=== PATIENT | male | born 1930 | race Caucasian/White ===

== ENCOUNTER 2016-08-28 14:48 | Inpatient (IN) | payer OTHER ==
[~2016-08-28] VITALS: Ht 180.3 cm; Wt 125.4 kg
[2016-08-28 16:30] VITALS: BP 147/68
[2016-08-28] MEDS ORDERED: 0.9 % SODIUM CHLORIDE 10 ML DISP.SYRIN. IV PRN (17:30)
[2016-08-28] MEDS ORDERED: INSULIN ASPART 300 UNITS/3 ML INSULN.PEN SQ ONE ×2 (17:45→18:45)
[2016-08-28] MEDS ORDERED: DOCU100C5 PO (17:50)
[2016-08-28] MEDS ORDERED: WARF1TAB7 PO ×2 (17:50)
[2016-08-28] MEDS ORDERED: INSU100V8 SQ (17:50)
[2016-08-28] MEDS ORDERED: ACET500T68 PO (17:50)
[2016-08-28] MEDS ORDERED: IPRA3AMP NEB (17:50)
[2016-08-28] MEDS ORDERED: BACI3.5O4 OP (17:50)
[2016-08-28] MEDS ORDERED: BUDE10.2 IH (17:50)
[2016-08-28] MEDS ORDERED: FINA5TAB4 PO (17:50)
[2016-08-28] MEDS ORDERED: ISOS20TA2 PO (17:50)
[2016-08-28] MEDS ORDERED: FURO40TA4 PO (17:50)
[2016-08-28] MEDS ORDERED: AMMO225L5 TP (17:50)
[2016-08-28] MEDS ORDERED: LOSA50TA6 PO (17:50)
[2016-08-28] MEDS ORDERED: DORZ10DR3 EACHEYE (17:50)
[2016-08-28] MEDS ORDERED: METO50TA2 PO (17:50)
[2016-08-28] MEDS ORDERED: CARB15DR3 EACHEYE (17:50)
[2016-08-28] MEDS ORDERED: ATOR20TA58 PO (17:50)
[2016-08-28] MEDS ORDERED: INSU100I17 SQ ×2 (17:50)
[2016-08-28] MEDS ORDERED: TAMS0.4C2 PO (17:50)
[2016-08-28] MEDS ORDERED: [UNRECOGNIZED DRUG - CODE] TP (17:50)
[2016-08-28] MEDS ORDERED: CHOL20004 PO (17:50)
[2016-08-28] MEDS ORDERED: IMIQ1CRE TP (17:50)
[2016-08-28] MEDS ORDERED: TRAV5DRO EACHEYE (17:50)
[2016-08-28] MEDS ORDERED: IODOQUINOL TP PRN (18:30)
[2016-08-28] MEDS ORDERED: BACITRACIN/POLYMYXIN B OPHTH OINTMENT 3.5GM TUBE. OD PRN (18:30)
[2016-08-28] MEDS ORDERED: HYDROCORTISONE TP PRN (18:30)
[2016-08-28] MEDS ORDERED: ACETAMINOPHEN 500 MG TABLET PO PRN (18:30)
[2016-08-28] MEDS ORDERED: AMMONIUM LACTATE 12% TP PRN (18:30)
[2016-08-28] MEDS ORDERED: INSULIN ASPART 300 UNITS/3 ML INSULN.PEN SQ SCH ×2 (18:45→21:00)
[2016-08-28] MEDS: INSULIN ASPART 300 UNITS/3 ML INSULN.PEN SQ SCH (18:45)
[2016-08-28] MEDS ORDERED: DEXTROSE 50% 25 GM / 50ML DISP.SYRIN. IV PRN (18:45)
--- NOTE | 2016-08-28 18:52 | PDOC1 ---
History and Physical Date of Admission Date of Admission DATE: 08/28/16 TIME: 18:42 Identification/Chief Complaint Chief Complaint toe ulcer Source Source: Chart review, Patient History of Present Illness History of Present Illness pt transferred from [facility] today, sent by podiatry for eval, prior known toe ulcers that have been seen by wound care, and have worsened, with poor potential to heal toe with poor cap refill and more blue in hue, cool to touch. Toe ulcer on left great toe that would appear to extend to osteo by photos. KATY has worsened on left to 0.5 ulcer on base of right toe appears to be healing no worsening LE edema, and he feels he has been getting around well Past Medical History Cardiovascular: AFIB, CAD, CHF, HTN Pulmonary: COPD Hepatobiliary: No pertinent hx Musculoskeletal: low back pain Rheumatologic: No pertinent hx ENT: No pertinent hx Renal/: Benign prostatic enlarg. Endocrine: Diabetes Family History Family History lives with his ex- currently Social History Smoke: No ALCOHOL: none Drugs: None Current Medications Current Medications Current Medications Sodium Chloride (Normal Saline Flush) 3 ml PRN DAILY PRN IV AFTER MEDS AND BLOOD DRAWS; Start 08/28/16 at 17:30 Insulin Aspart (Novolog) 15 units 1X ONCE SQ Last administered on 08/28/16t 18: 12; Start 08/28/16 at 17:45; Stop 08/28/16 at 17:46; Status DC Active Scripts Active Reported Docusate Sodium 100 Mg Capsule 1 Cap PO BID Acetaminophen 500 Mg Tablet 1 Tab PO PRN DAILY PRN Novolog Flexpen (Insulin Aspart) 100 Unit/1 Ml Insuln.pen 28 Unit SQ DAILYWSUP Novolog Flexpen (Insulin Aspart) 100 Unit/1 Ml Insuln.pen 10 Unit SQ Warfarin Sodium 1 Mg Tablet 1 Mg PO WEEKLY Warfarin Sodium 1 Mg Tablet 1 Mg PO DAILY Travatan Z (Travoprost) 5 Ml Drops 1 Drop EACHEYE QHS Tamsulosin Hcl 0.4 Mg Cap.er.24h 2 Cap PO DAILY Metoprolol Tartrate 50 Mg Tablet 1 Tab PO BID Losartan Potassium 50 Mg Tablet 50 Mg PO DAILY Isosorbide Mononitrate 20 Mg Tablet 30 Mg PO DAILY Lantus (Insulin Glargine,Hum.rec.anlog) 100 Unit/1 Ml Vial 72 Unit SQ HS Imiquimod 1 Each Cream.pack 1 Each TP 3X/WEEK Hydrocortisone-Iodoquinol Crm (Hydrocortisone/Iodoquinol) 28.4 Gm Cream..g. 28.4 Gm TP PRN BID PRN Furosemide 40 Mg Tablet 1 Tab PO DAILY Finasteride 5 Mg Tablet 1 Tab PO DAILY Dorzolamide Hcl 10 Ml Drops 1 Drop EACHEYE TID Vitamin D-3 (Cholecalciferol (Vitamin D3)) 2,000 Unit Capsule 1,000 Unit PO DAILY Refresh Optive Eye Drops (Carboxymethylcellulos/Glycerin) 15 Ml Drops 1 Drop EACHEYE QID Symbicort 160-4.5 Mcg Inhaler (Budesonide/Formoterol Fumarate) 10.2 Gm Hfa.aer.ad 2 Puff IH BID Bacitracin-Polymyxin Eye Oint (Bacitracin/Polymyxin B Sulfate) 3.5 Gm Oint...g. 3.5 Gm OP PRN DAILY PRN Atorvastatin Calcium 20 Mg Tablet 20 Mg PO HS Ammonium Lactate 225 Gm Lotion 225 Gm TP HS PRN Duoneb 0.5-3(2.5) Mg/3 Ml (Albuterol/Ipratropium) 3 Ml Ampul.neb 3 Ml NEB QID Allergies Allergies: Coded Allergies: beclomethasone (Verified Allergy, Unknown, 08/28/16) latanoprost (Verified Allergy, Unknown, 08/28/16) lisinopril (Verified Allergy, Unknown, 08/28/16) lovastatin (Verified Allergy, Unknown, 08/28/16) niacin (Verified Allergy, Unknown, 08/28/16) oxaprozin (Verified Allergy, Unknown, 08/28/16) sertraline (Verified Allergy, Unknown, 08/28/16) simvastatin (Verified Allergy, Unknown, 08/28/16) ROS General: YES: Fatigue, No: Appetite, Chills, Malaise, Night Sweats, Other PSYCHOLOGICAL ROS: No: Anxiety, Behavioral Disorder, Concentration difficultie , Decreased libido, Depression, Disorientation, Hallucinations, Hostility, Irritablity, Memory difficulties, Mood Swings, Obsessive thoughts, Other, Physical abuse, Sexual abuse, Sleep disturbances, Suicidal ideation Eyes: No Blurry vision, No Decreased vision, No Double vision, No Dry eyes, No Excessive tearing, No Eye Pain, No Itchy Eyes, No Loss of vision, No Other, No Photophobia, No Scotomata, No Uses contacts, No Uses glasses HEENT: YES: Heacaches, No: Epistaxis, Hearing change, Nasal congestion, Nasal discharge, Oral lesions, Other, Sinus pain, Sneezing, Snoring, Sore Throat, Tinnitus, Vertigo, Visual Changes, Vocal changes Respiratory: No: Cough, Hemoptysis, Orthopnea, Other, Pleuritic Pain, SOB with excertion, Shortness of breath, Sputum Changes, Stridor, Tachypnea, Wheezing Cardiovascular: No Chest Pain, No Edema, No Lt Headedness, No Orthopnea, No Other, No Palpitations, No Paroxysmal Noc. Dyspnea Gastrointestinal: Yes Nausea, No Abdominal Pain, No Constipation, No Diarrhea, No Hematochezia, No Melena, No Other, No Vomiting Genitourinary: No , No , No , No , No , No , No , No Discharge, No Dysuria, No Flank Pain, No Frequency, No Hematuria, No Incontinence, No Other, No Pain, No Retention, No Urgency Musculoskeletal: Yes Joint Pain, Yes Joint Stiffness, Yes Other (walks with cane, "OK"), No Gait Disturbance, No Joint Swelling, No Muscle Pain, No Muscular Weakness , No Pain In:, No Swelling In: Neurological: No Behavorial Changes, No Bowel/Bladder ControlChng, No Confusion , No Dizziness, No Gait Disturbance, No Headaches, No Impaired Coord/balance, No Memory Loss, No Numbness/Tingling, No Other, No Seizures, No Speech Problems , No Tremors, No Visual Changes, No Weakness Skin: No Acne, No Dry Skin, No Eczema, No Hair Changes, No Lumps, No Mole Changes, No Mottling, No Nail Changes, No Other, No Pruritus, No Rash, No Skin Lesion Changes Physical Exam General: Alert, Cooperative, No acute distress HEENT: Atraumatic, PERRLA, EOMI Lungs: Clear to auscultation, Other (limited vol) Abdomen: Normal bowel sounds, Soft (obese) Rectal Exam: not examined Extremities: Normal pulses, Other (chronic sclerosis of skin pretibial, 1+ edema, ) Neuro: Normal speech, Normal tone, Other (diminished sensation to toes, ) Psych/Mental Status: Mental status NL, Mood NL Vitals Vitals Vital Signs Date Time Temp Pulse Resp B/P Pulse Ox O2 Delivery O2 Flow Rate FiO2 08/28/16 16:30 99.5 77 16 147/68 95 Room Air 99.5 Labs Labs Laboratory Tests Test 08/28/16 16:46 08/28/16 18:34 Glucose (Fingerstick) 449mg/dL (70-99) 455mg/dL (70-99) Laboratory Tests Test 08/28/16 16:46 08/28/16 18:34 Glucose (Fingerstick) 449mg/dL (70-99) 455mg/dL (70-99) VTE Prophylaxis Ordered VTE Prophylaxis Devices: No VTE Pharmacological Prophylaxi: Yes (on coumadin on admit, will hold) Assessment/Plan Assessment/Plan DM2 ulcer left great toe, osteomyelitis sent to ER at [facility] by Podiatry, vascular compromise precludes toe amputation, ability to heal KATY done there was 0.5 both sides per verbal report CHF, chronic stable diastolic, cont b-júnior and ARB afib, Dm2, very poor control FSBS 400 range, increase insulin, additional dose, add SSI, will follow obesity, BMI 37 COPD, stable, nebs BPH, finasteride, flomax CKD 3-4, 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 labs pending CHRISTAL CHOI MD Aug 28, 2016 18:52
[2016-08-28 19:00] VITALS: BP 131/50
--- NOTE | 2016-08-28 19:04 | PDOC2 ---
CONSULT Date of Consult Date of Consult DATE: 08/28/16 TIME: 18:57 Past Medical History Cardiovascular: AFIB, CAD, CHF, HTN Pulmonary: COPD Hepatobiliary: No pertinent hx Musculoskeletal: low back pain Rheumatologic: No pertinent hx ENT: No pertinent hx Renal/: Benign prostatic enlarg. Endocrine: Diabetes Social History No ALCOHOL: none Drugs: None Current Medications Current Medications Current Medications Sodium Chloride (Normal Saline Flush) 3 ml PRN DAILY PRN IV AFTER MEDS AND BLOOD DRAWS; Start 08/28/16 at 17:30 Insulin Aspart (Novolog) 15 units 1X ONCE SQ Last administered on 08/28/16t 18: 12; Start 08/28/16 at 17:45; Stop 08/28/16 at 17:46; Status DC Acetaminophen (Tylenol) 500 mg PRN DAILY PRN PO PAIN; Start 08/28/16 at 18:30 Lactic Acid (Lac-Hydrin) 1 monica PRN QHS PRN TP DRY SKIN; Start 08/28/16 at 18:30 Atorvastatin Calcium (Lipitor) 20 mg HS PO ; Start 08/28/16 at 21:00 Bacitracin/ Polymyxin B Sulfate (Polysporin Ophth) 1 inch PRN DAILY PRN OD BLEPHARITIS; Start 08/28/16 at 18:30 Docusate Sodium (Colace) 100 mg BID PO ; Start 08/28/16 at 21:00 Dorzolamide HCl (Trusopt) 1 drop TID OU ; Start 08/28/16 at 21:00 Finasteride (Proscar) 5 mg DAILY PO ; Start 08/29/16 at 09:00 Furosemide (Lasix) 40 mg DAILY PO ; Start 08/29/16 at 09:00 Insulin Aspart (Novolog) 10 units TID SQ ; Start 08/28/16 at 21:00; Stop 08/28/16 at 21:00; Status DC Insulin Aspart (Novolog) 28 units DAILYWSUP SQ ; Start 08/28/16 at 18:45; Stop at 18:45; Status DC Albuterol/ Ipratropium (Duoneb) 3 ml RTQID NEB ; Start 08/28/16 at 20:00 Isosorbide Mononitrate (Imdur) 30 mg DAILY PO ; Start 08/29/16 at 09:00 Losartan Potassium (Cozaar) 50 mg DAILY PO ; Start 08/29/16 at 09:00 Metoprolol Tartrate (Lopressor) 50 mg BID PO ; Start 08/28/16 at 21:00 Tamsulosin HCl (Flomax) 0.4 mg DAILY PO ; Start 08/29/16 at 09:00 Budesonide (Pulmicort) 0.5 mg RTBID NEB ; Start 08/28/16 at 20:00 Artificial Tears (Artificial Tears) 1 drop QID OU ; Start 08/28/16 at 21:00 Vitamin D (Vitamin D3) 1,000 unit DAILY PO ; Start 08/29/16 at 09:00 Non-Formulary Medication 28.4 gm PRN BID PRN TP INTERTRIGO; Start 08/28/16 at 18 :30; Status UNV Non-Formulary Medication 72 unit HS SQ ; Start 08/28/16 at 21:00; Stop 08/28/16 at 21:00; Status DC Non-Formulary Medication 1 drop QHS EACHEYE ; Start 08/28/16 at 21:00; Status UNV Insulin Aspart (Novolog) 16 units TIDWMEALS SQ ; Start 08/29/16 at 08:00; Stop at 08:00; Status DC Insulin Aspart (Novolog) 0-9 UNITS TIDWMEALS SQ ; Start 08/28/16 at 18:45 Dextrose 12.5 gm PRN Q15MIN PRN IV SEE COMMENTS; Start 08/28/16 at 18:45 Insulin Aspart (Novolog) 26 units 1X ONCE SQ Last administered on 08/28/16t 18: 47; Start 08/28/16 at 18:45; Stop 08/28/16 at 18:46; Status DC Insulin Detemir (Levemir) 72 units QHS SQ ; Start 08/28/16 at 21:00 Insulin Aspart (Novolog) 20 units TIDWMEALS SQ ; Start 08/29/16 at 08:00 Albuterol/ Ipratropium (Duoneb) 3 ml RTQID NEB ; Start 08/28/16 at 20:00; Stop at 20:00; Status DC Budesonide (Pulmicort) 0.5 mg RTBID NEB ; Start 08/28/16 at 20:00; Stop 08/28/16 at 20:00; Status DC Active Scripts Active Reported Docusate Sodium 100 Mg Capsule 1 Cap PO BID Acetaminophen 500 Mg Tablet 1 Tab PO PRN DAILY PRN Novolog Flexpen (Insulin Aspart) 100 Unit/1 Ml Insuln.pen 28 Unit SQ DAILYWSUP Novolog Flexpen (Insulin Aspart) 100 Unit/1 Ml Insuln.pen 10 Unit SQ Warfarin Sodium 1 Mg Tablet 1 Mg PO WEEKLY Warfarin Sodium 1 Mg Tablet 1 Mg PO DAILY Travatan Z (Travoprost) 5 Ml Drops 1 Drop EACHEYE QHS Tamsulosin Hcl 0.4 Mg Cap.er.24h 2 Cap PO DAILY Metoprolol Tartrate 50 Mg Tablet 1 Tab PO BID Losartan Potassium 50 Mg Tablet 50 Mg PO DAILY Isosorbide Mononitrate 20 Mg Tablet 30 Mg PO DAILY Lantus (Insulin Glargine,Hum.rec.anlog) 100 Unit/1 Ml Vial 72 Unit SQ HS Imiquimod 1 Each Cream.pack 1 Each TP 3X/WEEK Hydrocortisone-Iodoquinol Crm (Hydrocortisone/Iodoquinol) 28.4 Gm Cream..g. 28.4 Gm TP PRN BID PRN Furosemide 40 Mg Tablet 1 Tab PO DAILY Finasteride 5 Mg Tablet 1 Tab PO DAILY Dorzolamide Hcl 10 Ml Drops 1 Drop EACHEYE TID Vitamin D-3 (Cholecalciferol (Vitamin D3)) 2,000 Unit Capsule 1,000 Unit PO DAILY Refresh Optive Eye Drops (Carboxymethylcellulos/Glycerin) 15 Ml Drops 1 Drop EACHEYE QID Symbicort 160-4.5 Mcg Inhaler (Budesonide/Formoterol Fumarate) 10.2 Gm Hfa.aer.ad 2 Puff IH BID Bacitracin-Polymyxin Eye Oint (Bacitracin/Polymyxin B Sulfate) 3.5 Gm Oint...g. 3.5 Gm OP PRN DAILY PRN Atorvastatin Calcium 20 Mg Tablet 20 Mg PO HS Ammonium Lactate 225 Gm Lotion 225 Gm TP HS PRN Duoneb 0.5-3(2.5) Mg/3 Ml (Albuterol/Ipratropium) 3 Ml Ampul.neb 3 Ml NEB QID Allergies Allergies: Coded Allergies: beclomethasone (Verified Allergy, Unknown, 08/28/16) latanoprost (Verified Allergy, Unknown, 08/28/16) lisinopril (Verified Allergy, Unknown, 08/28/16) lovastatin (Verified Allergy, Unknown, 08/28/16) niacin (Verified Allergy, Unknown, 08/28/16) oxaprozin (Verified Allergy, Unknown, 08/28/16) sertraline (Verified Allergy, Unknown, 08/28/16) simvastatin (Verified Allergy, Unknown, 08/28/16) Vitals VITALS Vital Signs Date Time Temp Pulse Resp B/P Pulse Ox O2 Delivery O2 Flow Rate FiO2 08/28/16 16:30 99.5 77 16 147/68 95 Room Air 99.5 Labs Labs Laboratory Tests Test 08/28/16 16:46 08/28/16 18:34 Glucose (Fingerstick) 449mg/dL (70-99) 455mg/dL (70-99) Laboratory Tests Test 08/28/16 16:46 08/28/16 18:34 Glucose (Fingerstick) 449mg/dL (70-99) 455mg/dL (70-99) Assessment/Plan Assessment/Plan Vascular consult to be dictated Imp: 1. osteomyelitis left great toe, 2 week hx of nonhealing ulceration now with worsening erythema 2. DM 3. chronic renal insufficiency, Cr 2.1 4. arterial insufficiency both lower extremities Rec: 1. IV antibx per infectious disease 2. nephrology consult 3. aortogram with runoff, CO2, bilateral when able, possible percutaneous intervention 4. will need ray amp right great toe following revascularization. Discussed plan with pt and family. KSENIA VARGAS II, MD Aug 28, 2016 19:03
[2016-08-28 19:30] LABS: BASO # 0.1 x10^3/uL (0.0-0.2); BASO % 1 % (0-3); EOS % 0 % (0-3); HEMATOCRIT 42.2 % (39.0-53.0); HEMOGLOBIN 13.6 g/dL (13.0-17.5); LYMPH # 0.7 x10^3/uL (1.0-4.8); LYMPH % 8 % (24-48); MEAN CORPUSCULAR HEMOGLOBIN 29 pg (25-35); MEAN CORPUSCULAR HGB CONC 32 g/dL (31-37); MEAN CORPUSCULAR VOLUME 89 fL (79-100); MONO % 14 % (0-9); NEUT % 78 % (31-73); PLATELET COUNT 191 x10^3/uL (140-400); RED BLOOD COUNT 4.73 x10^6/uL (4.30-5.70); RED CELL DISTRIBUTION WIDTH 15.5 % (11.5-14.5); WHITE BLOOD COUNT 8.9 x10^3/uL (4.0-11.0)
[2016-08-28 19:39] LABS: INR 2.3 (0.8-1.1); PROTHROMBIN TIME PATIENT 24.1 SEC (11.7-14.0)
[2016-08-28 19:47] LABS: ALBUMIN 2.5 g/dL (3.4-5.0); ALBUMIN/GLOBULIN RATIO 0.5 (1.0-1.7); CREATININE 2.1 mg/dL (0.7-1.3); GFR 30.1; POTASSIUM 4.4 mmol/L (3.5-5.1); TOTAL BILIRUBIN 0.7 mg/dL (0.2-1.0); TOTAL PROTEIN 7.1 g/dL (6.4-8.2)
[2016-08-28] MEDS ORDERED: BUDESONIDE 0.5 MG/2 ML NEBU NEB SCH (20:00)
[2016-08-28] MEDS ORDERED: IPRATRPIUM/ALBUTEROL 0.5/2.5MG 3 ML NEBU. NEB SCH (20:00)
[2016-08-28] MEDS: BUDESONIDE 0.5 MG/2 ML NEBU NEB SCH (20:18)
[2016-08-28] MEDS: IPRATRPIUM/ALBUTEROL 0.5/2.5MG 3 ML NEBU. NEB SCH (20:18)
--- NOTE | 2016-08-28 20:23 | PDOC2 ---
CONSULT Date of Consult Date of Consult DATE: 08/28/16 TIME: 20:13 Reason for Consult Reason for Consult: Atrial fibrillation Referring Physician Referring Physician: Dr. Reeves Identification/Chief Complaint Chief Complaint Infected toe History of Present Illness Reason for Visit: This patient is an 86-year-old gentleman that has a known history of paroxysmal atrial fibrillation, coronary artery disease, bradycardia, status post pacemaker , CHF, COPD. He has been having chronic leg edema for over 3 years this has been getting worse. The patient was seen at the [facility] due to an acute infection of a toe. When he was evaluated there he was then transferred here for further care. Here he is being evaluated by infectious disease, nephrology, vascular surgery. The patient is in atrial fibrillation and denies having any significant cardiac complaints at this time. He was found to have an ischemic infected toe and is being evaluated for possible amputation but due to the poor circulation to the affected he needs further vascular evaluation to decide as to where the amputation is going to take place with regards to an area that would be able to heal. The patient denies having any chest pains, denies having any palpitations, denies having any syncope. He is very weak and requires a cane to walk. The patient states that he has a [employer] pacemaker. Past Medical History Cardiovascular: AFIB, CAD, CHF, HTN Pulmonary: COPD Hepatobiliary: No pertinent hx Musculoskeletal: low back pain Rheumatologic: No pertinent hx ENT: No pertinent hx Renal/: Benign prostatic enlarg. Endocrine: Diabetes Social History No ALCOHOL: none Drugs: None Current Medications Current Medications Current Medications Sodium Chloride (Normal Saline Flush) 3 ml PRN DAILY PRN IV AFTER MEDS AND BLOOD DRAWS; Start 08/28/16 at 17:30 Insulin Aspart (Novolog) 15 units 1X ONCE SQ Last administered on 08/28/16t 18: 12; Start 08/28/16 at 17:45; Stop 08/28/16 at 17:46; Status DC Acetaminophen (Tylenol) 500 mg PRN DAILY PRN PO PAIN; Start 08/28/16 at 18:30 Lactic Acid (Lac-Hydrin) 1 monica PRN QHS PRN TP DRY SKIN; Start 08/28/16 at 18:30 Atorvastatin Calcium (Lipitor) 20 mg HS PO ; Start 08/28/16 at 21:00 Bacitracin/ Polymyxin B Sulfate (Polysporin Ophth) 1 inch PRN DAILY PRN OD BLEPHARITIS; Start 08/28/16 at 18:30 Docusate Sodium (Colace) 100 mg BID PO ; Start 08/28/16 at 21:00 Dorzolamide HCl (Trusopt) 1 drop TID OU ; Start 08/28/16 at 21:00 Finasteride (Proscar) 5 mg DAILY PO ; Start 08/29/16 at 09:00 Furosemide (Lasix) 40 mg DAILY PO ; Start 08/29/16 at 09:00 Insulin Aspart (Novolog) 10 units TID SQ ; Start 08/28/16 at 21:00; Stop 08/28/16 at 21:00; Status DC Insulin Aspart (Novolog) 28 units DAILYWSUP SQ ; Start 08/28/16 at 18:45; Stop at 18:45; Status DC Albuterol/ Ipratropium (Duoneb) 3 ml RTQID NEB ; Start 08/28/16 at 20:00 Isosorbide Mononitrate (Imdur) 30 mg DAILY PO ; Start 08/29/16 at 09:00 Losartan Potassium (Cozaar) 50 mg DAILY PO ; Start 08/29/16 at 09:00 Metoprolol Tartrate (Lopressor) 50 mg BID PO ; Start 08/28/16 at 21:00 Tamsulosin HCl (Flomax) 0.4 mg DAILY PO ; Start 08/29/16 at 09:00 Budesonide (Pulmicort) 0.5 mg RTBID NEB ; Start 08/28/16 at 20:00 Artificial Tears (Artificial Tears) 1 drop QID OU ; Start 08/28/16 at 21:00 Vitamin D (Vitamin D3) 1,000 unit DAILY PO ; Start 08/29/16 at 09:00 Non-Formulary Medication 28.4 gm PRN BID PRN TP INTERTRIGO; Start 08/28/16 at 18 :30; Status UNV Non-Formulary Medication 72 unit HS SQ ; Start 08/28/16 at 21:00; Stop 08/28/16 at 21:00; Status DC Non-Formulary Medication 1 drop QHS EACHEYE ; Start 08/28/16 at 21:00; Status UNV Insulin Aspart (Novolog) 16 units TIDWMEALS SQ ; Start 08/29/16 at 08:00; Stop at 08:00; Status DC Insulin Aspart (Novolog) 0-9 UNITS TIDWMEALS SQ ; Start 08/28/16 at 18:45 Dextrose 12.5 gm PRN Q15MIN PRN IV SEE COMMENTS; Start 08/28/16 at 18:45 Insulin Aspart (Novolog) 26 units 1X ONCE SQ Last administered on 08/28/16t 18: 47; Start 08/28/16 at 18:45; Stop 08/28/16 at 18:46; Status DC Insulin Detemir (Levemir) 72 units QHS SQ ; Start 08/28/16 at 21:00 Insulin Aspart (Novolog) 20 units TIDWMEALS SQ ; Start 08/29/16 at 08:00 Albuterol/ Ipratropium (Duoneb) 3 ml RTQID NEB ; Start 08/28/16 at 20:00; Stop at 20:00; Status DC Budesonide 0.5 mg 0.5 mg RTBID NEB ; Start 08/28/16 at 20:00; Stop 08/28/16 at 20: 00; Status DC Linezolid 300 ml @ 300 mls/hr Q12HR IV ; Start 08/28/16 at 21:00 Piperacillin Sod/ Tazobactam Sod 2.25 gm/Sodium Chloride 50 ml @ 100 mls/hr Q6HRS IV ; Start 08/29/16 at 20:00; Stop 08/29/16 at 20:00; Status DC Micafungin Sodium 100 mg/Dextrose 100 ml @ 100 mls/hr Q24H IV ; Start 08/28/16 at 22:00 Piperacillin Sod/ Tazobactam Sod/ Sodium Chloride (Zosyn/Iv Sodium Chloride 0.9 % 50ml) 50 ml @ 100 mls/hr Q6HRS IV ; Start 08/28/16 at 20:00 Active Scripts Active Reported Docusate Sodium 100 Mg Capsule 1 Cap PO BID Acetaminophen 500 Mg Tablet 1 Tab PO PRN DAILY PRN Novolog Flexpen (Insulin Aspart) 100 Unit/1 Ml Insuln.pen 28 Unit SQ DAILYWSUP Novolog Flexpen (Insulin Aspart) 100 Unit/1 Ml Insuln.pen 10 Unit SQ Warfarin Sodium 1 Mg Tablet 1 Mg PO WEEKLY Warfarin Sodium 1 Mg Tablet 1 Mg PO DAILY Travatan Z (Travoprost) 5 Ml Drops 1 Drop EACHEYE QHS Tamsulosin Hcl 0.4 Mg Cap.er.24h 2 Cap PO DAILY Metoprolol Tartrate 50 Mg Tablet 1 Tab PO BID Losartan Potassium 50 Mg Tablet 50 Mg PO DAILY Isosorbide Mononitrate 20 Mg Tablet 30 Mg PO DAILY Lantus (Insulin Glargine,Hum.rec.anlog) 100 Unit/1 Ml Vial 72 Unit SQ HS Imiquimod 1 Each Cream.pack 1 Each TP 3X/WEEK Hydrocortisone-Iodoquinol Crm (Hydrocortisone/Iodoquinol) 28.4 Gm Cream..g. 28.4 Gm TP PRN BID PRN Furosemide 40 Mg Tablet 1 Tab PO DAILY Finasteride 5 Mg Tablet 1 Tab PO DAILY Dorzolamide Hcl 10 Ml Drops 1 Drop EACHEYE TID Vitamin D-3 (Cholecalciferol (Vitamin D3)) 2,000 Unit Capsule 1,000 Unit PO DAILY Refresh Optive Eye Drops (Carboxymethylcellulos/Glycerin) 15 Ml Drops 1 Drop EACHEYE QID Symbicort 160-4.5 Mcg Inhaler (Budesonide/Formoterol Fumarate) 10.2 Gm Hfa.aer.ad 2 Puff IH BID Bacitracin-Polymyxin Eye Oint (Bacitracin/Polymyxin B Sulfate) 3.5 Gm Oint...g. 3.5 Gm OP PRN DAILY PRN Atorvastatin Calcium 20 Mg Tablet 20 Mg PO HS Ammonium Lactate 225 Gm Lotion 225 Gm TP HS PRN Duoneb 0.5-3(2.5) Mg/3 Ml (Albuterol/Ipratropium) 3 Ml Ampul.neb 3 Ml NEB QID Allergies Allergies: Coded Allergies: beclomethasone (Verified Allergy, Unknown, 08/28/16) latanoprost (Verified Allergy, Unknown, 08/28/16) lisinopril (Verified Allergy, Unknown, 08/28/16) lovastatin (Verified Allergy, Unknown, 08/28/16) niacin (Verified Allergy, Unknown, 08/28/16) oxaprozin (Verified Allergy, Unknown, 08/28/16) sertraline (Verified Allergy, Unknown, 08/28/16) simvastatin (Verified Allergy, Unknown, 08/28/16) Physical Exam Physical Exam This is an elderly gentleman that is not in acute distress at the time that I examined him. H EENT pupils are reactive, poor dentition. Neck is supple no JVD. Lungs are clear but breath sounds are decreased. Heart irregularly irregular S1-S2. Abdomen is protuberant but soft bowel sounds are present. Extremities there is advanced chronic stasis changes of both legs the right leg worse than the left leg and his get a dressing over the toe area. Vitals VITALS Vital Signs Date Time Temp Pulse Resp B/P Pulse Ox O2 Delivery O2 Flow Rate FiO2 08/28/16 16:30 99.5 77 16 147/68 95 Room Air 99.5 Labs Labs Laboratory Tests Test 08/28/16 16:46 08/28/16 18:34 08/28/16 18:55 Glucose (Fingerstick) 449mg/dL (70-99) 455mg/dL (70-99) White Blood Count 8.9x10^3/uL (4.0-11.0) Red Blood Count 4.73x10^6/uL (4.30-5.70) Hemoglobin 13.6g/dL (13.0-17.5) Hematocrit 42.2% (39.0-53.0) Mean Corpuscular Volume 89fL (79-100) Mean Corpuscular Hemoglobin 29pg (25-35) Mean Corpuscular Hemoglobin Concent 32g/dL (31-37) Red Cell Distribution Width 15.5% (11.5-14.5) Platelet Count 191x10^3/uL (140-400) Neutrophils (%) (Auto) 78% (31-73) Lymphocytes (%) (Auto) 8% (24-48) Monocytes (%) (Auto) 14% (0-9) Eosinophils (%) (Auto) 0% (0-3) Basophils (%) (Auto) 1% (0-3) Neutrophils # (Auto) 7.0x10^3uL (1.8-7.7) Lymphocytes # (Auto) 0.7x10^3/uL (1.0-4.8) Monocytes # (Auto) 1.2x10^3/uL (0.0-1.1) Eosinophils # (Auto) 0.0x10^3/uL (0.0-0.7) Basophils # (Auto) 0.1x10^3/uL (0.0-0.2) Prothrombin Time 24.1SEC (11.7-14.0) Prothromb Time International Ratio 2.3 (0.8-1.1) Sodium Level 135mmol/L (136-145) Potassium Level 4.4mmol/L (3.5-5.1) Chloride Level 97mmol/L (98-107) Carbon Dioxide Level 31mmol/L (21-32) Anion Gap 7 (6-14) Blood Urea Nitrogen 47mg/dL (8-26) Creatinine 2.1mg/dL (0.7-1.3) Estimated GFR (Cockcroft-Gault) 30.1 BUN/Creatinine Ratio 22 (6-20) Glucose Level 476mg/dL (70-99) Calcium Level 9.0mg/dL (8.5-10.1) Total Bilirubin 0.7mg/dL (0.2-1.0) Aspartate Amino Transf (AST/SGOT) 24U/L (15-37) Alanine Aminotransferase (ALT/SGPT) 22U/L (16-63) Alkaline Phosphatase 90U/L (46-116) Total Protein 7.1g/dL (6.4-8.2) Albumin 2.5g/dL (3.4-5.0) Albumin/Globulin Ratio 0.5 (1.0-1.7) Laboratory Tests Test 08/28/16 16:46 08/28/16 18:34 08/28/16 18:55 Glucose (Fingerstick) 449mg/dL (70-99) 455mg/dL (70-99) White Blood Count 8.9x10^3/uL (4.0-11.0) Red Blood Count 4.73x10^6/uL (4.30-5.70) Hemoglobin 13.6g/dL (13.0-17.5) Hematocrit 42.2% (39.0-53.0) Mean Corpuscular Volume 89fL (79-100) Mean Corpuscular Hemoglobin 29pg (25-35) Mean Corpuscular Hemoglobin Concent 32g/dL (31-37) Red Cell Distribution Width 15.5% (11.5-14.5) Platelet Count 191x10^3/uL (140-400) Neutrophils (%) (Auto) 78% (31-73) Lymphocytes (%) (Auto) 8% (24-48) Monocytes (%) (Auto) 14% (0-9) Eosinophils (%) (Auto) 0% (0-3) Basophils (%) (Auto) 1% (0-3) Neutrophils # (Auto) 7.0x10^3uL (1.8-7.7) Lymphocytes # (Auto) 0.7x10^3/uL (1.0-4.8) Monocytes # (Auto) 1.2x10^3/uL (0.0-1.1) Eosinophils # (Auto) 0.0x10^3/uL (0.0-0.7) Basophils # (Auto) 0.1x10^3/uL (0.0-0.2) Prothrombin Time 24.1SEC (11.7-14.0) Prothromb Time International Ratio 2.3 (0.8-1.1) Sodium Level 135mmol/L (136-145) Potassium Level 4.4mmol/L (3.5-5.1) Chloride Level 97mmol/L (98-107) Carbon Dioxide Level 31mmol/L (21-32) Anion Gap 7 (6-14) Blood Urea Nitrogen 47mg/dL (8-26) Creatinine 2.1mg/dL (0.7-1.3) Estimated GFR (Cockcroft-Gault) 30.1 BUN/Creatinine Ratio 22 (6-20) Glucose Level 476mg/dL (70-99) Calcium Level 9.0mg/dL (8.5-10.1) Total Bilirubin 0.7mg/dL (0.2-1.0) Aspartate Amino Transf (AST/SGOT) 24U/L (15-37) Alanine Aminotransferase (ALT/SGPT) 22U/L (16-63) Alkaline Phosphatase 90U/L (46-116) Total Protein 7.1g/dL (6.4-8.2) Albumin 2.5g/dL (3.4-5.0) Albumin/Globulin Ratio 0.5 (1.0-1.7) Assessment/Plan Assessment/Plan This patient with a known history of paroxysmal atrial fibrillation that has chronic CHF comes in with an ischemic infected toe that we will need amputation. I agree with a vascular evaluation to determine the point of amputation at a site where that foot would heal. From a cardiac standpoint I would like to get an echocardiogram to evaluate the patient's left ventricular function and also I would like to evaluate the pacemaker both the function as well as the histogram to see what his rhythm has been doing. I have discussed this with the patient and the family that was present. Thank you very much for asking me to participate in the care of this patient JOCELINE JAIME MD Aug 28, 2016 20:23
[2016-08-28] MEDS: TRAVATAN Z EYE EACHEYE SCH (21:00)
[2016-08-28] MEDS ORDERED: INSULIN GLARGINE HUM REC ANLOG 72 UNIT SQ SCH (21:00)
[2016-08-28] MEDS: PIPERACILLIN/TAZOBACTAM 2.25 GM in IV NORMAL SALINE 50ML 50 ML IV SCH (21:01)
[2016-08-28] MEDS: DORZOLAMIDE 2% OPHTH SOLUTION 10ML BOTTLE. OU SCH (21:02)
[2016-08-28] MEDS: POLYVINYL ALCOHOL 1.4% OPHTH SOLUTION 15ML BOTTLE. OU SCH (21:02)
[2016-08-28] MEDS: ATORVASTATIN CALCIUM 20 MG TABLET PO SCH (21:04)
[2016-08-28] MEDS: METOPROLOL TART IMMED RELEASE 50 MG TABLET PO SCH (21:04)
[2016-08-28] MEDS: DOCUSATE SODIUM 100 MG CAPSULE PO SCH (21:05)
[2016-08-28] MEDS: INSULIN DETEMIR 300 UNITS/3 ML INSULN.PEN. SQ SCH (21:13)
[2016-08-28] MEDS: MICAFUNGIN 100 MG in IV DEXTROSE 5% 100 ML IV SCH (22:07)
[2016-08-28 23:00] VITALS: BP 109/43
[2016-08-29 03:00] VITALS: BP 109/40
[2016-08-29] MEDS: PIPERACILLIN/TAZOBACTAM 2.25 GM in IV NORMAL SALINE 50ML 50 ML IV SCH ×3 (05:49→17:42)
[2016-08-29 07:00] VITALS: BP 134/53
[2016-08-29] MEDS: IPRATRPIUM/ALBUTEROL 0.5/2.5MG 3 ML NEBU. NEB SCH ×4 (07:17→19:42)
[2016-08-29] MEDS: BUDESONIDE 0.5 MG/2 ML NEBU NEB SCH ×2 (07:17→19:42)
--- NOTE | 2016-08-29 07:40 | PDOC ---
SURGICAL PROGRESS NOTE Vital Signs Vital Signs Date Time Temp Pulse Resp B/P Pulse Ox O2 Delivery O2 Flow Rate FiO2 08/29/16 07:15 99 Room Air 08/29/16 03:00 98.0 60 20 109/40 98.0 I&O Intake and Output 08/29/16 07:00 Intake Total 700 ml Output Total 600 ml Balance 100 ml Intake Oral 700 ml Output Urine Total 600 ml Labs Laboratory Tests Test 08/28/16 16:46 08/28/16 18:34 08/28/16 18:55 08/28/16 20:57 Glucose (Fingerstick) 449mg/dL (70-99) 455mg/dL (70-99) 288mg/dL (70-99) White Blood Count 8.9x10^3/uL (4.0-11.0) Red Blood Count 4.73x10^6/uL (4.30-5.70) Hemoglobin 13.6g/dL (13.0-17.5) Hematocrit 42.2% (39.0-53.0) Mean Corpuscular Volume 89fL (79-100) Mean Corpuscular Hemoglobin 29pg (25-35) Mean Corpuscular Hemoglobin Concent 32g/dL (31-37) Red Cell Distribution Width 15.5% (11.5-14.5) Platelet Count 191x10^3/uL (140-400) Neutrophils (%) (Auto) 78% (31-73) Lymphocytes (%) (Auto) 8% (24-48) Monocytes (%) (Auto) 14% (0-9) Eosinophils (%) (Auto) 0% (0-3) Basophils (%) (Auto) 1% (0-3) Neutrophils # (Auto) 7.0x10^3uL (1.8-7.7) Lymphocytes # (Auto) 0.7x10^3/uL (1.0-4.8) Monocytes # (Auto) 1.2x10^3/uL (0.0-1.1) Eosinophils # (Auto) 0.0x10^3/uL (0.0-0.7) Basophils # (Auto) 0.1x10^3/uL (0.0-0.2) Erythrocyte Sedimentation Rate 34 (0-15) Prothrombin Time 24.1SEC (11.7-14.0) Prothromb Time International Ratio 2.3 (0.8-1.1) Sodium Level 135mmol/L (136-145) Potassium Level 4.4mmol/L (3.5-5.1) Chloride Level 97mmol/L (98-107) Carbon Dioxide Level 31mmol/L (21-32) Anion Gap 7 (6-14) Blood Urea Nitrogen 47mg/dL (8-26) Creatinine 2.1mg/dL (0.7-1.3) Estimated GFR (Cockcroft-Gault) 30.1 BUN/Creatinine Ratio 22 (6-20) Glucose Level 476mg/dL (70-99) Calcium Level 9.0mg/dL (8.5-10.1) Total Bilirubin 0.7mg/dL (0.2-1.0) Aspartate Amino Transf (AST/SGOT) 24U/L (15-37) Alanine Aminotransferase (ALT/SGPT) 22U/L (16-63) Alkaline Phosphatase 90U/L (46-116) Total Protein 7.1g/dL (6.4-8.2) Albumin 2.5g/dL (3.4-5.0) Albumin/Globulin Ratio 0.5 (1.0-1.7) Laboratory Tests Test 08/28/16 16:46 08/28/16 18:34 08/28/16 18:55 08/28/16 20:57 Glucose (Fingerstick) 449mg/dL (70-99) 455mg/dL (70-99) 288mg/dL (70-99) White Blood Count 8.9x10^3/uL (4.0-11.0) Red Blood Count 4.73x10^6/uL (4.30-5.70) Hemoglobin 13.6g/dL (13.0-17.5) Hematocrit 42.2% (39.0-53.0) Mean Corpuscular Volume 89fL (79-100) Mean Corpuscular Hemoglobin 29pg (25-35) Mean Corpuscular Hemoglobin Concent 32g/dL (31-37) Red Cell Distribution Width 15.5% (11.5-14.5) Platelet Count 191x10^3/uL (140-400) Neutrophils (%) (Auto) 78% (31-73) Lymphocytes (%) (Auto) 8% (24-48) Monocytes (%) (Auto) 14% (0-9) Eosinophils (%) (Auto) 0% (0-3) Basophils (%) (Auto) 1% (0-3) Neutrophils # (Auto) 7.0x10^3uL (1.8-7.7) Lymphocytes # (Auto) 0.7x10^3/uL (1.0-4.8) Monocytes # (Auto) 1.2x10^3/uL (0.0-1.1) Eosinophils # (Auto) 0.0x10^3/uL (0.0-0.7) Basophils # (Auto) 0.1x10^3/uL (0.0-0.2) Erythrocyte Sedimentation Rate 34 (0-15) Prothrombin Time 24.1SEC (11.7-14.0) Prothromb Time International Ratio 2.3 (0.8-1.1) Sodium Level 135mmol/L (136-145) Potassium Level 4.4mmol/L (3.5-5.1) Chloride Level 97mmol/L (98-107) Carbon Dioxide Level 31mmol/L (21-32) Anion Gap 7 (6-14) Blood Urea Nitrogen 47mg/dL (8-26) Creatinine 2.1mg/dL (0.7-1.3) Estimated GFR (Cockcroft-Gault) 30.1 BUN/Creatinine Ratio 22 (6-20) Glucose Level 476mg/dL (70-99) Calcium Level 9.0mg/dL (8.5-10.1) Total Bilirubin 0.7mg/dL (0.2-1.0) Aspartate Amino Transf (AST/SGOT) 24U/L (15-37) Alanine Aminotransferase (ALT/SGPT) 22U/L (16-63) Alkaline Phosphatase 90U/L (46-116) Total Protein 7.1g/dL (6.4-8.2) Albumin 2.5g/dL (3.4-5.0) Albumin/Globulin Ratio 0.5 (1.0-1.7) Assessment/Plan Imp: no change from last night Plan: obtain arterial duplex exam of the left leg; if satisfactory, then proceed with open ray amputation of the left great toe with wound vac placement tomorrow. Discussed with patient. Problems: KSENIA VARGAS II, MD Aug 29, 2016 07:40
[2016-08-29] MEDS ORDERED: INSULIN ASPART 300 UNITS/3 ML INSULN.PEN SQ SCH (08:00)
[2016-08-29] MEDS: INSULIN ASPART 300 UNITS/3 ML INSULN.PEN SQ SCH ×6 (08:00→17:50)
[2016-08-29] MEDS ORDERED: FUROSEMIDE 40 MG TABLET PO SCH (09:00)
[2016-08-29] MEDS ORDERED: SULFUR HEXAFLUORIDE MICROSPHR 25 MG VIAL. IVP ONE ×2 (09:49→10:15)
--- NOTE | 2016-08-29 10:25 | PDOC ---
Infectious Disease Note ROS ROS GEN: Denies fevers, chills, sweats HEENT: Denies blurred vision, sore throat CV: Denies chest pain RESP: Denies shortness of air, cough GI: Denies n/v/d NEURO: Denies confusion, dizziness MSK: Denies weakness, joint pain/swelling Vital Sign Vital Signs Vital Signs Date Time Temp Pulse Resp B/P Pulse Ox O2 Delivery O2 Flow Rate FiO2 08/29/16 07:45 Room Air 08/29/16 07:15 99 08/29/16 07:00 97.6 57 16 134/53 97.6 Physical Exam PHYSICAL EXAM GENERAL: NAD, Alert HEENT: PERRL, OC/OP NECK: Supple, no JVD, no LN LUNGS: Clear HEART: S1S2, no gallop, no murmur ABD: Soft, NT, no organomegaly, no rebound EXT: No edema, no cyanosis TESTING ANALYST: Alert, oriented x 3, no focal neurologic deficit SKIN: No rash IV: ok Labs Lab Laboratory Tests Test 08/28/16 16:46 08/28/16 18:34 08/28/16 18:55 08/28/16 20:57 Glucose (Fingerstick) 449mg/dL (70-99) 455mg/dL (70-99) 288mg/dL (70-99) White Blood Count 8.9x10^3/uL (4.0-11.0) Red Blood Count 4.73x10^6/uL (4.30-5.70) Hemoglobin 13.6g/dL (13.0-17.5) Hematocrit 42.2% (39.0-53.0) Mean Corpuscular Volume 89fL (79-100) Mean Corpuscular Hemoglobin 29pg (25-35) Mean Corpuscular Hemoglobin Concent 32g/dL (31-37) Red Cell Distribution Width 15.5% (11.5-14.5) Platelet Count 191x10^3/uL (140-400) Neutrophils (%) (Auto) 78% (31-73) Lymphocytes (%) (Auto) 8% (24-48) Monocytes (%) (Auto) 14% (0-9) Eosinophils (%) (Auto) 0% (0-3) Basophils (%) (Auto) 1% (0-3) Neutrophils # (Auto) 7.0x10^3uL (1.8-7.7) Lymphocytes # (Auto) 0.7x10^3/uL (1.0-4.8) Monocytes # (Auto) 1.2x10^3/uL (0.0-1.1) Eosinophils # (Auto) 0.0x10^3/uL (0.0-0.7) Basophils # (Auto) 0.1x10^3/uL (0.0-0.2) Erythrocyte Sedimentation Rate 34 (0-15) Prothrombin Time 24.1SEC (11.7-14.0) Prothromb Time International Ratio 2.3 (0.8-1.1) Sodium Level 135mmol/L (136-145) Potassium Level 4.4mmol/L (3.5-5.1) Chloride Level 97mmol/L (98-107) Carbon Dioxide Level 31mmol/L (21-32) Anion Gap 7 (6-14) Blood Urea Nitrogen 47mg/dL (8-26) Creatinine 2.1mg/dL (0.7-1.3) Estimated GFR (Cockcroft-Gault) 30.1 BUN/Creatinine Ratio 22 (6-20) Glucose Level 476mg/dL (70-99) Calcium Level 9.0mg/dL (8.5-10.1) Total Bilirubin 0.7mg/dL (0.2-1.0) Aspartate Amino Transf (AST/SGOT) 24U/L (15-37) Alanine Aminotransferase (ALT/SGPT) 22U/L (16-63) Alkaline Phosphatase 90U/L (46-116) Total Protein 7.1g/dL (6.4-8.2) Albumin 2.5g/dL (3.4-5.0) Albumin/Globulin Ratio 0.5 (1.0-1.7) Objective Assessment Left great toe osteomyelitis PAD DM DAREK Afib Plan Plan of Care Started Zyvox/Zosyn/Micafungin 2/8 F/u labs and cults Await Further Vascular f/u Thank you # [id number] GIOVANA LOPEZ MD Aug 29, 2016 10:25
--- NOTE | 2016-08-29 11:32 | RAD ---
Clinical indications: Poor circulation. Decreased left pedal pulses. Findings: Duplex sonography of the peripheral arterial system of the left lower extremity including simon scale and color flow and spectral waveform analysis was performed. Biphasic waveforms are seen. There is an increase in end diastolic flow starting within the proximal left SFA. There is soft plaque formation present here which is nearing 50% visually on the grayscale images. More focally prominent elevation of peak systolic flow velocity measurement is seen measuring up to 192 cm/s. Therefore, this is consistent with a 40-50% stenosis. Peak systolic flow velocities are as follows: Left leg: common femoral artery- 162 cm/sec, profunda femoral artery -127 cm/sec, proximal superficial femoral artery- 192cm/sec, mid superficial femoral artery- 127 cm/sec, distal superficial femoral artery- 158 cm/sec, popliteal artery -105 cm/sec, distal posterior tibial artery -82 cm/sec, peroneal artery -86 cm/sec, anterior tibial artery -90 cm/sec, dorsalis pedis artery- 78 cm/sec. 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
[2016-08-29] MEDS: CHOLECALCIFEROL (VITAMIN D3) 1,000 UNIT TABLET PO SCH (11:57)
[2016-08-29] MEDS: ISOSORBIDE MONONITRATE ER 30 MG TAB.ER.24H PO SCH (11:57)
[2016-08-29] MEDS: TAMSULOSIN 0.4 MG CAP.ER.24H. PO SCH (11:57)
[2016-08-29] MEDS: POLYVINYL ALCOHOL 1.4% OPHTH SOLUTION 15ML BOTTLE. OU SCH ×4 (11:57→21:00)
[2016-08-29] MEDS: FINASTERIDE 5 MG TABLET PO SCH (11:57)
[2016-08-29] MEDS: METOPROLOL TART IMMED RELEASE 50 MG TABLET PO SCH ×2 (11:58→21:11)
[2016-08-29] MEDS: DORZOLAMIDE 2% OPHTH SOLUTION 10ML BOTTLE. OU SCH ×3 (11:58→21:00)
[2016-08-29] MEDS: DOCUSATE SODIUM 100 MG CAPSULE PO SCH ×2 (11:58→21:11)
[2016-08-29] MEDS: LOSARTAN POTASSIUM 50 MG TABLET. PO SCH (11:59)
--- NOTE | 2016-08-29 12:08 | PDOC ---
PROGRESS NOTES Chief Complaint Chief Complaint a/p Left great toe osteomyelitis PAD DM DAREK Paroxysmal Afib Plan IV ABX, ZOSYN AND ZYVOX, ID AND VASCULAR FOLLOWING SSI ECHO PENDING RENAL CONSULT LABS REVIEWED, SUPPORTIVE CARE History of Present Illness History of Present Illness NO FEVER NO CHILLS DOING BETTER. Vitals Vitals Vital Signs Date Time Temp Pulse Resp B/P Pulse Ox O2 Delivery O2 Flow Rate FiO2 08/29/16 11:36 99 Room Air 08/29/16 07:00 97.6 57 16 134/53 97.6 Physical Exam General: Alert, Cooperative, No acute distress Lungs: Clear Abdomen: Normal bowel sounds, Soft (obese) Extremities: Normal pulses, Other (chronic sclerosis of skin pretibial, 1+ edema, ) Labs LABS Laboratory Tests Test 08/28/16 16:46 08/28/16 18:34 08/28/16 18:55 08/28/16 20:57 Glucose (Fingerstick) 449mg/dL (70-99) 455mg/dL (70-99) 288mg/dL (70-99) White Blood Count 8.9x10^3/uL (4.0-11.0) Red Blood Count 4.73x10^6/uL (4.30-5.70) Hemoglobin 13.6g/dL (13.0-17.5) Hematocrit 42.2% (39.0-53.0) Mean Corpuscular Volume 89fL (79-100) Mean Corpuscular Hemoglobin 29pg (25-35) Mean Corpuscular Hemoglobin Concent 32g/dL (31-37) Red Cell Distribution Width 15.5% (11.5-14.5) Platelet Count 191x10^3/uL (140-400) Neutrophils (%) (Auto) 78% (31-73) Lymphocytes (%) (Auto) 8% (24-48) Monocytes (%) (Auto) 14% (0-9) Eosinophils (%) (Auto) 0% (0-3) Basophils (%) (Auto) 1% (0-3) Neutrophils # (Auto) 7.0x10^3uL (1.8-7.7) Lymphocytes # (Auto) 0.7x10^3/uL (1.0-4.8) Monocytes # (Auto) 1.2x10^3/uL (0.0-1.1) Eosinophils # (Auto) 0.0x10^3/uL (0.0-0.7) Basophils # (Auto) 0.1x10^3/uL (0.0-0.2) Erythrocyte Sedimentation Rate 34 (0-15) Prothrombin Time 24.1SEC (11.7-14.0) Prothromb Time International Ratio 2.3 (0.8-1.1) Sodium Level 135mmol/L (136-145) Potassium Level 4.4mmol/L (3.5-5.1) Chloride Level 97mmol/L (98-107) Carbon Dioxide Level 31mmol/L (21-32) Anion Gap 7 (6-14) Blood Urea Nitrogen 47mg/dL (8-26) Creatinine 2.1mg/dL (0.7-1.3) Estimated GFR (Cockcroft-Gault) 30.1 BUN/Creatinine Ratio 22 (6-20) Glucose Level 476mg/dL (70-99) Calcium Level 9.0mg/dL (8.5-10.1) Total Bilirubin 0.7mg/dL (0.2-1.0) Aspartate Amino Transf (AST/SGOT) 24U/L (15-37) Alanine Aminotransferase (ALT/SGPT) 22U/L (16-63) Alkaline Phosphatase 90U/L (46-116) C-Reactive Protein High Sensitivity 157.06mg/L (0.00-3.00) Total Protein 7.1g/dL (6.4-8.2) Albumin 2.5g/dL (3.4-5.0) Albumin/Globulin Ratio 0.5 (1.0-1.7) Test 08/29/16 11:42 Glucose (Fingerstick) 235mg/dL (70-99) Comment Review of Relevant I have reviewed the following items vinay (where applicable) has been applied. Labs Laboratory Tests Test 08/28/16 16:46 08/28/16 18:34 08/28/16 18:55 08/28/16 20:57 Glucose (Fingerstick) 449mg/dL (70-99) 455mg/dL (70-99) 288mg/dL (70-99) White Blood Count 8.9x10^3/uL (4.0-11.0) Red Blood Count 4.73x10^6/uL (4.30-5.70) Hemoglobin 13.6g/dL (13.0-17.5) Hematocrit 42.2% (39.0-53.0) Mean Corpuscular Volume 89fL (79-100) Mean Corpuscular Hemoglobin 29pg (25-35) Mean Corpuscular Hemoglobin Concent 32g/dL (31-37) Red Cell Distribution Width 15.5% (11.5-14.5) Platelet Count 191x10^3/uL (140-400) Neutrophils (%) (Auto) 78% (31-73) Lymphocytes (%) (Auto) 8% (24-48) Monocytes (%) (Auto) 14% (0-9) Eosinophils (%) (Auto) 0% (0-3) Basophils (%) (Auto) 1% (0-3) Neutrophils # (Auto) 7.0x10^3uL (1.8-7.7) Lymphocytes # (Auto) 0.7x10^3/uL (1.0-4.8) Monocytes # (Auto) 1.2x10^3/uL (0.0-1.1) Eosinophils # (Auto) 0.0x10^3/uL (0.0-0.7) Basophils # (Auto) 0.1x10^3/uL (0.0-0.2) Erythrocyte Sedimentation Rate 34 (0-15) Prothrombin Time 24.1SEC (11.7-14.0) Prothromb Time International Ratio 2.3 (0.8-1.1) Sodium Level 135mmol/L (136-145) Potassium Level 4.4mmol/L (3.5-5.1) Chloride Level 97mmol/L (98-107) Carbon Dioxide Level 31mmol/L (21-32) Anion Gap 7 (6-14) Blood Urea Nitrogen 47mg/dL (8-26) Creatinine 2.1mg/dL (0.7-1.3) Estimated GFR (Cockcroft-Gault) 30.1 BUN/Creatinine Ratio 22 (6-20) Glucose Level 476mg/dL (70-99) Calcium Level 9.0mg/dL (8.5-10.1) Total Bilirubin 0.7mg/dL (0.2-1.0) Aspartate Amino Transf (AST/SGOT) 24U/L (15-37) Alanine Aminotransferase (ALT/SGPT) 22U/L (16-63) Alkaline Phosphatase 90U/L (46-116) C-Reactive Protein High Sensitivity 157.06mg/L (0.00-3.00) Total Protein 7.1g/dL (6.4-8.2) Albumin 2.5g/dL (3.4-5.0) Albumin/Globulin Ratio 0.5 (1.0-1.7) Test 08/29/16 11:42 Glucose (Fingerstick) 235mg/dL (70-99) Laboratory Tests Test 08/28/16 16:46 08/28/16 18:34 08/28/16 18:55 08/28/16 20:57 Glucose (Fingerstick) 449mg/dL (70-99) 455mg/dL (70-99) 288mg/dL (70-99) White Blood Count 8.9x10^3/uL (4.0-11.0) Red Blood Count 4.73x10^6/uL (4.30-5.70) Hemoglobin 13.6g/dL (13.0-17.5) Hematocrit 42.2% (39.0-53.0) Mean Corpuscular Volume 89fL (79-100) Mean Corpuscular Hemoglobin 29pg (25-35) Mean Corpuscular Hemoglobin Concent 32g/dL (31-37) Red Cell Distribution Width 15.5% (11.5-14.5) Platelet Count 191x10^3/uL (140-400) Neutrophils (%) (Auto) 78% (31-73) Lymphocytes (%) (Auto) 8% (24-48) Monocytes (%) (Auto) 14% (0-9) Eosinophils (%) (Auto) 0% (0-3) Basophils (%) (Auto) 1% (0-3) Neutrophils # (Auto) 7.0x10^3uL (1.8-7.7) Lymphocytes # (Auto) 0.7x10^3/uL (1.0-4.8) Monocytes # (Auto) 1.2x10^3/uL (0.0-1.1) Eosinophils # (Auto) 0.0x10^3/uL (0.0-0.7) Basophils # (Auto) 0.1x10^3/uL (0.0-0.2) Erythrocyte Sedimentation Rate 34 (0-15) Prothrombin Time 24.1SEC (11.7-14.0) Prothromb Time International Ratio 2.3 (0.8-1.1) Sodium Level 135mmol/L (136-145) Potassium Level 4.4mmol/L (3.5-5.1) Chloride Level 97mmol/L (98-107) Carbon Dioxide Level 31mmol/L (21-32) Anion Gap 7 (6-14) Blood Urea Nitrogen 47mg/dL (8-26) Creatinine 2.1mg/dL (0.7-1.3) Estimated GFR (Cockcroft-Gault) 30.1 BUN/Creatinine Ratio 22 (6-20) Glucose Level 476mg/dL (70-99) Calcium Level 9.0mg/dL (8.5-10.1) Total Bilirubin 0.7mg/dL (0.2-1.0) Aspartate Amino Transf (AST/SGOT) 24U/L (15-37) Alanine Aminotransferase (ALT/SGPT) 22U/L (16-63) Alkaline Phosphatase 90U/L (46-116) C-Reactive Protein High Sensitivity 157.06mg/L (0.00-3.00) Total Protein 7.1g/dL (6.4-8.2) Albumin 2.5g/dL (3.4-5.0) Albumin/Globulin Ratio 0.5 (1.0-1.7) Test 08/29/16 11:42 Glucose (Fingerstick) 235mg/dL (70-99) Medications Current Medications Sodium Chloride (Normal Saline Flush) 3 ml PRN DAILY PRN IV AFTER MEDS AND BLOOD DRAWS; Start 08/28/16 at 17:30 Insulin Aspart (Novolog) 15 units 1X ONCE SQ Last administered on 08/28/16 18: 12; Start 08/28/16 at 17:45; Stop 08/28/16 at 17:46; Status DC Acetaminophen (Tylenol) 500 mg PRN DAILY PRN PO PAIN Last administered on 22:09; Start 08/28/16 at 18:30 Lactic Acid (Lac-Hydrin) 1 monica PRN QHS PRN TP DRY SKIN; Start 08/28/16 at 18:30 Atorvastatin Calcium (Lipitor) 20 mg HS PO Last administered on 08/28/16 21:04 ; Start 08/28/16 at 21:00 Bacitracin/ Polymyxin B Sulfate (Polysporin Ophth) 1 inch PRN DAILY PRN OD BLEPHARITIS; Start 08/28/16 at 18:30 Docusate Sodium (Colace) 100 mg BID PO Last administered on 08/28/16 21:05; Start 08/28/16 at 21:00 Dorzolamide HCl (Trusopt) 1 drop TID OU Last administered on 08/28/16 21:02; Start 08/28/16 at 21:00 Finasteride (Proscar) 5 mg DAILY PO ; Start 08/29/16 at 09:00 Furosemide (Lasix) 40 mg DAILY PO ; Start 08/29/16 at 09:00 Insulin Aspart (Novolog) 10 units TID SQ ; Start 08/28/16 at 21:00; Stop 08/28/16 at 21:00; Status DC Insulin Aspart (Novolog) 28 units DAILYWSUP SQ ; Start 08/28/16 at 18:45; Stop at 18:45; Status DC Albuterol/ Ipratropium (Duoneb) 3 ml RTQID NEB Last administered on 08/29/16 11 :35; Start 08/28/16 at 20:00 Isosorbide Mononitrate (Imdur) 30 mg DAILY PO ; Start 08/29/16 at 09:00 Losartan Potassium (Cozaar) 50 mg DAILY PO ; Start 08/29/16 at 09:00 Metoprolol Tartrate (Lopressor) 50 mg BID PO Last administered on 08/28/16 21: 04; Start 08/28/16 at 21:00 Tamsulosin HCl (Flomax) 0.4 mg DAILY PO ; Start 08/29/16 at 09:00 Budesonide (Pulmicort) 0.5 mg RTBID NEB Last administered on 08/29/16 07:17; Start 08/28/16 at 20:00 Artificial Tears (Artificial Tears) 1 drop QID OU Last administered on 21:02; Start 08/28/16 at 21:00 Vitamin D (Vitamin D3) 1,000 unit DAILY PO ; Start 08/29/16 at 09:00 Non-Formulary Medication 28.4 gm PRN BID PRN TP INTERTRIGO; Start 08/28/16 at 18 :30; Status UNV Non-Formulary Medication 72 unit HS SQ ; Start 08/28/16 at 21:00; Stop 08/28/16 at 21:00; Status DC Non-Formulary Medication 1 drop QHS EACHEYE ; Start 08/28/16 at 21:00; Status UNV Insulin Aspart (Novolog) 16 units TIDWMEALS SQ ; Start 08/29/16 at 08:00; Stop at 08:00; Status DC Insulin Aspart (Novolog) 0-9 UNITS TIDWMEALS SQ ; Start 08/28/16 at 18:45 Dextrose 12.5 gm PRN Q15MIN PRN IV SEE COMMENTS; Start 08/28/16 at 18:45 Insulin Aspart (Novolog) 26 units 1X ONCE SQ Last administered on 08/28/16 18: 47; Start 08/28/16 at 18:45; Stop 08/28/16 at 18:46; Status DC Insulin Detemir (Levemir) 72 units QHS SQ Last administered on 08/28/16 21:13; Start 08/28/16 at 21:00 Insulin Aspart (Novolog) 20 units TIDWMEALS SQ ; Start 08/29/16 at 08:00 Albuterol/ Ipratropium (Duoneb) 3 ml RTQID NEB ; Start 08/28/16 at 20:00; Stop at 20:00; Status DC Budesonide 0.5 mg 0.5 mg RTBID NEB ; Start 08/28/16 at 20:00; Stop 08/28/16 at 20: 00; Status DC Linezolid 300 ml @ 300 mls/hr Q12HR IV Last administered on 08/28/16 21:02; Start 08/28/16 at 21:00 Piperacillin Sod/ Tazobactam Sod 2.25 gm/Sodium Chloride 50 ml @ 100 mls/hr Q6HRS IV ; Start 08/29/16 at 20:00; Stop 08/29/16 at 20:00; Status DC Micafungin Sodium 100 mg/Dextrose 100 ml @ 100 mls/hr Q24H IV Last administered on 08/28/16 22:07; Start 08/28/16 at 22:00 Piperacillin Sod/ Tazobactam Sod/ Sodium Chloride (Zosyn/Iv Sodium Chloride 0.9 % 50ml) 50 ml @ 100 mls/hr Q6HRS IV Last administered on 08/29/16 05:49; Start 08/28/16 at 20:00 Sulfur Hexafluoride Microspheres (Lumason) 25 mg STK-MED ONCE IVP ; Start at 09:49; Stop 08/29/16 at 09:50; Status DC Sulfur Hexafluoride Microspheres (Lumason) 25 mg 1X ONCE IVP Last administered on 08/29/16 10:13; Start 08/29/16 at 10:15; Stop 08/29/16 at 10:16; Status DC Active Scripts Active Reported Docusate Sodium 100 Mg Capsule 1 Cap PO BID Acetaminophen 500 Mg Tablet 1 Tab PO PRN DAILY PRN Novolog Flexpen (Insulin Aspart) 100 Unit/1 Ml Insuln.pen 28 Unit SQ DAILYWSUP Novolog Flexpen (Insulin Aspart) 100 Unit/1 Ml Insuln.pen 10 Unit SQ Warfarin Sodium 1 Mg Tablet 1 Mg PO WEEKLY Warfarin Sodium 1 Mg Tablet 1 Mg PO DAILY Travatan Z (Travoprost) 5 Ml Drops 1 Drop EACHEYE QHS Tamsulosin Hcl 0.4 Mg Cap.er.24h 2 Cap PO DAILY Metoprolol Tartrate 50 Mg Tablet 1 Tab PO BID Losartan Potassium 50 Mg Tablet 50 Mg PO DAILY Isosorbide Mononitrate 20 Mg Tablet 30 Mg PO DAILY Lantus (Insulin Glargine,Hum.rec.anlog) 100 Unit/1 Ml Vial 72 Unit SQ HS Imiquimod 1 Each Cream.pack 1 Each TP 3X/WEEK Hydrocortisone-Iodoquinol Crm (Hydrocortisone/Iodoquinol) 28.4 Gm Cream..g. 28.4 Gm TP PRN BID PRN Furosemide 40 Mg Tablet 1 Tab PO DAILY Finasteride 5 Mg Tablet 1 Tab PO DAILY Dorzolamide Hcl 10 Ml Drops 1 Drop EACHEYE TID Vitamin D-3 (Cholecalciferol (Vitamin D3)) 2,000 Unit Capsule 1,000 Unit PO DAILY Refresh Optive Eye Drops (Carboxymethylcellulos/Glycerin) 15 Ml Drops 1 Drop EACHEYE QID Symbicort 160-4.5 Mcg Inhaler (Budesonide/Formoterol Fumarate) 10.2 Gm Hfa.aer.ad 2 Puff IH BID Bacitracin-Polymyxin Eye Oint (Bacitracin/Polymyxin B Sulfate) 3.5 Gm Oint...g. 3.5 Gm OP PRN DAILY PRN Atorvastatin Calcium 20 Mg Tablet 20 Mg PO HS Ammonium Lactate 225 Gm Lotion 225 Gm TP HS PRN Duoneb 0.5-3(2.5) Mg/3 Ml (Albuterol/Ipratropium) 3 Ml Ampul.neb 3 Ml NEB QID Vitals/I & O Vital Sign - Last 24 Hours 08/28/16 08/28/16 08/28/16 08/28/16 16:30 19:00 19:47 20:00 Temp 99.5 98.0 99.5 98.0 Pulse 77 72 Resp 16 18 B/P 147/68 131/50 Pulse Ox 95 93 O2 Delivery Room Air Room Air Room Air Room Air 08/28/16 08/28/16 08/28/16 08/29/16 20:19 21:04 23:00 03:00 Temp 98.3 98.0 98.3 98.0 Pulse 72 61 60 Resp 18 20 B/P 131/50 109/43 109/40 Pulse Ox 96 92 95 O2 Delivery Room Air Room Air Room Air 08/29/16 08/29/16 08/29/16 08/29/16 07:00 07:15 07:45 11:36 Temp 97.6 97.6 Pulse 57 Resp 16 B/P 134/53 Pulse Ox 93 99 99 O2 Delivery Room Air Room Air Room Air Room Air Intake and Output 08/28/16 08/28/16 08/29/16 15:00 23:00 07:00 Intake Total 500 ml 200 ml Output Total 600 ml Balance 500 ml -400 ml INES ARCHER MD Aug 29, 2016 12:08
[2016-08-29] MEDS ORDERED: MAGNESIUM SULFATE 2GM 50 ML IV PRN (12:15)
--- NOTE | 2016-08-29 13:30 | PDOC ---
PROGRESS NOTES Subjective Subjective Patient continues to deny chest pain and shortness of breath. He had a normal ejection fraction on echocardiogram. Objective Objective Vital Signs Date Time Temp Pulse Resp B/P Pulse Ox O2 Delivery O2 Flow Rate FiO2 08/29/16 11:59 57 134/53 08/29/16 11:36 99 Room Air 08/29/16 07:00 97.6 16 97.6 Intake and Output 08/29/16 07:00 Intake Total 700 ml Output Total 600 ml Balance 100 ml Intake Oral 700 ml Output Urine Total 600 ml Physical Exam Physical Exam No changes from previous cardiac exam. Lungs still clear but continue to be muffled b/l. Assessment Assessment 1. Paroxysmal A-Fib 2. CAD 3. CHF 4. S/P pacemaker 5. Leg edema Plan Plan of Care Continue home diuretics. 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 Will check the pacemaker function in am but patient is cleared for surgery. Comment Review of Relevant I have reviewed the following items vinay (where applicable) has been applied. Labs Laboratory Tests Test 08/28/16 16:46 08/28/16 18:34 08/28/16 18:55 08/28/16 20:57 Glucose (Fingerstick) 449mg/dL (70-99) 455mg/dL (70-99) 288mg/dL (70-99) White Blood Count 8.9x10^3/uL (4.0-11.0) Red Blood Count 4.73x10^6/uL (4.30-5.70) Hemoglobin 13.6g/dL (13.0-17.5) Hematocrit 42.2% (39.0-53.0) Mean Corpuscular Volume 89fL (79-100) Mean Corpuscular Hemoglobin 29pg (25-35) Mean Corpuscular Hemoglobin Concent 32g/dL (31-37) Red Cell Distribution Width 15.5% (11.5-14.5) Platelet Count 191x10^3/uL (140-400) Neutrophils (%) (Auto) 78% (31-73) Lymphocytes (%) (Auto) 8% (24-48) Monocytes (%) (Auto) 14% (0-9) Eosinophils (%) (Auto) 0% (0-3) Basophils (%) (Auto) 1% (0-3) Neutrophils # (Auto) 7.0x10^3uL (1.8-7.7) Lymphocytes # (Auto) 0.7x10^3/uL (1.0-4.8) Monocytes # (Auto) 1.2x10^3/uL (0.0-1.1) Eosinophils # (Auto) 0.0x10^3/uL (0.0-0.7) Basophils # (Auto) 0.1x10^3/uL (0.0-0.2) Erythrocyte Sedimentation Rate 34 (0-15) Prothrombin Time 24.1SEC (11.7-14.0) Prothromb Time International Ratio 2.3 (0.8-1.1) Sodium Level 135mmol/L (136-145) Potassium Level 4.4mmol/L (3.5-5.1) Chloride Level 97mmol/L (98-107) Carbon Dioxide Level 31mmol/L (21-32) Anion Gap 7 (6-14) Blood Urea Nitrogen 47mg/dL (8-26) Creatinine 2.1mg/dL (0.7-1.3) Estimated GFR (Cockcroft-Gault) 30.1 BUN/Creatinine Ratio 22 (6-20) Glucose Level 476mg/dL (70-99) Calcium Level 9.0mg/dL (8.5-10.1) Total Bilirubin 0.7mg/dL (0.2-1.0) Aspartate Amino Transf (AST/SGOT) 24U/L (15-37) Alanine Aminotransferase (ALT/SGPT) 22U/L (16-63) Alkaline Phosphatase 90U/L (46-116) C-Reactive Protein High Sensitivity 157.06mg/L (0.00-3.00) Total Protein 7.1g/dL (6.4-8.2) Albumin 2.5g/dL (3.4-5.0) Albumin/Globulin Ratio 0.5 (1.0-1.7) Test 08/29/16 11:42 Glucose (Fingerstick) 235mg/dL (70-99) Laboratory Tests Test 08/28/16 16:46 08/28/16 18:34 08/28/16 18:55 08/28/16 20:57 Glucose (Fingerstick) 449mg/dL (70-99) 455mg/dL (70-99) 288mg/dL (70-99) White Blood Count 8.9x10^3/uL (4.0-11.0) Red Blood Count 4.73x10^6/uL (4.30-5.70) Hemoglobin 13.6g/dL (13.0-17.5) Hematocrit 42.2% (39.0-53.0) Mean Corpuscular Volume 89fL (79-100) Mean Corpuscular Hemoglobin 29pg (25-35) Mean Corpuscular Hemoglobin Concent 32g/dL (31-37) Red Cell Distribution Width 15.5% (11.5-14.5) Platelet Count 191x10^3/uL (140-400) Neutrophils (%) (Auto) 78% (31-73) Lymphocytes (%) (Auto) 8% (24-48) Monocytes (%) (Auto) 14% (0-9) Eosinophils (%) (Auto) 0% (0-3) Basophils (%) (Auto) 1% (0-3) Neutrophils # (Auto) 7.0x10^3uL (1.8-7.7) Lymphocytes # (Auto) 0.7x10^3/uL (1.0-4.8) Monocytes # (Auto) 1.2x10^3/uL (0.0-1.1) Eosinophils # (Auto) 0.0x10^3/uL (0.0-0.7) Basophils # (Auto) 0.1x10^3/uL (0.0-0.2) Erythrocyte Sedimentation Rate 34 (0-15) Prothrombin Time 24.1SEC (11.7-14.0) Prothromb Time International Ratio 2.3 (0.8-1.1) Sodium Level 135mmol/L (136-145) Potassium Level 4.4mmol/L (3.5-5.1) Chloride Level 97mmol/L (98-107) Carbon Dioxide Level 31mmol/L (21-32) Anion Gap 7 (6-14) Blood Urea Nitrogen 47mg/dL (8-26) Creatinine 2.1mg/dL (0.7-1.3) Estimated GFR (Cockcroft-Gault) 30.1 BUN/Creatinine Ratio 22 (6-20) Glucose Level 476mg/dL (70-99) Calcium Level 9.0mg/dL (8.5-10.1) Total Bilirubin 0.7mg/dL (0.2-1.0) Aspartate Amino Transf (AST/SGOT) 24U/L (15-37) Alanine Aminotransferase (ALT/SGPT) 22U/L (16-63) Alkaline Phosphatase 90U/L (46-116) C-Reactive Protein High Sensitivity 157.06mg/L (0.00-3.00) Total Protein 7.1g/dL (6.4-8.2) Albumin 2.5g/dL (3.4-5.0) Albumin/Globulin Ratio 0.5 (1.0-1.7) Test 08/29/16 11:42 Glucose (Fingerstick) 235mg/dL (70-99) Medications Current Medications Sodium Chloride (Normal Saline Flush) 3 ml PRN DAILY PRN IV AFTER MEDS AND BLOOD DRAWS; Start 08/28/16 at 17:30 Insulin Aspart (Novolog) 15 units 1X ONCE SQ Last administered on 08/28/16 18: 12; Start 08/28/16 at 17:45; Stop 08/28/16 at 17:46; Status DC Acetaminophen (Tylenol) 500 mg PRN DAILY PRN PO PAIN Last administered on 22:09; Start 08/28/16 at 18:30 Lactic Acid (Lac-Hydrin) 1 monica PRN QHS PRN TP DRY SKIN; Start 08/28/16 at 18:30 Atorvastatin Calcium (Lipitor) 20 mg HS PO Last administered on 08/28/16 21:04 ; Start 08/28/16 at 21:00 Bacitracin/ Polymyxin B Sulfate (Polysporin Ophth) 1 inch PRN DAILY PRN OD BLEPHARITIS; Start 08/28/16 at 18:30 Docusate Sodium (Colace) 100 mg BID PO Last administered on 08/29/16 11:58; Start 08/28/16 at 21:00 Dorzolamide HCl (Trusopt) 1 drop TID OU Last administered on 08/29/16 11:58; Start 08/28/16 at 21:00 Finasteride (Proscar) 5 mg DAILY PO Last administered on 08/29/16 11:57; Start 08/29/16 at 09:00 Furosemide (Lasix) 40 mg DAILY PO Last administered on 08/29/16 11:59; Start at 09:00; Stop 08/29/16 at 12:18; Status DC Insulin Aspart (Novolog) 10 units TID SQ ; Start 08/28/16 at 21:00; Stop 08/28/16 at 21:00; Status DC Insulin Aspart (Novolog) 28 units DAILYWSUP SQ ; Start 08/28/16 at 18:45; Stop at 18:45; Status DC Albuterol/ Ipratropium (Duoneb) 3 ml RTQID NEB Last administered on 08/29/16 11 :35; Start 08/28/16 at 20:00 Isosorbide Mononitrate (Imdur) 30 mg DAILY PO Last administered on 08/29/16 11: 57; Start 08/29/16 at 09:00 Losartan Potassium (Cozaar) 50 mg DAILY PO Last administered on 08/29/16 11:59 ; Start 08/29/16 at 09:00 Metoprolol Tartrate (Lopressor) 50 mg BID PO Last administered on 08/29/16 11: 58; Start 08/28/16 at 21:00 Tamsulosin HCl (Flomax) 0.4 mg DAILY PO Last administered on 08/29/16 11:57; Start 08/29/16 at 09:00 Budesonide (Pulmicort) 0.5 mg RTBID NEB Last administered on 08/29/16 07:17; Start 08/28/16 at 20:00 Artificial Tears (Artificial Tears) 1 drop QID OU Last administered on 11:57; Start 08/28/16 at 21:00 Vitamin D (Vitamin D3) 1,000 unit DAILY PO Last administered on 08/29/16 11:57 ; Start 08/29/16 at 09:00 Non-Formulary Medication 28.4 gm PRN BID PRN TP INTERTRIGO; Start 08/28/16 at 18 :30; Status UNV Non-Formulary Medication 72 unit HS SQ ; Start 08/28/16 at 21:00; Stop 08/28/16 at 21:00; Status DC Non-Formulary Medication 1 drop QHS EACHEYE ; Start 08/28/16 at 21:00; Status UNV Insulin Aspart (Novolog) 16 units TIDWMEALS SQ ; Start 08/29/16 at 08:00; Stop at 08:00; Status DC Insulin Aspart (Novolog) 0-9 UNITS TIDWMEALS SQ Last administered on 08/29/16 12:09; Start 08/28/16 at 18:45 Dextrose 12.5 gm PRN Q15MIN PRN IV SEE COMMENTS; Start 08/28/16 at 18:45 Insulin Aspart (Novolog) 26 units 1X ONCE SQ Last administered on 08/28/16 18: 47; Start 08/28/16 at 18:45; Stop 08/28/16 at 18:46; Status DC Insulin Detemir (Levemir) 72 units QHS SQ Last administered on 08/28/16 21:13; Start 08/28/16 at 21:00 Insulin Aspart (Novolog) 20 units TIDWMEALS SQ Last administered on 08/29/16 12 :08; Start 08/29/16 at 08:00 Albuterol/ Ipratropium (Duoneb) 3 ml RTQID NEB ; Start 08/28/16 at 20:00; Stop at 20:00; Status DC Budesonide 0.5 mg 0.5 mg RTBID NEB ; Start 08/28/16 at 20:00; Stop 08/28/16 at 20: 00; Status DC Linezolid 300 ml @ 300 mls/hr Q12HR IV Last administered on 08/29/16 11:56; Start 08/28/16 at 21:00 Piperacillin Sod/ Tazobactam Sod 2.25 gm/Sodium Chloride 50 ml @ 100 mls/hr Q6HRS IV ; Start 08/29/16 at 20:00; Stop 08/29/16 at 20:00; Status DC Micafungin Sodium 100 mg/Dextrose 100 ml @ 100 mls/hr Q24H IV Last administered on 08/28/16 22:07; Start 08/28/16 at 22:00 Piperacillin Sod/ Tazobactam Sod/ Sodium Chloride (Zosyn/Iv Sodium Chloride 0.9 % 50ml) 50 ml @ 100 mls/hr Q6HRS IV Last administered on 08/29/16t 11:56; Start 08/28/16 at 20:00 Sulfur Hexafluoride Microspheres (Lumason) 25 mg STK-MED ONCE IVP ; Start at 09:49; Stop 08/29/16 at 09:50; Status DC Sulfur Hexafluoride Microspheres 25 mg 25 mg 1X ONCE IVP Last administered on 08/29/16t 10:13; Start 08/29/16 at 10:15; Stop 08/29/16 at 10:16; Status DC Magnesium Sulfate/ Dextrose (Magnesium Sulfate PREMIX 2GM) 50 ml @ 25 mls/hr PRN DAILY PRN IV for Mag < 1.7 on am labs; Start 08/29/16 at 12:15 Acetylcysteine 1200 mg 1,200 mg BID PO ; Start 08/29/16 at 21:00; Stop 08/31/16 at 20:59 Cefazolin Sodium/ Sodium Chloride (Ancef/Iv Sodium Chloride 0.9% 500ml Bag) 500 ml @ 500 mls/hr 1X PERIOP ONCE IRR ; Start 08/30/16 at 06:00; Stop 08/30/16 at 06:59 Active Scripts Active Reported Docusate Sodium 100 Mg Capsule 1 Cap PO BID Acetaminophen 500 Mg Tablet 1 Tab PO PRN DAILY PRN Novolog Flexpen (Insulin Aspart) 100 Unit/1 Ml Insuln.pen 28 Unit SQ DAILYWSUP Novolog Flexpen (Insulin Aspart) 100 Unit/1 Ml Insuln.pen 10 Unit SQ Warfarin Sodium 1 Mg Tablet 1 Mg PO WEEKLY Warfarin Sodium 1 Mg Tablet 1 Mg PO DAILY Travatan Z (Travoprost) 5 Ml Drops 1 Drop EACHEYE QHS Tamsulosin Hcl 0.4 Mg Cap.er.24h 2 Cap PO DAILY Metoprolol Tartrate 50 Mg Tablet 1 Tab PO BID Losartan Potassium 50 Mg Tablet 50 Mg PO DAILY Isosorbide Mononitrate 20 Mg Tablet 30 Mg PO DAILY Lantus (Insulin Glargine,Hum.rec.anlog) 100 Unit/1 Ml Vial 72 Unit SQ HS Imiquimod 1 Each Cream.pack 1 Each TP 3X/WEEK Hydrocortisone-Iodoquinol Crm (Hydrocortisone/Iodoquinol) 28.4 Gm Cream..g. 28.4 Gm TP PRN BID PRN Furosemide 40 Mg Tablet 1 Tab PO DAILY Finasteride 5 Mg Tablet 1 Tab PO DAILY Dorzolamide Hcl 10 Ml Drops 1 Drop EACHEYE TID Vitamin D-3 (Cholecalciferol (Vitamin D3)) 2,000 Unit Capsule 1,000 Unit PO DAILY Refresh Optive Eye Drops (Carboxymethylcellulos/Glycerin) 15 Ml Drops 1 Drop EACHEYE QID Symbicort 160-4.5 Mcg Inhaler (Budesonide/Formoterol Fumarate) 10.2 Gm Hfa.aer.ad 2 Puff IH BID Bacitracin-Polymyxin Eye Oint (Bacitracin/Polymyxin B Sulfate) 3.5 Gm Oint...g. 3.5 Gm OP PRN DAILY PRN Atorvastatin Calcium 20 Mg Tablet 20 Mg PO HS Ammonium Lactate 225 Gm Lotion 225 Gm TP HS PRN Duoneb 0.5-3(2.5) Mg/3 Ml (Albuterol/Ipratropium) 3 Ml Ampul.neb 3 Ml NEB QID Vitals/I & O Vital Sign - Last 24 Hours 08/28/16 08/28/16 08/28/16 08/28/16 16:30 19:00 19:47 20:00 Temp 99.5 98.0 99.5 98.0 Pulse 77 72 Resp 16 18 B/P 147/68 131/50 Pulse Ox 95 93 O2 Delivery Room Air Room Air Room Air Room Air 08/28/16 08/28/16 08/28/16 08/29/16 20:19 21:04 23:00 03:00 Temp 98.3 98.0 98.3 98.0 Pulse 72 61 60 Resp 18 20 B/P 131/50 109/43 109/40 Pulse Ox 96 92 95 O2 Delivery Room Air Room Air Room Air 08/29/16 08/29/16 08/29/16 08/29/16 07:00 07:15 07:45 11:36 Temp 97.6 97.6 Pulse 57 Resp 16 B/P 134/53 Pulse Ox 93 99 99 O2 Delivery Room Air Room Air Room Air Room Air 08/29/16 08/29/16 08/29/16 11:57 11:58 11:59 Pulse 57 57 57 B/P 134/53 134/53 134/53 Intake and Output 208/28/16 08/29/16 15:00 23:00 07:00 Intake Total 500 ml 200 ml Output Total 600 ml Balance 500 ml -400 ml JOCELINE JAIME MD Aug 29, 2016 13:30
[2016-08-29 15:00] VITALS: BP 121/49
--- NOTE | 2016-08-29 16:02 | CARD ---
APPROVED REPORT EXAM: Two-dimensional and M-mode echocardiogram with Doppler, color Doppler with contrast. Other Information Quality : Technically Limited Rhythm : PacemakerTechnically limited study due to body habitus. INDICATION Congestive Heart Failure Echo Enhancing Agent Indication: Endocardial border delineation Agent/Amount Used: Lumason 3mL 2D DIMENSIONS RVDd3.1 (2.9-3.5cm)Left Atrium(2D)3.8 (1.6-4.0cm) IVSd1.3 (0.7-1.1cm)Aortic Root(2D)2.3 (2.0-3.7cm) LVDd5.2 (3.9-5.9cm)LVOT Diameter2.1 (1.8-2.4cm) PWd1.3 (0.7-1.1cm)LVDs3.8 (2.5-4.0cm) FS (%) 27.0 %SV66.8 ml LVEF(%)50.0 (>50%) Aortic Valve AoV Peak Michael.209.6cm/sAoV VTI43.7cm AO Peak GR.17.6mmHgLVOT Peak Michael.82.6cm/s AO Mean GR.11mmHgAVA (VMAX)1.38cm2 JUSTINE (VTI)1.40cm2 Mitral Valve MV E Amkbhefx911.8cm/sMV E Peak Gr.6mmHg MV DECEL [id number] A Wkntpyyj54.5cm/s MV E Mean Gr.3mmHgMV [id number] E/A Ratio1.3MV A [id number] MVA (PHT)6.15cm2 Tricuspid Valve TR P. Ogpabbpb264ou/sRAP LZPAIJKE3xlYb TR Peak Gr.67bzOlQQRF44iwRm LEFT VENTRICLE The left ventricle is normal size. There is borderline to mild concentric left ventricular hypertroph y. Left ventricle systolic function is normal. The Ejection Fraction is 50%. There is normal LV segme ntal wall motion. The left ventricular diastolic function and filling is normal for age. RIGHT VENTRICLE The right ventricle is normal size. The right ventricular systolic function is normal. ATRIA The left atrium size is normal. The right atrium size is normal. The interatrial septum is intact wit h no evidence for an atrial septal defect or patent foramen ovale as noted on 2-D or Doppler imaging. AORTIC VALVE The aortic valve is calcified and displays decreased opening. 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 Doppler and Color Flow revealed no significant aortic regurgitation. Calculated aortic valve area i s 1.4 cm2 with maximum pressure gradient of 18 mmHg and mean pressure gradient of 11 mmHg. Doppler an d color-flow analysis revealed mild aortic stenosis. MITRAL VALVE Mitral annular calcification is mild. There is no mitral valve stenosis. Doppler and Color Flow revea led trace to mild mitral regurgitation. TRICUSPID VALVE The tricuspid valve is not well visualized. Doppler and Color Flow revealed trace to mild tricuspid r egurgitation. The PA pressure was estimated at 25 mmHg. There is no tricuspid valve stenosis. PULMONIC VALVE The pulmonic valve is not well visualized. Doppler and Color Flow revealed no pulmonic valvular regur gitation. There is no pulmonic valvular stenosis. GREAT VESSELS The aortic root is normal in size. The IVC is normal in size and collapses >50% with inspiration. PERICARDIAL EFFUSION There is no evidence of significant pericardial effusion. Critical Notification Critical Value: No <Conclusion> There is borderline to mild concentric left ventricular hypertrophy. Left ventricle systolic function is normal. The Ejection Fraction is 50%. The left atrium size is normal. The right atrium size is normal. The aortic valve is calcified and displays decreased opening. 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 Calculated aortic valve area is 1.4 cm2 with maximum pressure gradient of 18 mmHg and mean pressure g radient of 11 mmHg. Doppler and color-flow analysis revealed mild aortic stenosis. Doppler and Color Flow revealed no significant aortic regurgitation. Doppler and Color Flow revealed trace to mild mitral regurgitation. Doppler and Color Flow revealed trace to mild tricuspid regurgitation. The PA pressure was estimated at 25 mmHg. The pulmonic valve is not well visualized. There is no evidence of significant pericardial effusion.
[2016-08-29 17:05] LABS: BILIRUBIN,URINE NEGATIVE (NEG); GLUCOSE,URINE 500 mg/dL (NEG); NITRITE,URINE NEGATIVE (NEG); PH,URINE 5.5; PROTEIN,URINE 30 mg/dL (NEG-TRACE); UROBILINOGEN,URINE 0.2 mg/dL (0.2 mg/dL)
--- NOTE | 2016-08-29 17:27 | PDOC2 ---
CONSULT Date of Consult Date of Consult DATE: 08/29/16 TIME: 17:20 Reason for Consult Reason for Consult: ^ creat and PVD Referring Physician Referring Physician: Dr dukes Identification/Chief Complaint Chief Complaint Toe turned drak Problems: Source Source: Chart review, Patient History of Present Illness Reason for Visit: as dictated Past Medical History Cardiovascular: AFIB, CAD, CHF, HTN, Aortic stenosis Pulmonary: COPD Hepatobiliary: No pertinent hx Musculoskeletal: low back pain Rheumatologic: No pertinent hx ENT: No pertinent hx Renal/: Chronic renal insuff, Benign prostatic enlarg. Endocrine: Diabetes Social History No ALCOHOL: none Drugs: None Current Medications Current Medications Current Medications Sodium Chloride (Normal Saline Flush) 3 ml PRN DAILY PRN IV AFTER MEDS AND BLOOD DRAWS; Start 08/28/16 at 17:30 Insulin Aspart (Novolog) 15 units 1X ONCE SQ Last administered on 08/28/16 18: 12; Start 08/28/16 at 17:45; Stop 08/28/16 at 17:46; Status DC Acetaminophen (Tylenol) 500 mg PRN DAILY PRN PO PAIN Last administered on 22:09; Start 08/28/16 at 18:30 Lactic Acid (Lac-Hydrin) 1 monica PRN QHS PRN TP DRY SKIN; Start 08/28/16 at 18:30 Atorvastatin Calcium (Lipitor) 20 mg HS PO Last administered on 08/28/16 21:04 ; Start 08/28/16 at 21:00 Bacitracin/ Polymyxin B Sulfate (Polysporin Ophth) 1 inch PRN DAILY PRN OD BLEPHARITIS; Start 08/28/16 at 18:30 Docusate Sodium (Colace) 100 mg BID PO Last administered on 08/29/16 11:58; Start 08/28/16 at 21:00 Dorzolamide HCl (Trusopt) 1 drop TID OU Last administered on 08/29/16 11:58; Start 08/28/16 at 21:00 Finasteride (Proscar) 5 mg DAILY PO Last administered on 08/29/16 11:57; Start 08/29/16 at 09:00 Furosemide (Lasix) 40 mg DAILY PO Last administered on 08/29/16 11:59; Start at 09:00; Stop 08/29/16 at 12:18; Status DC Insulin Aspart (Novolog) 10 units TID SQ ; Start 08/28/16 at 21:00; Stop 08/28/16 at 21:00; Status DC Insulin Aspart (Novolog) 28 units DAILYWSUP SQ ; Start 08/28/16 at 18:45; Stop at 18:45; Status DC Albuterol/ Ipratropium (Duoneb) 3 ml RTQID NEB Last administered on 08/29/16 15 :57; Start 08/28/16 at 20:00 Isosorbide Mononitrate (Imdur) 30 mg DAILY PO Last administered on 08/29/16 11: 57; Start 08/29/16 at 09:00 Losartan Potassium (Cozaar) 50 mg DAILY PO Last administered on 08/29/16 11:59 ; Start 08/29/16 at 09:00 Metoprolol Tartrate (Lopressor) 50 mg BID PO Last administered on 08/29/16 11: 58; Start 08/28/16 at 21:00 Tamsulosin HCl (Flomax) 0.4 mg DAILY PO Last administered on 08/29/16 11:57; Start 08/29/16 at 09:00 Budesonide (Pulmicort) 0.5 mg RTBID NEB Last administered on 08/29/16 07:17; Start 08/28/16 at 20:00 Artificial Tears (Artificial Tears) 1 drop QID OU Last administered on 11:57; Start 08/28/16 at 21:00 Vitamin D (Vitamin D3) 1,000 unit DAILY PO Last administered on 08/29/16 11:57 ; Start 08/29/16 at 09:00 Non-Formulary Medication 28.4 gm PRN BID PRN TP INTERTRIGO; Start 08/28/16 at 18 :30; Status UNV Non-Formulary Medication 72 unit HS SQ ; Start 08/28/16 at 21:00; Stop 08/28/16 at 21:00; Status DC Non-Formulary Medication 1 drop QHS EACHEYE ; Start 08/28/16 at 21:00; Status UNV Insulin Aspart (Novolog) 16 units TIDWMEALS SQ ; Start 08/29/16 at 08:00; Stop at 08:00; Status DC Insulin Aspart (Novolog) 0-9 UNITS TIDWMEALS SQ Last administered on 08/29/16 12:09; Start 08/28/16 at 18:45 Dextrose 12.5 gm PRN Q15MIN PRN IV SEE COMMENTS; Start 08/28/16 at 18:45 Insulin Aspart (Novolog) 26 units 1X ONCE SQ Last administered on 08/28/16 18: 47; Start 08/28/16 at 18:45; Stop 08/28/16 at 18:46; Status DC Insulin Detemir (Levemir) 72 units QHS SQ Last administered on 08/28/16 21:13; Start 08/28/16 at 21:00 Insulin Aspart (Novolog) 20 units TIDWMEALS SQ Last administered on 08/29/16 12 :08; Start 08/29/16 at 08:00 Albuterol/ Ipratropium (Duoneb) 3 ml RTQID NEB ; Start 08/28/16 at 20:00; Stop at 20:00; Status DC Budesonide 0.5 mg 0.5 mg RTBID NEB ; Start 08/28/16 at 20:00; Stop 08/28/16 at 20: 00; Status DC Linezolid 300 ml @ 300 mls/hr Q12HR IV Last administered on 08/29/16 11:56; Start 08/28/16 at 21:00 Piperacillin Sod/ Tazobactam Sod 2.25 gm/Sodium Chloride 50 ml @ 100 mls/hr Q6HRS IV ; Start 08/29/16 at 20:00; Stop 08/29/16 at 20:00; Status DC Micafungin Sodium 100 mg/Dextrose 100 ml @ 100 mls/hr Q24H IV Last administered on 08/28/16 22:07; Start 08/28/16 at 22:00 Piperacillin Sod/ Tazobactam Sod/ Sodium Chloride (Zosyn/Iv Sodium Chloride 0.9 % 50ml) 50 ml @ 100 mls/hr Q6HRS IV Last administered on 08/29/16 11:56; Start 08/28/16 at 20:00 Sulfur Hexafluoride Microspheres (Lumason) 25 mg STK-MED ONCE IVP ; Start at 09:49; Stop 08/29/16 at 09:50; Status DC Sulfur Hexafluoride Microspheres 25 mg 25 mg 1X ONCE IVP Last administered on 08/29/16t 10:13; Start 08/29/16 at 10:15; Stop 08/29/16 at 10:16; Status DC Magnesium Sulfate/ Dextrose (Magnesium Sulfate PREMIX 2GM) 50 ml @ 25 mls/hr PRN DAILY PRN IV for Mag < 1.7 on am labs; Start 08/29/16 at 12:15 Acetylcysteine 1200 mg 1,200 mg BID PO ; Start 08/29/16 at 21:00; Stop 08/31/16 at 20:59 Cefazolin Sodium/ Sodium Chloride (Ancef/Iv Sodium Chloride 0.9% 500ml Bag) 500 ml @ 500 mls/hr 1X PERIOP ONCE IRR ; Start 08/30/16 at 06:00; Stop 08/30/16 at 06:59 Ondansetron HCl (Zofran) 4 mg PRN Q6HRS PRN IV Nausea; Start 08/30/16 at 07:00 ; Stop 08/31/16 at 06:59 Fentanyl Citrate (Fentanyl 2ml Vial) 25 mcg PRN Q5MIN PRN IV MILD PAIN; Start 08/30/16 at 07:00; Stop 08/31/16 at 06:59 Fentanyl Citrate (Fentanyl 2ml Vial) 50 mcg PRN Q5MIN PRN IV MODERATE PAIN; Start 08/30/16 at 07:00; Stop 08/31/16 at 06:59 Morphine Sulfate 1 mg 1 mg PRN Q10MIN PRN IV SEVERE PAIN; Start 08/30/16 at 07: 00; Stop 08/31/16 at 06:59 Lactated Ringer's (Iv Lactated Ringers) 1,000 ml @ 30 mls/hr Q24H IV ; Start at 07:00; Stop 08/30/16 at 18:59 Lidocaine HCl 2 ml 1X PRN PRN ID IV START; Start 08/30/16 at 07:00; Stop at 06:59 Hydromorphone HCl (Dilaudid) 0.5 mg PRN Q10MIN PRN IV SEVERE PAIN, Second choice; Start 08/30/16 at 07:00; Stop 08/31/16 at 06:59 Prochlorperazine Edisylate (Compazine) 5 mg PACU PRN PRN IV NAUSEA; Start 08/30 at 07:00; Stop 08/31/16 at 06:59 Active Scripts Active Reported Docusate Sodium 100 Mg Capsule 1 Cap PO BID Acetaminophen 500 Mg Tablet 1 Tab PO PRN DAILY PRN Novolog Flexpen (Insulin Aspart) 100 Unit/1 Ml Insuln.pen 28 Unit SQ DAILYWSUP Novolog Flexpen (Insulin Aspart) 100 Unit/1 Ml Insuln.pen 10 Unit SQ Warfarin Sodium 1 Mg Tablet 1 Mg PO WEEKLY Warfarin Sodium 1 Mg Tablet 1 Mg PO DAILY Travatan Z (Travoprost) 5 Ml Drops 1 Drop EACHEYE QHS Tamsulosin Hcl 0.4 Mg Cap.er.24h 2 Cap PO DAILY Metoprolol Tartrate 50 Mg Tablet 1 Tab PO BID Losartan Potassium 50 Mg Tablet 50 Mg PO DAILY Isosorbide Mononitrate 20 Mg Tablet 30 Mg PO DAILY Lantus (Insulin Glargine,Hum.rec.anlog) 100 Unit/1 Ml Vial 72 Unit SQ HS Imiquimod 1 Each Cream.pack 1 Each TP 3X/WEEK Hydrocortisone-Iodoquinol Crm (Hydrocortisone/Iodoquinol) 28.4 Gm Cream..g. 28.4 Gm TP PRN BID PRN Furosemide 40 Mg Tablet 1 Tab PO DAILY Finasteride 5 Mg Tablet 1 Tab PO DAILY Dorzolamide Hcl 10 Ml Drops 1 Drop EACHEYE TID Vitamin D-3 (Cholecalciferol (Vitamin D3)) 2,000 Unit Capsule 1,000 Unit PO DAILY Refresh Optive Eye Drops (Carboxymethylcellulos/Glycerin) 15 Ml Drops 1 Drop EACHEYE QID Symbicort 160-4.5 Mcg Inhaler (Budesonide/Formoterol Fumarate) 10.2 Gm Hfa.aer.ad 2 Puff IH BID Bacitracin-Polymyxin Eye Oint (Bacitracin/Polymyxin B Sulfate) 3.5 Gm Oint...g. 3.5 Gm OP PRN DAILY PRN Atorvastatin Calcium 20 Mg Tablet 20 Mg PO HS Ammonium Lactate 225 Gm Lotion 225 Gm TP HS PRN Duoneb 0.5-3(2.5) Mg/3 Ml (Albuterol/Ipratropium) 3 Ml Ampul.neb 3 Ml NEB QID Allergies Allergies: Coded Allergies: beclomethasone (Verified Allergy, Unknown, 08/28/16) latanoprost (Verified Allergy, Unknown, 08/28/16) lisinopril (Verified Allergy, Unknown, 08/28/16) lovastatin (Verified Allergy, Unknown, 08/28/16) niacin (Verified Allergy, Unknown, 08/28/16) oxaprozin (Verified Allergy, Unknown, 08/28/16) sertraline (Verified Allergy, Unknown, 08/28/16) simvastatin (Verified Allergy, Unknown, 08/28/16) ROS Review of System GEN: no Fevers no Chills EYES: no Visual Complaints ENT: no EN Drainage no Hearing deficiets CVS: no Orthopnea no CP RESP: no SOB no JIMÉNEZ GI: no Nausea no Vomiting : no Dysuria no Urgency HEME: no easy bruising no Palp Ly Nodes NEURO no Focal Weakness no Sz PSYCH: no Suicidal Ideation no Depression SKIN: no Rashes x toe color change ENDO: no Polyuria or Polydipsia no Hot/Cold Intolerance MU SK: no Arthraigia no Myalgia Physical Exam Physical Exam General Appearance: Awake Alert Oriented x 3 In no Distress; obese WM Eyes: VIsion Unchanged Conjunctiva Normal EN: No EN Drainage Mucous Memb. moist Neck: no JVD no JVP Supple no Thyromegaly - thick neck CVS: S1 S2 no Murmur No Gallop No Rub no Edema Resp: no Rales no Rhonchi no Acc. Muscle use GI: BAS +ve NO Bruit Non Tender Non Distended; Morbidly obese : no CVA tenderness; no Suprapubic Tenderness SKIN: no Rashes per se. Toe discoloration Breast Exam deferred Mu.Sk: Adequate ROM no Muscle Atrophy Heme: Unable to palpate Obvious LAD no palp Splenomegaly (obese) NEURO: Good Strength and Tone Cranial Nerves II - XII grossly intact Psych: not Depressed no Active hallucination Vital Signs Vital Signs Date Time Temp Pulse Resp B/P Pulse Ox O2 Delivery O2 Flow Rate FiO2 08/29/16 16:00 98 Room Air 08/29/16 15:00 97.3 62 16 121/49 97.3 Assessment & Plan CKD III - DM/ HTNsive As/ NS Current FLuid and E-lyte status does not necessitate emergent need for Dialysis. Will re-evaluate in am insulin using DM Long standoing with DM Nephropahty PVD with gangrene - WHile AFR has been discussed; CO2 angio is planned, if IVC is needed - he is a mild to mod risk for CAN and this was discussed with pt and aris at length. 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 See orders for changes. Discussed Plan of Care and prognosis etc. at length with family (aris). Labs Labs Laboratory Tests Test 08/28/16 16:46 08/28/16 18:34 08/28/16 18:55 08/28/16 20:57 Glucose (Fingerstick) 449mg/dL (70-99) 455mg/dL (70-99) 288mg/dL (70-99) White Blood Count 8.9x10^3/uL (4.0-11.0) Red Blood Count 4.73x10^6/uL (4.30-5.70) Hemoglobin 13.6g/dL (13.0-17.5) Hematocrit 42.2% (39.0-53.0) Mean Corpuscular Volume 89fL (79-100) Mean Corpuscular Hemoglobin 29pg (25-35) Mean Corpuscular Hemoglobin Concent 32g/dL (31-37) Red Cell Distribution Width 15.5% (11.5-14.5) Platelet Count 191x10^3/uL (140-400) Neutrophils (%) (Auto) 78% (31-73) Lymphocytes (%) (Auto) 8% (24-48) Monocytes (%) (Auto) 14% (0-9) Eosinophils (%) (Auto) 0% (0-3) Basophils (%) (Auto) 1% (0-3) Neutrophils # (Auto) 7.0x10^3uL (1.8-7.7) Lymphocytes # (Auto) 0.7x10^3/uL (1.0-4.8) Monocytes # (Auto) 1.2x10^3/uL (0.0-1.1) Eosinophils # (Auto) 0.0x10^3/uL (0.0-0.7) Basophils # (Auto) 0.1x10^3/uL (0.0-0.2) Erythrocyte Sedimentation Rate 34 (0-15) Prothrombin Time 24.1SEC (11.7-14.0) Prothromb Time International Ratio 2.3 (0.8-1.1) Sodium Level 135mmol/L (136-145) Potassium Level 4.4mmol/L (3.5-5.1) Chloride Level 97mmol/L (98-107) Carbon Dioxide Level 31mmol/L (21-32) Anion Gap 7 (6-14) Blood Urea Nitrogen 47mg/dL (8-26) Creatinine 2.1mg/dL (0.7-1.3) Estimated GFR (Cockcroft-Gault) 30.1 BUN/Creatinine Ratio 22 (6-20) Glucose Level 476mg/dL (70-99) Calcium Level 9.0mg/dL (8.5-10.1) Total Bilirubin 0.7mg/dL (0.2-1.0) Aspartate Amino Transf (AST/SGOT) 24U/L (15-37) Alanine Aminotransferase (ALT/SGPT) 22U/L (16-63) Alkaline Phosphatase 90U/L (46-116) C-Reactive Protein High Sensitivity 157.06mg/L (0.00-3.00) Total Protein 7.1g/dL (6.4-8.2) Albumin 2.5g/dL (3.4-5.0) Albumin/Globulin Ratio 0.5 (1.0-1.7) Test 08/29/16 11:42 08/29/16 13:55 08/29/16 16:05 Glucose (Fingerstick) 235mg/dL (70-99) 200mg/dL (70-99) Lactic Acid Level 2.4mmol/L (0.4-2.0) Creatine Kinase 97U/L (39-308) Laboratory Tests Test 08/28/16 18:34 08/28/16 18:55 08/28/16 20:57 08/29/16 11:42 Glucose (Fingerstick) 455mg/dL (70-99) 288mg/dL (70-99) 235mg/dL (70-99) White Blood Count 8.9x10^3/uL (4.0-11.0) Red Blood Count 4.73x10^6/uL (4.30-5.70) Hemoglobin 13.6g/dL (13.0-17.5) Hematocrit 42.2% (39.0-53.0) Mean Corpuscular Volume 89fL (79-100) Mean Corpuscular Hemoglobin 29pg (25-35) Mean Corpuscular Hemoglobin Concent 32g/dL (31-37) Red Cell Distribution Width 15.5% (11.5-14.5) Platelet Count 191x10^3/uL (140-400) Neutrophils (%) (Auto) 78% (31-73) Lymphocytes (%) (Auto) 8% (24-48) Monocytes (%) (Auto) 14% (0-9) Eosinophils (%) (Auto) 0% (0-3) Basophils (%) (Auto) 1% (0-3) Neutrophils # (Auto) 7.0x10^3uL (1.8-7.7) Lymphocytes # (Auto) 0.7x10^3/uL (1.0-4.8) Monocytes # (Auto) 1.2x10^3/uL (0.0-1.1) Eosinophils # (Auto) 0.0x10^3/uL (0.0-0.7) Basophils # (Auto) 0.1x10^3/uL (0.0-0.2) Erythrocyte Sedimentation Rate 34 (0-15) Prothrombin Time 24.1SEC (11.7-14.0) Prothromb Time International Ratio 2.3 (0.8-1.1) Sodium Level 135mmol/L (136-145) Potassium Level 4.4mmol/L (3.5-5.1) Chloride Level 97mmol/L (98-107) Carbon Dioxide Level 31mmol/L (21-32) Anion Gap 7 (6-14) Blood Urea Nitrogen 47mg/dL (8-26) Creatinine 2.1mg/dL (0.7-1.3) Estimated GFR (Cockcroft-Gault) 30.1 BUN/Creatinine Ratio 22 (6-20) Glucose Level 476mg/dL (70-99) Calcium Level 9.0mg/dL (8.5-10.1) Total Bilirubin 0.7mg/dL (0.2-1.0) Aspartate Amino Transf (AST/SGOT) 24U/L (15-37) Alanine Aminotransferase (ALT/SGPT) 22U/L (16-63) Alkaline Phosphatase 90U/L (46-116) C-Reactive Protein High Sensitivity 157.06mg/L (0.00-3.00) Total Protein 7.1g/dL (6.4-8.2) Albumin 2.5g/dL (3.4-5.0) Albumin/Globulin Ratio 0.5 (1.0-1.7) Test 08/29/16 13:55 08/29/16 16:05 Lactic Acid Level 2.4mmol/L (0.4-2.0) Creatine Kinase 97U/L (39-308) Glucose (Fingerstick) 200mg/dL (70-99) Images Images There is borderline to mild concentric left ventricular hypertrophy. Left ventricle systolic function is normal. The Ejection Fraction is 50%. The left atrium size is normal. The right atrium size is normal. The aortic valve is calcified and displays decreased opening. 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 Calculated aortic valve area is 1.4 cm2 with maximum pressure gradient of 18 mmHg and mean pressure gradient of 11 mmHg. Doppler and color-flow analysis revealed mild aortic stenosis. Doppler and Color Flow revealed no significant aortic regurgitation. Doppler and Color Flow revealed trace to mild mitral regurgitation. Doppler and Color Flow revealed trace to mild tricuspid regurgitation. The PA pressure was estimated at 25 mmHg. The pulmonic valve is not well visualized. There is no evidence of significant pericardial effusion. MEÑO BARBOSA MD Aug 29, 2016 17:27
[2016-08-29] MEDS: IV NORMAL SALINE 1000ML BAG 1,000 ML IV SCH (17:30)
[2016-08-29 17:34] LABS: BACTERIA,URINE 0 /HPF (0-FEW); RBC,URINE RARE /HPF (0-2); SQUAMOUS EPITHELIAL CELL,UR OCC /LPF; WBC,URINE RARE /HPF (0-4)
[2016-08-29 19:00] VITALS: BP 134/50
[2016-08-29] MEDS ORDERED: PIPERACILLIN/TAZOBACTAM 2.25 GM in IV NORMAL SALINE 50ML 50 ML IV SCH (20:00)
--- NOTE | 2016-08-29 20:17 | CONS ---
DATE OF CONSULTATION: 08/28/2016 HISTORY OF PRESENT ILLNESS: This is an 86-year-old gentleman who was admitted from the [facility] today for podiatry evaluation. He has had chronic toe ulcers involving both great toes, he states for the past 2 weeks. His wounds have worsened and he has been admitted for further evaluation and treatment. He has had ankle brachial indices at the [place] with 0.5 recording on the left. PAST MEDICAL HISTORY: Significant for atrial fibrillation, coronary artery disease, congestive heart failure and hypertension. Pulmonary history is consistent with COPD. He is a longstanding diabetic and has a history of renal insufficiency as well. FAMILY HISTORY: He lives with his ex-. SOCIAL HISTORY: He is a nonsmoker. MEDICATIONS: Reviewed. They include warfarin. He takes atorvastatin as well and numerous other medications which have been reviewed. ALLERGIES: Reviewed. REVIEW OF SYSTEMS: A 14-point review of systems is obtained. Significant findings include a discomfort while walking, otherwise negative. PHYSICAL EXAMINATION: GENERAL: The patient is alert and awake. HEENT: Atraumatic. CHEST: Clear. ABDOMEN: Soft. EXTREMITIES: Absent popliteal and pedal pulses. He has an ulcer over the plantar and medial aspect of the right great toe with surrounding erythema. He has venous stasis changes with the lower extremities and edema of the left lower extremity compared to the right. He has a plantar ulcer of the right great toe as well. LABORATORY DATA: Creatinine is 2.1. IMPRESSION: 1. Stable congestive heart failure. 2. Osteomyelitis, left great toe, subacute or chronic. 3. Longstanding diabetes. 4. Chronic renal insufficiency. 5. Arterial insufficiency of both lower extremities. RECOMMENDATION: 1. IV antibiotics per infectious disease. 2. Nephrology consult for renal optimization. 3. Aortogram with runoff using CO2 bilateral with possible percutaneous intervention if possible. 4. He will need ray amputation of the left great toe following revascularization. Discussed plan with the patient and family. They understand and wished to proceed. KSENIA VARGAS MD DR: MONISHA/dain JOB#: [id number] / [id number]
[2016-08-29] MEDS: TRAVATAN Z EYE EACHEYE SCH (21:00)
[2016-08-29] MEDS: ATORVASTATIN CALCIUM 20 MG TABLET PO SCH (21:00)
[2016-08-29] MEDS ORDERED: ACETYLCYSTEINE 20% ORAL SOLN 600 MG/3 ML SYRINGE. PO SCH (21:00)
[2016-08-29] MEDS: ACETYLCYSTEINE 20% ORAL SOLN 600 MG/3 ML SYRINGE. PO SCH (21:11)
[2016-08-29] MEDS: INSULIN DETEMIR 300 UNITS/3 ML INSULN.PEN. SQ SCH (21:25)
[2016-08-29 23:00] VITALS: BP 137/52
[2016-08-29] MEDS: MICAFUNGIN 100 MG in IV DEXTROSE 5% 100 ML IV SCH (23:11)
[2016-08-30] VITALS (11 sets, daily range): BP systolic 115–140; BP diastolic 38–59
[2016-08-30] MEDS: PIPERACILLIN/TAZOBACTAM 2.25 GM in IV NORMAL SALINE 50ML 50 ML IV SCH ×4 (00:22→17:30)
[2016-08-30] MEDS: IV NORMAL SALINE 1000ML BAG 1,000 ML IV SCH ×2 (00:23→15:00)
[2016-08-30] MEDS ORDERED: CEFAZOLIN SODIUM 1 GM in IV NORMAL SALINE 500ML BAG 500 ML IRR ONE (06:00)
[2016-08-30] MEDS ORDERED: HYDROMORPHONE 2 MG/ML VIAL. IV PRN (07:00)
[2016-08-30] MEDS ORDERED: LIDOCAINE 1% 1 ML SYRINGE. ID PRN (07:00)
[2016-08-30] MEDS ORDERED: FENTANYL PF 100 MCG/2 ML VIAL. IV PRN ×2 (07:00)
[2016-08-30] MEDS ORDERED: MORPHINE SULFATE 2 MG/ML DISP.SYRIN. IV PRN (07:00)
[2016-08-30] MEDS ORDERED: ONDANSETRON PF 4 MG/2 ML VIAL. IV PRN (07:00)
[2016-08-30] MEDS ORDERED: PROCHLORPERAZINE 10 MG/2 ML VIAL. IV PRN (07:00)
[2016-08-30] MEDS ORDERED: IV RINGERS,LACTATED 1000ML 1,000 ML IV SCH (07:00)
[2016-08-30 07:34] LABS: ALBUMIN 2.3 g/dL (3.4-5.0); CALCIUM 9.1 mg/dL (8.5-10.1); GFR 31.8; PHOSPHORUS 3.6 mg/dL (2.6-4.7); POTASSIUM 3.7 mmol/L (3.5-5.1)
[2016-08-30] MEDS: BUDESONIDE 0.5 MG/2 ML NEBU NEB SCH ×2 (07:48→19:28)
[2016-08-30] MEDS: IPRATRPIUM/ALBUTEROL 0.5/2.5MG 3 ML NEBU. NEB SCH ×4 (07:48→19:28)
[2016-08-30] MEDS: LOSARTAN POTASSIUM 50 MG TABLET. PO SCH (07:56)
[2016-08-30] MEDS: METOPROLOL TART IMMED RELEASE 50 MG TABLET PO SCH ×2 (07:56→21:20)
[2016-08-30] MEDS: DORZOLAMIDE 2% OPHTH SOLUTION 10ML BOTTLE. OU SCH ×3 (07:57→21:00)
[2016-08-30] MEDS: POLYVINYL ALCOHOL 1.4% OPHTH SOLUTION 15ML BOTTLE. OU SCH ×4 (07:57→21:00)
[2016-08-30] MEDS: INSULIN ASPART 300 UNITS/3 ML INSULN.PEN SQ SCH ×6 (08:00→17:32)
[2016-08-30] MEDS ORDERED: PROPOFOL 20 ML IV ONE (08:16)
[2016-08-30] MEDS ORDERED: ONDANSETRON PF 4 MG/2 ML VIAL. ONE (08:16)
[2016-08-30] MEDS ORDERED: LIDOCAINE 2% 100 MG/5 ML DISP.SYRIN. ONE (08:16)
[2016-08-30] MEDS ORDERED: FENTANYL PF 100 MCG/2 ML VIAL. ONE (08:16)
[2016-08-30] MEDS: CHOLECALCIFEROL (VITAMIN D3) 1,000 UNIT TABLET PO SCH (09:00)
[2016-08-30] MEDS: ACETYLCYSTEINE 20% ORAL SOLN 600 MG/3 ML SYRINGE. PO SCH ×2 (09:00→21:20)
[2016-08-30] MEDS: ISOSORBIDE MONONITRATE ER 30 MG TAB.ER.24H PO SCH (09:00)
[2016-08-30] MEDS: DOCUSATE SODIUM 100 MG CAPSULE PO SCH ×2 (09:00→21:00)
[2016-08-30] MEDS: TAMSULOSIN 0.4 MG CAP.ER.24H. PO SCH (09:00)
[2016-08-30] MEDS: FINASTERIDE 5 MG TABLET PO SCH (09:00)
--- NOTE | 2016-08-30 09:45 | RAD ---
Renal sonography Indications: Chronic kidney disease, stage III. Acute renal failure. Diabetes. Findings: The longitudinal and AP and transverse dimensions of the right kidney are 11.0 cm and 4.9 cm and 5.7 cm respectively. There is an upper pole cyst measuring 2.2 cm. The longitudinal and AP and transverse dimensions of the left kidney are 12.5 cm and 4.9 cm and 6.3 cm respectively. No renal mass or hydronephrosis or perinephric fluid collection is seen on either side. There is mild cortical thinning bilaterally. Prior to voiding, the urinary bladder volume is 341 cc. After voiding, the urinary bladder volume is 121 cc. No intraluminal echodensities or masses are seen. IMPRESSION: No hydronephrosis. Moderate post void urinary bladder residual volume.
--- NOTE | 2016-08-30 09:55 | PDOC ---
PROGRESS NOTES Subjective Subjective Patient had his toe surgery this morning. Seen this afternoon. Objective Objective Vital Signs Date Time Temp Pulse Resp B/P Pulse Ox O2 Delivery O2 Flow Rate FiO2 08/30/16 09:24 98.8 61 15 145/65 95 Room Air 98.8 Intake and Output 08/30/16 07:00 Intake Total 1890 ml Output Total 1100 ml Balance 790 ml Intake Oral 490 ml IV Total 500 ml Other 900 ml Output Urine Total 1100 ml Plan Plan of Care The patient tolerated this surgery very well. Continue home medications. Will follow with you Comment Review of Relevant I have reviewed the following items vinay (where applicable) has been applied. Labs Laboratory Tests Test 08/28/16 16:46 08/28/16 18:34 08/28/16 18:55 08/28/16 20:57 Glucose (Fingerstick) 449mg/dL (70-99) 455mg/dL (70-99) 288mg/dL (70-99) White Blood Count 8.9x10^3/uL (4.0-11.0) Red Blood Count 4.73x10^6/uL (4.30-5.70) Hemoglobin 13.6g/dL (13.0-17.5) Hematocrit 42.2% (39.0-53.0) Mean Corpuscular Volume 89fL (79-100) Mean Corpuscular Hemoglobin 29pg (25-35) Mean Corpuscular Hemoglobin Concent 32g/dL (31-37) Red Cell Distribution Width 15.5% (11.5-14.5) Platelet Count 191x10^3/uL (140-400) Neutrophils (%) (Auto) 78% (31-73) Lymphocytes (%) (Auto) 8% (24-48) Monocytes (%) (Auto) 14% (0-9) Eosinophils (%) (Auto) 0% (0-3) Basophils (%) (Auto) 1% (0-3) Neutrophils # (Auto) 7.0x10^3uL (1.8-7.7) Lymphocytes # (Auto) 0.7x10^3/uL (1.0-4.8) Monocytes # (Auto) 1.2x10^3/uL (0.0-1.1) Eosinophils # (Auto) 0.0x10^3/uL (0.0-0.7) Basophils # (Auto) 0.1x10^3/uL (0.0-0.2) Erythrocyte Sedimentation Rate 34 (0-15) Prothrombin Time 24.1SEC (11.7-14.0) Prothromb Time International Ratio 2.3 (0.8-1.1) Sodium Level 135mmol/L (136-145) Potassium Level 4.4mmol/L (3.5-5.1) Chloride Level 97mmol/L (98-107) Carbon Dioxide Level 31mmol/L (21-32) Anion Gap 7 (6-14) Blood Urea Nitrogen 47mg/dL (8-26) Creatinine 2.1mg/dL (0.7-1.3) Estimated GFR (Cockcroft-Gault) 30.1 BUN/Creatinine Ratio 22 (6-20) Glucose Level 476mg/dL (70-99) Hemoglobin A1c 9.2% (4.8-5.6) Calcium Level 9.0mg/dL (8.5-10.1) Total Bilirubin 0.7mg/dL (0.2-1.0) Aspartate Amino Transf (AST/SGOT) 24U/L (15-37) Alanine Aminotransferase (ALT/SGPT) 22U/L (16-63) Alkaline Phosphatase 90U/L (46-116) C-Reactive Protein High Sensitivity 157.06mg/L (0.00-3.00) Total Protein 7.1g/dL (6.4-8.2) Albumin 2.5g/dL (3.4-5.0) Albumin/Globulin Ratio 0.5 (1.0-1.7) Test 08/29/16 11:42 08/29/16 13:55 08/29/16 15:35 08/29/16 16:05 Glucose (Fingerstick) 235mg/dL (70-99) 200mg/dL (70-99) Lactic Acid Level 2.4mmol/L (0.4-2.0) Creatine Kinase 97U/L (39-308) Urine Collection Type Unknown Urine Color Yellow Urine Clarity Clear Urine pH 5.5 Urine Specific Cutler 1.020 Urine Protein 30mg/dL (NEG-TRACE) Urine Glucose (UA) 500mg/dL (NEG) Urine Ketones (Stick) Negativemg/dL (NEG) Urine Blood Small (NEG) Urine Nitrite Negative (NEG) Urine Bilirubin Negative (NEG) Urine Urobilinogen Dipstick 0.2mg/dL (0.2 mg/dL) Urine Leukocyte Esterase Negative (NEG) Urine RBC Rare/HPF (0-2) Urine WBC Rare/HPF (0-4) Urine Squamous Epithelial Cells Occ/LPF Urine Bacteria 0/HPF (0-FEW) Test 08/29/16 20:34 08/30/16 05:30 08/30/16 07:28 Glucose (Fingerstick) 170mg/dL (70-99) 184mg/dL (70-99) Hemoglobin 13.2g/dL (13.0-17.5) Sodium Level 138mmol/L (136-145) Potassium Level 3.7mmol/L (3.5-5.1) Chloride Level 100mmol/L (98-107) Carbon Dioxide Level 29mmol/L (21-32) Anion Gap 9 (6-14) Blood Urea Nitrogen 39mg/dL (8-26) Creatinine 2.0mg/dL (0.7-1.3) Estimated GFR (Cockcroft-Gault) 31.8 Glucose Level 186mg/dL (70-99) Lactic Acid Level 2.7mmol/L (0.4-2.0) Calcium Level 9.1mg/dL (8.5-10.1) Phosphorus Level 3.6mg/dL (2.6-4.7) Magnesium Level 2.0mg/dL (1.8-2.4) Albumin 2.3g/dL (3.4-5.0) Laboratory Tests Test 08/29/16 11:42 08/29/16 13:55 08/29/16 15:35 08/29/16 16:05 Glucose (Fingerstick) 235mg/dL (70-99) 200mg/dL (70-99) Lactic Acid Level 2.4mmol/L (0.4-2.0) Creatine Kinase 97U/L (39-308) Urine Collection Type Unknown Urine Color Yellow Urine Clarity Clear Urine pH 5.5 Urine Specific Cutler 1.020 Urine Protein 30mg/dL (NEG-TRACE) Urine Glucose (UA) 500mg/dL (NEG) Urine Ketones (Stick) Negativemg/dL (NEG) Urine Blood Small (NEG) Urine Nitrite Negative (NEG) Urine Bilirubin Negative (NEG) Urine Urobilinogen Dipstick 0.2mg/dL (0.2 mg/dL) Urine Leukocyte Esterase Negative (NEG) Urine RBC Rare/HPF (0-2) Urine WBC Rare/HPF (0-4) Urine Squamous Epithelial Cells Occ/LPF Urine Bacteria 0/HPF (0-FEW) Test 08/29/16 20:34 08/30/16 05:30 08/30/16 07:28 Glucose (Fingerstick) 170mg/dL (70-99) 184mg/dL (70-99) Hemoglobin 13.2g/dL (13.0-17.5) Sodium Level 138mmol/L (136-145) Potassium Level 3.7mmol/L (3.5-5.1) Chloride Level 100mmol/L (98-107) Carbon Dioxide Level 29mmol/L (21-32) Anion Gap 9 (6-14) Blood Urea Nitrogen 39mg/dL (8-26) Creatinine 2.0mg/dL (0.7-1.3) Estimated GFR (Cockcroft-Gault) 31.8 Glucose Level 186mg/dL (70-99) Lactic Acid Level 2.7mmol/L (0.4-2.0) Calcium Level 9.1mg/dL (8.5-10.1) Phosphorus Level 3.6mg/dL (2.6-4.7) Magnesium Level 2.0mg/dL (1.8-2.4) Albumin 2.3g/dL (3.4-5.0) Medications Current Medications Sodium Chloride (Normal Saline Flush) 3 ml PRN DAILY PRN IV AFTER MEDS AND BLOOD DRAWS; Start 08/28/16 at 17:30 Insulin Aspart (Novolog) 15 units 1X ONCE SQ Last administered on 08/28/16 18: 12; Start 08/28/16 at 17:45; Stop 08/28/16 at 17:46; Status DC Acetaminophen (Tylenol) 500 mg PRN DAILY PRN PO PAIN Last administered on 22:09; Start 08/28/16 at 18:30 Lactic Acid (Lac-Hydrin) 1 monica PRN QHS PRN TP DRY SKIN; Start 08/28/16 at 18:30 Atorvastatin Calcium (Lipitor) 20 mg HS PO Last administered on 08/29/16 21:00 ; Start 08/28/16 at 21:00 Bacitracin/ Polymyxin B Sulfate (Polysporin Ophth) 1 inch PRN DAILY PRN OD BLEPHARITIS; Start 08/28/16 at 18:30 Docusate Sodium (Colace) 100 mg BID PO Last administered on 08/29/16 21:11; Start 08/28/16 at 21:00 Dorzolamide HCl (Trusopt) 1 drop TID OU Last administered on 08/30/16 07:57; Start 08/28/16 at 21:00 Finasteride (Proscar) 5 mg DAILY PO Last administered on 08/29/16 11:57; Start 08/29/16 at 09:00 Furosemide (Lasix) 40 mg DAILY PO Last administered on 08/29/16 11:59; Start at 09:00; Stop 08/29/16 at 12:18; Status DC Insulin Aspart (Novolog) 10 units TID SQ ; Start 08/28/16 at 21:00; Stop 08/28/16 at 21:00; Status DC Insulin Aspart (Novolog) 28 units DAILYWSUP SQ ; Start 08/28/16 at 18:45; Stop at 18:45; Status DC Albuterol/ Ipratropium (Duoneb) 3 ml RTQID NEB Last administered on 08/30/16 07:48; Start 08/28/16 at 20:00 Isosorbide Mononitrate (Imdur) 30 mg DAILY PO Last administered on 08/29/16 11: 57; Start 08/29/16 at 09:00 Losartan Potassium (Cozaar) 50 mg DAILY PO Last administered on 08/30/16 07:56 ; Start 08/29/16 at 09:00 Metoprolol Tartrate (Lopressor) 50 mg BID PO Last administered on 08/30/16 07: 56; Start 08/28/16 at 21:00 Tamsulosin HCl (Flomax) 0.4 mg DAILY PO Last administered on 08/29/16 11:57; Start 08/29/16 at 09:00 Budesonide (Pulmicort) 0.5 mg RTBID NEB Last administered on 08/30/16 07:48; Start 08/28/16 at 20:00 Artificial Tears (Artificial Tears) 1 drop QID OU Last administered on 07:57; Start 08/28/16 at 21:00 Vitamin D (Vitamin D3) 1,000 unit DAILY PO Last administered on 08/29/16 11:57 ; Start 08/29/16 at 09:00 Non-Formulary Medication 28.4 gm PRN BID PRN TP INTERTRIGO; Start 08/28/16 at 18 :30; Stop 08/29/16 at 21:34; Status DC Non-Formulary Medication 72 unit HS SQ ; Start 08/28/16 at 21:00; Stop 08/28/16 at 21:00; Status DC Non-Formulary Medication 1 drop QHS EACHEYE Last administered on 08/29/16 21:00 ; Start 08/28/16 at 21:00 Insulin Aspart (Novolog) 16 units TIDWMEALS SQ ; Start 08/29/16 at 08:00; Stop at 08:00; Status DC Insulin Aspart (Novolog) 0-9 UNITS TIDWMEALS SQ Last administered on 08/29/16 17:50; Start 08/28/16 at 18:45 Dextrose 12.5 gm PRN Q15MIN PRN IV SEE COMMENTS; Start 08/28/16 at 18:45 Insulin Aspart (Novolog) 26 units 1X ONCE SQ Last administered on 08/28/16 18: 47; Start 08/28/16 at 18:45; Stop 08/28/16 at 18:46; Status DC Insulin Detemir (Levemir) 72 units QHS SQ Last administered on 08/29/16 21:25; Start 08/28/16 at 21:00 Insulin Aspart (Novolog) 20 units TIDWMEALS SQ Last administered on 08/29/16 17 :48; Start 08/29/16 at 08:00 Albuterol/ Ipratropium (Duoneb) 3 ml RTQID NEB ; Start 08/28/16 at 20:00; Stop at 20:00; Status DC Budesonide 0.5 mg 0.5 mg RTBID NEB ; Start 08/28/16 at 20:00; Stop 08/28/16 at 20: 00; Status DC Linezolid 300 ml @ 300 mls/hr Q12HR IV Last administered on 08/30/16 07:56; Start 08/28/16 at 21:00 Piperacillin Sod/ Tazobactam Sod 2.25 gm/Sodium Chloride 50 ml @ 100 mls/hr Q6HRS IV ; Start 08/29/16 at 20:00; Stop 08/29/16 at 20:00; Status DC Micafungin Sodium 100 mg/Dextrose 100 ml @ 100 mls/hr Q24H IV Last administered on 08/29/16 23:11; Start 08/28/16 at 22:00 Piperacillin Sod/ Tazobactam Sod/ Sodium Chloride (Zosyn/Iv Sodium Chloride 0.9 % 50ml) 50 ml @ 100 mls/hr Q6HRS IV Last administered on 08/30/16 05:56; Start 08/28/16 at 20:00 Sulfur Hexafluoride Microspheres (Lumason) 25 mg STK-MED ONCE IVP ; Start at 09:49; Stop 08/29/16 at 09:50; Status DC Sulfur Hexafluoride Microspheres 25 mg 25 mg 1X ONCE IVP Last administered on 08/29/16 10:13; Start 08/29/16 at 10:15; Stop 08/29/16 at 10:16; Status DC Magnesium Sulfate/ Dextrose (Magnesium Sulfate PREMIX 2GM) 50 ml @ 25 mls/hr PRN DAILY PRN IV for Mag < 1.7 on am labs; Start 08/29/16 at 12:15 Acetylcysteine 1200 mg 1,200 mg BID PO Last administered on 08/29/16 21:11; Start 08/29/16 at 21:00; Stop 08/31/16 at 20:59 Cefazolin Sodium/ Sodium Chloride (Ancef/Iv Sodium Chloride 0.9% 500ml Bag) 500 ml @ 500 mls/hr 1X PERIOP ONCE IRR ; Start 08/30/16 at 06:00; Stop 08/30/16 at 06:59; Status DC Ondansetron HCl (Zofran) 4 mg PRN Q6HRS PRN IV Nausea; Start 08/30/16 at 07:00 ; Stop 08/31/16 at 06:59 Fentanyl Citrate (Fentanyl 2ml Vial) 25 mcg PRN Q5MIN PRN IV MILD PAIN; Start 08/30/16 at 07:00; Stop 08/31/16 at 06:59 Fentanyl Citrate (Fentanyl 2ml Vial) 50 mcg PRN Q5MIN PRN IV MODERATE PAIN; Start 08/30/16 at 07:00; Stop 08/31/16 at 06:59 Morphine Sulfate 1 mg 1 mg PRN Q10MIN PRN IV SEVERE PAIN; Start 08/30/16 at 07: 00; Stop 08/31/16 at 06:59 Lactated Ringer's (Iv Lactated Ringers) 1,000 ml @ 30 mls/hr Q24H IV Last administered on 08/30/16 09:29; Start 08/30/16 at 07:00; Stop 08/30/16 at 18:59 Lidocaine HCl 2 ml 1X PRN PRN ID IV START; Start 08/30/16 at 07:00; Stop at 06:59 Hydromorphone HCl (Dilaudid) 0.5 mg PRN Q10MIN PRN IV SEVERE PAIN, Second choice; Start 08/30/16 at 07:00; Stop 08/31/16 at 06:59 Prochlorperazine Edisylate (Compazine) 5 mg PACU PRN PRN IV NAUSEA; Start 08/30 at 07:00; Stop 08/31/16 at 06:59 Acetylcysteine 1200 mg 1,200 mg BID PO ; Start 08/29/16 at 21:00; Stop 08/31/16 at 20:59; Status UNV Sodium Chloride 1,000 ml @ 100 mls/hr Q10H IV Last administered on 08/30/16 00:23; Start 08/29/16 at 17:30 Propofol (Diprivan) 20 ml @ As Directed STK-MED ONCE IV ; Start 08/30/16 at 08: 16; Stop 08/30/16 at 08:17; Status DC Lidocaine HCl 100 mg STK-MED ONCE .ROUTE ; Start 08/30/16 at 08:16; Stop at 08:17; Status DC Ondansetron HCl (Zofran) 4 mg STK-MED ONCE .ROUTE ; Start 08/30/16 at 08:16; Stop 08/30/16 at 08:17; Status DC Fentanyl Citrate (Fentanyl 2ml Vial) 100 mcg STK-MED ONCE .ROUTE ; Start at 08:16; Stop 08/30/16 at 08:17; Status DC Active Scripts Active Reported Docusate Sodium 100 Mg Capsule 1 Cap PO BID Acetaminophen 500 Mg Tablet 1 Tab PO PRN DAILY PRN Novolog Flexpen (Insulin Aspart) 100 Unit/1 Ml Insuln.pen 28 Unit SQ DAILYWSUP Novolog Flexpen (Insulin Aspart) 100 Unit/1 Ml Insuln.pen 10 Unit SQ Warfarin Sodium 1 Mg Tablet 1 Mg PO WEEKLY Warfarin Sodium 1 Mg Tablet 1 Mg PO DAILY Travatan Z (Travoprost) 5 Ml Drops 1 Drop EACHEYE QHS Tamsulosin Hcl 0.4 Mg Cap.er.24h 2 Cap PO DAILY Metoprolol Tartrate 50 Mg Tablet 1 Tab PO BID Losartan Potassium 50 Mg Tablet 50 Mg PO DAILY Isosorbide Mononitrate 20 Mg Tablet 30 Mg PO DAILY Lantus (Insulin Glargine,Hum.rec.anlog) 100 Unit/1 Ml Vial 72 Unit SQ HS Imiquimod 1 Each Cream.pack 1 Each TP 3X/WEEK Hydrocortisone-Iodoquinol Crm (Hydrocortisone/Iodoquinol) 28.4 Gm Cream..g. 28.4 Gm TP PRN BID PRN Furosemide 40 Mg Tablet 1 Tab PO DAILY Finasteride 5 Mg Tablet 1 Tab PO DAILY Dorzolamide Hcl 10 Ml Drops 1 Drop EACHEYE TID Vitamin D-3 (Cholecalciferol (Vitamin D3)) 2,000 Unit Capsule 1,000 Unit PO DAILY Refresh Optive Eye Drops (Carboxymethylcellulos/Glycerin) 15 Ml Drops 1 Drop EACHEYE QID Symbicort 160-4.5 Mcg Inhaler (Budesonide/Formoterol Fumarate) 10.2 Gm Hfa.aer.ad 2 Puff IH BID Bacitracin-Polymyxin Eye Oint (Bacitracin/Polymyxin B Sulfate) 3.5 Gm Oint...g. 3.5 Gm OP PRN DAILY PRN Atorvastatin Calcium 20 Mg Tablet 20 Mg PO HS Ammonium Lactate 225 Gm Lotion 225 Gm TP HS PRN Duoneb 0.5-3(2.5) Mg/3 Ml (Albuterol/Ipratropium) 3 Ml Ampul.neb 3 Ml NEB QID Vitals/I & O Vital Sign - Last 24 Hours 08/29/16 08/29/16 08/29/16 08/29/16 11:36 11:57 11:58 11:59 Pulse 57 57 57 B/P 134/53 134/53 134/53 Pulse Ox 99 O2 Delivery Room Air 08/29/16 08/29/16 08/29/16 08/29/16 15:00 16:00 19:00 19:43 Temp 97.3 98.6 97.3 98.6 Pulse 62 62 Resp 16 18 B/P 121/49 134/50 Pulse Ox 98 98 93 99 O2 Delivery Room Air Room Air Room Air Room Air 08/29/16 08/29/16 08/29/16 08/30/16 19:50 21:11 23:00 03:00 Temp 98.7 98.3 98.7 98.3 Pulse 62 59 96 Resp 18 20 B/P 134/50 137/52 132/49 Pulse Ox 96 96 O2 Delivery Room Air Room Air Room Air 08/30/16 08/30/16 08/30/16 08/30/16 07:00 07:45 07:48 07:56 Temp 97.7 97.7 Pulse 65 65 Resp 18 B/P 135/54 135/54 Pulse Ox 95 98 O2 Delivery Room Air Room Air Room Air 08/30/16 08/30/16 07:56 09:24 Temp 98.8 98.8 Pulse 65 61 Resp 15 B/P 135/54 145/65 Pulse Ox 95 O2 Delivery Room Air Intake and Output 08/29/16 08/29/16 08/30/16 15:00 23:00 07:00 Intake Total 1890 ml Output Total 500 ml 600 ml Balance -500 ml 1290 ml JOCELINE JAIME MD Aug 30, 2016 09:55
[2016-08-30] MEDS ORDERED: LIDOCAINE 1% PF 30 ML VIAL. ONE (10:49)
--- NOTE | 2016-08-30 12:25 | PDOC4 ---
Operative Note Operative Note Op note dictated Dx: 1. 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 mild peripheral arterial disease - 50% left sup. femoral artery stenosis 3. renal insufficiency Op: 1. 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 local with mac to rr in sat. cond. KSENIA VARGAS II, MD Aug 30, 2016 12:25
--- NOTE | 2016-08-30 13:38 | PDOC ---
PROGRESS NOTES Chief Complaint Chief Complaint a/p Left great toe osteomyelitis PAD DM DAREK Paroxysmal Afib Plan IV ABX, ZOSYN AND ZYVOX, ID AND VASCULAR FOLLOWING SSI ECHO normal EF. RENAL CONSULT LABS REVIEWED, SUPPORTIVE CARE History of Present Illness History of Present Illness NO FEVER NO CHILLS DOING BETTER. Vitals Vitals Vital Signs Date Time Temp Pulse Resp B/P Pulse Ox O2 Delivery O2 Flow Rate FiO2 08/30/16 12:41 97.2 60 18 119/50 95 Room Air 97.2 Physical Exam General: Alert, Oriented X3, Cooperative, No acute distress Heart: Normal S1 Lungs: Clear Abdomen: Normal bowel sounds, Soft (obese) Extremities: Normal pulses, Other (chronic sclerosis of skin pretibial, 1+ edema, ) Labs LABS Laboratory Tests Test 08/29/16 13:55 08/29/16 15:35 08/29/16 16:05 08/29/16 20:34 Lactic Acid Level 2.4mmol/L (0.4-2.0) Creatine Kinase 97U/L (39-308) Urine Collection Type Unknown Urine Color Yellow Urine Clarity Clear Urine pH 5.5 Urine Specific [place] 1.020 Urine Protein 30mg/dL (NEG-TRACE) Urine Glucose (UA) 500mg/dL (NEG) Urine Ketones (Stick) Negativemg/dL (NEG) Urine Blood Small (NEG) Urine Nitrite Negative (NEG) Urine Bilirubin Negative (NEG) Urine Urobilinogen Dipstick 0.2mg/dL (0.2 mg/dL) Urine Leukocyte Esterase Negative (NEG) Urine RBC Rare/HPF (0-2) Urine WBC Rare/HPF (0-4) Urine Squamous Epithelial Cells Occ/LPF Urine Bacteria 0/HPF (0-FEW) Glucose (Fingerstick) 200mg/dL (70-99) 170mg/dL (70-99) Test 08/30/16 05:30 08/30/16 07:28 08/30/16 12:08 Hemoglobin 13.2g/dL (13.0-17.5) Sodium Level 138mmol/L (136-145) Potassium Level 3.7mmol/L (3.5-5.1) Chloride Level 100mmol/L (98-107) Carbon Dioxide Level 29mmol/L (21-32) Anion Gap 9 (6-14) Blood Urea Nitrogen 39mg/dL (8-26) Creatinine 2.0mg/dL (0.7-1.3) Estimated GFR (Cockcroft-Gault) 31.8 Glucose Level 186mg/dL (70-99) Lactic Acid Level 2.7mmol/L (0.4-2.0) Calcium Level 9.1mg/dL (8.5-10.1) Phosphorus Level 3.6mg/dL (2.6-4.7) Magnesium Level 2.0mg/dL (1.8-2.4) Albumin 2.3g/dL (3.4-5.0) Glucose (Fingerstick) 184mg/dL (70-99) 250mg/dL (70-99) Comment Review of Relevant I have reviewed the following items vinay (where applicable) has been applied. Labs Laboratory Tests Test 08/28/16 16:46 08/28/16 18:34 08/28/16 18:55 08/28/16 20:57 Glucose (Fingerstick) 449mg/dL (70-99) 455mg/dL (70-99) 288mg/dL (70-99) White Blood Count 8.9x10^3/uL (4.0-11.0) Red Blood Count 4.73x10^6/uL (4.30-5.70) Hemoglobin 13.6g/dL (13.0-17.5) Hematocrit 42.2% (39.0-53.0) Mean Corpuscular Volume 89fL (79-100) Mean Corpuscular Hemoglobin 29pg (25-35) Mean Corpuscular Hemoglobin Concent 32g/dL (31-37) Red Cell Distribution Width 15.5% (11.5-14.5) Platelet Count 191x10^3/uL (140-400) Neutrophils (%) (Auto) 78% (31-73) Lymphocytes (%) (Auto) 8% (24-48) Monocytes (%) (Auto) 14% (0-9) Eosinophils (%) (Auto) 0% (0-3) Basophils (%) (Auto) 1% (0-3) Neutrophils # (Auto) 7.0x10^3uL (1.8-7.7) Lymphocytes # (Auto) 0.7x10^3/uL (1.0-4.8) Monocytes # (Auto) 1.2x10^3/uL (0.0-1.1) Eosinophils # (Auto) 0.0x10^3/uL (0.0-0.7) Basophils # (Auto) 0.1x10^3/uL (0.0-0.2) Erythrocyte Sedimentation Rate 34 (0-15) Prothrombin Time 24.1SEC (11.7-14.0) Prothromb Time International Ratio 2.3 (0.8-1.1) Sodium Level 135mmol/L (136-145) Potassium Level 4.4mmol/L (3.5-5.1) Chloride Level 97mmol/L (98-107) Carbon Dioxide Level 31mmol/L (21-32) Anion Gap 7 (6-14) Blood Urea Nitrogen 47mg/dL (8-26) Creatinine 2.1mg/dL (0.7-1.3) Estimated GFR (Cockcroft-Gault) 30.1 BUN/Creatinine Ratio 22 (6-20) Glucose Level 476mg/dL (70-99) Hemoglobin A1c 9.2% (4.8-5.6) Calcium Level 9.0mg/dL (8.5-10.1) Total Bilirubin 0.7mg/dL (0.2-1.0) Aspartate Amino Transf (AST/SGOT) 24U/L (15-37) Alanine Aminotransferase (ALT/SGPT) 22U/L (16-63) Alkaline Phosphatase 90U/L (46-116) C-Reactive Protein High Sensitivity 157.06mg/L (0.00-3.00) Total Protein 7.1g/dL (6.4-8.2) Albumin 2.5g/dL (3.4-5.0) Albumin/Globulin Ratio 0.5 (1.0-1.7) Test 08/29/16 11:42 08/29/16 13:55 08/29/16 15:35 08/29/16 16:05 Glucose (Fingerstick) 235mg/dL (70-99) 200mg/dL (70-99) Lactic Acid Level 2.4mmol/L (0.4-2.0) Creatine Kinase 97U/L (39-308) Urine Collection Type Unknown Urine Color Yellow Urine Clarity Clear Urine pH 5.5 Urine Specific [place] 1.020 Urine Protein 30mg/dL (NEG-TRACE) Urine Glucose (UA) 500mg/dL (NEG) Urine Ketones (Stick) Negativemg/dL (NEG) Urine Blood Small (NEG) Urine Nitrite Negative (NEG) Urine Bilirubin Negative (NEG) Urine Urobilinogen Dipstick 0.2mg/dL (0.2 mg/dL) Urine Leukocyte Esterase Negative (NEG) Urine RBC Rare/HPF (0-2) Urine WBC Rare/HPF (0-4) Urine Squamous Epithelial Cells Occ/LPF Urine Bacteria 0/HPF (0-FEW) Test 08/29/16 20:34 08/30/16 05:30 08/30/16 07:28 08/30/16 12:08 Glucose (Fingerstick) 170mg/dL (70-99) 184mg/dL (70-99) 250mg/dL (70-99) Hemoglobin 13.2g/dL (13.0-17.5) Sodium Level 138mmol/L (136-145) Potassium Level 3.7mmol/L (3.5-5.1) Chloride Level 100mmol/L (98-107) Carbon Dioxide Level 29mmol/L (21-32) Anion Gap 9 (6-14) Blood Urea Nitrogen 39mg/dL (8-26) Creatinine 2.0mg/dL (0.7-1.3) Estimated GFR (Cockcroft-Gault) 31.8 Glucose Level 186mg/dL (70-99) Lactic Acid Level 2.7mmol/L (0.4-2.0) Calcium Level 9.1mg/dL (8.5-10.1) Phosphorus Level 3.6mg/dL (2.6-4.7) Magnesium Level 2.0mg/dL (1.8-2.4) Albumin 2.3g/dL (3.4-5.0) Laboratory Tests Test 08/29/16 13:55 08/29/16 15:35 08/29/16 16:05 08/29/16 20:34 Lactic Acid Level 2.4mmol/L (0.4-2.0) Creatine Kinase 97U/L (39-308) Urine Collection Type Unknown Urine Color Yellow Urine Clarity Clear Urine pH 5.5 Urine Specific [place] 1.020 Urine Protein 30mg/dL (NEG-TRACE) Urine Glucose (UA) 500mg/dL (NEG) Urine Ketones (Stick) Negativemg/dL (NEG) Urine Blood Small (NEG) Urine Nitrite Negative (NEG) Urine Bilirubin Negative (NEG) Urine Urobilinogen Dipstick 0.2mg/dL (0.2 mg/dL) Urine Leukocyte Esterase Negative (NEG) Urine RBC Rare/HPF (0-2) Urine WBC Rare/HPF (0-4) Urine Squamous Epithelial Cells Occ/LPF Urine Bacteria 0/HPF (0-FEW) Glucose (Fingerstick) 200mg/dL (70-99) 170mg/dL (70-99) Test 08/30/16 05:30 08/30/16 07:28 08/30/16 12:08 Hemoglobin 13.2g/dL (13.0-17.5) Sodium Level 138mmol/L (136-145) Potassium Level 3.7mmol/L (3.5-5.1) Chloride Level 100mmol/L (98-107) Carbon Dioxide Level 29mmol/L (21-32) Anion Gap 9 (6-14) Blood Urea Nitrogen 39mg/dL (8-26) Creatinine 2.0mg/dL (0.7-1.3) Estimated GFR (Cockcroft-Gault) 31.8 Glucose Level 186mg/dL (70-99) Lactic Acid Level 2.7mmol/L (0.4-2.0) Calcium Level 9.1mg/dL (8.5-10.1) Phosphorus Level 3.6mg/dL (2.6-4.7) Magnesium Level 2.0mg/dL (1.8-2.4) Albumin 2.3g/dL (3.4-5.0) Glucose (Fingerstick) 184mg/dL (70-99) 250mg/dL (70-99) Medications Current Medications Sodium Chloride (Normal Saline Flush) 3 ml PRN DAILY PRN IV AFTER MEDS AND BLOOD DRAWS; Start 08/28/16 at 17:30 Insulin Aspart (Novolog) 15 units 1X ONCE SQ Last administered on 08/28/16t 18: 12; Start 08/28/16 at 17:45; Stop 08/28/16 at 17:46; Status DC Acetaminophen (Tylenol) 500 mg PRN DAILY PRN PO PAIN Last administered on 22:09; Start 08/28/16 at 18:30 Lactic Acid (Lac-Hydrin) 1 monica PRN QHS PRN TP DRY SKIN; Start 08/28/16 at 18:30 Atorvastatin Calcium (Lipitor) 20 mg HS PO Last administered on 08/29/16 21:00 ; Start 08/28/16 at 21:00 Bacitracin/ Polymyxin B Sulfate (Polysporin Ophth) 1 inch PRN DAILY PRN OD BLEPHARITIS; Start 08/28/16 at 18:30 Docusate Sodium (Colace) 100 mg BID PO Last administered on 08/29/16 21:11; Start 08/28/16 at 21:00 Dorzolamide HCl (Trusopt) 1 drop TID OU Last administered on 08/30/16 07:57; Start 08/28/16 at 21:00 Finasteride (Proscar) 5 mg DAILY PO Last administered on 08/29/16 11:57; Start 08/29/16 at 09:00 Furosemide (Lasix) 40 mg DAILY PO Last administered on 08/29/16 11:59; Start at 09:00; Stop 08/29/16 at 12:18; Status DC Insulin Aspart (Novolog) 10 units TID SQ ; Start 08/28/16 at 21:00; Stop 08/28/16 at 21:00; Status DC Insulin Aspart (Novolog) 28 units DAILYWSUP SQ ; Start 08/28/16 at 18:45; Stop at 18:45; Status DC Albuterol/ Ipratropium (Duoneb) 3 ml RTQID NEB Last administered on 08/30/16 07:48; Start 08/28/16 at 20:00 Isosorbide Mononitrate (Imdur) 30 mg DAILY PO Last administered on 08/29/16 11: 57; Start 08/29/16 at 09:00 Losartan Potassium (Cozaar) 50 mg DAILY PO Last administered on 08/30/16 07:56 ; Start 08/29/16 at 09:00 Metoprolol Tartrate (Lopressor) 50 mg BID PO Last administered on 08/30/16 07: 56; Start 08/28/16 at 21:00 Tamsulosin HCl (Flomax) 0.4 mg DAILY PO Last administered on 08/29/16 11:57; Start 08/29/16 at 09:00 Budesonide (Pulmicort) 0.5 mg RTBID NEB Last administered on 08/30/16 07:48; Start 08/28/16 at 20:00 Artificial Tears (Artificial Tears) 1 drop QID OU Last administered on 07:57; Start 08/28/16 at 21:00 Vitamin D (Vitamin D3) 1,000 unit DAILY PO Last administered on 08/29/16 11:57 ; Start 08/29/16 at 09:00 Non-Formulary Medication 28.4 gm PRN BID PRN TP INTERTRIGO; Start 08/28/16 at 18 :30; Stop 08/29/16 at 21:34; Status DC Non-Formulary Medication 72 unit HS SQ ; Start 08/28/16 at 21:00; Stop 08/28/16 at 21:00; Status DC Non-Formulary Medication 1 drop QHS EACHEYE Last administered on 08/29/16 21:00 ; Start 08/28/16 at 21:00 Insulin Aspart (Novolog) 16 units TIDWMEALS SQ ; Start 08/29/16 at 08:00; Stop at 08:00; Status DC Insulin Aspart (Novolog) 0-9 UNITS TIDWMEALS SQ Last administered on 08/29/16 17:50; Start 08/28/16 at 18:45 Dextrose 12.5 gm PRN Q15MIN PRN IV SEE COMMENTS; Start 08/28/16 at 18:45 Insulin Aspart (Novolog) 26 units 1X ONCE SQ Last administered on 08/28/16 18: 47; Start 08/28/16 at 18:45; Stop 08/28/16 at 18:46; Status DC Insulin Detemir (Levemir) 72 units QHS SQ Last administered on 08/29/16 21:25; Start 08/28/16 at 21:00 Insulin Aspart (Novolog) 20 units TIDWMEALS SQ Last administered on 08/29/16 17 :48; Start 08/29/16 at 08:00 Albuterol/ Ipratropium (Duoneb) 3 ml RTQID NEB ; Start 08/28/16 at 20:00; Stop at 20:00; Status DC Budesonide 0.5 mg 0.5 mg RTBID NEB ; Start 08/28/16 at 20:00; Stop 08/28/16 at 20: 00; Status DC Linezolid 300 ml @ 300 mls/hr Q12HR IV Last administered on 08/30/16 07:56; Start 08/28/16 at 21:00 Piperacillin Sod/ Tazobactam Sod 2.25 gm/Sodium Chloride 50 ml @ 100 mls/hr Q6HRS IV ; Start 08/29/16 at 20:00; Stop 08/29/16 at 20:00; Status DC Micafungin Sodium 100 mg/Dextrose 100 ml @ 100 mls/hr Q24H IV Last administered on 08/29/16 23:11; Start 08/28/16 at 22:00 Piperacillin Sod/ Tazobactam Sod/ Sodium Chloride (Zosyn/Iv Sodium Chloride 0.9 % 50ml) 50 ml @ 100 mls/hr Q6HRS IV Last administered on 08/30/16 05:56; Start 08/28/16 at 20:00 Sulfur Hexafluoride Microspheres (Lumason) 25 mg STK-MED ONCE IVP ; Start at 09:49; Stop 08/29/16 at 09:50; Status DC Sulfur Hexafluoride Microspheres 25 mg 25 mg 1X ONCE IVP Last administered on 08/29/16 10:13; Start 08/29/16 at 10:15; Stop 08/29/16 at 10:16; Status DC Magnesium Sulfate/ Dextrose (Magnesium Sulfate PREMIX 2GM) 50 ml @ 25 mls/hr PRN DAILY PRN IV for Mag < 1.7 on am labs; Start 08/29/16 at 12:15 Acetylcysteine 1200 mg 1,200 mg BID PO Last administered on 08/29/16 21:11; Start 08/29/16 at 21:00; Stop 08/31/16 at 20:59 Cefazolin Sodium/ Sodium Chloride (Ancef/Iv Sodium Chloride 0.9% 500ml Bag) 500 ml @ 500 mls/hr 1X PERIOP ONCE IRR Last administered on 08/30/16 10:54; Start 08/30/16 at 06:00; Stop 08/30/16 at 06:59; Status DC Ondansetron HCl (Zofran) 4 mg PRN Q6HRS PRN IV Nausea; Start 08/30/16 at 07:00 ; Stop 08/31/16 at 06:59 Fentanyl Citrate (Fentanyl 2ml Vial) 25 mcg PRN Q5MIN PRN IV MILD PAIN Last administered on 08/30/16 12:37; Start 08/30/16 at 07:00; Stop 08/31/16 at 06:59 Fentanyl Citrate (Fentanyl 2ml Vial) 50 mcg PRN Q5MIN PRN IV MODERATE PAIN; Start 08/30/16 at 07:00; Stop 08/31/16 at 06:59 Morphine Sulfate 1 mg 1 mg PRN Q10MIN PRN IV SEVERE PAIN; Start 08/30/16 at 07: 00; Stop 08/31/16 at 06:59 Lactated Ringer's (Iv Lactated Ringers) 1,000 ml @ 30 mls/hr Q24H IV Last administered on 08/30/16 09:29; Start 08/30/16 at 07:00; Stop 08/30/16 at 18:59 Lidocaine HCl 2 ml 1X PRN PRN ID IV START; Start 08/30/16 at 07:00; Stop at 06:59 Hydromorphone HCl (Dilaudid) 0.5 mg PRN Q10MIN PRN IV SEVERE PAIN, Second choice; Start 08/30/16 at 07:00; Stop 08/31/16 at 06:59 Prochlorperazine Edisylate (Compazine) 5 mg PACU PRN PRN IV NAUSEA; Start 08/30 at 07:00; Stop 08/31/16 at 06:59 Acetylcysteine 1200 mg 1,200 mg BID PO ; Start 08/29/16 at 21:00; Stop 08/31/16 at 20:59; Status UNV Sodium Chloride 1,000 ml @ 100 mls/hr Q10H IV Last administered on 08/30/16 00:23; Start 08/29/16 at 17:30 Propofol (Diprivan) 20 ml @ As Directed STK-MED ONCE IV ; Start 08/30/16 at 08: 16; Stop 08/30/16 at 08:17; Status DC Lidocaine HCl 100 mg STK-MED ONCE .ROUTE ; Start 08/30/16 at 08:16; Stop at 08:17; Status DC Ondansetron HCl (Zofran) 4 mg STK-MED ONCE .ROUTE ; Start 08/30/16 at 08:16; Stop 08/30/16 at 08:17; Status DC Fentanyl Citrate (Fentanyl 2ml Vial) 100 mcg STK-MED ONCE .ROUTE ; Start at 08:16; Stop 08/30/16 at 08:17; Status DC Lidocaine HCl 30 ml STK-MED ONCE .ROUTE Last administered on 08/30/16t 10:54; Start 08/30/16 at 10:49; Stop 08/30/16 at 10:50; Status DC Active Scripts Active Reported Docusate Sodium 100 Mg Capsule 1 Cap PO BID Acetaminophen 500 Mg Tablet 1 Tab PO PRN DAILY PRN Novolog Flexpen (Insulin Aspart) 100 Unit/1 Ml Insuln.pen 28 Unit SQ DAILYWSUP Novolog Flexpen (Insulin Aspart) 100 Unit/1 Ml Insuln.pen 10 Unit SQ Warfarin Sodium 1 Mg Tablet 1 Mg PO WEEKLY Warfarin Sodium 1 Mg Tablet 1 Mg PO DAILY Travatan Z (Travoprost) 5 Ml Drops 1 Drop EACHEYE QHS Tamsulosin Hcl 0.4 Mg Cap.er.24h 2 Cap PO DAILY Metoprolol Tartrate 50 Mg Tablet 1 Tab PO BID Losartan Potassium 50 Mg Tablet 50 Mg PO DAILY Isosorbide Mononitrate 20 Mg Tablet 30 Mg PO DAILY Lantus (Insulin Glargine,Hum.rec.anlog) 100 Unit/1 Ml Vial 72 Unit SQ HS Imiquimod 1 Each Cream.pack 1 Each TP 3X/WEEK Hydrocortisone-Iodoquinol Crm (Hydrocortisone/Iodoquinol) 28.4 Gm Cream..g. 28.4 Gm TP PRN BID PRN Furosemide 40 Mg Tablet 1 Tab PO DAILY Finasteride 5 Mg Tablet 1 Tab PO DAILY Dorzolamide Hcl 10 Ml Drops 1 Drop EACHEYE TID Vitamin D-3 (Cholecalciferol (Vitamin D3)) 2,000 Unit Capsule 1,000 Unit PO DAILY Refresh Optive Eye Drops (Carboxymethylcellulos/Glycerin) 15 Ml Drops 1 Drop EACHEYE QID Symbicort 160-4.5 Mcg Inhaler (Budesonide/Formoterol Fumarate) 10.2 Gm Hfa.aer.ad 2 Puff IH BID Bacitracin-Polymyxin Eye Oint (Bacitracin/Polymyxin B Sulfate) 3.5 Gm Oint...g. 3.5 Gm OP PRN DAILY PRN Atorvastatin Calcium 20 Mg Tablet 20 Mg PO HS Ammonium Lactate 225 Gm Lotion 225 Gm TP HS PRN Duoneb 0.5-3(2.5) Mg/3 Ml (Albuterol/Ipratropium) 3 Ml Ampul.neb 3 Ml NEB QID Vitals/I & O Vital Sign - Last 24 Hours 08/29/16 08/29/16 08/29/16 08/29/16 15:00 16:00 19:00 19:43 Temp 97.3 98.6 97.3 98.6 Pulse 62 62 Resp 16 18 B/P 121/49 134/50 Pulse Ox 98 98 93 99 O2 Delivery Room Air Room Air Room Air Room Air 08/29/16 08/29/16 08/29/16 08/30/16 19:50 21:11 23:00 03:00 Temp 98.7 98.3 98.7 98.3 Pulse 62 59 96 Resp 18 20 B/P 134/50 137/52 132/49 Pulse Ox 96 96 O2 Delivery Room Air Room Air Room Air 08/30/16 08/30/16 08/30/16 08/30/16 07:00 07:45 07:48 07:56 Temp 97.7 97.7 Pulse 65 65 Resp 18 B/P 135/54 135/54 Pulse Ox 95 98 O2 Delivery Room Air Room Air Room Air 08/30/16 08/30/16 08/30/16 08/30/16 07:56 09:24 11:55 11:56 Temp 98.8 97.2 98.8 97.2 Pulse 65 61 61 Resp 17 B/P 135/54 145/65 126/54 Pulse Ox 95 96 O2 Delivery Room Air Room Air Room Air 08/30/16 08/30/16 08/30/16 08/30/16 12:11 12:26 12:37 12:41 Temp 97.2 97.2 97.2 97.2 97.2 97.2 Pulse 60 60 60 Resp 18 20 18 18 B/P 131/52 135/60 119/50 Pulse Ox 94 94 94 95 O2 Delivery Room Air Room Air Room Air Room Air Intake and Output 08/29/16 08/29/16 08/30/16 15:00 23:00 07:00 Intake Total 1890 ml Output Total 500 ml 600 ml Balance -500 ml 1290 ml INES ARCHER MD Aug 30, 2016 13:38
--- NOTE | 2016-08-30 15:10 | PDOC ---
SUBJECTIVE ROS CKD III Doing well, now s/p Left great toe amputation CVS: no Orthopnea, no CP RESP: no SOB, no JIMÉNEZ GI: no Nausea, no Vomiting : no Dysuria, no Urgency - OBJECTIVE Vital Signs Vital Signs Date Time Temp Pulse Resp B/P Pulse Ox O2 Delivery O2 Flow Rate FiO2 08/30/16 12:41 97.2 60 18 119/50 95 Room Air 97.2 I & 0 Intake and Output 08/30/16 07:00 Intake Total 1890 ml Output Total 1100 ml Balance 790 ml Intake Oral 490 ml IV Total 500 ml Other 900 ml Output Urine Total 1100 ml PHYSICAL EXAM Physical Exam General Appearance: Awake Alert Oriented x 3 In no Distress; obese WM Eyes: VIsion Unchanged Conjunctiva Normal EN: No EN Drainage Mucous Memb. moist Neck: no JVD no JVP Supple no Thyromegaly - thick neck CVS: S1 S2 no Murmur No Gallop No Rub no Edema Resp: no Rales no Rhonchi no Acc. Muscle use GI: BAS +ve NO Bruit Non Tender Non Distended; Morbidly obese : no CVA tenderness; no Suprapubic Tenderness Assessment & Plan CKD III - DM/ HTNsive As/ NS Current FLuid and E-lyte status does not necessitate emergent need for Dialysis. Will re-evaluate in am, Creat stable insulin using DM Long standing with DM Nephropathy PVD with gangrene - WHile AFR has been discussed; CO2 angio is planned, if IVC is needed - he is a mild to mod risk for CAN and this was discussed with pt. IVF and NAC will be ordered Lactic Acidemia - ? due to PVD - ct IVF - Lactate remains ^ed H/o CHF : , ECHO noted WNL EF HTN: Current BP meds reviewed. See orders for changes. Discussed Plan of Care and prognosis etc. at length with family (aris). COMMENT/RELEVANT DATA Meds Current Medications Medications (Trade) Dose Ordered Sig/Malcolm Start Time Stop Time Status Last Admin Dose Admin Acetaminophen (Tylenol) 500 mg PRN DAILY PRN 08/28/16 18:30 08/28/16 22:09 500 MG Acetylcysteine 1200 mg 1,200 mg BID 08/29/16 21:00 08/31/16 20:59 UNV Albuterol/ Ipratropium (Duoneb) 3 ml RTQID 08/28/16 20:00 08/28/16 20:00 DC Artificial Tears (Artificial Tears) 1 drop QID 08/28/16 21:00 08/30/16 14:52 1 DROP Atorvastatin Calcium (Lipitor) 20 mg HS 08/28/16 21:00 08/29/16 21:00 20 MG Bacitracin/ Polymyxin B Sulfate (Polysporin Ophth) 1 inch PRN DAILY PRN 08/28/16 18:30 Budesonide (Pulmicort) 0.5 mg RTBID 08/28/16 20:00 08/30/16 07:48 0.5 MG Budesonide 0.5 mg 0.5 mg RTBID 08/28/16 20:00 08/28/16 20:00 DC Cefazolin Sodium/ Sodium Chloride (Ancef/Iv Sodium Chloride 0.9% 500ml Bag) 500 ml @ 500 mls/hr 1X PERIOP ONCE 08/30/16 06:00 08/30/16 06:59 DC 08/30/16 10:54 Dextrose 12.5 gm PRN Q15MIN PRN 08/28/16 18:45 Docusate Sodium (Colace) 100 mg BID 08/28/16 21:00 08/29/16 21:11 100 MG Dorzolamide HCl (Trusopt) 1 drop TID 08/28/16 21:00 08/30/16 14:52 1 DROP Fentanyl Citrate (Fentanyl 2ml Vial) 100 mcg STK-MED ONCE 08/30/16 08:16 08/30/16 08:17 DC Finasteride (Proscar) 5 mg DAILY 08/29/16 09:00 08/29/16 11:57 5 MG Furosemide (Lasix) 40 mg DAILY 08/29/16 09:00 08/29/16 12:18 DC 08/29/16 11:59 40 MG Hydromorphone HCl (Dilaudid) 0.5 mg PRN Q10MIN PRN 08/30/16 07:00 08/31/16 06:59 Insulin Aspart (Novolog) 20 units TIDWMEALS 08/29/16 08:00 08/30/16 14:55 20 UNITS Insulin Detemir (Levemir) 72 units QHS 08/28/16 21:00 08/29/16 21:25 20 UNITS Isosorbide Mononitrate (Imdur) 30 mg DAILY 08/29/16 09:00 08/29/16 11:57 30 MG Lactated Ringer's (Iv Lactated Ringers) 1,000 ml @ 30 mls/hr Q24H 08/30/16 07:00 08/30/16 18:59 08/30/16 09:29 30 MLS/HR Lactic Acid (Lac-Hydrin) 1 mnoica PRN QHS PRN 08/28/16 18:30 Lidocaine HCl 30 ml STK-MED ONCE 08/30/16 10:49 08/30/16 10:50 DC 08/30/16 10:54 22 ML Linezolid 300 ml @ 300 mls/hr Q12HR 08/28/16 21:00 08/30/16 07:56 300 MLS/HR Losartan Potassium (Cozaar) 50 mg DAILY 08/29/16 09:00 08/30/16 07:56 50 MG Magnesium Sulfate/ Dextrose 50 ml @ 25 mls/hr PRN DAILY PRN 08/29/16 12:15 Metoprolol Tartrate (Lopressor) 50 mg BID 08/28/16 21:00 08/30/16 07:56 50 MG Micafungin Sodium 100 mg/Dextrose 100 ml @ 100 mls/hr Q24H 08/28/16 22:00 08/29/16 23:11 100 MLS/HR Morphine Sulfate 1 mg 1 mg PRN Q10MIN PRN 08/30/16 07:00 08/31/16 06:59 Non-Formulary Medication 1 drop QHS 08/28/16 21:00 08/29/16 21:00 1 DROP Ondansetron HCl (Zofran) 4 mg STK-MED ONCE 08/30/16 08:16 08/30/16 08:17 DC Oxycodone/ Acetaminophen (Percocet 5/325) 2 tab PRN Q4HRS PRN 08/30/16 15:00 Piperacillin Sod/ Tazobactam Sod 2.25 gm/Sodium Chloride 50 ml @ 100 mls/hr Q6HRS 08/29/16 20:00 08/29/16 20:00 DC Piperacillin Sod/ Tazobactam Sod/ Sodium Chloride (Zosyn/Iv Sodium Chloride 0.9% 50ml) 50 ml @ 100 mls/hr Q6HRS 08/28/16 20:00 08/30/16 14:59 100 MLS/HR Prochlorperazine Edisylate (Compazine) 5 mg PACU PRN PRN 08/30/16 07:00 08/31/16 06:59 Propofol (Diprivan) 20 ml @ As Directed STK-MED ONCE 08/30/16 08:16 08/30/16 08:17 DC Sodium Chloride 1,000 ml @ 100 mls/hr Q10H 08/29/16 17:30 08/30/16 15:00 100 MLS/HR Sodium Chloride (Normal Saline Flush) 3 ml PRN DAILY PRN 08/28/16 17:30 Sulfur Hexafluoride Microspheres (Lumason) 25 mg STK-MED ONCE 08/29/16 09:49 08/29/16 09:50 DC Sulfur Hexafluoride Microspheres 25 mg 25 mg 1X ONCE 08/29/16 10:15 08/29/16 10:16 DC 08/29/16 10:13 25 MG Tamsulosin HCl (Flomax) 0.4 mg DAILY 08/29/16 09:00 08/29/16 11:57 0.4 MG Vitamin D (Vitamin D3) 1,000 unit DAILY 08/29/16 09:00 08/29/16 11:57 1,000 UNIT Lab Laboratory Tests Test 08/29/16 15:35 08/29/16 16:05 08/29/16 20:34 08/30/16 05:30 Urine Collection Type Unknown Urine Color Yellow Urine Clarity Clear Urine pH 5.5 Urine Specific Browns 1.020 Urine Protein 30mg/dL (NEG-TRACE) Urine Glucose (UA) 500mg/dL (NEG) Urine Ketones (Stick) Negativemg/dL (NEG) Urine Blood Small (NEG) Urine Nitrite Negative (NEG) Urine Bilirubin Negative (NEG) Urine Urobilinogen Dipstick 0.2mg/dL (0.2 mg/dL) Urine Leukocyte Esterase Negative (NEG) Urine RBC Rare/HPF (0-2) Urine WBC Rare/HPF (0-4) Urine Squamous Epithelial Cells Occ/LPF Urine Bacteria 0/HPF (0-FEW) Glucose (Fingerstick) 200mg/dL (70-99) 170mg/dL (70-99) Hemoglobin 13.2g/dL (13.0-17.5) Sodium Level 138mmol/L (136-145) Potassium Level 3.7mmol/L (3.5-5.1) Chloride Level 100mmol/L (98-107) Carbon Dioxide Level 29mmol/L (21-32) Anion Gap 9 (6-14) Blood Urea Nitrogen 39mg/dL (8-26) Creatinine 2.0mg/dL (0.7-1.3) Estimated GFR (Cockcroft-Gault) 31.8 Glucose Level 186mg/dL (70-99) Lactic Acid Level 2.7mmol/L (0.4-2.0) Calcium Level 9.1mg/dL (8.5-10.1) Phosphorus Level 3.6mg/dL (2.6-4.7) Magnesium Level 2.0mg/dL (1.8-2.4) Albumin 2.3g/dL (3.4-5.0) Test 08/30/16 07:28 08/30/16 12:08 08/30/16 14:44 Glucose (Fingerstick) 184mg/dL (70-99) 250mg/dL (70-99) 273mg/dL (70-99) Other There is borderline to mild concentric left ventricular hypertrophy. Left ventricle systolic function is normal. The Ejection Fraction is 50%. The left atrium size is normal. The right atrium size is normal. The aortic valve is calcified and displays decreased opening. 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 Calculated aortic valve area is 1.4 cm2 with maximum pressure gradient of 18 mmHg and mean pressure gradient of 11 mmHg. Doppler and color-flow analysis revealed mild aortic stenosis. Doppler and Color Flow revealed no significant aortic regurgitation. Doppler and Color Flow revealed trace to mild mitral regurgitation. Doppler and Color Flow revealed trace to mild tricuspid regurgitation. The PA pressure was estimated at 25 mmHg. The pulmonic valve is not well visualized. There is no evidence of significant pericardial effusion. MEÑO BARBOSA MD Aug 30, 2016 15:10
[2016-08-30 16:18] LABS: UR PROTEIN RD 46.8 mg/dL (Not Estab.)
[2016-08-30] MEDS: OXYCODONE/APAP 5/325 TABLET. PO PRN ×3 (16:36→22:31)
--- NOTE | 2016-08-30 19:16 | OP ---
DATE OF SURGERY: 08/30/2016 PREOPERATIVE DIAGNOSES: 1. 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 2. Mild peripheral arterial disease with 50% stenosis of the left superficial femoral artery. 3. Longstanding diabetes type 2. 4. Chronic renal insufficiency. POSTOPERATIVE DIAGNOSES: 1. 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 2. Mild peripheral arterial disease with 50% stenosis of the left superficial femoral artery. 3. Longstanding diabetes type 2. 4. Chronic renal insufficiency. PROCEDURE: 1. Left great toe and ray amputation. 2. Right great toe, full thickness, excisional debridement. SURGEON: Uday Hanson MD RN CARE MANAGER: None. ANESTHESIA: Local with monitored anesthesia care. OPERATIVE FINDINGS: The patient had a gangrenous toe, which was amputated. There was excellent bleeding from the wound edges. The first metatarsal head was resected to allow for a possible tension free primary closure, this was done. Again, bleeding was excellent. The wound was copiously irrigated. There was no residual necrotic tissue or purulence. A primary closure was obtained. DESCRIPTION OF PROCEDURE: After monitored anesthesia care, both forefeet were prepped and draped in the usual manner with Betadine. A circumferential infiltration of 1% plain lidocaine was then done around the base of the great toe. A circumferential incision was made around the base of the toe, which was then extended down to the metatarsal head and proximal phalanx joint. The great toe was removed. There was a little bit of purulence noted medially. Skin edges bled very well. A tennis racquet type incision was made on the medial aspect of the left forefoot and the distal metatarsal and metatarsal head were dissected. A [place] was used to dissect along the distal metatarsal head, which was then transected with a large bone cutter. The sesamoid and posterior tendons and all debris were all surgically excised. The wound bled extremely well. The skin incisions were then tapered for primary closure. The wound was then copiously irrigated with antibiotic containing solution. The wound was then closed with interrupted 4-0 nylon sutures, vertical mattress technique. Sterile dressing was applied. Next, attention was turned to the right great toe. The patient had a plantar ulcer which was debrided with a curette, full thickness, excisional debridement. This is quite superficial. The wound was then dressed with Xeroform gauze, dressing. The patient tolerated both procedures well and was taken to the recovery room in satisfactory condition. UDAY HANSON MD DR: MONISHA/dain JOB#: [id number] / [id number]
--- NOTE | 2016-08-30 20:10 | CONS ---
DATE OF CONSULTATION: REASON FOR CONSULTATION: Elevated creatinine. HISTORY OF PRESENT ILLNESS: The patient is an 86-year-old gentleman whom we were asked to see after it was felt that he needs aortogram with runoff. Plans were to do it with CO2 angiography as best tolerated. He is noted to have a 2-week history of nonhealing ulceration in his lower extremities with worsening erythema, osteomyelitis of his left great toe in the setting of diabetes with chronic renal insufficiency as well as known peripheral vascular disease. We were asked to see him for his renal insufficiency. He claims that he has had CKD stage 3 for numerous years as described to him by his primary care physician at the [facility]. He does not see a car rental service attendant or a bench mover that he is aware of. He claims last time he saw a car rental service attendant was 2-3 years ago. No recent echocardiograms available. PAST SURGICAL HISTORY: Negative based on the patient reports. SOCIAL HISTORY: Lives with his ex-. No alcohol, tobacco use currently. For rest of details, see electronic records. MEÑO BARBOSA MD DR: JANE/dain JOB#: [id number] / [id number]
[2016-08-30] MEDS: TRAVATAN Z EYE EACHEYE SCH (21:00)
[2016-08-30] MEDS: INSULIN DETEMIR 300 UNITS/3 ML INSULN.PEN. SQ SCH (21:00)
[2016-08-30] MEDS: ATORVASTATIN CALCIUM 20 MG TABLET PO SCH (21:19)
[2016-08-30] MEDS: MICAFUNGIN 100 MG in IV DEXTROSE 5% 100 ML IV SCH (22:31)
[2016-08-31] MEDS: PIPERACILLIN/TAZOBACTAM 2.25 GM in IV NORMAL SALINE 50ML 50 ML IV SCH ×3 (00:03→12:17)
[2016-08-31 03:15] VITALS: BP 163/61
[2016-08-31] MEDS: IV NORMAL SALINE 1000ML BAG 1,000 ML IV SCH ×3 (05:57→19:30)
[2016-08-31] MEDS: BUDESONIDE 0.5 MG/2 ML NEBU NEB SCH ×2 (06:14→19:54)
[2016-08-31] MEDS: IPRATRPIUM/ALBUTEROL 0.5/2.5MG 3 ML NEBU. NEB SCH ×4 (06:14→19:54)
[2016-08-31 07:00] VITALS: BP 129/55
--- NOTE | 2016-08-31 07:58 | PDOC ---
Provider Note Provider Note Vascular Surgery Patient complains of pain to the left toe only when touched VSS Gen - alert, oriented x 3 L toe - incision clean and intact, no drainage R 1st toe - debridement site clean and intact with healthy tissue Plan: POD#1 s/p L 1st toe amputation (ray) with debridement of the R 1st toe - Continue antibiotics per primary, Micafungin / zosyn / zyvox - Keep gauze / kerlex around the left toe incision - heel weight bearing on the left only - Continue current medical therapy per primary - he will f/u with Dr. Hanson when discharged KOSTAS PAL MD Aug 31, 2016 07:58
[2016-08-31] MEDS: ACETYLCYSTEINE 20% ORAL SOLN 600 MG/3 ML SYRINGE. PO SCH (08:09)
[2016-08-31] MEDS: ISOSORBIDE MONONITRATE ER 30 MG TAB.ER.24H PO SCH (08:09)
[2016-08-31] MEDS: CHOLECALCIFEROL (VITAMIN D3) 1,000 UNIT TABLET PO SCH (08:12)
[2016-08-31] MEDS: DOCUSATE SODIUM 100 MG CAPSULE PO SCH ×2 (08:12→19:27)
[2016-08-31] MEDS: DORZOLAMIDE 2% OPHTH SOLUTION 10ML BOTTLE. OU SCH ×3 (08:13→19:28)
[2016-08-31] MEDS: LOSARTAN POTASSIUM 50 MG TABLET. PO SCH (08:13)
[2016-08-31] MEDS: POLYVINYL ALCOHOL 1.4% OPHTH SOLUTION 15ML BOTTLE. OU SCH ×4 (08:13→19:28)
[2016-08-31] MEDS: METOPROLOL TART IMMED RELEASE 50 MG TABLET PO SCH ×2 (08:13→19:27)
[2016-08-31] MEDS: FINASTERIDE 5 MG TABLET PO SCH (08:14)
[2016-08-31] MEDS: INSULIN ASPART 300 UNITS/3 ML INSULN.PEN SQ SCH ×6 (08:22→18:05)
[2016-08-31 08:53] LABS: ALBUMIN 2.3 g/dL (3.4-5.0); CALCIUM 8.9 mg/dL (8.5-10.1); CREATININE 1.8 mg/dL (0.7-1.3); PHOSPHORUS 3.1 mg/dL (2.6-4.7); POTASSIUM 4.3 mmol/L (3.5-5.1)
[2016-08-31 11:00] VITALS: BP 136/44
--- NOTE | 2016-08-31 11:57 | PDOC ---
Infectious Disease Note Subjective Subjective Comfortable, pain controlled at the moment ROS ROS GEN: Denies fevers, chills, sweats CV: Denies chest pain RESP: Denies shortness of air, cough GI: Denies n/v/d Vital Sign Vital Signs Vital Signs Date Time Temp Pulse Resp B/P Pulse Ox O2 Delivery O2 Flow Rate FiO2 08/31/16 11:19 97 Room Air 08/31/16 11:00 97.5 62 18 136/44 97.5 Physical Exam PHYSICAL EXAM GENERAL: Up in the chair, smiling HEENT: OC/OP pink, missing teeth NECK: Supple, no JVD, no LN LUNGS: Clear HEART: S1S2, no gallop, no murmur ABD: Obese, soft, NT EXT: BLE edema. No cyanosis. Dressings dry SAP BI ARCHITECT: Alert, oriented x 3, no focal neurologic deficit SKIN: No rash IV: ok Labs Lab Laboratory Tests Test 08/30/16 12:08 08/30/16 14:44 08/30/16 16:10 08/30/16 20:57 Glucose (Fingerstick) 250mg/dL (70-99) 273mg/dL (70-99) 282mg/dL (70-99) 115mg/dL (70-99) Test 08/31/16 07:26 08/31/16 08:22 08/31/16 11:42 Glucose (Fingerstick) 176mg/dL (70-99) 255mg/dL (70-99) Sodium Level 141mmol/L (136-145) Potassium Level 4.3mmol/L (3.5-5.1) Chloride Level 102mmol/L (98-107) Carbon Dioxide Level 31mmol/L (21-32) Anion Gap 8 (6-14) Blood Urea Nitrogen 30mg/dL (8-26) Creatinine 1.8mg/dL (0.7-1.3) Estimated GFR (Cockcroft-Gault) 36.0 Glucose Level 233mg/dL (70-99) Lactic Acid Level 1.7mmol/L (0.4-2.0) Calcium Level 8.9mg/dL (8.5-10.1) Phosphorus Level 3.1mg/dL (2.6-4.7) Magnesium Level 2.0mg/dL (1.8-2.4) Albumin 2.3g/dL (3.4-5.0) Objective Assessment Left great toe osteomyelitis. s/p left great toe and ray amputation. 08/30 Right toe plantar ulcer. s/p full thickness, excisional debridement. 08/30 PAD DM DAREK Afib Plan Plan of Care Zyvox, Zosyn and Micafungin 08/28 F/u labs and cults Attending Co-Sign The patient was seen and interviewed as well as examined at the bedside. The chart was reviewed. The case was discussed. Agree with the plan of care. d/w dr Alvarez d/c ok on po antibiotics incision looks good JA CAPELLAN APRN Aug 31, 2016 11:57 IVAN BARBOSA MD Aug 31, 2016 14:11
--- NOTE | 2016-08-31 13:47 | PDOC ---
PROGRESS NOTES Chief Complaint Chief Complaint a/p Left great toe osteomyelitis PAD DM DAREK Paroxysmal Afib Plan PO ACUMENTIN ID AND VASCULAR FOLLOWING [facility] ECHO MONITOR RENAL FUNCTION OUT PT FOLLOW UP WITH VASCULAR SURGERY [place]SFER TO [place] IN AM History of Present Illness History of Present Illness NO FEVER NO CHILLS DOING BETTER. Vitals Vitals Vital Signs Date Time Temp Pulse Resp B/P Pulse Ox O2 Delivery O2 Flow Rate FiO2 08/31/16 11:19 97 Room Air 08/31/16 11:00 97.5 62 18 136/44 97.5 Physical Exam General: Alert, Cooperative, No acute distress Heart: Normal S1, Normal S2 Lungs: Clear Abdomen: Normal bowel sounds, Soft (obese) Extremities: Normal pulses, Other (chronic sclerosis of skin pretibial, 1+ edema, ) Labs LABS Laboratory Tests Test 08/30/16 14:44 08/30/16 16:10 08/30/16 20:57 08/31/16 07:26 Glucose (Fingerstick) 273mg/dL (70-99) 282mg/dL (70-99) 115mg/dL (70-99) 176mg/dL (70-99) Test 08/31/16 08:22 08/31/16 11:42 Sodium Level 141mmol/L (136-145) Potassium Level 4.3mmol/L (3.5-5.1) Chloride Level 102mmol/L (98-107) Carbon Dioxide Level 31mmol/L (21-32) Anion Gap 8 (6-14) Blood Urea Nitrogen 30mg/dL (8-26) Creatinine 1.8mg/dL (0.7-1.3) Estimated GFR (Cockcroft-Gault) 36.0 Glucose Level 233mg/dL (70-99) Lactic Acid Level 1.7mmol/L (0.4-2.0) Calcium Level 8.9mg/dL (8.5-10.1) Phosphorus Level 3.1mg/dL (2.6-4.7) Magnesium Level 2.0mg/dL (1.8-2.4) Albumin 2.3g/dL (3.4-5.0) Glucose (Fingerstick) 255mg/dL (70-99) Comment Review of Relevant I have reviewed the following items vinay (where applicable) has been applied. Labs Laboratory Tests Test 08/29/16 13:55 2/9/17 15:35 08/29/16 16:05 08/29/16 20:34 Lactic Acid Level 2.4mmol/L (0.4-2.0) Creatine Kinase 97U/L (39-308) Urine Collection Type Unknown Urine Color Yellow Urine Clarity Clear Urine pH 5.5 Urine Specific [place] 1.020 Urine Protein 46.8mg/dL (Not Estab.) Urine Glucose (UA) 500mg/dL (NEG) Urine Ketones (Stick) Negativemg/dL (NEG) Urine Blood Small (NEG) Urine Nitrite Negative (NEG) Urine Bilirubin Negative (NEG) Urine Urobilinogen Dipstick 0.2mg/dL (0.2 mg/dL) Urine Leukocyte Esterase Negative (NEG) Urine RBC Rare/HPF (0-2) Urine WBC Rare/HPF (0-4) Urine Squamous Epithelial Cells Occ/LPF Urine Bacteria 0/HPF (0-FEW) Urine Random Sodium 27mmol/L (Not Estab.) Urine Creatinine 97.6mg/dL (Not Estab.) Urine Protein/Creatinine Ratio 480mg/g creat (0-200) Glucose (Fingerstick) 200mg/dL (70-99) 170mg/dL (70-99) Test 08/30/16 05:30 08/30/16 07:28 08/30/16 12:08 08/30/16 14:44 Hemoglobin 13.2g/dL (13.0-17.5) Sodium Level 138mmol/L (136-145) Potassium Level 3.7mmol/L (3.5-5.1) Chloride Level 100mmol/L (98-107) Carbon Dioxide Level 29mmol/L (21-32) Anion Gap 9 (6-14) Blood Urea Nitrogen 39mg/dL (8-26) Creatinine 2.0mg/dL (0.7-1.3) Estimated GFR (Cockcroft-Gault) 31.8 Glucose Level 186mg/dL (70-99) Lactic Acid Level 2.7mmol/L (0.4-2.0) Calcium Level 9.1mg/dL (8.5-10.1) Phosphorus Level 3.6mg/dL (2.6-4.7) Magnesium Level 2.0mg/dL (1.8-2.4) Albumin 2.3g/dL (3.4-5.0) Glucose (Fingerstick) 184mg/dL (70-99) 250mg/dL (70-99) 273mg/dL (70-99) Test 08/30/16 16:10 08/30/16 20:57 08/31/16 07:26 08/31/16 08:22 Glucose (Fingerstick) 282mg/dL (70-99) 115mg/dL (70-99) 176mg/dL (70-99) Sodium Level 141mmol/L (136-145) Potassium Level 4.3mmol/L (3.5-5.1) Chloride Level 102mmol/L (98-107) Carbon Dioxide Level 31mmol/L (21-32) Anion Gap 8 (6-14) Blood Urea Nitrogen 30mg/dL (8-26) Creatinine 1.8mg/dL (0.7-1.3) Estimated GFR (Cockcroft-Gault) 36.0 Glucose Level 233mg/dL (70-99) Lactic Acid Level 1.7mmol/L (0.4-2.0) Calcium Level 8.9mg/dL (8.5-10.1) Phosphorus Level 3.1mg/dL (2.6-4.7) Magnesium Level 2.0mg/dL (1.8-2.4) Albumin 2.3g/dL (3.4-5.0) Test 08/31/16 11:42 Glucose (Fingerstick) 255mg/dL (70-99) Laboratory Tests Test 08/30/16 14:44 08/30/16 16:10 08/30/16 20:57 08/31/16 07:26 Glucose (Fingerstick) 273mg/dL (70-99) 282mg/dL (70-99) 115mg/dL (70-99) 176mg/dL (70-99) Test 08/31/16 08:22 08/31/16 11:42 Sodium Level 141mmol/L (136-145) Potassium Level 4.3mmol/L (3.5-5.1) Chloride Level 102mmol/L (98-107) Carbon Dioxide Level 31mmol/L (21-32) Anion Gap 8 (6-14) Blood Urea Nitrogen 30mg/dL (8-26) Creatinine 1.8mg/dL (0.7-1.3) Estimated GFR (Cockcroft-Gault) 36.0 Glucose Level 233mg/dL (70-99) Lactic Acid Level 1.7mmol/L (0.4-2.0) Calcium Level 8.9mg/dL (8.5-10.1) Phosphorus Level 3.1mg/dL (2.6-4.7) Magnesium Level 2.0mg/dL (1.8-2.4) Albumin 2.3g/dL (3.4-5.0) Glucose (Fingerstick) 255mg/dL (70-99) Medications Current Medications Sodium Chloride (Normal Saline Flush) 3 ml PRN DAILY PRN IV AFTER MEDS AND BLOOD DRAWS; Start 08/28/16 at 17:30 Insulin Aspart (Novolog) 15 units 1X ONCE SQ Last administered on 08/28/16 18: 12; Start 08/28/16 at 17:45; Stop 08/28/16 at 17:46; Status DC Acetaminophen (Tylenol) 500 mg PRN DAILY PRN PO PAIN Last administered on 22:09; Start 08/28/16 at 18:30 Lactic Acid (Lac-Hydrin) 1 monica PRN QHS PRN TP DRY SKIN; Start 08/28/16 at 18:30 Atorvastatin Calcium (Lipitor) 20 mg HS PO Last administered on 08/30/16 21:19 ; Start 08/28/16 at 21:00 Bacitracin/ Polymyxin B Sulfate (Polysporin Ophth) 1 inch PRN DAILY PRN OD BLEPHARITIS; Start 08/28/16 at 18:30 Docusate Sodium (Colace) 100 mg BID PO Last administered on 08/31/16 08:12; Start 08/28/16 at 21:00 Dorzolamide HCl (Trusopt) 1 drop TID OU Last administered on 08/31/16 08:13; Start 08/28/16 at 21:00 Finasteride (Proscar) 5 mg DAILY PO Last administered on 08/31/16 08:14; Start 08/29/16 at 09:00 Furosemide (Lasix) 40 mg DAILY PO Last administered on 2/9/17at 11:59; Start at 09:00; Stop 08/29/16 at 12:18; Status DC Insulin Aspart (Novolog) 10 units TID SQ ; Start 08/28/16 at 21:00; Stop 08/28/16 at 21:00; Status DC Insulin Aspart (Novolog) 28 units DAILYWSUP SQ ; Start 08/28/16 at 18:45; Stop at 18:45; Status DC Albuterol/ Ipratropium (Duoneb) 3 ml RTQID NEB Last administered on 08/31/16 11:18; Start 08/28/16 at 20:00 Isosorbide Mononitrate (Imdur) 30 mg DAILY PO Last administered on 08/31/16 08 :09; Start 08/29/16 at 09:00 Losartan Potassium (Cozaar) 50 mg DAILY PO Last administered on 08/31/16 08:13 ; Start 08/29/16 at 09:00 Metoprolol Tartrate (Lopressor) 50 mg BID PO Last administered on 08/31/16 08: 13; Start 08/28/16 at 21:00 Tamsulosin HCl (Flomax) 0.4 mg DAILY PO Last administered on 08/29/16 11:57; Start 08/29/16 at 09:00; Stop 08/31/16 at 08:24; Status DC Budesonide (Pulmicort) 0.5 mg RTBID NEB Last administered on 08/31/16 06:14; Start 08/28/16 at 20:00 Artificial Tears (Artificial Tears) 1 drop QID OU Last administered on 12:18; Start 08/28/16 at 21:00 Vitamin D (Vitamin D3) 1,000 unit DAILY PO Last administered on 08/31/16 08:12 ; Start 08/29/16 at 09:00 Non-Formulary Medication 28.4 gm PRN BID PRN TP INTERTRIGO; Start 08/28/16 at 18 :30; Stop 08/29/16 at 21:34; Status DC Non-Formulary Medication 72 unit HS SQ ; Start 08/28/16 at 21:00; Stop 08/28/16 at 21:00; Status DC Non-Formulary Medication 1 drop QHS EACHEYE Last administered on 08/30/16 21: 00; Start 08/28/16 at 21:00 Insulin Aspart (Novolog) 16 units TIDWMEALS SQ ; Start 08/29/16 at 08:00; Stop at 08:00; Status DC Insulin Aspart (Novolog) 0-9 UNITS TIDWMEALS SQ Last administered on 08/31/16 12:23; Start 08/28/16 at 18:45 Dextrose 12.5 gm PRN Q15MIN PRN IV SEE COMMENTS; Start 08/28/16 at 18:45 Insulin Aspart (Novolog) 26 units 1X ONCE SQ Last administered on 08/28/16 18: 47; Start 08/28/16 at 18:45; Stop 08/28/16 at 18:46; Status DC Insulin Detemir (Levemir) 72 units QHS SQ Last administered on 08/29/16 21:25; Start 08/28/16 at 21:00 Insulin Aspart (Novolog) 20 units TIDWMEALS SQ Last administered on 08/31/16 12:24; Start 08/29/16 at 08:00 Albuterol/ Ipratropium (Duoneb) 3 ml RTQID NEB ; Start 08/28/16 at 20:00; Stop at 20:00; Status DC Budesonide 0.5 mg 0.5 mg RTBID NEB ; Start 08/28/16 at 20:00; Stop 08/28/16 at 20: 00; Status DC Linezolid 300 ml @ 300 mls/hr Q12HR IV Last administered on 08/31/16 08:13; Start 08/28/16 at 21:00 Piperacillin Sod/ Tazobactam Sod 2.25 gm/Sodium Chloride 50 ml @ 100 mls/hr Q6HRS IV ; Start 08/29/16 at 20:00; Stop 08/29/16 at 20:00; Status DC Micafungin Sodium 100 mg/Dextrose 100 ml @ 100 mls/hr Q24H IV Last administered on 08/30/16 22:31; Start 08/28/16 at 22:00 Piperacillin Sod/ Tazobactam Sod/ Sodium Chloride (Zosyn/Iv Sodium Chloride 0.9 % 50ml) 50 ml @ 100 mls/hr Q6HRS IV Last administered on 08/31/16 12:17; Start 08/28/16 at 20:00 Sulfur Hexafluoride Microspheres (Lumason) 25 mg STK-MED ONCE IVP ; Start at 09:49; Stop 08/29/16 at 09:50; Status DC Sulfur Hexafluoride Microspheres 25 mg 25 mg 1X ONCE IVP Last administered on 08/29/16 10:13; Start 08/29/16 at 10:15; Stop 08/29/16 at 10:16; Status DC Magnesium Sulfate/ Dextrose (Magnesium Sulfate PREMIX 2GM) 50 ml @ 25 mls/hr PRN DAILY PRN IV for Mag < 1.7 on am labs; Start 08/29/16 at 12:15 Acetylcysteine 1200 mg 1,200 mg BID PO Last administered on 08/31/16 08:09; Start 08/29/16 at 21:00; Stop 08/31/16 at 20:59 Cefazolin Sodium/ Sodium Chloride (Ancef/Iv Sodium Chloride 0.9% 500ml Bag) 500 ml @ 500 mls/hr 1X PERIOP ONCE IRR Last administered on 08/30/16 10:54; Start 08/30/16 at 06:00; Stop 08/30/16 at 06:59; Status DC Ondansetron HCl (Zofran) 4 mg PRN Q6HRS PRN IV Nausea; Start 08/30/16 at 07:00 ; Stop 08/31/16 at 06:59; Status DC Fentanyl Citrate (Fentanyl 2ml Vial) 25 mcg PRN Q5MIN PRN IV MILD PAIN Last administered on 08/30/16 12:37; Start 08/30/16 at 07:00; Stop 08/31/16 at 06:59 ; Status DC Fentanyl Citrate (Fentanyl 2ml Vial) 50 mcg PRN Q5MIN PRN IV MODERATE PAIN; Start 08/30/16 at 07:00; Stop 08/31/16 at 06:59; Status DC Morphine Sulfate 1 mg 1 mg PRN Q10MIN PRN IV SEVERE PAIN; Start 08/30/16 at 07: 00; Stop 08/31/16 at 06:59; Status DC Lactated Ringer's (Iv Lactated Ringers) 1,000 ml @ 30 mls/hr Q24H IV Last administered on 08/30/16 09:29; Start 08/30/16 at 07:00; Stop 08/30/16 at 18:59 ; Status DC Lidocaine HCl 2 ml 1X PRN PRN ID IV START; Start 08/30/16 at 07:00; Stop at 06:59; Status DC Hydromorphone HCl (Dilaudid) 0.5 mg PRN Q10MIN PRN IV SEVERE PAIN, Second choice; Start 08/30/16 at 07:00; Stop 08/31/16 at 06:59; Status DC Prochlorperazine Edisylate (Compazine) 5 mg PACU PRN PRN IV NAUSEA; Start 08/30 at 07:00; Stop 08/31/16 at 06:59; Status DC Acetylcysteine 1200 mg 1,200 mg BID PO ; Start 08/29/16 at 21:00; Stop 08/31/16 at 20:59; Status UNV Sodium Chloride 1,000 ml @ 100 mls/hr Q10H IV Last administered on 08/31/16 05:57; Start 08/29/16 at 17:30 Propofol (Diprivan) 20 ml @ As Directed STK-MED ONCE IV ; Start 08/30/16 at 08: 16; Stop 08/30/16 at 08:17; Status DC Lidocaine HCl 100 mg STK-MED ONCE .ROUTE ; Start 08/30/16 at 08:16; Stop at 08:17; Status DC Ondansetron HCl (Zofran) 4 mg STK-MED ONCE .ROUTE ; Start 08/30/16 at 08:16; Stop 08/30/16 at 08:17; Status DC Fentanyl Citrate (Fentanyl 2ml Vial) 100 mcg STK-MED ONCE .ROUTE ; Start at 08:16; Stop 08/30/16 at 08:17; Status DC Lidocaine HCl 30 ml STK-MED ONCE .ROUTE Last administered on 08/30/16 10:54; Start 08/30/16 at 10:49; Stop 08/30/16 at 10:50; Status DC Oxycodone/ Acetaminophen (Percocet 5/325) 1 tab PRN Q4HRS PRN PO PAIN Last administered on 08/30/16 17:30; Start 08/30/16 at 14:45 Oxycodone/ Acetaminophen (Percocet 5/325) 2 tab PRN Q4HRS PRN PO PAIN Last administered on 08/30/16 22:31; Start 08/30/16 at 15:00 Tamsulosin HCl (Flomax) 0.4 mg DAILY PO ; Start 08/31/16 at 17:00 Active Scripts Active Reported Docusate Sodium 100 Mg Capsule 1 Cap PO BID Acetaminophen 500 Mg Tablet 1 Tab PO PRN DAILY PRN Novolog Flexpen (Insulin Aspart) 100 Unit/1 Ml Insuln.pen 28 Unit SQ DAILYWSUP Novolog Flexpen (Insulin Aspart) 100 Unit/1 Ml Insuln.pen 10 Unit SQ Warfarin Sodium 1 Mg Tablet 1 Mg PO WEEKLY Warfarin Sodium 1 Mg Tablet 1 Mg PO DAILY Travatan Z (Travoprost) 5 Ml Drops 1 Drop EACHEYE QHS Tamsulosin Hcl 0.4 Mg Cap.er.24h 2 Cap PO DAILY Metoprolol Tartrate 50 Mg Tablet 1 Tab PO BID Losartan Potassium 50 Mg Tablet 50 Mg PO DAILY Isosorbide Mononitrate 20 Mg Tablet 30 Mg PO DAILY Lantus (Insulin Glargine,Hum.rec.anlog) 100 Unit/1 Ml Vial 72 Unit SQ HS Imiquimod 1 Each Cream.pack 1 Each TP 3X/WEEK Hydrocortisone-Iodoquinol Crm (Hydrocortisone/Iodoquinol) 28.4 Gm Cream..g. 28.4 Gm TP PRN BID PRN Furosemide 40 Mg Tablet 1 Tab PO DAILY Finasteride 5 Mg Tablet 1 Tab PO DAILY Dorzolamide Hcl 10 Ml Drops 1 Drop EACHEYE TID Vitamin D-3 (Cholecalciferol (Vitamin D3)) 2,000 Unit Capsule 1,000 Unit PO DAILY Refresh Optive Eye Drops (Carboxymethylcellulos/Glycerin) 15 Ml Drops 1 Drop EACHEYE QID Symbicort 160-4.5 Mcg Inhaler (Budesonide/Formoterol Fumarate) 10.2 Gm Hfa.aer.ad 2 Puff IH BID Bacitracin-Polymyxin Eye Oint (Bacitracin/Polymyxin B Sulfate) 3.5 Gm Oint...g. 3.5 Gm OP PRN DAILY PRN Atorvastatin Calcium 20 Mg Tablet 20 Mg PO HS Ammonium Lactate 225 Gm Lotion 225 Gm TP HS PRN Duoneb 0.5-3(2.5) Mg/3 Ml (Albuterol/Ipratropium) 3 Ml Ampul.neb 3 Ml NEB QID Vitals/I & O Vital Sign - Last 24 Hours 08/30/16 08/30/16 08/30/16 08/30/16 14:08 14:21 14:36 14:51 Temp 98.0 98.0 Pulse 65 63 63 61 Resp 18 B/P 140/59 120/55 120/46 115/45 Pulse Ox 94 91 90 92 O2 Delivery Room Air Room Air Room Air Room Air 08/30/16 08/30/16 08/30/16 08/30/16 15:21 15:49 15:51 16:36 Pulse 61 64 B/P 119/51 118/43 Pulse Ox 93 95 96 O2 Delivery Room Air Room Air Room Air Room Air 08/30/16 08/30/16 08/30/16 08/30/16 16:51 17:30 18:30 19:15 Temp 97.9 97.9 Pulse 61 74 Resp 18 B/P 119/38 116/43 Pulse Ox 92 93 O2 Delivery Room Air Room Air Room Air Room Air 08/30/16 08/30/16 08/30/16 08/30/16 19:29 19:30 19:31 21:20 Pulse 74 B/P 116/43 Pulse Ox 97 97 O2 Delivery Room Air Room Air Room Air 08/30/16 08/30/16 08/30/16 08/31/16 22:31 23:19 23:31 03:15 Temp 97.6 97.7 97.6 97.7 Pulse 61 65 Resp 20 18 18 18 B/P 132/56 163/61 Pulse Ox 95 96 O2 Delivery Room Air Room Air Room Air Room Air 08/31/16 08/31/16 08/31/16 08/31/16 06:13 07:00 07:30 08:09 Temp 97.9 97.9 Pulse 61 65 Resp 18 B/P 129/55 163/61 Pulse Ox 94 O2 Delivery Room Air Room Air Room Air 08/31/16 08/31/16 08/31/16 08/31/16 08:13 08:13 11:00 11:19 Temp 97.5 97.5 Pulse 61 65 62 Resp 18 B/P 129/55 163/61 136/44 Pulse Ox 92 97 O2 Delivery Room Air Room Air Intake and Output 08/30/16 08/30/16 08/31/16 15:00 23:00 07:00 Intake Total 870 ml 3000 ml Output Total 50 ml 300 ml 300 ml Balance 820 ml -300 ml 2700 ml MEYIREDINES VELASQUEZ MD Aug 31, 2016 13:47
[2016-08-31] MEDS: OXYCODONE/APAP 5/325 TABLET. PO PRN ×2 (13:57→21:53)
--- NOTE | 2016-08-31 14:05 | PDOC ---
PROGRESS NOTES Subjective Subjective Patient has no cardiac complaints. Was able to ambulate with assistance earlier. Objective Objective Vital Signs Date Time Temp Pulse Resp B/P Pulse Ox O2 Delivery O2 Flow Rate FiO2 08/31/16 13:57 20 Room Air 08/31/16 11:19 97 08/31/16 11:00 97.5 62 136/44 97.5 Intake and Output 08/31/16 07:00 Intake Total 3870 ml Output Total 650 ml Balance 3220 ml Intake Oral 720 ml IV Total 1950 ml Other 1200 ml Output Urine Total 600 ml Estimated Blood Loss 50 ml # Bowel Movements 1 Physical Exam Physical Exam No significant changes in cardiac exam Assessment Assessment Patient stable cardiac-jones. We will sign off unless further cardiac problems develop. Thank you very much for asking me to participate in the care of this patient. Comment Review of Relevant I have reviewed the following items vinay (where applicable) has been applied. Labs Laboratory Tests Test 08/29/16 15:35 08/29/16 16:05 08/29/16 20:34 08/30/16 05:30 Urine Collection Type Unknown Urine Color Yellow Urine Clarity Clear Urine pH 5.5 Urine Specific [place] 1.020 Urine Protein 46.8mg/dL (Not Estab.) Urine Glucose (UA) 500mg/dL (NEG) Urine Ketones (Stick) Negativemg/dL (NEG) Urine Blood Small (NEG) Urine Nitrite Negative (NEG) Urine Bilirubin Negative (NEG) Urine Urobilinogen Dipstick 0.2mg/dL (0.2 mg/dL) Urine Leukocyte Esterase Negative (NEG) Urine RBC Rare/HPF (0-2) Urine WBC Rare/HPF (0-4) Urine Squamous Epithelial Cells Occ/LPF Urine Bacteria 0/HPF (0-FEW) Urine Random Sodium 27mmol/L (Not Estab.) Urine Creatinine 97.6mg/dL (Not Estab.) Urine Protein/Creatinine Ratio 480mg/g creat (0-200) Glucose (Fingerstick) 200mg/dL (70-99) 170mg/dL (70-99) Hemoglobin 13.2g/dL (13.0-17.5) Sodium Level 138mmol/L (136-145) Potassium Level 3.7mmol/L (3.5-5.1) Chloride Level 100mmol/L (98-107) Carbon Dioxide Level 29mmol/L (21-32) Anion Gap 9 (6-14) Blood Urea Nitrogen 39mg/dL (8-26) Creatinine 2.0mg/dL (0.7-1.3) Estimated GFR (Cockcroft-Gault) 31.8 Glucose Level 186mg/dL (70-99) Lactic Acid Level 2.7mmol/L (0.4-2.0) Calcium Level 9.1mg/dL (8.5-10.1) Phosphorus Level 3.6mg/dL (2.6-4.7) Magnesium Level 2.0mg/dL (1.8-2.4) Albumin 2.3g/dL (3.4-5.0) Test 08/30/16 07:28 08/30/16 12:08 08/30/16 14:44 08/30/16 16:10 Glucose (Fingerstick) 184mg/dL (70-99) 250mg/dL (70-99) 273mg/dL (70-99) 282mg/dL (70-99) Test 08/30/16 20:57 08/31/16 07:26 08/31/16 08:22 08/31/16 11:42 Glucose (Fingerstick) 115mg/dL (70-99) 176mg/dL (70-99) 255mg/dL (70-99) Sodium Level 141mmol/L (136-145) Potassium Level 4.3mmol/L (3.5-5.1) Chloride Level 102mmol/L (98-107) Carbon Dioxide Level 31mmol/L (21-32) Anion Gap 8 (6-14) Blood Urea Nitrogen 30mg/dL (8-26) Creatinine 1.8mg/dL (0.7-1.3) Estimated GFR (Cockcroft-Gault) 36.0 Glucose Level 233mg/dL (70-99) Lactic Acid Level 1.7mmol/L (0.4-2.0) Calcium Level 8.9mg/dL (8.5-10.1) Phosphorus Level 3.1mg/dL (2.6-4.7) Magnesium Level 2.0mg/dL (1.8-2.4) Albumin 2.3g/dL (3.4-5.0) Laboratory Tests Test 08/30/16 14:44 08/30/16 16:10 08/30/16 20:57 08/31/16 07:26 Glucose (Fingerstick) 273mg/dL (70-99) 282mg/dL (70-99) 115mg/dL (70-99) 176mg/dL (70-99) Test 08/31/16 08:22 08/31/16 11:42 Sodium Level 141mmol/L (136-145) Potassium Level 4.3mmol/L (3.5-5.1) Chloride Level 102mmol/L (98-107) Carbon Dioxide Level 31mmol/L (21-32) Anion Gap 8 (6-14) Blood Urea Nitrogen 30mg/dL (8-26) Creatinine 1.8mg/dL (0.7-1.3) Estimated GFR (Cockcroft-Gault) 36.0 Glucose Level 233mg/dL (70-99) Lactic Acid Level 1.7mmol/L (0.4-2.0) Calcium Level 8.9mg/dL (8.5-10.1) Phosphorus Level 3.1mg/dL (2.6-4.7) Magnesium Level 2.0mg/dL (1.8-2.4) Albumin 2.3g/dL (3.4-5.0) Glucose (Fingerstick) 255mg/dL (70-99) Medications Current Medications Sodium Chloride (Normal Saline Flush) 3 ml PRN DAILY PRN IV AFTER MEDS AND BLOOD DRAWS; Start 08/28/16 at 17:30 Insulin Aspart (Novolog) 15 units 1X ONCE SQ Last administered on 08/28/16 18: 12; Start 08/28/16 at 17:45; Stop 08/28/16 at 17:46; Status DC Acetaminophen (Tylenol) 500 mg PRN DAILY PRN PO PAIN Last administered on 22:09; Start 08/28/16 at 18:30 Lactic Acid (Lac-Hydrin) 1 monica PRN QHS PRN TP DRY SKIN; Start 08/28/16 at 18:30 Atorvastatin Calcium (Lipitor) 20 mg HS PO Last administered on 08/30/16 21:19 ; Start 08/28/16 at 21:00 Bacitracin/ Polymyxin B Sulfate (Polysporin Ophth) 1 inch PRN DAILY PRN OD BLEPHARITIS; Start 08/28/16 at 18:30 Docusate Sodium (Colace) 100 mg BID PO Last administered on 08/31/16 08:12; Start 08/28/16 at 21:00 Dorzolamide HCl (Trusopt) 1 drop TID OU Last administered on 08/31/16 13:58; Start 08/28/16 at 21:00 Finasteride (Proscar) 5 mg DAILY PO Last administered on 08/31/16 08:14; Start 08/29/16 at 09:00 Furosemide (Lasix) 40 mg DAILY PO Last administered on 08/29/16 11:59; Start at 09:00; Stop 08/29/16 at 12:18; Status DC Insulin Aspart (Novolog) 10 units TID SQ ; Start 08/28/16 at 21:00; Stop 08/28/16 at 21:00; Status DC Insulin Aspart (Novolog) 28 units DAILYWSUP SQ ; Start 08/28/16 at 18:45; Stop at 18:45; Status DC Albuterol/ Ipratropium (Duoneb) 3 ml RTQID NEB Last administered on 08/31/16 11:18; Start 08/28/16 at 20:00 Isosorbide Mononitrate (Imdur) 30 mg DAILY PO Last administered on 08/31/16 08 :09; Start 08/29/16 at 09:00 Losartan Potassium (Cozaar) 50 mg DAILY PO Last administered on 08/31/16 08:13 ; Start 08/29/16 at 09:00 Metoprolol Tartrate (Lopressor) 50 mg BID PO Last administered on 08/31/16 08: 13; Start 08/28/16 at 21:00 Tamsulosin HCl (Flomax) 0.4 mg DAILY PO Last administered on 08/29/16 11:57; Start 08/29/16 at 09:00; Stop 08/31/16 at 08:24; Status DC Budesonide (Pulmicort) 0.5 mg RTBID NEB Last administered on 08/31/16 06:14; Start 08/28/16 at 20:00 Artificial Tears (Artificial Tears) 1 drop QID OU Last administered on 12:18; Start 08/28/16 at 21:00 Vitamin D (Vitamin D3) 1,000 unit DAILY PO Last administered on 08/31/16 08:12 ; Start 08/29/16 at 09:00 Non-Formulary Medication 28.4 gm PRN BID PRN TP INTERTRIGO; Start 08/28/16 at 18 :30; Stop 08/29/16 at 21:34; Status DC Non-Formulary Medication 72 unit HS SQ ; Start 08/28/16 at 21:00; Stop 08/28/16 at 21:00; Status DC Non-Formulary Medication 1 drop QHS EACHEYE Last administered on 08/30/16 21: 00; Start 08/28/16 at 21:00 Insulin Aspart (Novolog) 16 units TIDWMEALS SQ ; Start 08/29/16 at 08:00; Stop at 08:00; Status DC Insulin Aspart (Novolog) 0-9 UNITS TIDWMEALS SQ Last administered on 08/31/16 12:23; Start 08/28/16 at 18:45 Dextrose 12.5 gm PRN Q15MIN PRN IV SEE COMMENTS; Start 08/28/16 at 18:45 Insulin Aspart (Novolog) 26 units 1X ONCE SQ Last administered on 08/28/16 18: 47; Start 08/28/16 at 18:45; Stop 08/28/16 at 18:46; Status DC Insulin Detemir (Levemir) 72 units QHS SQ Last administered on 08/29/16 21:25; Start 08/28/16 at 21:00 Insulin Aspart (Novolog) 20 units TIDWMEALS SQ Last administered on 08/31/16 12:24; Start 08/29/16 at 08:00 Albuterol/ Ipratropium (Duoneb) 3 ml RTQID NEB ; Start 08/28/16 at 20:00; Stop at 20:00; Status DC Budesonide 0.5 mg 0.5 mg RTBID NEB ; Start 08/28/16 at 20:00; Stop 08/28/16 at 20: 00; Status DC Linezolid 300 ml @ 300 mls/hr Q12HR IV Last administered on 08/31/16 08:13; Start 08/28/16 at 21:00 Piperacillin Sod/ Tazobactam Sod 2.25 gm/Sodium Chloride 50 ml @ 100 mls/hr Q6HRS IV ; Start 08/29/16 at 20:00; Stop 08/29/16 at 20:00; Status DC Micafungin Sodium 100 mg/Dextrose 100 ml @ 100 mls/hr Q24H IV Last administered on 08/30/16 22:31; Start 08/28/16 at 22:00 Piperacillin Sod/ Tazobactam Sod/ Sodium Chloride (Zosyn/Iv Sodium Chloride 0.9 % 50ml) 50 ml @ 100 mls/hr Q6HRS IV Last administered on 08/31/16 12:17; Start 08/28/16 at 20:00 Sulfur Hexafluoride Microspheres (Lumason) 25 mg STK-MED ONCE IVP ; Start at 09:49; Stop 08/29/16 at 09:50; Status DC Sulfur Hexafluoride Microspheres 25 mg 25 mg 1X ONCE IVP Last administered on 08/29/16 10:13; Start 08/29/16 at 10:15; Stop 08/29/16 at 10:16; Status DC Magnesium Sulfate/ Dextrose (Magnesium Sulfate PREMIX 2GM) 50 ml @ 25 mls/hr PRN DAILY PRN IV for Mag < 1.7 on am labs; Start 08/29/16 at 12:15 Acetylcysteine 1200 mg 1,200 mg BID PO Last administered on 08/31/16 08:09; Start 08/29/16 at 21:00; Stop 08/31/16 at 20:59 Cefazolin Sodium/ Sodium Chloride (Ancef/Iv Sodium Chloride 0.9% 500ml Bag) 500 ml @ 500 mls/hr 1X PERIOP ONCE IRR Last administered on 08/30/16 10:54; Start 08/30/16 at 06:00; Stop 08/30/16 at 06:59; Status DC Ondansetron HCl (Zofran) 4 mg PRN Q6HRS PRN IV Nausea; Start 08/30/16 at 07:00 ; Stop 08/31/16 at 06:59; Status DC Fentanyl Citrate (Fentanyl 2ml Vial) 25 mcg PRN Q5MIN PRN IV MILD PAIN Last administered on 08/30/16 12:37; Start 08/30/16 at 07:00; Stop 08/31/16 at 06:59 ; Status DC Fentanyl Citrate (Fentanyl 2ml Vial) 50 mcg PRN Q5MIN PRN IV MODERATE PAIN; Start 08/30/16 at 07:00; Stop 08/31/16 at 06:59; Status DC Morphine Sulfate 1 mg 1 mg PRN Q10MIN PRN IV SEVERE PAIN; Start 08/30/16 at 07: 00; Stop 08/31/16 at 06:59; Status DC Lactated Ringer's (Iv Lactated Ringers) 1,000 ml @ 30 mls/hr Q24H IV Last administered on 08/30/16 09:29; Start 08/30/16 at 07:00; Stop 08/30/16 at 18:59 ; Status DC Lidocaine HCl 2 ml 1X PRN PRN ID IV START; Start 08/30/16 at 07:00; Stop at 06:59; Status DC Hydromorphone HCl (Dilaudid) 0.5 mg PRN Q10MIN PRN IV SEVERE PAIN, Second choice; Start 08/30/16 at 07:00; Stop 08/31/16 at 06:59; Status DC Prochlorperazine Edisylate (Compazine) 5 mg PACU PRN PRN IV NAUSEA; Start 08/30 at 07:00; Stop 08/31/16 at 06:59; Status DC Acetylcysteine 1200 mg 1,200 mg BID PO ; Start 08/29/16 at 21:00; Stop 08/31/16 at 20:59; Status UNV Sodium Chloride 1,000 ml @ 100 mls/hr Q10H IV Last administered on 08/31/16 05:57; Start 08/29/16 at 17:30 Propofol (Diprivan) 20 ml @ As Directed STK-MED ONCE IV ; Start 08/30/16 at 08: 16; Stop 08/30/16 at 08:17; Status DC Lidocaine HCl 100 mg STK-MED ONCE .ROUTE ; Start 08/30/16 at 08:16; Stop at 08:17; Status DC Ondansetron HCl (Zofran) 4 mg STK-MED ONCE .ROUTE ; Start 08/30/16 at 08:16; Stop 08/30/16 at 08:17; Status DC Fentanyl Citrate (Fentanyl 2ml Vial) 100 mcg STK-MED ONCE .ROUTE ; Start at 08:16; Stop 08/30/16 at 08:17; Status DC Lidocaine HCl 30 ml STK-MED ONCE .ROUTE Last administered on 08/30/16 10:54; Start 08/30/16 at 10:49; Stop 08/30/16 at 10:50; Status DC Oxycodone/ Acetaminophen (Percocet 5/325) 1 tab PRN Q4HRS PRN PO PAIN Last administered on 08/30/16 17:30; Start 08/30/16 at 14:45 Oxycodone/ Acetaminophen (Percocet 5/325) 2 tab PRN Q4HRS PRN PO PAIN Last administered on 08/31/16 13:57; Start 08/30/16 at 15:00 Tamsulosin HCl (Flomax) 0.4 mg DAILY PO ; Start 08/31/16 at 17:00 Active Scripts Active Reported Docusate Sodium 100 Mg Capsule 1 Cap PO BID Acetaminophen 500 Mg Tablet 1 Tab PO PRN DAILY PRN Novolog Flexpen (Insulin Aspart) 100 Unit/1 Ml Insuln.pen 28 Unit SQ DAILYWSUP Novolog Flexpen (Insulin Aspart) 100 Unit/1 Ml Insuln.pen 10 Unit SQ Warfarin Sodium 1 Mg Tablet 1 Mg PO WEEKLY Warfarin Sodium 1 Mg Tablet 1 Mg PO DAILY Travatan Z (Travoprost) 5 Ml Drops 1 Drop EACHEYE QHS Tamsulosin Hcl 0.4 Mg Cap.er.24h 2 Cap PO DAILY Metoprolol Tartrate 50 Mg Tablet 1 Tab PO BID Losartan Potassium 50 Mg Tablet 50 Mg PO DAILY Isosorbide Mononitrate 20 Mg Tablet 30 Mg PO DAILY Lantus (Insulin Glargine,Hum.rec.anlog) 100 Unit/1 Ml Vial 72 Unit SQ HS Imiquimod 1 Each Cream.pack 1 Each TP 3X/WEEK Hydrocortisone-Iodoquinol Crm (Hydrocortisone/Iodoquinol) 28.4 Gm Cream..g. 28.4 Gm TP PRN BID PRN Furosemide 40 Mg Tablet 1 Tab PO DAILY Finasteride 5 Mg Tablet 1 Tab PO DAILY Dorzolamide Hcl 10 Ml Drops 1 Drop EACHEYE TID Vitamin D-3 (Cholecalciferol (Vitamin D3)) 2,000 Unit Capsule 1,000 Unit PO DAILY Refresh Optive Eye Drops (Carboxymethylcellulos/Glycerin) 15 Ml Drops 1 Drop EACHEYE QID Symbicort 160-4.5 Mcg Inhaler (Budesonide/Formoterol Fumarate) 10.2 Gm Hfa.aer.ad 2 Puff IH BID Bacitracin-Polymyxin Eye Oint (Bacitracin/Polymyxin B Sulfate) 3.5 Gm Oint...g. 3.5 Gm OP PRN DAILY PRN Atorvastatin Calcium 20 Mg Tablet 20 Mg PO HS Ammonium Lactate 225 Gm Lotion 225 Gm TP HS PRN Duoneb 0.5-3(2.5) Mg/3 Ml (Albuterol/Ipratropium) 3 Ml Ampul.neb 3 Ml NEB QID Vitals/I & O Vital Sign - Last 24 Hours 08/30/16 08/30/16 08/30/16 08/30/16 14:08 14:21 14:36 14:51 Temp 98.0 98.0 Pulse 65 63 63 61 Resp 18 B/P 140/59 120/55 120/46 115/45 Pulse Ox 94 91 90 92 O2 Delivery Room Air Room Air Room Air Room Air 08/30/16 08/30/16 08/30/16 08/30/16 15:21 15:49 15:51 16:36 Pulse 61 64 B/P 119/51 118/43 Pulse Ox 93 95 96 O2 Delivery Room Air Room Air Room Air Room Air 08/30/16 08/30/16 08/30/16 08/30/16 16:51 17:30 18:30 19:15 Temp 97.9 97.9 Pulse 61 74 Resp 18 B/P 119/38 116/43 Pulse Ox 92 93 O2 Delivery Room Air Room Air Room Air Room Air 08/30/16 08/30/16 08/30/16 08/30/16 19:29 19:30 19:31 21:20 Pulse 74 B/P 116/43 Pulse Ox 97 97 O2 Delivery Room Air Room Air Room Air 08/30/16 08/30/16 08/30/16 08/31/16 22:31 23:19 23:31 03:15 Temp 97.6 97.7 97.6 97.7 Pulse 61 65 Resp 20 18 18 18 B/P 132/56 163/61 Pulse Ox 95 96 O2 Delivery Room Air Room Air Room Air Room Air 08/31/16 08/31/16 08/31/16 08/31/16 06:13 07:00 07:30 08:09 Temp 97.9 97.9 Pulse 61 65 Resp 18 B/P 129/55 163/61 Pulse Ox 94 O2 Delivery Room Air Room Air Room Air 08/31/16 08/31/16 08/31/16 08/31/16 08:13 08:13 11:00 11:19 Temp 97.5 97.5 Pulse 61 65 62 Resp 18 B/P 129/55 163/61 136/44 Pulse Ox 92 97 O2 Delivery Room Air Room Air 08/31/16 13:57 Resp 20 O2 Delivery Room Air Intake and Output 08/30/16 08/30/16 08/31/16 15:00 23:00 07:00 Intake Total 870 ml 3000 ml Output Total 50 ml 300 ml 300 ml Balance 820 ml -300 ml 2700 ml JOCELINE JAIME MD Aug 31, 2016 14:05
[2016-08-31 15:00] VITALS: BP 122/51
[2016-08-31] MEDS ORDERED: AMOX1TAB11 PO (15:09)
[2016-08-31] MEDS ORDERED: TAMSULOSIN 0.4 MG CAP.ER.24H. PO SCH (17:00)
[2016-08-31 19:10] VITALS: BP 132/58
[2016-08-31] MEDS: ATORVASTATIN CALCIUM 20 MG TABLET PO SCH (19:27)
[2016-08-31] MEDS: TRAVATAN Z EYE EACHEYE SCH (19:28)
[2016-08-31] MEDS: INSULIN DETEMIR 300 UNITS/3 ML INSULN.PEN. SQ SCH (19:35)
[2016-08-31] MEDS: AMOXICILLIN/K CLAV 875/125MG TABLET. PO SCH (20:12)
[2016-08-31 23:10] VITALS: BP 108/38
[2016-09-01 03:10] VITALS: BP 116/48
[2016-09-01] MEDS: BUDESONIDE 0.5 MG/2 ML NEBU NEB SCH ×2 (06:03→19:42)
[2016-09-01] MEDS: IPRATRPIUM/ALBUTEROL 0.5/2.5MG 3 ML NEBU. NEB SCH ×4 (06:03→19:42)
[2016-09-01 07:00] VITALS: BP 136/53
--- NOTE | 2016-09-01 07:13 | PDOC ---
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 Hanson when discharged KOSTAS PAL MD Sep 01, 2016 07:13
[2016-09-01 07:19] LABS: ALBUMIN 2.2 g/dL (3.4-5.0); CALCIUM 9.1 mg/dL (8.5-10.1); GFR 31.8; PHOSPHORUS 3.5 mg/dL (2.6-4.7); POTASSIUM 4.1 mmol/L (3.5-5.1)
[2016-09-01] MEDS: INSULIN ASPART 300 UNITS/3 ML INSULN.PEN SQ SCH ×6 (07:46→17:00)
[2016-09-01] MEDS: CHOLECALCIFEROL (VITAMIN D3) 1,000 UNIT TABLET PO SCH (07:51)
[2016-09-01] MEDS: DOCUSATE SODIUM 100 MG CAPSULE PO SCH ×2 (07:52→20:59)
[2016-09-01] MEDS: AMOXICILLIN/K CLAV 875/125MG TABLET. PO SCH ×2 (07:52→20:58)
[2016-09-01] MEDS: POLYVINYL ALCOHOL 1.4% OPHTH SOLUTION 15ML BOTTLE. OU SCH ×4 (07:56→21:00)
[2016-09-01] MEDS: DORZOLAMIDE 2% OPHTH SOLUTION 10ML BOTTLE. OU SCH ×3 (07:56→21:00)
[2016-09-01] MEDS: ISOSORBIDE MONONITRATE ER 30 MG TAB.ER.24H PO SCH (08:03)
[2016-09-01] MEDS: METOPROLOL TART IMMED RELEASE 50 MG TABLET PO SCH ×2 (08:03→20:58)
[2016-09-01] MEDS: LOSARTAN POTASSIUM 50 MG TABLET. PO SCH (08:03)
[2016-09-01] MEDS: FINASTERIDE 5 MG TABLET PO SCH (08:06)
[2016-09-01 11:00] VITALS: BP 143/57
[2016-09-01] MEDS: OXYCODONE/APAP 5/325 TABLET. PO PRN ×2 (12:15→20:59)
--- NOTE | 2016-09-01 12:19 | PDOC ---
PROGRESS NOTES Chief Complaint Chief Complaint a/p Left great toe osteomyelitis PAD DM DAREK Paroxysmal Afib Plan PO ACUMENTIN ID AND VASCULAR FOLLOWING SSI ECHO EF >50% MONITOR RENAL FUNCTION TRANSFER TO DC IN AM, NOW IN DIVERSION PER STAFF. History of Present Illness History of Present Illness NO FEVER NO CHILLS DOING BETTER. Vitals Vitals Vital Signs Date Time Temp Pulse Resp B/P Pulse Ox O2 Delivery O2 Flow Rate FiO2 09/01/16 12:15 Room Air 09/01/16 08:03 66 136/53 09/01/16 07:00 97.9 18 97 97.9 Physical Exam General: Alert, Oriented X3, Cooperative, No acute distress Heart: Normal S1, Normal S2 Lungs: Clear Abdomen: Normal bowel sounds, Soft (obese) Extremities: Normal pulses, Other Labs LABS Laboratory Tests Test 08/31/16 16:29 08/31/16 19:26 09/01/16 06:30 09/01/16 07:06 Glucose (Fingerstick) 170mg/dL (70-99) 165mg/dL (70-99) 56mg/dL (70-99) Sodium Level 140mmol/L (136-145) Potassium Level 4.1mmol/L (3.5-5.1) Chloride Level 104mmol/L (98-107) Carbon Dioxide Level 32mmol/L (21-32) Anion Gap 4 (6-14) Blood Urea Nitrogen 29mg/dL (8-26) Creatinine 2.0mg/dL (0.7-1.3) Estimated GFR (Cockcroft-Gault) 31.8 Glucose Level 67mg/dL (70-99) Lactic Acid Level 1.6mmol/L (0.4-2.0) Calcium Level 9.1mg/dL (8.5-10.1) Phosphorus Level 3.5mg/dL (2.6-4.7) Magnesium Level 2.1mg/dL (1.8-2.4) Albumin 2.2g/dL (3.4-5.0) Test 09/01/16 11:29 Glucose (Fingerstick) 168mg/dL (70-99) Assessment and Plan Assessmemt and Plan Problems Medical Problems: (1) Osteomyelitis Status: Acute Problems: Comment Review of Relevant I have reviewed the following items vinay (where applicable) has been applied. Labs Laboratory Tests Test 08/30/16 14:44 08/30/16 16:10 08/30/16 20:57 08/31/16 07:26 Glucose (Fingerstick) 273mg/dL (70-99) 282mg/dL (70-99) 115mg/dL (70-99) 176mg/dL (70-99) Test 08/31/16 08:22 08/31/16 11:42 08/31/16 16:29 08/31/16 19:26 Sodium Level 141mmol/L (136-145) Potassium Level 4.3mmol/L (3.5-5.1) Chloride Level 102mmol/L (98-107) Carbon Dioxide Level 31mmol/L (21-32) Anion Gap 8 (6-14) Blood Urea Nitrogen 30mg/dL (8-26) Creatinine 1.8mg/dL (0.7-1.3) Estimated GFR (Cockcroft-Gault) 36.0 Glucose Level 233mg/dL (70-99) Lactic Acid Level 1.7mmol/L (0.4-2.0) Calcium Level 8.9mg/dL (8.5-10.1) Phosphorus Level 3.1mg/dL (2.6-4.7) Magnesium Level 2.0mg/dL (1.8-2.4) Albumin 2.3g/dL (3.4-5.0) Glucose (Fingerstick) 255mg/dL (70-99) 170mg/dL (70-99) 165mg/dL (70-99) Test 09/01/16 06:30 09/01/16 07:06 09/01/16 11:29 Sodium Level 140mmol/L (136-145) Potassium Level 4.1mmol/L (3.5-5.1) Chloride Level 104mmol/L (98-107) Carbon Dioxide Level 32mmol/L (21-32) Anion Gap 4 (6-14) Blood Urea Nitrogen 29mg/dL (8-26) Creatinine 2.0mg/dL (0.7-1.3) Estimated GFR (Cockcroft-Gault) 31.8 Glucose Level 67mg/dL (70-99) Lactic Acid Level 1.6mmol/L (0.4-2.0) Calcium Level 9.1mg/dL (8.5-10.1) Phosphorus Level 3.5mg/dL (2.6-4.7) Magnesium Level 2.1mg/dL (1.8-2.4) Albumin 2.2g/dL (3.4-5.0) Glucose (Fingerstick) 56mg/dL (70-99) 168mg/dL (70-99) Laboratory Tests Test 08/31/16 16:29 08/31/16 19:26 09/01/16 06:30 09/01/16 07:06 Glucose (Fingerstick) 170mg/dL (70-99) 165mg/dL (70-99) 56mg/dL (70-99) Sodium Level 140mmol/L (136-145) Potassium Level 4.1mmol/L (3.5-5.1) Chloride Level 104mmol/L (98-107) Carbon Dioxide Level 32mmol/L (21-32) Anion Gap 4 (6-14) Blood Urea Nitrogen 29mg/dL (8-26) Creatinine 2.0mg/dL (0.7-1.3) Estimated GFR (Cockcroft-Gault) 31.8 Glucose Level 67mg/dL (70-99) Lactic Acid Level 1.6mmol/L (0.4-2.0) Calcium Level 9.1mg/dL (8.5-10.1) Phosphorus Level 3.5mg/dL (2.6-4.7) Magnesium Level 2.1mg/dL (1.8-2.4) Albumin 2.2g/dL (3.4-5.0) Test 09/01/16 11:29 Glucose (Fingerstick) 168mg/dL (70-99) Medications Current Medications Sodium Chloride (Normal Saline Flush) 3 ml PRN DAILY PRN IV AFTER MEDS AND BLOOD DRAWS; Start 08/28/16 at 17:30 Insulin Aspart (Novolog) 15 units 1X ONCE SQ Last administered on 08/28/16 18: 12; Start 08/28/16 at 17:45; Stop 08/28/16 at 17:46; Status DC Acetaminophen (Tylenol) 500 mg PRN DAILY PRN PO PAIN Last administered on 22:09; Start 08/28/16 at 18:30 Lactic Acid (Lac-Hydrin) 1 monica PRN QHS PRN TP DRY SKIN; Start 08/28/16 at 18:30 Atorvastatin Calcium (Lipitor) 20 mg HS PO Last administered on 08/31/16 19:27 ; Start 08/28/16 at 21:00 Bacitracin/ Polymyxin B Sulfate (Polysporin Ophth) 1 inch PRN DAILY PRN OD BLEPHARITIS; Start 08/28/16 at 18:30 Docusate Sodium (Colace) 100 mg BID PO Last administered on 09/01/16 07:52; Start 08/28/16 at 21:00 Dorzolamide HCl (Trusopt) 1 drop TID OU Last administered on 09/01/16 11:44; Start 08/28/16 at 21:00 Finasteride (Proscar) 5 mg DAILY PO Last administered on 09/01/16 08:06; Start 08/29/16 at 09:00 Furosemide (Lasix) 40 mg DAILY PO Last administered on 08/29/16 11:59; Start at 09:00; Stop 08/29/16 at 12:18; Status DC Insulin Aspart (Novolog) 10 units TID SQ ; Start 08/28/16 at 21:00; Stop 08/28/16 at 21:00; Status DC Insulin Aspart (Novolog) 28 units DAILYWSUP SQ ; Start 08/28/16 at 18:45; Stop at 18:45; Status DC Albuterol/ Ipratropium (Duoneb) 3 ml RTQID NEB Last administered on 09/01/16 10:48; Start 08/28/16 at 20:00 Isosorbide Mononitrate (Imdur) 30 mg DAILY PO Last administered on 09/01/16 08 :03; Start 08/29/16 at 09:00 Losartan Potassium (Cozaar) 50 mg DAILY PO Last administered on 09/01/16 08:03 ; Start 08/29/16 at 09:00 Metoprolol Tartrate (Lopressor) 50 mg BID PO Last administered on 09/01/16 08: 03; Start 08/28/16 at 21:00 Tamsulosin HCl (Flomax) 0.4 mg DAILY PO Last administered on 08/29/16 11:57; Start 08/29/16 at 09:00; Stop 08/31/16 at 08:24; Status DC Budesonide (Pulmicort) 0.5 mg RTBID NEB Last administered on 09/01/16 06:03; Start 08/28/16 at 20:00 Artificial Tears (Artificial Tears) 1 drop QID OU Last administered on 17:58; Start 08/28/16 at 21:00 Vitamin D (Vitamin D3) 1,000 unit DAILY PO Last administered on 09/01/16 07:51 ; Start 08/29/16 at 09:00 Non-Formulary Medication 28.4 gm PRN BID PRN TP INTERTRIGO; Start 08/28/16 at 18 :30; Stop 08/29/16 at 21:34; Status DC Non-Formulary Medication 72 unit HS SQ ; Start 08/28/16 at 21:00; Stop 08/28/16 at 21:00; Status DC Non-Formulary Medication 1 drop QHS EACHEYE Last administered on 08/31/16 19: 28; Start 08/28/16 at 21:00 Insulin Aspart (Novolog) 16 units TIDWMEALS SQ ; Start 08/29/16 at 08:00; Stop at 08:00; Status DC Insulin Aspart (Novolog) 0-9 UNITS TIDWMEALS SQ Last administered on 09/01/16 11:46; Start 08/28/16 at 18:45 Dextrose 12.5 gm PRN Q15MIN PRN IV SEE COMMENTS Last administered on 09/01/16 07:51; Start 08/28/16 at 18:45 Insulin Aspart (Novolog) 26 units 1X ONCE SQ Last administered on 08/28/16 18: 47; Start 08/28/16 at 18:45; Stop 08/28/16 at 18:46; Status DC Insulin Detemir (Levemir) 72 units QHS SQ Last administered on 08/31/16 19:35 ; Start 08/28/16 at 21:00 Insulin Aspart (Novolog) 20 units TIDWMEALS SQ Last administered on 09/01/16 11:46; Start 08/29/16 at 08:00 Albuterol/ Ipratropium (Duoneb) 3 ml RTQID NEB ; Start 08/28/16 at 20:00; Stop at 20:00; Status DC Budesonide 0.5 mg 0.5 mg RTBID NEB ; Start 08/28/16 at 20:00; Stop 08/28/16 at 20: 00; Status DC Linezolid 300 ml @ 300 mls/hr Q12HR IV Last administered on 08/31/16 08:13; Start 08/28/16 at 21:00; Stop 08/31/16 at 14:12; Status DC Piperacillin Sod/ Tazobactam Sod 2.25 gm/Sodium Chloride 50 ml @ 100 mls/hr Q6HRS IV ; Start 08/29/16 at 20:00; Stop 08/29/16 at 20:00; Status DC Micafungin Sodium 100 mg/Dextrose 100 ml @ 100 mls/hr Q24H IV Last administered on 08/30/16 22:31; Start 08/28/16 at 22:00; Stop 08/31/16 at 14:12 ; Status DC Piperacillin Sod/ Tazobactam Sod/ Sodium Chloride (Zosyn/Iv Sodium Chloride 0.9 % 50ml) 50 ml @ 100 mls/hr Q6HRS IV Last administered on 08/31/16 12:17; Start 08/28/16 at 20:00; Stop 08/31/16 at 14:12; Status DC Sulfur Hexafluoride Microspheres (Lumason) 25 mg STK-MED ONCE IVP ; Start at 09:49; Stop 08/29/16 at 09:50; Status DC Sulfur Hexafluoride Microspheres 25 mg 25 mg 1X ONCE IVP Last administered on 08/29/16 10:13; Start 08/29/16 at 10:15; Stop 08/29/16 at 10:16; Status DC Magnesium Sulfate/ Dextrose (Magnesium Sulfate PREMIX 2GM) 50 ml @ 25 mls/hr PRN DAILY PRN IV for Mag < 1.7 on am labs; Start 08/29/16 at 12:15 Acetylcysteine 1200 mg 1,200 mg BID PO Last administered on 08/31/16 08:09; Start 08/29/16 at 21:00; Stop 08/31/16 at 20:59; Status DC Cefazolin Sodium/ Sodium Chloride (Ancef/Iv Sodium Chloride 0.9% 500ml Bag) 500 ml @ 500 mls/hr 1X PERIOP ONCE IRR Last administered on 08/30/16 10:54; Start 08/30/16 at 06:00; Stop 08/30/16 at 06:59; Status DC Ondansetron HCl (Zofran) 4 mg PRN Q6HRS PRN IV Nausea; Start 08/30/16 at 07:00 ; Stop 08/31/16 at 06:59; Status DC Fentanyl Citrate (Fentanyl 2ml Vial) 25 mcg PRN Q5MIN PRN IV MILD PAIN Last administered on 08/30/16 12:37; Start 08/30/16 at 07:00; Stop 08/31/16 at 06:59 ; Status DC Fentanyl Citrate (Fentanyl 2ml Vial) 50 mcg PRN Q5MIN PRN IV MODERATE PAIN; Start 08/30/16 at 07:00; Stop 08/31/16 at 06:59; Status DC Morphine Sulfate 1 mg 1 mg PRN Q10MIN PRN IV SEVERE PAIN; Start 08/30/16 at 07: 00; Stop 08/31/16 at 06:59; Status DC Lactated Ringer's (Iv Lactated Ringers) 1,000 ml @ 30 mls/hr Q24H IV Last administered on 08/30/16 09:29; Start 08/30/16 at 07:00; Stop 08/30/16 at 18:59 ; Status DC Lidocaine HCl 2 ml 1X PRN PRN ID IV START; Start 08/30/16 at 07:00; Stop at 06:59; Status DC Hydromorphone HCl (Dilaudid) 0.5 mg PRN Q10MIN PRN IV SEVERE PAIN, Second choice; Start 08/30/16 at 07:00; Stop 08/31/16 at 06:59; Status DC Prochlorperazine Edisylate (Compazine) 5 mg PACU PRN PRN IV NAUSEA; Start 08/30 at 07:00; Stop 08/31/16 at 06:59; Status DC Acetylcysteine 1200 mg 1,200 mg BID PO ; Start 08/29/16 at 21:00; Stop 08/31/16 at 20:59; Status UNV Sodium Chloride 1,000 ml @ 100 mls/hr Q10H IV Last administered on 08/31/16 05:57; Start 08/29/16 at 17:30; Stop 08/31/16 at 19:37; Status DC Propofol (Diprivan) 20 ml @ As Directed STK-MED ONCE IV ; Start 08/30/16 at 08: 16; Stop 08/30/16 at 08:17; Status DC Lidocaine HCl 100 mg STK-MED ONCE .ROUTE ; Start 08/30/16 at 08:16; Stop at 08:17; Status DC Ondansetron HCl (Zofran) 4 mg STK-MED ONCE .ROUTE ; Start 08/30/16 at 08:16; Stop 08/30/16 at 08:17; Status DC Fentanyl Citrate (Fentanyl 2ml Vial) 100 mcg STK-MED ONCE .ROUTE ; Start at 08:16; Stop 08/30/16 at 08:17; Status DC Lidocaine HCl 30 ml STK-MED ONCE .ROUTE Last administered on 08/30/16 10:54; Start 08/30/16 at 10:49; Stop 08/30/16 at 10:50; Status DC Oxycodone/ Acetaminophen (Percocet 5/325) 1 tab PRN Q4HRS PRN PO MODERATE PAIN Last administered on 09/01/16 12:15; Start 08/30/16 at 14:45 Oxycodone/ Acetaminophen (Percocet 5/325) 2 tab PRN Q4HRS PRN PO SEVERE PAIN Last administered on 08/31/16 21:53; Start 08/30/16 at 15:00 Tamsulosin HCl (Flomax) 0.4 mg DAILY PO Last administered on 08/31/16 17:58; Start 08/31/16 at 17:00; Stop 09/01/16 at 08:43; Status DC Amoxicillin/ Clavulanate Potassium (Augmentin 875/ 125mg) 1 tab BID PO Last administered on 09/01/16 07:52; Start 08/31/16 at 21:00 Tamsulosin HCl (Flomax) 0.4 mg DAILY@1830 PO ; Start 09/01/16 at 18:30 Active Scripts Active Amox Tr-K Clv 875-125 Mg Tab (Amoxicillin/Potassium Clav) 1 Each Tablet 1 Tab PO BID Reported Docusate Sodium 100 Mg Capsule 1 Cap PO BID Acetaminophen 500 Mg Tablet 1 Tab PO PRN DAILY PRN Novolog Flexpen (Insulin Aspart) 100 Unit/1 Ml Insuln.pen 28 Unit SQ DAILYWSUP Novolog Flexpen (Insulin Aspart) 100 Unit/1 Ml Insuln.pen 10 Unit SQ Warfarin Sodium 1 Mg Tablet 1 Mg PO WEEKLY Warfarin Sodium 1 Mg Tablet 1 Mg PO DAILY Travatan Z (Travoprost) 5 Ml Drops 1 Drop EACHEYE QHS Tamsulosin Hcl 0.4 Mg Cap.er.24h 2 Cap PO DAILY Metoprolol Tartrate 50 Mg Tablet 1 Tab PO BID Losartan Potassium 50 Mg Tablet 50 Mg PO DAILY Isosorbide Mononitrate 20 Mg Tablet 30 Mg PO DAILY Lantus (Insulin Glargine,Hum.rec.anlog) 100 Unit/1 Ml Vial 72 Unit SQ HS Imiquimod 1 Each Cream.pack 1 Each TP 3X/WEEK Hydrocortisone-Iodoquinol Crm (Hydrocortisone/Iodoquinol) 28.4 Gm Cream..g. 28.4 Gm TP PRN BID PRN Furosemide 40 Mg Tablet 1 Tab PO DAILY Finasteride 5 Mg Tablet 1 Tab PO DAILY Dorzolamide Hcl 10 Ml Drops 1 Drop EACHEYE TID Vitamin D-3 (Cholecalciferol (Vitamin D3)) 2,000 Unit Capsule 1,000 Unit PO DAILY Refresh Optive Eye Drops (Carboxymethylcellulos/Glycerin) 15 Ml Drops 1 Drop EACHEYE QID Symbicort 160-4.5 Mcg Inhaler (Budesonide/Formoterol Fumarate) 10.2 Gm Hfa.aer.ad 2 Puff IH BID Bacitracin-Polymyxin Eye Oint (Bacitracin/Polymyxin B Sulfate) 3.5 Gm Oint...g. 3.5 Gm OP PRN DAILY PRN Atorvastatin Calcium 20 Mg Tablet 20 Mg PO HS Ammonium Lactate 225 Gm Lotion 225 Gm TP HS PRN Duoneb 0.5-3(2.5) Mg/3 Ml (Albuterol/Ipratropium) 3 Ml Ampul.neb 3 Ml NEB QID Vitals/I & O Vital Sign - Last 24 Hours 2/11/17 2/11/17 2/11/17 2/11/17 13:57 15:00 15:52 19:10 Temp 97.7 98.0 97.7 98.0 Pulse 65 58 Resp 20 18 18 B/P 122/51 132/58 Pulse Ox 92 96 O2 Delivery Room Air Room Air Room Air Room Air 08/31/16 08/31/16 08/31/16 08/31/16 19:27 19:43 19:55 19:57 Pulse 65 B/P 122/51 Pulse Ox 98 98 O2 Delivery Room Air Room Air Room Air 08/31/16 08/31/16 08/31/16 09/01/16 21:53 22:53 23:10 03:10 Temp 97.6 97.7 97.6 97.7 Pulse 57 57 Resp 18 18 B/P 108/38 116/48 Pulse Ox 98 95 98 O2 Delivery Room Air Room Air Room Air Room Air 09/01/16 09/01/16 09/01/16 09/01/16 06:02 07:00 07:40 08:03 Temp 97.9 97.9 Pulse 101 66 Resp 18 B/P 136/53 136/53 Pulse Ox 98 97 O2 Delivery Room Air Room Air Room Air 09/01/16 09/01/16 09/01/16 09/01/16 08:03 08:03 10:49 12:15 Pulse 66 66 B/P 136/53 136/53 O2 Delivery Room Air Room Air Intake and Output 08/31/16 08/31/16 09/01/16 15:00 23:00 07:00 Intake Total 520 ml Output Total 300 ml Balance 220 ml INES ARCHER MD Sep 01, 2016 12:19
[2016-09-01 15:00] VITALS: BP 127/51
[2016-09-01] MEDS: TAMSULOSIN 0.4 MG CAP.ER.24H. PO SCH (18:34)
[2016-09-01 19:10] VITALS: BP 137/45
[2016-09-01] MEDS: ATORVASTATIN CALCIUM 20 MG TABLET PO SCH (20:58)
[2016-09-01] MEDS: TRAVATAN Z EYE EACHEYE SCH (21:00)
[2016-09-01] MEDS: INSULIN DETEMIR 300 UNITS/3 ML INSULN.PEN. SQ SCH (21:05)
[2016-09-01 23:15] VITALS: BP 134/45
[2016-09-02 03:17] VITALS: BP 125/59
[2016-09-02 05:56] LABS: CALCIUM 8.8 mg/dL (8.5-10.1); CREATININE 1.8 mg/dL (0.7-1.3); PHOSPHORUS 3.6 mg/dL (2.6-4.7); POTASSIUM 3.9 mmol/L (3.5-5.1)
[2016-09-02] MEDS: BUDESONIDE 0.5 MG/2 ML NEBU NEB SCH (06:05)
[2016-09-02] MEDS: IPRATRPIUM/ALBUTEROL 0.5/2.5MG 3 ML NEBU. NEB SCH ×3 (06:05→15:52)
[2016-09-02 07:00] VITALS: BP 139/52
[2016-09-02] MEDS: INSULIN ASPART 300 UNITS/3 ML INSULN.PEN SQ SCH ×6 (08:00→17:00)
[2016-09-02] MEDS: POLYVINYL ALCOHOL 1.4% OPHTH SOLUTION 15ML BOTTLE. OU SCH ×3 (08:09→17:00)
[2016-09-02] MEDS: CHOLECALCIFEROL (VITAMIN D3) 1,000 UNIT TABLET PO SCH (08:12)
[2016-09-02] MEDS: DOCUSATE SODIUM 100 MG CAPSULE PO SCH (08:12)
[2016-09-02] MEDS: AMOXICILLIN/K CLAV 875/125MG TABLET. PO SCH (08:12)
[2016-09-02] MEDS: METOPROLOL TART IMMED RELEASE 50 MG TABLET PO SCH (08:13)
[2016-09-02] MEDS: LOSARTAN POTASSIUM 50 MG TABLET. PO SCH (08:13)
[2016-09-02] MEDS: ISOSORBIDE MONONITRATE ER 30 MG TAB.ER.24H PO SCH (08:14)
[2016-09-02] MEDS: DORZOLAMIDE 2% OPHTH SOLUTION 10ML BOTTLE. OU SCH ×2 (08:15→12:52)
[2016-09-02] MEDS: FINASTERIDE 5 MG TABLET PO SCH (08:18)
--- NOTE | 2016-09-02 09:14 | PDOC ---
Infectious Disease Note Subjective Subjective Comfortable, pain controlled at the moment ROS ROS GEN: Denies fevers, chills, sweats HEENT: Denies blurred vision, sore throat CV: Denies chest pain RESP: Denies shortness of air, cough GI: Denies n/v/d NEURO: Denies confusion, dizziness MSK: Denies weakness, joint pain/swelling Vital Sign Vital Signs Vital Signs Date Time Temp Pulse Resp B/P Pulse Ox O2 Delivery O2 Flow Rate FiO2 09/02/16 08:14 62 139/52 09/02/16 07:15 Room Air 09/02/16 07:00 97.5 18 99 97.5 Physical Exam PHYSICAL EXAM GENERAL: NAD, Alert HEENT: PERRL, OC/OP NECK: Supple, no JVD, no LN LUNGS: Clear HEART: S1S2, no gallop, no murmur ABD: Soft, NT, no organomegaly, no rebound EXT: No edema, no cyanosis MDS COORDINATOR: Alert, oriented x 3, no focal neurologic deficit SKIN: No rash IV: ok Labs Lab Laboratory Tests Test 09/01/16 11:29 09/01/16 16:22 09/01/16 21:01 09/02/16 04:40 Glucose (Fingerstick) 168mg/dL (70-99) 107mg/dL (70-99) 206mg/dL (70-99) Sodium Level 139mmol/L (136-145) Potassium Level 3.9mmol/L (3.5-5.1) Chloride Level 102mmol/L (98-107) Carbon Dioxide Level 30mmol/L (21-32) Anion Gap 7 (6-14) Blood Urea Nitrogen 32mg/dL (8-26) Creatinine 1.8mg/dL (0.7-1.3) Estimated GFR (Cockcroft-Gault) 36.0 Glucose Level 196mg/dL (70-99) Lactic Acid Level 1.1mmol/L (0.4-2.0) Calcium Level 8.8mg/dL (8.5-10.1) Phosphorus Level 3.6mg/dL (2.6-4.7) Magnesium Level 2.2mg/dL (1.8-2.4) Albumin 2.0g/dL (3.4-5.0) Test 09/02/16 07:12 Glucose (Fingerstick) 141mg/dL (70-99) Objective Assessment Left great toe osteomyelitis. s/p left great toe and ray amputation. 08/30 Right toe plantar ulcer. s/p full thickness, excisional debridement. 08/30 PAD DM DAREK Afib Plan Plan of Care on po [facility] ok leg elevation IVAN BARBOSA MD Sep 02, 2016 09:14
--- NOTE | 2016-09-02 09:59 | CONS ---
DATE OF CONSULTATION: 08/29/2016 PATIENT'S ROOM: 406. REQUESTING PHYSICIAN: Dr. Reeves. REASON FOR CONSULTATION: Toe osteo. HISTORY OF PRESENT ILLNESS: The patient is a very pleasant 86-year-old gentleman with history of diabetes for over 30 years, normally followed at the [facility]. For the past week or so he has been having some chills and has been following up at the [facility] with some known toe ulcers, mainly on his right great and second toe and his left great toe. Apparently, he presented to the [facility] yesterday. It appeared that his left great toe had worsened. Also had a decreased KATY and was transferred to [facility] for further care and evaluation. I was contacted with regards to his consultation and instituted Zosyn. Given his history of chronic kidney disease added Zyvox and also micafungin. He has ____ been evaluated by Dr. Hanson ____ he has osteomyelitis of his left great toe and nonhealing ulcerations and has arterial insufficiency of both lower extremities. Currently, the patient states he is doing okay. He had a little bit of a chill last evening. He has no headaches. He has chronic sinus issues. Denies any gross shortness of air or cough. Denies having any nausea, vomiting, diarrhea or dysuria. He denies any recent falls. ____ without complications PAST MEDICAL HISTORY: Positive for atrial fibrillation, coronary artery disease, congestive heart failure, hypertension, COPD, BPH as well as diabetes. ALLERGIES: No antibiotic allergies. SOCIAL HISTORY: No recent tobacco or alcohol. FAMILY HISTORY: Positive for diabetes. CURRENT MEDICATIONS: include Zyvox, Zosyn, micafungin that I instituted yesterday. He is on Lipitor, Pulmicort, Colace, insulin, albuterol, Atrovent, Flomax. Other meds are available, have been reviewed in the chart. PHYSICAL EXAMINATION: VITAL SIGNS: T-max 99.5 on arrival, currently at 97.6, pulse 57, respirations 16, blood pressure 134/53, satting 99% on room air. CONSTITUTIONAL: He is a pleasant gentleman. He is cooperative, in no acute distress. He is obese. He is sitting on the side of the bed. He is wearing his glasses. HEENT: Pupils are equal and reactive. He had normal conjunctivae. Oral cavity, oropharynx was clear. NECK: Supple, no JVD. LUNGS: Clear to auscultation. HEART: S1, S2. ABDOMEN: Obese, soft, nontender, nondistended. EXTREMITIES: He has bilateral lower extremity chronic venous stasis changes. He has tinea onychomycosis. He has scabbed over wounds on his right dorsal second toe and the base of his right great toe on the plantar aspect, his left great toe has an odor associated with it. There is some sloughing of the skin, he is nontender. SKIN: Otherwise without signs of rash. NEUROLOGIC: He moves all extremities and answers questions appropriately. PSYCHIATRIC: Affect is pleasant. LABORATORY DATA: White count 8.9, hemoglobin 13.6, platelets 191, neutrophils 78. Sed rate 34, glucose was 476 on arrival. Creatinine was 2.1. IMPRESSION: 1. Left great toe osteomyelitis. 2. PAD. 3. Diabetes. 4. Acute kidney injury. 5. Atrial fibrillation. RECOMMENDATIONS: Started Zyvox, Zosyn, micafungin yesterday, adjusted for renal function. Follow up labs and cultures, await further vascular workup. Thank you for allowing us to participate in the patient's care. Should you have any questions, please do not hesitate to contact me. I will order labs for the morning. GIOVANA LOPEZ MD DR: KHURRAM/dain JOB#: [id number] / [id number]
[2016-09-02 11:00] VITALS: BP 134/56
--- NOTE | 2016-09-02 11:30 | PDOC ---
SUBJECTIVE ROS CKD III DOing OK overall CVS: no Orthopnea, no CP RESP: no SOB, no JIMÉNEZ GI: no Nausea, no Vomiting : no Dysuria, no Urgency OBJECTIVE Vital Signs Vital Signs Date Time Temp Pulse Resp B/P Pulse Ox O2 Delivery O2 Flow Rate FiO2 09/02/16 11:00 97.7 60 18 134/56 98 Room Air 97.7 I & 0 Intake and Output 09/02/16 07:00 Intake Total 180 ml Balance 180 ml Intake Oral 180 ml PHYSICAL EXAM Physical Exam General Appearance: Awake Alert Oriented x 3 In no Distress; obese WM Eyes: VIsion Unchanged Conjunctiva Normal EN: No EN Drainage Mucous Memb. moist Neck: no JVD no JVP Supple no Thyromegaly - thick neck CVS: S1 S2 no Murmur No Gallop No Rub no Edema Resp: no Rales no Rhonchi no Acc. Muscle use GI: BS +ve NO Bruit Non Tender Non Distended; Morbidly obese : no CVA tenderness; no Suprapubic Tenderness Assessment & Plan CKD III - DM/ HTNsive As/ NS Current FLuid and E-lyte status does not necessitate emergent need for Dialysis. Will re-evaluate in am, Creat stable - suspect this is new baseline unless NIETO was playing a bigger role insulin using DM Long standing with DM Nephropathy; suspect this is new baseline NIETO - agreew ith Flomax - Will need URO as OP at [facility] - Pt instructed and voiced understanding PVD with gangrene - WHile AFR has been discussed; CO2 angio is planned, if IVC is needed - he is a mild to mod risk for CAN and this was discussed with pt. IVF and NAC will be ordered prn Lactic Acidemia - resolved H/o CHF : for which hes on Lasix. ECHO noted WNL EF; clinically compensated currently. Discussed with Pt - he can take lasix prn for edema/ fluid retention HTN: Current BP meds reviewed. See orders for changes. Discussed Plan of Care and prognosis etc. at length with family (daughter). COMMENT/RELEVANT DATA Meds Current Medications Medications (Trade) Dose Ordered Sig/Malcolm Start Time Stop Time Status Last Admin Dose Admin Acetaminophen (Tylenol) 500 mg PRN DAILY PRN 08/28/16 18:30 08/28/16 22:09 500 MG Acetylcysteine 1200 mg 1,200 mg BID 08/29/16 21:00 08/31/16 20:59 UNV Albuterol/ Ipratropium (Duoneb) 3 ml RTQID 08/28/16 20:00 08/28/16 20:00 DC Amoxicillin/ Clavulanate Potassium (Augmentin 875/ 125mg) 1 tab BID 08/31/16 21:00 09/02/16 08:12 1 TAB Artificial Tears (Artificial Tears) 1 drop QID 08/28/16 21:00 08/31/16 17:58 1 DROP Atorvastatin Calcium (Lipitor) 20 mg HS 08/28/16 21:00 09/01/16 20:58 20 MG Bacitracin/ Polymyxin B Sulfate (Polysporin Ophth) 1 inch PRN DAILY PRN 08/28/16 18:30 Budesonide (Pulmicort) 0.5 mg RTBID 08/28/16 20:00 09/02/16 06:05 0.5 MG Budesonide 0.5 mg 0.5 mg RTBID 08/28/16 20:00 08/28/16 20:00 DC Cefazolin Sodium/ Sodium Chloride (Ancef/Iv Sodium Chloride 0.9% 500ml Bag) 500 ml @ 500 mls/hr 1X PERIOP ONCE 08/30/16 06:00 08/30/16 06:59 DC 08/30/16 10:54 Dextrose 12.5 gm PRN Q15MIN PRN 08/28/16 18:45 09/01/16 07:51 12.5 GM Docusate Sodium (Colace) 100 mg BID 08/28/16 21:00 09/02/16 08:12 100 MG Dorzolamide HCl (Trusopt) 1 drop TID 08/28/16 21:00 09/02/16 08:15 1 DROP Fentanyl Citrate (Fentanyl 2ml Vial) 100 mcg STK-MED ONCE 08/30/16 08:16 08/30/16 08:17 DC Finasteride (Proscar) 5 mg DAILY 08/29/16 09:00 09/02/16 08:18 5 MG Furosemide (Lasix) 40 mg DAILY 08/29/16 09:00 08/29/16 12:18 DC 08/29/16 11:59 40 MG Hydromorphone HCl (Dilaudid) 0.5 mg PRN Q10MIN PRN 08/30/16 07:00 08/31/16 06:59 DC Insulin Aspart (Novolog) 20 units TIDWMEALS 08/29/16 08:00 09/02/16 08:22 20 UNITS Insulin Detemir (Levemir) 72 units QHS 08/28/16 21:00 09/01/16 21:05 72 UNITS Isosorbide Mononitrate (Imdur) 30 mg DAILY 08/29/16 09:00 09/02/16 08:14 30 MG Lactated Ringer's (Iv Lactated Ringers) 1,000 ml @ 30 mls/hr Q24H 08/30/16 07:00 08/30/16 18:59 DC 08/30/16 09:29 30 MLS/HR Lactic Acid (Lac-Hydrin) 1 monica PRN QHS PRN 08/28/16 18:30 Lidocaine HCl 30 ml STK-MED ONCE 08/30/16 10:49 08/30/16 10:50 DC 08/30/16 10:54 22 ML Linezolid 300 ml @ 300 mls/hr Q12HR 08/28/16 21:00 08/31/16 14:12 DC 08/31/16 08:13 300 MLS/HR Losartan Potassium (Cozaar) 50 mg DAILY 08/29/16 09:00 09/02/16 08:13 50 MG Magnesium Sulfate/ Dextrose 50 ml @ 25 mls/hr PRN DAILY PRN 08/29/16 12:15 Metoprolol Tartrate (Lopressor) 50 mg BID 08/28/16 21:00 09/02/16 08:13 50 MG Micafungin Sodium 100 mg/Dextrose 100 ml @ 100 mls/hr Q24H 08/28/16 22:00 08/31/16 14:12 DC 08/30/16 22:31 100 MLS/HR Morphine Sulfate 1 mg 1 mg PRN Q10MIN PRN 08/30/16 07:00 08/31/16 06:59 DC Non-Formulary Medication 1 drop QHS 08/28/16 21:00 09/01/16 21:00 1 DROP Ondansetron HCl (Zofran) 4 mg STK-MED ONCE 08/30/16 08:16 08/30/16 08:17 DC Oxycodone/ Acetaminophen (Percocet 5/325) 2 tab PRN Q4HRS PRN 08/30/16 15:00 09/01/16 20:59 2 TAB Piperacillin Sod/ Tazobactam Sod 2.25 gm/Sodium Chloride 50 ml @ 100 mls/hr Q6HRS 08/29/16 20:00 08/29/16 20:00 DC Piperacillin Sod/ Tazobactam Sod/ Sodium Chloride (Zosyn/Iv Sodium Chloride 0.9% 50ml) 50 ml @ 100 mls/hr Q6HRS 08/28/16 20:00 08/31/16 14:12 DC 08/31/16 12:17 100 MLS/HR Prochlorperazine Edisylate (Compazine) 5 mg PACU PRN PRN 08/30/16 07:00 08/31/16 06:59 DC Propofol (Diprivan) 20 ml @ As Directed STK-MED ONCE 08/30/16 08:16 08/30/16 08:17 DC Sodium Chloride 1,000 ml @ 100 mls/hr Q10H 08/29/16 17:30 08/31/16 19:37 DC 08/31/16 05:57 100 MLS/HR Sodium Chloride (Normal Saline Flush) 3 ml PRN DAILY PRN 08/28/16 17:30 Sulfur Hexafluoride Microspheres (Lumason) 25 mg STK-MED ONCE 08/29/16 09:49 08/29/16 09:50 DC Sulfur Hexafluoride Microspheres 25 mg 25 mg 1X ONCE 08/29/16 10:15 08/29/16 10:16 DC 08/29/16 10:13 25 MG Tamsulosin HCl (Flomax) 0.4 mg DAILY@1830 09/01/16 18:30 09/01/16 18:34 0.4 MG Vitamin D (Vitamin D3) 1,000 unit DAILY 08/29/16 09:00 09/02/16 08:12 1,000 UNIT Lab Laboratory Tests Test 09/01/16 11:29 09/01/16 16:22 09/01/16 21:01 09/02/16 04:40 Glucose (Fingerstick) 168mg/dL (70-99) 107mg/dL (70-99) 206mg/dL (70-99) Sodium Level 139mmol/L (136-145) Potassium Level 3.9mmol/L (3.5-5.1) Chloride Level 102mmol/L (98-107) Carbon Dioxide Level 30mmol/L (21-32) Anion Gap 7 (6-14) Blood Urea Nitrogen 32mg/dL (8-26) Creatinine 1.8mg/dL (0.7-1.3) Estimated GFR (Cockcroft-Gault) 36.0 Glucose Level 196mg/dL (70-99) Lactic Acid Level 1.1mmol/L (0.4-2.0) Calcium Level 8.8mg/dL (8.5-10.1) Phosphorus Level 3.6mg/dL (2.6-4.7) Magnesium Level 2.2mg/dL (1.8-2.4) Albumin 2.0g/dL (3.4-5.0) Test 09/02/16 07:12 09/02/16 10:52 Glucose (Fingerstick) 141mg/dL (70-99) 173mg/dL (70-99) MEÑO BARBOSA MD Sep 02, 2016 11:30
[2016-09-02 15:00] VITALS: BP 136/49
--- NOTE | 2016-09-02 15:25 | PDOC3 ---
Discharge Summary 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 Wilkins is a 86 old M, from [place], for left great toe ostoe. Pt underwent left great toe amputation, right big toe debridement. dc home with augmentin, HH, pt need to go to [place] to fu. dc time 35min General: Alert, Oriented X3, Cooperative, No acute distress Heart: Normal S1, Normal S2 Lungs: Clear Abdomen: Normal bowel sounds, Soft (obese) Extremities: bl toes post sx with clean dressing on Patient History: Carcinomas 32 MOTHER FHx: Alzheimer's disease 33 FATHER FHx: Parkinson's disease 33 FATHER FHx: diabetes mellitus FHx: heart disease 33 FATHER FHx: hyperthyroidism Family history: Hypertension (situation) G8 DAUGHTER Problems: Disposition HH CONDITION AT DISCHARGE: Improved Diet regular Scheduled Amoxicillin/Potassium Clav (Amox Tr-K Clv 875-125 Mg Tab) 1 TAB PO BID Atorvastatin Calcium (Atorvastatin Calcium) 20 MG PO HS (Reported) Budesonide/Formoterol Fumarate (Symbicort 160-4.5 Mcg Inhaler) 2 PUFF IH BID ( Reported) Carboxymethylcellulos/Glycerin (Refresh Optive Eye Drops) 1 DROP EACHEYE QID ( Reported) Cholecalciferol (Vitamin D3) (Vitamin D-3) 1,000 UNIT PO DAILY (Reported) Docusate Sodium (Docusate Sodium) 1 CAP PO BID (Reported) Dorzolamide Hcl (Dorzolamide Hcl) 1 DROP EACHEYE TID (Reported) Finasteride (Finasteride) 1 TAB PO DAILY (Reported) Furosemide (Furosemide) 1 TAB PO DAILY (Reported) Imiquimod (Imiquimod) 1 EACH TP 3X/WEEK (Reported) Insulin Aspart (Novolog Flexpen) 28 UNIT SQ DAILYWSUP (Reported) Insulin Glargine,Hum.rec.anlog (Lantus) 72 UNIT SQ HS (Reported) Ipratropium/Albuterol Sulfate (Duoneb 0.5-3(2.5) Mg/3 Ml) 3 ML NEB QID (Reported ) Isosorbide Mononitrate (Isosorbide Mononitrate) 30 MG PO DAILY (Reported) Losartan Potassium (Losartan Potassium) 50 MG PO DAILY (Reported) Metoprolol Tartrate (Metoprolol Tartrate) 1 TAB PO BID (Reported) Tamsulosin Hcl (Tamsulosin Hcl) 2 CAP PO DAILY (Reported) Travoprost (Travatan Z) 1 DROP EACHEYE QHS (Reported) Warfarin Sodium (Warfarin Sodium) 1 MG PO DAILY (Reported) Warfarin Sodium (Warfarin Sodium) 1 MG PO WEEKLY (Reported) Scheduled PRN Acetaminophen (Acetaminophen) 1 TAB PO PRN DAILY PRN PRN PAIN (Reported) Ammonium Lactate (Ammonium Lactate) 225 GM TP HS PRN PRN DRY SKIN (Reported) Bacitracin/Polymyxin B Sulfate (Bacitracin-Polymyxin Eye Oint) 3.5 GM OP PRN DAILY PRN PRN BLEPHARITIS (Reported) Hydrocortisone/Iodoquinol (Hydrocortisone-Iodoquinol Crm) 28.4 GM TP PRN BID PRN PRN INTERTRIGO (Reported) Miscellaneous Medications Insulin Aspart (Novolog Flexpen) 10 UNIT SQ (Reported) Follow Up vascular sx in 2 weeks MARIANA RANDALL MD Sep 02, 2016 15:25
[2016-09-02] MEDS: TAMSULOSIN 0.4 MG CAP.ER.24H. PO SCH (17:16)
--- NOTE | 2016-09-03 17:16 | PATHOLOGY ---
PATHOLOGY REPORT * * * * * * * * FINAL DIAGNOSIS: Toe and separate segment of bone and fragments of bone, left great toe amputation: - Gangrenous necrosis and ulceration of plantar aspect of toe with acute cellulitis and acute osteomyelitis. - Separate segment and fragments of bone are negative for osteomyelitis and showl focal acute inflammation of attached soft tissue. (JPM:csd; d/t: 09/03/2016) REPORT ELECTRONICALLY SIGNED BY: Keya Barcenas M.D. DATE/TIME: 09/03/2016 17:16 * * * * * * * * GROSS PATHOLOGY: The specimen is received in formalin labeled "Keya Fagan, left great toe". Received is an amputated digit measuring 7.1 x 4.1 x 3.6 cm in greatest dimensions. The bone margin is smooth and concave in appearance, consistent with disarticulation. The bone and soft tissue margins are inked black. The nail is present displaying a pale woody and thickened appearance measuring 1.9 x 0.8 x 0.2 cm. On the plantar aspect of the specimen, there is a well-circumscribed, centrally ulcerated, necrotic-appearing simon-woody brown to light woody lesion measuring 3.0 x 2.7 cm, which is 0.3 cm from the closest skin margin. The remainder of the epidermal surface is pale woody and granular to sloughing in appearance. Also received within the specimen container is an additional segment of bone displaying one jagged margin and one smooth margin measuring 2.8 x 2.8 x 2.4 cm. The jagged margin is inked black. There are also multiple additional fragments of pale woody to light woody bone measuring 4.2 x 3.8 x 1.1 cm in aggregate dimensions. The specimen is submitted representatively as follows: A1-A3 full-thickness cross-section of intact digit, submitted from proximal to distal aspects, following decalcification A4 sales and service representative section of second segment of bone, following decalcification A5 sales and service representative sections of separately submitted fragments of bone, following decalcification. (CAA; 09/02/2016) INITIAL CPT CODE(S): A; 59774, 35161 Professional services performed by [facility] at [address] [address] Technical services performed by [facility] at [address] [place] [address], [address], [place] [address]. SPECIMEN(S) RECEIVED: A.Left great toe CLINICAL HISTORY: None provided PATIENT: KEYA FAGAN /AGE: 1207/02/1930 (Age: 86) PATIENT #: [id number] ALT CASE #: SPECIMEN COLLECTION DATE: 08/30/2016 SPECIMEN RECEIVED DATE: 08/30/2016 [facility] - [address] [place] [address] - PHONE: [phone] * * * END OF REPORT * * *
== END 2016-09-02 18:45 | disposition home health service (06) | DRG 617 ==
LOC: 4 NORTH 16:47
PROVIDERS: ADMIT Internal Medicine; ATTEND Internal Medicine
PROC: 0HBMXZZ Excision of Right Foot Skin, External Approach (ICD-10-PCS; 2016-08-30)
PROC: 0Y6Q0Z0 Detachment at Left 1st Toe, Complete, Open Approach (ICD-10-PCS; principal; 2016-08-30 10:00)
DX: E11.69 Type 2 diabetes mellitus with other specified complication (principal); E11.52 Type 2 diabetes mellitus with diabetic peripheral angiopathy with gangrene; M86.8X7 Other osteomyelitis, ankle and foot; I13.0 Hypertensive heart and chronic kidney disease with heart failure and stage 1 through stage 4 chronic kidney disease, or unspecified chronic kidney disease; I50.32 Chronic diastolic (congestive) heart failure; I96 Gangrene, not elsewhere classified; E44.1 Mild protein-calorie malnutrition; N18.4 Chronic kidney disease, stage 4 (severe); I70.202 Unspecified atherosclerosis of native arteries of extremities, left leg; E11.22 Type 2 diabetes mellitus with diabetic chronic kidney disease; E11.621 Type 2 diabetes mellitus with foot ulcer; E66.9 Obesity, unspecified; I25.10 Atherosclerotic heart disease of native coronary artery without angina pectoris; I35.0 Nonrheumatic aortic (valve) stenosis; I48.0 Paroxysmal atrial fibrillation; I77.1 Stricture of artery; J44.9 Chronic obstructive pulmonary disease, unspecified; L97.519 Non-pressure chronic ulcer of other part of right foot with unspecified severity; L97.529 Non-pressure chronic ulcer of other part of left foot with unspecified severity; N40.0 Benign prostatic hyperplasia without lower urinary tract symptoms; Z68.37 Body mass index [BMI] 37.0-37.9, adult; Z82.0 Family history of epilepsy and other diseases of the nervous system; Z88.8 Allergy status to other drugs, medicaments and biological substances; Z82.49 Family history of ischemic heart disease and other diseases of the circulatory system; Z83.3 Family history of diabetes mellitus; Z95.0 Presence of cardiac pacemaker; Z79.899 Other long term (current) drug therapy; N17.0 Acute kidney failure with tubular necrosis
CPT/HCPCS: 36415; 76770; 80053; 80069; 81001; 82550; 82570; 82947; 83036; 83605; 83735; 84156; 84300; 85018; 85027; 85610; 85651; 86141; 88305; 88311; 93926; 94250; 94640; 94760; C1769; C8929; J0690; J1815; J2020; J2248; J2405; J2543; J2704; J3010; J7030; J7040; J7042; J7120; J7620; 97116; 97530; Q9950

== ENCOUNTER 2016-09-27 13:58 | Inpatient (IN) | payer OTHER ==
[~2016-09-27] VITALS: Ht 180.3 cm; Wt 122.9 kg
[~2016-09-27 13:58] MED LIST: ACET500T68 PO; AMMO225L5 TP; AMOX1TAB11 PO; ATOR20TA58 PO; BACI3.5O4 OP; BUDE10.2 IH; CARB15DR3 EACHEYE; CHOL20004 PO; DOCU100C5 PO; DORZ10DR3 EACHEYE; FINA5TAB4 PO; FURO40TA4 PO; IMIQ1CRE TP; INSU100I17 SQ; INSU100V8 SQ; IPRA3AMP NEB; ISOS20TA2 PO; LOSA50TA6 PO; METO50TA2 PO; TAMS0.4C2 PO; TRAV5DRO EACHEYE; WARF1TAB7 PO; [UNRECOGNIZED DRUG - CODE] TP
[2016-09-27 17:20] VITALS: BP 124/43
[2016-09-27] MEDS ORDERED: ONDANSETRON PF 4 MG/2 ML VIAL. IV PRN (18:00)
[2016-09-27] MEDS ORDERED: FENTANYL PF 100 MCG/2 ML VIAL. IV PRN (18:00)
[2016-09-27] MEDS: IV NORMAL SALINE 1000ML BAG 1,000 ML IV SCH (18:34)
[2016-09-27 19:00] VITALS: BP 120/48
[2016-09-27] MEDS ORDERED: DEXTROSE 50% 25 GM / 50ML DISP.SYRIN. IV PRN (20:45)
--- NOTE | 2016-09-27 20:56 | PDOC ---
SURGICAL PROGRESS NOTE Subjective 86 yo M with fever, minimal abd pain abd soft, min TTP RLQ Ct-c/w tip appendicitis WBC 16, INR elevated I/R appendicitis correct coagulopathy IV abx Plan lap vs open appendectomy pending above Thanks for consult! [id number] Vital Signs Vital Signs Date Time Temp Pulse Resp B/P Pulse Ox O2 Delivery O2 Flow Rate FiO2 09/27/16 19:00 98.1 57 18 120/48 92 Room Air 98.1 Labs Laboratory Tests Test 09/27/16 20:28 Glucose (Fingerstick) 195mg/dL (70-99) Laboratory Tests Test 09/27/16 20:28 Glucose (Fingerstick) 195mg/dL (70-99) CACHORRO GOLDSTEIN MD Sep 27, 2016 20:56
[2016-09-27] MEDS ORDERED: ACETAMINOPHEN 500 MG TABLET PO PRN (21:00)
[2016-09-27] MEDS ORDERED: NON FORMULARY ITEM (Budesonide/Formoterol Fumarate (Symbicort 160-4.5 Mcg Inhaler) 2 PUFF) IH SCH (21:00)
[2016-09-27] MEDS ORDERED: AMMONIUM LACTATE 12% TP PRN (21:00)
[2016-09-27] MEDS ORDERED: IPRATRPIUM/ALBUTEROL 0.5/2.5MG 3 ML NEBU. NEB SCH (21:00)
--- NOTE | 2016-09-27 21:10 | PDOC1 ---
History and Physical Date of Admission Date of Admission DATE: 09/27/16 TIME: 21:09 Identification/Chief Complaint Chief Complaint abd pain Source Source: Chart review, Patient History of Present Illness History of Present Illness 86 yo M with fever, abd pain sent from [facility], I was told acute appy on CT scan, and surgeons there didn't want to operate. I wasn't informed of his INR > 2 last INR 2.1, recent surg from Vascular, [place], Let foot wound appears to be healing some abd pain, not worsening, no change in stool Pt seen by Surg consult tonight already Past Medical History Cardiovascular: AFIB, CAD, CHF, HTN, Aortic stenosis Pulmonary: COPD Hepatobiliary: No pertinent hx Musculoskeletal: low back pain Rheumatologic: No pertinent hx Renal/: Chronic renal insuff, Benign prostatic enlarg. Endocrine: Diabetes Past Surgical History Past Surgical History: Other Family History Family History: No Significant Social History Smoke: No ALCOHOL: none Drugs: None Current Medications Current Medications Current Medications Sodium Chloride (Iv Sodium Chloride 0.9% 1000ml Bag) 1,000 ml @ 75 mls/hr [id number] IV Last administered on 09/27/16t 18:34; Start 09/27/16 at 18:00 Fentanyl Citrate (Fentanyl 2ml Vial) 50 mcg PRN Q2HR PRN IV PAIN; Start at 18:00 Ondansetron HCl (Zofran) 4 mg PRN Q8HRS PRN IV NAUSEA/VOMITING; Start 09/27/16 at 18:00 Insulin Aspart (Novolog) 0-5 UNITS TIDWMEALS SQ ; Start 09/28/16 at 08:00 Dextrose 12.5 gm 12.5 gm PRN Q15MIN PRN IV SEE COMMENTS; Start 09/27/16 at 20: 45 Piperacillin Sod/ Tazobactam Sod/ Sodium Chloride (Zosyn/Iv Sodium Chloride 0.9 % 50ml) 50 ml @ 100 mls/hr Q6HRS IV ; Start 09/27/16 at 21:30 Acetaminophen (Tylenol) 500 mg PRN DAILY PRN PO PAIN; Start 09/27/16 at 21:00 Lactic Acid (Lac-Hydrin) 225 monica PRN QHS PRN TP DRY SKIN; Start 09/27/16 at 21: 00 Atorvastatin Calcium (Lipitor) 20 mg HS PO ; Start 09/27/16 at 21:00 Docusate Sodium (Colace) 100 mg BID PO ; Start 09/27/16 at 21:00 Dorzolamide HCl (Trusopt) 1 drop TID OU ; Start 09/27/16 at 21:00 Finasteride (Proscar) 5 mg DAILY PO ; Start 09/28/16 at 09:00 Albuterol/ Ipratropium (Duoneb) 3 ml QID NEB ; Start 09/27/16 at 21:00 Isosorbide Mononitrate (Imdur) 30 mg DAILY PO ; Start 09/28/16 at 09:00 Metoprolol Tartrate (Lopressor) 50 mg BID PO ; Start 09/27/16 at 21:00 Tamsulosin HCl (Flomax) 0.4 mg DAILY PO ; Start 09/28/16 at 09:00 Non-Formulary Medication 2 puff BID IH ; Start 09/27/16 at 21:00; Status UNV Non-Formulary Medication 1 drop QID EACHEYE ; Start 09/27/16 at 21:00; Status UNV Insulin Detemir (Levemir) 35 units QHS SQ ; Start 09/27/16 at 21:00 Insulin Aspart (Novolog) 15 units TIDAC SQ ; Start 09/28/16 at 07:30 Active Scripts Active Amox Tr-K Clv 875-125 Mg Tab (Amoxicillin/Potassium Clav) 1 Each Tablet 1 Tab PO BID Reported Docusate Sodium 100 Mg Capsule 1 Cap PO BID Acetaminophen 500 Mg Tablet 1 Tab PO PRN DAILY PRN Novolog Flexpen (Insulin Aspart) 100 Unit/1 Ml Insuln.pen 28 Unit SQ DAILYWSUP Novolog Flexpen (Insulin Aspart) 100 Unit/1 Ml Insuln.pen 10 Unit SQ Warfarin Sodium 1 Mg Tablet 1 Mg PO WEEKLY Warfarin Sodium 1 Mg Tablet 1 Mg PO DAILY Travatan Z (Travoprost) 5 Ml Drops 1 Drop EACHEYE QHS Tamsulosin Hcl 0.4 Mg Cap.er.24h 2 Cap PO DAILY Metoprolol Tartrate 50 Mg Tablet 1 Tab PO BID Losartan Potassium 50 Mg Tablet 50 Mg PO DAILY Isosorbide Mononitrate 20 Mg Tablet 30 Mg PO DAILY Lantus (Insulin Glargine,Hum.rec.anlog) 100 Unit/1 Ml Vial 72 Unit SQ HS Imiquimod 1 Each Cream.pack 1 Each TP 3X/WEEK Hydrocortisone-Iodoquinol Crm (Hydrocortisone/Iodoquinol) 28.4 Gm Cream..g. 28.4 Gm TP PRN BID PRN Furosemide 40 Mg Tablet 1 Tab PO DAILY Finasteride 5 Mg Tablet 1 Tab PO DAILY Dorzolamide Hcl 10 Ml Drops 1 Drop EACHEYE TID Vitamin D-3 (Cholecalciferol (Vitamin D3)) 2,000 Unit Capsule 1,000 Unit PO DAILY Refresh Optive Eye Drops (Carboxymethylcellulos/Glycerin) 15 Ml Drops 1 Drop EACHEYE QID Symbicort 160-4.5 Mcg Inhaler (Budesonide/Formoterol Fumarate) 10.2 Gm Hfa.aer.ad 2 Puff IH BID Bacitracin-Polymyxin Eye Oint (Bacitracin/Polymyxin B Sulfate) 3.5 Gm Oint...g. 3.5 Gm OP PRN DAILY PRN Atorvastatin Calcium 20 Mg Tablet 20 Mg PO HS Ammonium Lactate 225 Gm Lotion 225 Gm TP HS PRN Duoneb 0.5-3(2.5) Mg/3 Ml (Albuterol/Ipratropium) 3 Ml Ampul.neb 3 Ml NEB QID Allergies Allergies: Coded Allergies: beclomethasone (Verified Allergy, Intermediate, 08/31/16) latanoprost (Verified Allergy, Intermediate, 08/31/16) lisinopril (Verified Allergy, Intermediate, 08/31/16) lovastatin (Verified Allergy, Intermediate, 08/31/16) niacin (Verified Allergy, Intermediate, 08/31/16) oxaprozin (Verified Allergy, Intermediate, 08/31/16) sertraline (Verified Allergy, Intermediate, 08/31/16) simvastatin (Verified Allergy, Intermediate, 08/31/16) ROS General: YES: Fatigue, No: Appetite, Chills, Malaise, Night Sweats, Other PSYCHOLOGICAL ROS: No: Anxiety, Behavioral Disorder, Concentration difficultie , Decreased libido, Depression, Disorientation, Hallucinations, Hostility, Irritablity, Memory difficulties, Mood Swings, Obsessive thoughts, Other, Physical abuse, Sexual abuse, Sleep disturbances, Suicidal ideation Eyes: No Blurry vision, No Decreased vision, No Double vision, No Dry eyes, No Excessive tearing, No Eye Pain, No Itchy Eyes, No Loss of vision, No Other, No Photophobia, No Scotomata, No Uses contacts, No Uses glasses HEENT: YES: Heacaches, No: Epistaxis, Hearing change, Nasal congestion, Nasal discharge, Oral lesions, Other, Sinus pain, Sneezing, Snoring, Sore Throat, Tinnitus, Vertigo, Visual Changes, Vocal changes Respiratory: No: Cough, Hemoptysis, Orthopnea, Other, Pleuritic Pain, SOB with excertion, Shortness of breath, Sputum Changes, Stridor, Tachypnea, Wheezing Cardiovascular: No Chest Pain, No Edema, No Lt Headedness, No Orthopnea, No Other, No Palpitations, No Paroxysmal Noc. Dyspnea Gastrointestinal: Yes Abdominal Pain, Yes Nausea Genitourinary: No , No , No , No , No , No , No , No Discharge, No Dysuria, No Flank Pain, No Frequency, No Hematuria, No Incontinence, No Other, No Pain, No Retention, No Urgency Musculoskeletal: Yes Gait Disturbance, Yes Joint Pain, Yes Joint Stiffness, No Joint Swelling, No Muscle Pain, No Muscular Weakness, No Other, No Pain In :, No Swelling In: Neurological: No Behavorial Changes, No Bowel/Bladder ControlChng, No Confusion , No Dizziness, No Gait Disturbance, No Headaches, No Impaired Coord/balance, No Memory Loss, No Numbness/Tingling, No Other, No Seizures, No Speech Problems , No Tremors, No Visual Changes, No Weakness Skin: Yes Dry Skin, No Acne, No Eczema, No Hair Changes, No Lumps, No Mole Changes, No Mottling, No Nail Changes, No Other, No Pruritus, No Rash, No Skin Lesion Changes Physical Exam General: Alert, Oriented X3, Cooperative HEENT: Atraumatic, PERRLA Lungs: Clear to auscultation Abdomen: Normal bowel sounds, Soft (tender, RLQ, min guarding, no rebound) Rectal Exam: not examined Extremities: No clubbing Skin: No rashes Neuro: Normal speech Vitals Vitals Vital Signs Date Time Temp Pulse Resp B/P Pulse Ox O2 Delivery O2 Flow Rate FiO2 09/27/16 19:00 98.1 57 18 120/48 92 Room Air 98.1 Labs Labs Laboratory Tests Test 09/27/16 20:28 Glucose (Fingerstick) 195mg/dL (70-99) Laboratory Tests Test 09/27/16 20:28 Glucose (Fingerstick) 195mg/dL (70-99) VTE Prophylaxis Ordered VTE Prophylaxis Devices: No VTE Pharmacological Prophylaxi: Yes Assessment/Plan Assessment/Plan Sepsis, IV abx Appendicitis on CT scan, RLQ pain, surg following DM2, poor control vasculopathy, PVD HTn obesity, BMI 37 Afib Parox, follows Dr. Thompson for chronic D CHF, stabe, consult to follow at Patient request INR 2.1, 2 mg Vit K IV given, check iNR in AM admit CHRISTAL CHOI MD Sep 27, 2016 21:10
[2016-09-27] MEDS ORDERED: NORMAL SALINE IV ONE (21:30)
[2016-09-27] MEDS ORDERED: PHYTONADIONE IV ONE (21:30)
[2016-09-27] MEDS: PIPERACILLIN/TAZOBACTAM 3.375 GM in IV NORMAL SALINE 50ML 50 ML IV SCH (21:50)
[2016-09-27] MEDS: DOCUSATE SODIUM 100 MG CAPSULE PO SCH (21:56)
[2016-09-27] MEDS: METOPROLOL TART IMMED RELEASE 50 MG TABLET PO SCH (21:56)
[2016-09-27] MEDS: ATORVASTATIN CALCIUM 20 MG TABLET PO SCH (21:56)
[2016-09-27] MEDS: POLYVINYL ALCOHOL 1.4% OPHTH SOLUTION 15ML BOTTLE. OU SCH (21:57)
[2016-09-27] MEDS: DORZOLAMIDE 2% OPHTH SOLUTION 10ML BOTTLE. OU SCH (21:57)
[2016-09-27] MEDS: INSULIN DETEMIR 300 UNITS/3 ML INSULN.PEN. SQ SCH (22:03)
[2016-09-27 23:00] VITALS: BP 112/41
[2016-09-28] VITALS (21 sets, daily range): BP systolic 116–141; BP diastolic 42–89
[2016-09-28 05:38] LABS: INR 1.7 (0.8-1.1); PROTHROMBIN TIME PATIENT 19.2 SEC (11.7-14.0)
[2016-09-28] MEDS: PIPERACILLIN/TAZOBACTAM 3.375 GM in IV NORMAL SALINE 50ML 50 ML IV SCH ×3 (05:50→18:25)
[2016-09-28 05:56] LABS: ALBUMIN 2.8 g/dL (3.4-5.0); ALBUMIN/GLOBULIN RATIO 0.7 (1.0-1.7); CREATININE 1.8 mg/dL (0.6-1.0); GFR 26.7; POTASSIUM 4.5 mmol/L (3.5-5.1); TOTAL BILIRUBIN 1.3 mg/dL (0.2-1.0); TOTAL PROTEIN 6.8 g/dL (6.4-8.2)
[2016-09-28] MEDS ORDERED: ALBUTEROL SULFATE 2.5 MG/3 ML NEBU. NEB ONE (06:15)
[2016-09-28] MEDS: IPRATRPIUM/ALBUTEROL 0.5/2.5MG 3 ML NEBU. NEB SCH ×5 (06:23→21:55)
[2016-09-28 06:48] LABS: BASO # 0.1 x10^3/uL (0.0-0.2); BASO % 1 % (0-3); EOS % 0 % (0-3); LYMPH % 9 % (24-48); MEAN CORPUSCULAR HEMOGLOBIN 28 pg (25-35); MEAN CORPUSCULAR HGB CONC 31 g/dL (31-37); MEAN CORPUSCULAR VOLUME 90 fL (79-100); MONO % 9 % (0-9); NEUT % 82 % (31-73); PLATELET COUNT 138 x10^3/uL (140-400); RED BLOOD COUNT 4.68 x10^6/uL (3.50-5.40); RED CELL DISTRIBUTION WIDTH 17.5 % (11.5-14.5); WHITE BLOOD COUNT 11.4 x10^3/uL (4.0-11.0)
[2016-09-28] MEDS: BUDESONIDE 0.5 MG/2 ML NEBU NEB SCH ×2 (07:13→21:55)
[2016-09-28] MEDS: INSULIN ASPART 300 UNITS/3 ML INSULN.PEN SQ SCH ×6 (07:30→17:00)
--- NOTE | 2016-09-28 08:38 | PDOC ---
PETR SLATER KENNEL STAFF MEMBER 09/28/16 0837: SURGICAL PROGRESS NOTE Subjective no complaints of pain has been NPO Vital Signs Vital Signs Date Time Temp Pulse Resp B/P Pulse Ox O2 Delivery O2 Flow Rate FiO2 09/28/16 07:09 93 Room Air 09/28/16 07:00 98.2 63 20 141/54 98.2 I&O Intake and Output 09/28/16 07:00 Intake Total 0 ml Balance 0 ml Intake Oral 0 ml # Voids 1 General: Alert, Oriented X3, Cooperative, No acute distress Abdomen: Soft, Other (ND, NTTP) Labs Laboratory Tests Test 09/27/16 20:28 09/28/16 04:40 09/28/16 07:19 Glucose (Fingerstick) 195mg/dL (70-99) 155mg/dL (70-99) White Blood Count 11.4x10^3/uL (4.0-11.0) Red Blood Count 4.68x10^6/uL (3.50-5.40) Hemoglobin 13.0g/dL (12.0-15.5) Hematocrit 42.0% (36.0-47.0) Mean Corpuscular Volume 90fL (79-100) Mean Corpuscular Hemoglobin 28pg (25-35) Mean Corpuscular Hemoglobin Concent 31g/dL (31-37) Red Cell Distribution Width 17.5% (11.5-14.5) Platelet Count 138x10^3/uL (140-400) Neutrophils (%) (Auto) 82% (31-73) Lymphocytes (%) (Auto) 9% (24-48) Monocytes (%) (Auto) 9% (0-9) Eosinophils (%) (Auto) 0% (0-3) Basophils (%) (Auto) 1% (0-3) Neutrophils # (Auto) 9.3x10^3uL (1.8-7.7) Lymphocytes # (Auto) 1.0x10^3/uL (1.0-4.8) Monocytes # (Auto) 1.1x10^3/uL (0.0-1.1) Eosinophils # (Auto) 0.0x10^3/uL (0.0-0.7) Basophils # (Auto) 0.1x10^3/uL (0.0-0.2) Prothrombin Time 19.2SEC (11.7-14.0) Prothromb Time International Ratio 1.7 (0.8-1.1) Sodium Level 144mmol/L (136-145) Potassium Level 4.5mmol/L (3.5-5.1) Chloride Level 108mmol/L (98-107) Carbon Dioxide Level 30mmol/L (21-32) Anion Gap 6 (6-14) Blood Urea Nitrogen 38mg/dL (7-20) Creatinine 1.8mg/dL (0.6-1.0) Estimated GFR (Cockcroft-Gault) 26.7 BUN/Creatinine Ratio 21 (6-20) Glucose Level 179mg/dL (70-99) Calcium Level 9.0mg/dL (8.5-10.1) Total Bilirubin 1.3mg/dL (0.2-1.0) Aspartate Amino Transf (AST/SGOT) 25U/L (15-37) Alanine Aminotransferase (ALT/SGPT) 34U/L (14-59) Alkaline Phosphatase 87U/L (46-116) Total Protein 6.8g/dL (6.4-8.2) Albumin 2.8g/dL (3.4-5.0) Albumin/Globulin Ratio 0.7 (1.0-1.7) Laboratory Tests Test 09/27/16 20:28 09/28/16 04:40 09/28/16 07:19 Glucose (Fingerstick) 195mg/dL (70-99) 155mg/dL (70-99) White Blood Count 11.4x10^3/uL (4.0-11.0) Red Blood Count 4.68x10^6/uL (3.50-5.40) Hemoglobin 13.0g/dL (12.0-15.5) Hematocrit 42.0% (36.0-47.0) Mean Corpuscular Volume 90fL (79-100) Mean Corpuscular Hemoglobin 28pg (25-35) Mean Corpuscular Hemoglobin Concent 31g/dL (31-37) Red Cell Distribution Width 17.5% (11.5-14.5) Platelet Count 138x10^3/uL (140-400) Neutrophils (%) (Auto) 82% (31-73) Lymphocytes (%) (Auto) 9% (24-48) Monocytes (%) (Auto) 9% (0-9) Eosinophils (%) (Auto) 0% (0-3) Basophils (%) (Auto) 1% (0-3) Neutrophils # (Auto) 9.3x10^3uL (1.8-7.7) Lymphocytes # (Auto) 1.0x10^3/uL (1.0-4.8) Monocytes # (Auto) 1.1x10^3/uL (0.0-1.1) Eosinophils # (Auto) 0.0x10^3/uL (0.0-0.7) Basophils # (Auto) 0.1x10^3/uL (0.0-0.2) Prothrombin Time 19.2SEC (11.7-14.0) Prothromb Time International Ratio 1.7 (0.8-1.1) Sodium Level 144mmol/L (136-145) Potassium Level 4.5mmol/L (3.5-5.1) Chloride Level 108mmol/L (98-107) Carbon Dioxide Level 30mmol/L (21-32) Anion Gap 6 (6-14) Blood Urea Nitrogen 38mg/dL (7-20) Creatinine 1.8mg/dL (0.6-1.0) Estimated GFR (Cockcroft-Gault) 26.7 BUN/Creatinine Ratio 21 (6-20) Glucose Level 179mg/dL (70-99) Calcium Level 9.0mg/dL (8.5-10.1) Total Bilirubin 1.3mg/dL (0.2-1.0) Aspartate Amino Transf (AST/SGOT) 25U/L (15-37) Alanine Aminotransferase (ALT/SGPT) 34U/L (14-59) Alkaline Phosphatase 87U/L (46-116) Total Protein 6.8g/dL (6.4-8.2) Albumin 2.8g/dL (3.4-5.0) Albumin/Globulin Ratio 0.7 (1.0-1.7) Problem List appendicitis INR now 1.7 will give 2 units FFP plan for appy this afternoon Problems: CACHORRO GOLDSTEIN MD 09/28/162005: SURGICAL PROGRESS NOTE Assessment/Plan Pt seen and examined. Agree with Ms. Slater's note Pt without new c/o, FFP in TO OR for lap vs open appendectomy R/B/A d/w pt Problems: PETR SLATER APRN Sep 28, 2016 08:37 CACHORRO GOLDSTEIN MD Sep 28, 2016 20:06
[2016-09-28] MEDS: POLYVINYL ALCOHOL 1.4% OPHTH SOLUTION 15ML BOTTLE. OU SCH ×5 (08:43→21:00)
[2016-09-28] MEDS: DORZOLAMIDE 2% OPHTH SOLUTION 10ML BOTTLE. OU SCH ×3 (08:43→22:01)
[2016-09-28] MEDS: TAMSULOSIN 0.4 MG CAP.ER.24H. PO SCH ×2 (08:43→08:50)
[2016-09-28] MEDS: ISOSORBIDE MONONITRATE ER 30 MG TAB.ER.24H PO SCH (08:46)
[2016-09-28] MEDS: IV NORMAL SALINE 1000ML BAG 1,000 ML IV SCH (08:48)
[2016-09-28] MEDS: DOCUSATE SODIUM 100 MG CAPSULE PO SCH ×2 (08:49→22:02)
[2016-09-28] MEDS: METOPROLOL TART IMMED RELEASE 50 MG TABLET PO SCH ×2 (09:00→22:01)
[2016-09-28] MEDS: FINASTERIDE 5 MG TABLET PO SCH (09:00)
--- NOTE | 2016-09-28 10:29 | CONS ---
DATE OF CONSULTATION: 09/27/2016 REFERRING PHYSICIANS: Dr. Ana Paula Reeves, Dr. Kamilah Cronin, Dr. Jenaro Ash, CT. CHIEF COMPLAINT: Fever, abdominal pain. DIAGNOSIS: Appendicitis. PLANNED PROCEDURE: Laparoscopic versus open appendectomy. HISTORY OF PRESENT ILLNESS: This is a pleasant 86-year-old male, who has just developed a fever and abdominal pain. He was seen in the [place] [place] and diagnosed with appendicitis and transferred down to [place] for definitive care. He was seen in this hospital room and reports his abdominal pain is pretty much resolved and feels much better. He has multiple allergies, which are reviewed. No antibiotics. He has multiple medications for cardiac, diabetes, insulin and Coumadin. PAST MEDICAL HISTORY: Extensive, atrial fibrillation, coronary artery disease, congestive heart failure, hypertension, COPD, BPH, diabetes and chronic back pain. SOCIAL HISTORY: No tobacco or alcohol. Currently lives with his ex-. FAMILY HISTORY: Noncontributory. REVIEW OF SYSTEMS: All systems reviewed and negative except for HPI. Of note, he recently underwent amputation of the left toe by Dr. Villanueva. PHYSICAL EXAMINATION: GENERAL: Well-developed, obese male, in no obvious distress. VITAL SIGNS: He is afebrile. Vital signs within normal limits. HEENT: Normocephalic, atraumatic, anicteric sclerae. Oropharynx clear. NECK: Supple. CHEST: Bilateral chest excursion. ABDOMEN: Soft, obese, nondistended, nontender to palpation, no masses, no hernias. EXTREMITIES: He has dressings over his left foot and signs of chronic cellulitis of lower extremities. LABORATORY DATA: His white blood cell count from his records in the CT demonstrate a white count of 16 and an INR of greater than 2. CT scan of his abdomen and pelvis from the CT demonstrates concern for tip appendicitis. IMPRESSION AND RECOMMENDATIONS: An 86-year-old male with appendicitis. Agree with admission to the hospital, started him on some Zosyn at this time and slowly correct his INR, but I will defer this to the primary service, tentatively schedule for laparoscopic versus open appendectomy tomorrow morning. The patient was informed of the risks, benefits, alternatives to procedure, risks including but not limited to bleeding, infection, damage to surrounding structures, risk of anesthesia, risk of an open procedure. The patient appears to understand and his insightful questions were answered and he agrees to proceed. Thank you for allowing my participation in the care of this pleasant patient. Sincerely, CACHORRO GOLDSTEIN MD DR: MARCE/dain JOB#: [id number] / [id number] ecc Dr. Lopez . [facility]OSPITALAlberto
--- NOTE | 2016-09-28 13:26 | PDOC2 ---
CONSULT Date of Consult Date of Consult DATE: 09/28/16 TIME: 13:18 Reason for Consult Reason for Consult: Heart disease Referring Physician Referring Physician: Dr. Reeves Identification/Chief Complaint Chief Complaint Acute appendicitis History of Present Illness Reason for Visit: This patient is an 86-year-old gentleman with a known history of valvular heart disease that has chronic atrial fibrillation and previous episodes of CHF. He has significant peripheral vascular disease and has had a recent amputation of a toe. The patient is chronically anticoagulated with warfarin. He went into the [facility] where he is usually seen with abdominal pain fever and was found to have an acute appendicitis. The patient was referred here because of the need for surgery. After arrival the patient was found to have a prolonged INR. Today's INR is 1.7. At the time that I saw the patient he denies having any chest pains, he denies having any dyspnea, he denies having any palpitations, he denies any cardiac symptoms. Past Medical History Cardiovascular: AFIB, CAD, CHF, HTN, Aortic stenosis Pulmonary: COPD Hepatobiliary: No pertinent hx Musculoskeletal: low back pain Rheumatologic: No pertinent hx Renal/: Chronic renal insuff, Benign prostatic enlarg. Endocrine: Diabetes Past Surgical History Past Surgical History: Other Family History Family History: No Significant Social History No ALCOHOL: none Drugs: None Current Medications Current Medications Current Medications Sodium Chloride (Iv Sodium Chloride 0.9% 1000ml Bag) 1,000 ml @ 75 mls/hr [id number] IV Last administered on 09/28/16 08:48; Start 09/27/16 at 18:00 Fentanyl Citrate (Fentanyl 2ml Vial) 50 mcg PRN Q2HR PRN IV PAIN; Start at 18:00 Ondansetron HCl (Zofran) 4 mg PRN Q8HRS PRN IV NAUSEA/VOMITING; Start 09/27/16 at 18:00 Insulin Aspart (Novolog) 0-5 UNITS TIDWMEALS SQ ; Start 09/28/16 at 08:00 Dextrose 12.5 gm 12.5 gm PRN Q15MIN PRN IV SEE COMMENTS; Start 09/27/16 at 20: 45 Piperacillin Sod/ Tazobactam Sod/ Sodium Chloride (Zosyn/Iv Sodium Chloride 0.9 % 50ml) 50 ml @ 100 mls/hr Q6HRS IV Last administered on 09/28/16 05:50; Start 09/27/16 at 21:30 Acetaminophen (Tylenol) 500 mg PRN DAILY PRN PO PAIN; Start 09/27/16 at 21:00 Lactic Acid (Lac-Hydrin) 225 monica PRN QHS PRN TP DRY SKIN; Start 09/27/16 at 21: 00 Atorvastatin Calcium (Lipitor) 20 mg HS PO Last administered on 09/27/16 21:56 ; Start 09/27/16 at 21:00 Docusate Sodium (Colace) 100 mg BID PO Last administered on 09/27/16 21:56; Start 09/27/16 at 21:00 Dorzolamide HCl (Trusopt) 1 drop TID OU Last administered on 09/28/16 08:43; Start 09/27/16 at 21:00 Finasteride (Proscar) 5 mg DAILY PO Last administered on 09/28/16 09:00; Start 09/28/16 at 09:00 Albuterol/ Ipratropium (Duoneb) 3 ml QID NEB ; Start 09/27/16 at 21:00; Stop 05/06 at 21:18; Status DC Isosorbide Mononitrate (Imdur) 30 mg DAILY PO Last administered on 09/28/16 08 :46; Start 09/28/16 at 09:00 Metoprolol Tartrate (Lopressor) 50 mg BID PO Last administered on 09/28/16 09: 00; Start 09/27/16 at 21:00 Tamsulosin HCl (Flomax) 0.4 mg DAILY PO ; Start 09/28/16 at 09:00 Non-Formulary Medication 2 puff BID IH ; Start 09/27/16 at 21:00; Status UNV Artificial Tears (Artificial Tears) 1 drop QID OU Last administered on 21:57; Start 09/27/16 at 21:30 Insulin Detemir (Levemir) 35 units QHS SQ Last administered on 09/27/16 22:03 ; Start 09/27/16 at 21:00 Insulin Aspart 15 units 15 units TIDAC SQ ; Start 09/28/16 at 07:30 Phytonadione/ Sodium Chloride (Vitamin K/Iv Sodium Chloride 0.9% 50ml) 50.2 ml @ 102 mls/hr 1X ONCE IV Last administered on 09/27/16 21:51; Start 09/27/16 at 21:30; Stop 09/27/16 at 21:59; Status DC Albuterol/ Ipratropium (Duoneb) 3 ml RTQID NEB Last administered on 09/28/16 11:28; Start 09/28/16 at 08:00 Budesonide (Pulmicort) 0.5 mg RTBID NEB Last administered on 09/28/16 07:13; Start 09/28/16 at 08:00 Albuterol Sulfate (Ventolin Neb Soln) 2.5 mg 1X ONCE NEB Last administered on 09/28/16 06:21; Start 09/28/16 at 06:15; Stop 09/28/16 at 06:16; Status DC Non-Formulary Medication 1 ea HS OU ; Start 09/28/16 at 21:00 Active Scripts Active Amox Tr-K Clv 875-125 Mg Tab (Amoxicillin/Potassium Clav) 1 Each Tablet 1 Tab PO BID Reported Docusate Sodium 100 Mg Capsule 1 Cap PO BID Acetaminophen 500 Mg Tablet 1 Tab PO PRN DAILY PRN Novolog Flexpen (Insulin Aspart) 100 Unit/1 Ml Insuln.pen 28 Unit SQ DAILYWSUP Novolog Flexpen (Insulin Aspart) 100 Unit/1 Ml Insuln.pen 10 Unit SQ Warfarin Sodium 1 Mg Tablet 1 Mg PO WEEKLY Warfarin Sodium 1 Mg Tablet 1 Mg PO DAILY Travatan Z (Travoprost) 5 Ml Drops 1 Drop EACHEYE QHS Tamsulosin Hcl 0.4 Mg Cap.er.24h 2 Cap PO DAILY Metoprolol Tartrate 50 Mg Tablet 1 Tab PO BID Losartan Potassium 50 Mg Tablet 50 Mg PO DAILY Isosorbide Mononitrate 20 Mg Tablet 30 Mg PO DAILY Lantus (Insulin Glargine,Hum.rec.anlog) 100 Unit/1 Ml Vial 72 Unit SQ HS Imiquimod 1 Each Cream.pack 1 Each TP 3X/WEEK Hydrocortisone-Iodoquinol Crm (Hydrocortisone/Iodoquinol) 28.4 Gm Cream..g. 28.4 Gm TP PRN BID PRN Furosemide 40 Mg Tablet 1 Tab PO DAILY Finasteride 5 Mg Tablet 1 Tab PO DAILY Dorzolamide Hcl 10 Ml Drops 1 Drop EACHEYE TID Vitamin D-3 (Cholecalciferol (Vitamin D3)) 2,000 Unit Capsule 1,000 Unit PO DAILY Refresh Optive Eye Drops (Carboxymethylcellulos/Glycerin) 15 Ml Drops 1 Drop EACHEYE QID Symbicort 160-4.5 Mcg Inhaler (Budesonide/Formoterol Fumarate) 10.2 Gm Hfa.aer.ad 2 Puff IH BID Bacitracin-Polymyxin Eye Oint (Bacitracin/Polymyxin B Sulfate) 3.5 Gm Oint...g. 3.5 Gm OP PRN DAILY PRN Atorvastatin Calcium 20 Mg Tablet 20 Mg PO HS Ammonium Lactate 225 Gm Lotion 225 Gm TP HS PRN Duoneb 0.5-3(2.5) Mg/3 Ml (Albuterol/Ipratropium) 3 Ml Ampul.neb 3 Ml NEB QID Allergies Allergies: Coded Allergies: beclomethasone (Verified Allergy, Intermediate, 08/31/16) latanoprost (Verified Allergy, Intermediate, 08/31/16) lisinopril (Verified Allergy, Intermediate, 08/31/16) lovastatin (Verified Allergy, Intermediate, 08/31/16) niacin (Verified Allergy, Intermediate, 08/31/16) oxaprozin (Verified Allergy, Intermediate, 08/31/16) sertraline (Verified Allergy, Intermediate, 08/31/16) simvastatin (Verified Allergy, Intermediate, 08/31/16) Physical Exam Physical Exam The patient was not in acute distress at the time that I examined him. H EENT pupils are reactive, poor dentition. Oral mucosa dry. Neck is supple no JVD. Lungs breath sounds are decreased but no wheezing otherwise clear. Heart irregularly irregular, S1-S2, 1 to 2/6 systolic murmur. 1/6 diastolic murmur. Abdomen is soft bowel sounds are decreased. Extremities no significant edema. Dressing present over the recent toe surgery. Vitals VITALS Vital Signs Date Time Temp Pulse Resp B/P Pulse Ox O2 Delivery O2 Flow Rate FiO2 09/28/16 13:00 98.6 94 20 135/61 98.6 09/28/16 11:29 Room Air 09/28/16 10:51 93 Labs Labs Laboratory Tests Test 09/27/16 20:28 09/28/16 04:40 09/28/16 07:19 09/28/16 11:26 Glucose (Fingerstick) 195mg/dL (70-99) 155mg/dL (70-99) 148mg/dL (70-99) White Blood Count 11.4x10^3/uL (4.0-11.0) Red Blood Count 4.68x10^6/uL (3.50-5.40) Hemoglobin 13.0g/dL (12.0-15.5) Hematocrit 42.0% (36.0-47.0) Mean Corpuscular Volume 90fL (79-100) Mean Corpuscular Hemoglobin 28pg (25-35) Mean Corpuscular Hemoglobin Concent 31g/dL (31-37) Red Cell Distribution Width 17.5% (11.5-14.5) Platelet Count 138x10^3/uL (140-400) Neutrophils (%) (Auto) 82% (31-73) Lymphocytes (%) (Auto) 9% (24-48) Monocytes (%) (Auto) 9% (0-9) Eosinophils (%) (Auto) 0% (0-3) Basophils (%) (Auto) 1% (0-3) Neutrophils # (Auto) 9.3x10^3uL (1.8-7.7) Lymphocytes # (Auto) 1.0x10^3/uL (1.0-4.8) Monocytes # (Auto) 1.1x10^3/uL (0.0-1.1) Eosinophils # (Auto) 0.0x10^3/uL (0.0-0.7) Basophils # (Auto) 0.1x10^3/uL (0.0-0.2) Prothrombin Time 19.2SEC (11.7-14.0) Prothromb Time International Ratio 1.7 (0.8-1.1) Sodium Level 144mmol/L (136-145) Potassium Level 4.5mmol/L (3.5-5.1) Chloride Level 108mmol/L (98-107) Carbon Dioxide Level 30mmol/L (21-32) Anion Gap 6 (6-14) Blood Urea Nitrogen 38mg/dL (7-20) Creatinine 1.8mg/dL (0.6-1.0) Estimated GFR (Cockcroft-Gault) 26.7 BUN/Creatinine Ratio 21 (6-20) Glucose Level 179mg/dL (70-99) Calcium Level 9.0mg/dL (8.5-10.1) Total Bilirubin 1.3mg/dL (0.2-1.0) Aspartate Amino Transf (AST/SGOT) 25U/L (15-37) Alanine Aminotransferase (ALT/SGPT) 34U/L (14-59) Alkaline Phosphatase 87U/L (46-116) Total Protein 6.8g/dL (6.4-8.2) Albumin 2.8g/dL (3.4-5.0) Albumin/Globulin Ratio 0.7 (1.0-1.7) Laboratory Tests Test 09/27/16 20:28 09/28/16 04:40 09/28/16 07:19 09/28/16 11:26 Glucose (Fingerstick) 195mg/dL (70-99) 155mg/dL (70-99) 148mg/dL (70-99) White Blood Count 11.4x10^3/uL (4.0-11.0) Red Blood Count 4.68x10^6/uL (3.50-5.40) Hemoglobin 13.0g/dL (12.0-15.5) Hematocrit 42.0% (36.0-47.0) Mean Corpuscular Volume 90fL (79-100) Mean Corpuscular Hemoglobin 28pg (25-35) Mean Corpuscular Hemoglobin Concent 31g/dL (31-37) Red Cell Distribution Width 17.5% (11.5-14.5) Platelet Count 138x10^3/uL (140-400) Neutrophils (%) (Auto) 82% (31-73) Lymphocytes (%) (Auto) 9% (24-48) Monocytes (%) (Auto) 9% (0-9) Eosinophils (%) (Auto) 0% (0-3) Basophils (%) (Auto) 1% (0-3) Neutrophils # (Auto) 9.3x10^3uL (1.8-7.7) Lymphocytes # (Auto) 1.0x10^3/uL (1.0-4.8) Monocytes # (Auto) 1.1x10^3/uL (0.0-1.1) Eosinophils # (Auto) 0.0x10^3/uL (0.0-0.7) Basophils # (Auto) 0.1x10^3/uL (0.0-0.2) Prothrombin Time 19.2SEC (11.7-14.0) Prothromb Time International Ratio 1.7 (0.8-1.1) Sodium Level 144mmol/L (136-145) Potassium Level 4.5mmol/L (3.5-5.1) Chloride Level 108mmol/L (98-107) Carbon Dioxide Level 30mmol/L (21-32) Anion Gap 6 (6-14) Blood Urea Nitrogen 38mg/dL (7-20) Creatinine 1.8mg/dL (0.6-1.0) Estimated GFR (Cockcroft-Gault) 26.7 BUN/Creatinine Ratio 21 (6-20) Glucose Level 179mg/dL (70-99) Calcium Level 9.0mg/dL (8.5-10.1) Total Bilirubin 1.3mg/dL (0.2-1.0) Aspartate Amino Transf (AST/SGOT) 25U/L (15-37) Alanine Aminotransferase (ALT/SGPT) 34U/L (14-59) Alkaline Phosphatase 87U/L (46-116) Total Protein 6.8g/dL (6.4-8.2) Albumin 2.8g/dL (3.4-5.0) Albumin/Globulin Ratio 0.7 (1.0-1.7) Assessment/Plan Assessment/Plan This patient appears to be compensated cardiac-jones at this time. He has known chronic atrial fibrillation, peripheral vascular disease and diabetes as well as valvular heart disease. I have discussed with the patient and his ex-, he lives with her presently, the risks of surgery as well as the risks of not doing the surgery including the possibility of . They understand the situation as well as the risks and want to proceed with this surgery for the appendectomy. I would recommend to give at least 2 units of FFP's before the patient goes to the OR. Patient cleared for surgery. Thank you very much for asking me to participate in the care of this patient JOCELINE JAIME MD Sep 28, 2016 13:26
--- NOTE | 2016-09-28 14:33 | PDOC ---
PROGRESS NOTES Chief Complaint Chief Complaint Sepsis, Appendicitis RLQ pain, surg following DM2, poor control vasculopathy, PVD HTn obesity, BMI 37 Afib Parox, on coumadin, Vit K given History of Present Illness History of Present Illness to OR today, s/p vit K, INR should still be dropping, agree with 2 u FFP, discussed with Dr. Francis aleman current Vitals Vitals Vital Signs Date Time Temp Pulse Resp B/P Pulse Ox O2 Delivery O2 Flow Rate FiO2 09/28/16 14:20 98.5 68 20 116/45 98.5 09/28/16 11:29 Room Air 09/28/16 10:51 93 Physical Exam General: Alert, Oriented X3, Cooperative, No acute distress Heart: No murmurs Lungs: Clear Abdomen: Soft, Other (ND, NTTP) Extremities: No clubbing Skin: No rashes Labs LABS Laboratory Tests Test 09/27/16 20:28 09/28/16 04:40 09/28/16 07:19 09/28/16 11:26 Glucose (Fingerstick) 195mg/dL (70-99) 155mg/dL (70-99) 148mg/dL (70-99) White Blood Count 11.4x10^3/uL (4.0-11.0) Red Blood Count 4.68x10^6/uL (3.50-5.40) Hemoglobin 13.0g/dL (12.0-15.5) Hematocrit 42.0% (36.0-47.0) Mean Corpuscular Volume 90fL (79-100) Mean Corpuscular Hemoglobin 28pg (25-35) Mean Corpuscular Hemoglobin Concent 31g/dL (31-37) Red Cell Distribution Width 17.5% (11.5-14.5) Platelet Count 138x10^3/uL (140-400) Neutrophils (%) (Auto) 82% (31-73) Lymphocytes (%) (Auto) 9% (24-48) Monocytes (%) (Auto) 9% (0-9) Eosinophils (%) (Auto) 0% (0-3) Basophils (%) (Auto) 1% (0-3) Neutrophils # (Auto) 9.3x10^3uL (1.8-7.7) Lymphocytes # (Auto) 1.0x10^3/uL (1.0-4.8) Monocytes # (Auto) 1.1x10^3/uL (0.0-1.1) Eosinophils # (Auto) 0.0x10^3/uL (0.0-0.7) Basophils # (Auto) 0.1x10^3/uL (0.0-0.2) Prothrombin Time 19.2SEC (11.7-14.0) Prothromb Time International Ratio 1.7 (0.8-1.1) Sodium Level 144mmol/L (136-145) Potassium Level 4.5mmol/L (3.5-5.1) Chloride Level 108mmol/L (98-107) Carbon Dioxide Level 30mmol/L (21-32) Anion Gap 6 (6-14) Blood Urea Nitrogen 38mg/dL (7-20) Creatinine 1.8mg/dL (0.6-1.0) Estimated GFR (Cockcroft-Gault) 26.7 BUN/Creatinine Ratio 21 (6-20) Glucose Level 179mg/dL (70-99) Calcium Level 9.0mg/dL (8.5-10.1) Total Bilirubin 1.3mg/dL (0.2-1.0) Aspartate Amino Transf (AST/SGOT) 25U/L (15-37) Alanine Aminotransferase (ALT/SGPT) 34U/L (14-59) Alkaline Phosphatase 87U/L (46-116) Total Protein 6.8g/dL (6.4-8.2) Albumin 2.8g/dL (3.4-5.0) Albumin/Globulin Ratio 0.7 (1.0-1.7) Review of Systems Review of Systems felt well this AM pain OK no n.v/d did not sleep well Comment Review of Relevant I have reviewed the following items vinay (where applicable) has been applied. Labs Laboratory Tests Test 09/27/16 20:28 09/28/16 04:40 09/28/16 07:19 09/28/16 11:26 Glucose (Fingerstick) 195mg/dL (70-99) 155mg/dL (70-99) 148mg/dL (70-99) White Blood Count 11.4x10^3/uL (4.0-11.0) Red Blood Count 4.68x10^6/uL (3.50-5.40) Hemoglobin 13.0g/dL (12.0-15.5) Hematocrit 42.0% (36.0-47.0) Mean Corpuscular Volume 90fL (79-100) Mean Corpuscular Hemoglobin 28pg (25-35) Mean Corpuscular Hemoglobin Concent 31g/dL (31-37) Red Cell Distribution Width 17.5% (11.5-14.5) Platelet Count 138x10^3/uL (140-400) Neutrophils (%) (Auto) 82% (31-73) Lymphocytes (%) (Auto) 9% (24-48) Monocytes (%) (Auto) 9% (0-9) Eosinophils (%) (Auto) 0% (0-3) Basophils (%) (Auto) 1% (0-3) Neutrophils # (Auto) 9.3x10^3uL (1.8-7.7) Lymphocytes # (Auto) 1.0x10^3/uL (1.0-4.8) Monocytes # (Auto) 1.1x10^3/uL (0.0-1.1) Eosinophils # (Auto) 0.0x10^3/uL (0.0-0.7) Basophils # (Auto) 0.1x10^3/uL (0.0-0.2) Prothrombin Time 19.2SEC (11.7-14.0) Prothromb Time International Ratio 1.7 (0.8-1.1) Sodium Level 144mmol/L (136-145) Potassium Level 4.5mmol/L (3.5-5.1) Chloride Level 108mmol/L (98-107) Carbon Dioxide Level 30mmol/L (21-32) Anion Gap 6 (6-14) Blood Urea Nitrogen 38mg/dL (7-20) Creatinine 1.8mg/dL (0.6-1.0) Estimated GFR (Cockcroft-Gault) 26.7 BUN/Creatinine Ratio 21 (6-20) Glucose Level 179mg/dL (70-99) Calcium Level 9.0mg/dL (8.5-10.1) Total Bilirubin 1.3mg/dL (0.2-1.0) Aspartate Amino Transf (AST/SGOT) 25U/L (15-37) Alanine Aminotransferase (ALT/SGPT) 34U/L (14-59) Alkaline Phosphatase 87U/L (46-116) Total Protein 6.8g/dL (6.4-8.2) Albumin 2.8g/dL (3.4-5.0) Albumin/Globulin Ratio 0.7 (1.0-1.7) Laboratory Tests Test 09/27/16 20:28 09/28/16 04:40 09/28/16 07:19 09/28/16 11:26 Glucose (Fingerstick) 195mg/dL (70-99) 155mg/dL (70-99) 148mg/dL (70-99) White Blood Count 11.4x10^3/uL (4.0-11.0) Red Blood Count 4.68x10^6/uL (3.50-5.40) Hemoglobin 13.0g/dL (12.0-15.5) Hematocrit 42.0% (36.0-47.0) Mean Corpuscular Volume 90fL (79-100) Mean Corpuscular Hemoglobin 28pg (25-35) Mean Corpuscular Hemoglobin Concent 31g/dL (31-37) Red Cell Distribution Width 17.5% (11.5-14.5) Platelet Count 138x10^3/uL (140-400) Neutrophils (%) (Auto) 82% (31-73) Lymphocytes (%) (Auto) 9% (24-48) Monocytes (%) (Auto) 9% (0-9) Eosinophils (%) (Auto) 0% (0-3) Basophils (%) (Auto) 1% (0-3) Neutrophils # (Auto) 9.3x10^3uL (1.8-7.7) Lymphocytes # (Auto) 1.0x10^3/uL (1.0-4.8) Monocytes # (Auto) 1.1x10^3/uL (0.0-1.1) Eosinophils # (Auto) 0.0x10^3/uL (0.0-0.7) Basophils # (Auto) 0.1x10^3/uL (0.0-0.2) Prothrombin Time 19.2SEC (11.7-14.0) Prothromb Time International Ratio 1.7 (0.8-1.1) Sodium Level 144mmol/L (136-145) Potassium Level 4.5mmol/L (3.5-5.1) Chloride Level 108mmol/L (98-107) Carbon Dioxide Level 30mmol/L (21-32) Anion Gap 6 (6-14) Blood Urea Nitrogen 38mg/dL (7-20) Creatinine 1.8mg/dL (0.6-1.0) Estimated GFR (Cockcroft-Gault) 26.7 BUN/Creatinine Ratio 21 (6-20) Glucose Level 179mg/dL (70-99) Calcium Level 9.0mg/dL (8.5-10.1) Total Bilirubin 1.3mg/dL (0.2-1.0) Aspartate Amino Transf (AST/SGOT) 25U/L (15-37) Alanine Aminotransferase (ALT/SGPT) 34U/L (14-59) Alkaline Phosphatase 87U/L (46-116) Total Protein 6.8g/dL (6.4-8.2) Albumin 2.8g/dL (3.4-5.0) Albumin/Globulin Ratio 0.7 (1.0-1.7) Medications Current Medications Sodium Chloride (Iv Sodium Chloride 0.9% 1000ml Bag) 1,000 ml @ 75 mls/hr [id number] IV Last administered on 09/28/16 08:48; Start 09/27/16 at 18:00 Fentanyl Citrate (Fentanyl 2ml Vial) 50 mcg PRN Q2HR PRN IV PAIN; Start at 18:00 Ondansetron HCl (Zofran) 4 mg PRN Q8HRS PRN IV NAUSEA/VOMITING; Start 09/27/16 at 18:00 Insulin Aspart (Novolog) 0-5 UNITS TIDWMEALS SQ ; Start 09/28/16 at 08:00 Dextrose 12.5 gm 12.5 gm PRN Q15MIN PRN IV SEE COMMENTS; Start 09/27/16 at 20: 45 Piperacillin Sod/ Tazobactam Sod/ Sodium Chloride (Zosyn/Iv Sodium Chloride 0.9 % 50ml) 50 ml @ 100 mls/hr Q6HRS IV Last administered on 09/28/16 05:50; Start 09/27/16 at 21:30 Acetaminophen (Tylenol) 500 mg PRN DAILY PRN PO PAIN; Start 09/27/16 at 21:00 Lactic Acid (Lac-Hydrin) 225 monica PRN QHS PRN TP DRY SKIN; Start 09/27/16 at 21: 00 Atorvastatin Calcium (Lipitor) 20 mg HS PO Last administered on 09/27/16 21:56 ; Start 09/27/16 at 21:00 Docusate Sodium (Colace) 100 mg BID PO Last administered on 09/27/16 21:56; Start 09/27/16 at 21:00 Dorzolamide HCl (Trusopt) 1 drop TID OU Last administered on 09/28/16 14:24; Start 09/27/16 at 21:00 Finasteride (Proscar) 5 mg DAILY PO Last administered on 09/28/16 09:00; Start 09/28/16 at 09:00 Albuterol/ Ipratropium (Duoneb) 3 ml QID NEB ; Start 09/27/16 at 21:00; Stop 05/06 at 21:18; Status DC Isosorbide Mononitrate (Imdur) 30 mg DAILY PO Last administered on 09/28/16 08 :46; Start 09/28/16 at 09:00 Metoprolol Tartrate (Lopressor) 50 mg BID PO Last administered on 09/28/16 09: 00; Start 09/27/16 at 21:00 Tamsulosin HCl (Flomax) 0.4 mg DAILY PO ; Start 09/28/16 at 09:00 Non-Formulary Medication 2 puff BID IH ; Start 09/27/16 at 21:00; Status UNV Artificial Tears (Artificial Tears) 1 drop QID OU Last administered on 21:57; Start 09/27/16 at 21:30 Insulin Detemir (Levemir) 35 units QHS SQ Last administered on 09/27/16 22:03 ; Start 09/27/16 at 21:00 Insulin Aspart 15 units 15 units TIDAC SQ ; Start 09/28/16 at 07:30 Phytonadione/ Sodium Chloride (Vitamin K/Iv Sodium Chloride 0.9% 50ml) 50.2 ml @ 102 mls/hr 1X ONCE IV Last administered on 09/27/16 21:51; Start 09/27/16 at 21:30; Stop 09/27/16 at 21:59; Status DC Albuterol/ Ipratropium (Duoneb) 3 ml RTQID NEB Last administered on 09/28/16 11:28; Start 09/28/16 at 08:00 Budesonide (Pulmicort) 0.5 mg RTBID NEB Last administered on 09/28/16 07:13; Start 09/28/16 at 08:00 Albuterol Sulfate (Ventolin Neb Soln) 2.5 mg 1X ONCE NEB Last administered on 09/28/16 06:21; Start 09/28/16 at 06:15; Stop 09/28/16 at 06:16; Status DC Non-Formulary Medication 1 ea HS OU ; Start 09/28/16 at 21:00 Active Scripts Active Amox Tr-K Clv 875-125 Mg Tab (Amoxicillin/Potassium Clav) 1 Each Tablet 1 Tab PO BID Reported Docusate Sodium 100 Mg Capsule 1 Cap PO BID Acetaminophen 500 Mg Tablet 1 Tab PO PRN DAILY PRN Novolog Flexpen (Insulin Aspart) 100 Unit/1 Ml Insuln.pen 28 Unit SQ DAILYWSUP Novolog Flexpen (Insulin Aspart) 100 Unit/1 Ml Insuln.pen 10 Unit SQ Warfarin Sodium 1 Mg Tablet 1 Mg PO WEEKLY Warfarin Sodium 1 Mg Tablet 1 Mg PO DAILY Travatan Z (Travoprost) 5 Ml Drops 1 Drop EACHEYE QHS Tamsulosin Hcl 0.4 Mg Cap.er.24h 2 Cap PO DAILY Metoprolol Tartrate 50 Mg Tablet 1 Tab PO BID Losartan Potassium 50 Mg Tablet 50 Mg PO DAILY Isosorbide Mononitrate 20 Mg Tablet 30 Mg PO DAILY Lantus (Insulin Glargine,Hum.rec.anlog) 100 Unit/1 Ml Vial 72 Unit SQ HS Imiquimod 1 Each Cream.pack 1 Each TP 3X/WEEK Hydrocortisone-Iodoquinol Crm (Hydrocortisone/Iodoquinol) 28.4 Gm Cream..g. 28.4 Gm TP PRN BID PRN Furosemide 40 Mg Tablet 1 Tab PO DAILY Finasteride 5 Mg Tablet 1 Tab PO DAILY Dorzolamide Hcl 10 Ml Drops 1 Drop EACHEYE TID Vitamin D-3 (Cholecalciferol (Vitamin D3)) 2,000 Unit Capsule 1,000 Unit PO DAILY Refresh Optive Eye Drops (Carboxymethylcellulos/Glycerin) 15 Ml Drops 1 Drop EACHEYE QID Symbicort 160-4.5 Mcg Inhaler (Budesonide/Formoterol Fumarate) 10.2 Gm Hfa.aer.ad 2 Puff IH BID Bacitracin-Polymyxin Eye Oint (Bacitracin/Polymyxin B Sulfate) 3.5 Gm Oint...g. 3.5 Gm OP PRN DAILY PRN Atorvastatin Calcium 20 Mg Tablet 20 Mg PO HS Ammonium Lactate 225 Gm Lotion 225 Gm TP HS PRN Duoneb 0.5-3(2.5) Mg/3 Ml (Albuterol/Ipratropium) 3 Ml Ampul.neb 3 Ml NEB QID Vitals/I & O Vital Sign - Last 24 Hours 09/27/16 09/27/16 09/27/16 09/27/16 17:20 19:00 20:00 21:56 Temp 98.6 98.1 98.6 98.1 Pulse 69 57 57 Resp 20 18 B/P 124/43 120/48 120/48 Pulse Ox 94 92 O2 Delivery Room Air Room Air Room Air 09/27/16 09/28/16 09/28/16 09/28/16 23:00 03:00 06:21 07:00 Temp 97.8 97.7 98.2 97.8 97.7 98.2 Pulse 60 64 63 Resp 18 18 20 B/P 112/41 123/50 141/54 Pulse Ox 92 94 93 100 O2 Delivery Room Air Room Air Room Air Room Air 09/28/16 09/28/16 09/28/16 09/28/16 07:09 08:00 08:46 09:00 Pulse 63 63 B/P 141/54 141/54 Pulse Ox 93 O2 Delivery Room Air Room Air 09/28/16 09/28/16 09/28/16 09/28/16 10:51 11:29 13:00 13:26 Temp 98.3 98.6 98.8 98.3 98.6 98.8 Pulse 90 94 60 Resp 20 20 20 B/P 118/56 135/61 119/45 Pulse Ox 93 O2 Delivery Room Air Room Air 09/28/16 14:20 Temp 98.5 98.5 Pulse 68 Resp 20 B/P 116/45 Intake and Output 09/27/16 09/27/16 09/28/16 15:00 23:00 07:00 Intake Total 0 ml 0 ml Balance 0 ml 0 ml CHRISTAL CHOI MD Sep 28, 2016 14:33
[2016-09-28] MEDS ORDERED: LIDOCAINE 2% 100 MG/5 ML DISP.SYRIN. ONE (19:22)
[2016-09-28] MEDS ORDERED: PROPOFOL 20 ML IV ONE (19:22)
[2016-09-28] MEDS ORDERED: ONDANSETRON PF 4 MG/2 ML VIAL. ONE (19:22)
[2016-09-28] MEDS ORDERED: FENTANYL PF 100 MCG/2 ML VIAL. ONE (19:22)
[2016-09-28] MEDS ORDERED: ROCURONIUM 50 MG/5 ML VIAL. ONE (19:23)
[2016-09-28] MEDS ORDERED: SUCCINYLCHOLINE 200 MG/10 ML VIAL. ONE (19:23)
[2016-09-28] MEDS ORDERED: BUPIVAC MPF-EPI 0.5%-1:200000 30 ML VIAL. ONE (19:31)
[2016-09-28] MEDS ORDERED: HYDROMORPHONE 2 MG/ML VIAL. IV PRN (20:00)
[2016-09-28] MEDS ORDERED: ONDANSETRON PF 4 MG/2 ML VIAL. IV PRN ×2 (20:00→21:00)
[2016-09-28] MEDS ORDERED: PROCHLORPERAZINE 10 MG/2 ML VIAL. IV PRN (20:00)
[2016-09-28] MEDS ORDERED: LIDOCAINE 1% 1 ML SYRINGE. ID PRN (20:00)
[2016-09-28] MEDS ORDERED: MORPHINE SULFATE 2 MG/ML DISP.SYRIN. IV PRN (20:00)
[2016-09-28] MEDS ORDERED: IV RINGERS,LACTATED 1000ML 1,000 ML IV SCH (20:00)
[2016-09-28] MEDS ORDERED: FENTANYL PF 100 MCG/2 ML VIAL. IV PRN ×2 (20:00)
[2016-09-28] MEDS ORDERED: PHENYLEPHRINE in 0.9% NACL PF 1 MG/10 ML DISP.SYRIN. IV ONE (20:16)
[2016-09-28] MEDS ORDERED: DEXAMETHASONE SOD PHOS 20 MG/5 ML VIAL. ONE (20:33)
[2016-09-28] MEDS ORDERED: NEOSTIGMINE METHYLSULFATE 5 MG/5 ML SYRINGE. ONE (20:34)
[2016-09-28] MEDS ORDERED: GLYCOPYRROLATE 1 MG/5 ML VIAL. ONE (20:34)
[2016-09-28] MEDS ORDERED: SEVOFLURANE 61 TO 120 MINUTES. IH ONE (20:44)
[2016-09-28] MEDS ORDERED: DOCUSATE SODIUM 100 MG CAPSULE PO SCH (21:00)
[2016-09-28] MEDS: INSULIN DETEMIR 300 UNITS/3 ML INSULN.PEN. SQ SCH (21:00)
[2016-09-28] MEDS ORDERED: 0.9 % SODIUM CHLORIDE 10 ML DISP.SYRIN. IV PRN (21:00)
[2016-09-28] MEDS ORDERED: WARFARIN 2 MG TABLET. PO ONE (21:00)
[2016-09-28] MEDS ORDERED: HYDROCODONE/APAP 5/325MG TABLET. PO PRN (21:00)
--- NOTE | 2016-09-28 21:03 | PDOC ---
BRIEF OPERATIVE NOTE Pre-Op Diagnosis Appendicitis Post-Op Diagnosis same Procedure Performed Laparoscopic appendectomy Surgeon Kathleen Anesthesia Type: General, Local Blood Loss 10 Specimens Obtained appendix Findings thickened appendix Complications none Additional Remarks [id number] CACHORRO GOLDSTEIN MD Sep 28, 2016 21:03
[2016-09-28] MEDS: IV RINGERS,LACTATED 1000ML 1,000 ML IV SCH (22:00)
[2016-09-28] MEDS: ATORVASTATIN CALCIUM 20 MG TABLET PO SCH (22:01)
[2016-09-28] MEDS: TRAVOPROST OU SCH (22:01)
[2016-09-29] VITALS (11 sets, daily range): BP systolic 127–151; BP diastolic 50–81
[2016-09-29] MEDS: PIPERACILLIN/TAZOBACTAM 3.375 GM in IV NORMAL SALINE 50ML 50 ML IV SCH ×4 (00:04→17:29)
[2016-09-29] MEDS: IV NORMAL SALINE 1000ML BAG 1,000 ML IV SCH ×3 (01:34→17:29)
[2016-09-29 06:50] LABS: BASO % 0 % (0-3); EOS % 0 % (0-3); HEMATOCRIT 38.8 % (39.0-53.0); HEMOGLOBIN 12.2 g/dL (13.0-17.5); LYMPH # 0.6 x10^3/uL (1.0-4.8); LYMPH % 7 % (24-48); MEAN CORPUSCULAR HEMOGLOBIN 28 pg (25-35); MEAN CORPUSCULAR HGB CONC 32 g/dL (31-37); MEAN CORPUSCULAR VOLUME 89 fL (79-100); MONO % 5 % (0-9); NEUT % 88 % (31-73); PLATELET COUNT 137 x10^3/uL (140-400); RED BLOOD COUNT 4.36 x10^6/uL (4.30-5.70); RED CELL DISTRIBUTION WIDTH 17.5 % (11.5-14.5); WHITE BLOOD COUNT 8.5 x10^3/uL (4.0-11.0)
[2016-09-29 07:04] LABS: INR 1.3 (0.8-1.1); PROTHROMBIN TIME PATIENT 15.8 SEC (11.7-14.0)
[2016-09-29 07:06] LABS: ALBUMIN 2.6 g/dL (3.4-5.0); ALBUMIN/GLOBULIN RATIO 0.6 (1.0-1.7); CREATININE 1.7 mg/dL (0.7-1.3); GFR 38.4; POTASSIUM 4.9 mmol/L (3.5-5.1); TOTAL BILIRUBIN 1.1 mg/dL (0.2-1.0); TOTAL PROTEIN 6.9 g/dL (6.4-8.2)
[2016-09-29] MEDS: IPRATRPIUM/ALBUTEROL 0.5/2.5MG 3 ML NEBU. NEB SCH ×4 (07:39→19:31)
[2016-09-29] MEDS: BUDESONIDE 0.5 MG/2 ML NEBU NEB SCH ×2 (07:42→19:31)
[2016-09-29] MEDS: IV RINGERS,LACTATED 1000ML 1,000 ML IV SCH ×2 (08:00→17:36)
[2016-09-29] MEDS: METOPROLOL TART IMMED RELEASE 50 MG TABLET PO SCH ×2 (09:00→21:10)
[2016-09-29] MEDS: ISOSORBIDE MONONITRATE ER 30 MG TAB.ER.24H PO SCH (09:00)
[2016-09-29] MEDS: DOCUSATE SODIUM 100 MG CAPSULE PO SCH ×2 (09:00→21:10)
[2016-09-29] MEDS: FINASTERIDE 5 MG TABLET PO SCH (09:00)
[2016-09-29] MEDS: TAMSULOSIN 0.4 MG CAP.ER.24H. PO SCH (09:00)
[2016-09-29] MEDS: ENOXAPARIN 40 MG/0.4 ML DISP.SYRIN. SQ SCH (09:01)
[2016-09-29] MEDS: DORZOLAMIDE 2% OPHTH SOLUTION 10ML BOTTLE. OU SCH ×3 (09:02→21:00)
[2016-09-29] MEDS: POLYVINYL ALCOHOL 1.4% OPHTH SOLUTION 15ML BOTTLE. OU SCH ×4 (09:02→21:00)
[2016-09-29] MEDS: INSULIN ASPART 300 UNITS/3 ML INSULN.PEN SQ SCH ×6 (09:08→17:36)
--- NOTE | 2016-09-29 09:09 | PDOC ---
SURGICAL PROGRESS NOTE Subjective feels pretty well no void postop, thinks his bladder is feeling full Vital Signs Vital Signs Date Time Temp Pulse Resp B/P Pulse Ox O2 Delivery O2 Flow Rate FiO2 09/29/16 07:43 98 Nasal Cannula 3.0 09/29/16 03:45 97.4 62 20 141/59 97.4 I&O Intake and Output 09/29/16 07:00 Intake Total 3405 ml Output Total 250 ml Balance 3155 ml Intake Oral 780 ml IV Total 1100 ml Blood Product IV Normal Saline Flush 700 ml Other 825 ml Output Urine Total 250 ml # Voids 2 General: Alert, Oriented X3, Cooperative, No acute distress Abdomen: Soft, No tenderness Labs Laboratory Tests Test 09/27/16 20:28 09/28/16 04:40 09/28/16 07:19 09/28/16 11:26 Glucose (Fingerstick) 195mg/dL (70-99) 155mg/dL (70-99) 148mg/dL (70-99) White Blood Count 11.4x10^3/uL (4.0-11.0) Red Blood Count 4.68x10^6/uL (3.50-5.40) Hemoglobin 13.0g/dL (12.0-15.5) Hematocrit 42.0% (36.0-47.0) Mean Corpuscular Volume 90fL (79-100) Mean Corpuscular Hemoglobin 28pg (25-35) Mean Corpuscular Hemoglobin Concent 31g/dL (31-37) Red Cell Distribution Width 17.5% (11.5-14.5) Platelet Count 138x10^3/uL (140-400) Neutrophils (%) (Auto) 82% (31-73) Lymphocytes (%) (Auto) 9% (24-48) Monocytes (%) (Auto) 9% (0-9) Eosinophils (%) (Auto) 0% (0-3) Basophils (%) (Auto) 1% (0-3) Neutrophils # (Auto) 9.3x10^3uL (1.8-7.7) Lymphocytes # (Auto) 1.0x10^3/uL (1.0-4.8) Monocytes # (Auto) 1.1x10^3/uL (0.0-1.1) Eosinophils # (Auto) 0.0x10^3/uL (0.0-0.7) Basophils # (Auto) 0.1x10^3/uL (0.0-0.2) Prothrombin Time 19.2SEC (11.7-14.0) Prothromb Time International Ratio 1.7 (0.8-1.1) Sodium Level 144mmol/L (136-145) Potassium Level 4.5mmol/L (3.5-5.1) Chloride Level 108mmol/L (98-107) Carbon Dioxide Level 30mmol/L (21-32) Anion Gap 6 (6-14) Blood Urea Nitrogen 38mg/dL (7-20) Creatinine 1.8mg/dL (0.6-1.0) Estimated GFR (Cockcroft-Gault) 26.7 BUN/Creatinine Ratio 21 (6-20) Glucose Level 179mg/dL (70-99) Calcium Level 9.0mg/dL (8.5-10.1) Total Bilirubin 1.3mg/dL (0.2-1.0) Aspartate Amino Transf (AST/SGOT) 25U/L (15-37) Alanine Aminotransferase (ALT/SGPT) 34U/L (14-59) Alkaline Phosphatase 87U/L (46-116) Total Protein 6.8g/dL (6.4-8.2) Albumin 2.8g/dL (3.4-5.0) Albumin/Globulin Ratio 0.7 (1.0-1.7) Test 09/28/16 16:31 09/28/16 21:03 09/29/16 05:25 09/29/16 07:21 Glucose (Fingerstick) 125mg/dL (70-99) 132mg/dL (70-99) 190mg/dL (70-99) White Blood Count 8.5x10^3/uL (4.0-11.0) Red Blood Count 4.36x10^6/uL (4.30-5.70) Hemoglobin 12.2g/dL (13.0-17.5) Hematocrit 38.8% (39.0-53.0) Mean Corpuscular Volume 89fL (79-100) Mean Corpuscular Hemoglobin 28pg (25-35) Mean Corpuscular Hemoglobin Concent 32g/dL (31-37) Red Cell Distribution Width 17.5% (11.5-14.5) Platelet Count 137x10^3/uL (140-400) Neutrophils (%) (Auto) 88% (31-73) Lymphocytes (%) (Auto) 7% (24-48) Monocytes (%) (Auto) 5% (0-9) Eosinophils (%) (Auto) 0% (0-3) Basophils (%) (Auto) 0% (0-3) Neutrophils # (Auto) 7.5x10^3uL (1.8-7.7) Lymphocytes # (Auto) 0.6x10^3/uL (1.0-4.8) Monocytes # (Auto) 0.4x10^3/uL (0.0-1.1) Eosinophils # (Auto) 0.0x10^3/uL (0.0-0.7) Basophils # (Auto) 0.0x10^3/uL (0.0-0.2) Prothrombin Time 15.8SEC (11.7-14.0) Prothromb Time International Ratio 1.3 (0.8-1.1) Sodium Level 143mmol/L (136-145) Potassium Level 4.9mmol/L (3.5-5.1) Chloride Level 106mmol/L (98-107) Carbon Dioxide Level 29mmol/L (21-32) Anion Gap 8 (6-14) Blood Urea Nitrogen 38mg/dL (8-26) Creatinine 1.7mg/dL (0.7-1.3) Estimated GFR (Cockcroft-Gault) 38.4 BUN/Creatinine Ratio 22 (6-20) Glucose Level 183mg/dL (70-99) Calcium Level 9.0mg/dL (8.5-10.1) Total Bilirubin 1.1mg/dL (0.2-1.0) Aspartate Amino Transf (AST/SGOT) 18U/L (15-37) Alanine Aminotransferase (ALT/SGPT) 30U/L (16-63) Alkaline Phosphatase 73U/L (46-116) Total Protein 6.9g/dL (6.4-8.2) Albumin 2.6g/dL (3.4-5.0) Albumin/Globulin Ratio 0.6 (1.0-1.7) Laboratory Tests Test 09/28/16 11:26 09/28/16 16:31 09/28/16 21:03 09/29/16 05:25 Glucose (Fingerstick) 148mg/dL (70-99) 125mg/dL (70-99) 132mg/dL (70-99) White Blood Count 8.5x10^3/uL (4.0-11.0) Red Blood Count 4.36x10^6/uL (4.30-5.70) Hemoglobin 12.2g/dL (13.0-17.5) Hematocrit 38.8% (39.0-53.0) Mean Corpuscular Volume 89fL (79-100) Mean Corpuscular Hemoglobin 28pg (25-35) Mean Corpuscular Hemoglobin Concent 32g/dL (31-37) Red Cell Distribution Width 17.5% (11.5-14.5) Platelet Count 137x10^3/uL (140-400) Neutrophils (%) (Auto) 88% (31-73) Lymphocytes (%) (Auto) 7% (24-48) Monocytes (%) (Auto) 5% (0-9) Eosinophils (%) (Auto) 0% (0-3) Basophils (%) (Auto) 0% (0-3) Neutrophils # (Auto) 7.5x10^3uL (1.8-7.7) Lymphocytes # (Auto) 0.6x10^3/uL (1.0-4.8) Monocytes # (Auto) 0.4x10^3/uL (0.0-1.1) Eosinophils # (Auto) 0.0x10^3/uL (0.0-0.7) Basophils # (Auto) 0.0x10^3/uL (0.0-0.2) Prothrombin Time 15.8SEC (11.7-14.0) Prothromb Time International Ratio 1.3 (0.8-1.1) Sodium Level 143mmol/L (136-145) Potassium Level 4.9mmol/L (3.5-5.1) Chloride Level 106mmol/L (98-107) Carbon Dioxide Level 29mmol/L (21-32) Anion Gap 8 (6-14) Blood Urea Nitrogen 38mg/dL (8-26) Creatinine 1.7mg/dL (0.7-1.3) Estimated GFR (Cockcroft-Gault) 38.4 BUN/Creatinine Ratio 22 (6-20) Glucose Level 183mg/dL (70-99) Calcium Level 9.0mg/dL (8.5-10.1) Total Bilirubin 1.1mg/dL (0.2-1.0) Aspartate Amino Transf (AST/SGOT) 18U/L (15-37) Alanine Aminotransferase (ALT/SGPT) 30U/L (16-63) Alkaline Phosphatase 73U/L (46-116) Total Protein 6.9g/dL (6.4-8.2) Albumin 2.6g/dL (3.4-5.0) Albumin/Globulin Ratio 0.6 (1.0-1.7) Test 09/29/16 07:21 Glucose (Fingerstick) 190mg/dL (70-99) Problem List Problems Medical Problems: (1) Appendicitis, acute Status: Acute Assessment/Plan s/p lap appy urinary retention--nurse to bladder scan and st cath if needed Problems: PETR SLATER APRN Sep 29, 2016 09:09
[2016-09-29 09:32] LABS: ANISOCYTOSIS SLIGHT; PLT ESTIMATE DECREASED (ADEQUATE)
--- NOTE | 2016-09-29 14:39 | PDOC ---
PROGRESS NOTES Chief Complaint Chief Complaint Sepsis, Appendicitis RLQ pain, surg following DM2, poor control vasculopathy, PVD HTn obesity, BMI 37 Afib Parox, on coumadin, Vit K given History of Present Illness History of Present Illness s/p vit K, INR should still be dropping, feeling well post-op still getting iv abx, may stop tomorrow if able to DC, if srug ok adat Vitals Vitals Vital Signs Date Time Temp Pulse Resp B/P Pulse Ox O2 Delivery O2 Flow Rate FiO2 09/29/16 11:08 Nasal Cannula 2.0 09/29/16 11:00 96.3 71 22 143/53 97 96.3 Physical Exam General: Alert, Oriented X3, Cooperative, No acute distress Heart: No murmurs Lungs: Clear Abdomen: Soft, No tenderness Extremities: No clubbing Skin: No rashes Labs LABS Laboratory Tests Test 09/28/16 16:31 09/28/16 21:03 09/29/16 05:25 09/29/16 07:21 Glucose (Fingerstick) 125mg/dL (70-99) 132mg/dL (70-99) 190mg/dL (70-99) White Blood Count 8.5x10^3/uL (4.0-11.0) Red Blood Count 4.36x10^6/uL (4.30-5.70) Hemoglobin 12.2g/dL (13.0-17.5) Hematocrit 38.8% (39.0-53.0) Mean Corpuscular Volume 89fL (79-100) Mean Corpuscular Hemoglobin 28pg (25-35) Mean Corpuscular Hemoglobin Concent 32g/dL (31-37) Red Cell Distribution Width 17.5% (11.5-14.5) Platelet Count 137x10^3/uL (140-400) Neutrophils (%) (Auto) 88% (31-73) Lymphocytes (%) (Auto) 7% (24-48) Monocytes (%) (Auto) 5% (0-9) Eosinophils (%) (Auto) 0% (0-3) Basophils (%) (Auto) 0% (0-3) Neutrophils # (Auto) 7.5x10^3uL (1.8-7.7) Lymphocytes # (Auto) 0.6x10^3/uL (1.0-4.8) Monocytes # (Auto) 0.4x10^3/uL (0.0-1.1) Eosinophils # (Auto) 0.0x10^3/uL (0.0-0.7) Basophils # (Auto) 0.0x10^3/uL (0.0-0.2) Segmented Neutrophils % 81% (35-66) Band Neutrophils % 7% (0-9) Lymphocytes % 6% (24-48) Monocytes % 6% (0-10) Platelet Estimate Decreased (ADEQUATE) Large Platelets Present Anisocytosis Slight Prothrombin Time 15.8SEC (11.7-14.0) Prothromb Time International Ratio 1.3 (0.8-1.1) Sodium Level 143mmol/L (136-145) Potassium Level 4.9mmol/L (3.5-5.1) Chloride Level 106mmol/L (98-107) Carbon Dioxide Level 29mmol/L (21-32) Anion Gap 8 (6-14) Blood Urea Nitrogen 38mg/dL (8-26) Creatinine 1.7mg/dL (0.7-1.3) Estimated GFR (Cockcroft-Gault) 38.4 BUN/Creatinine Ratio 22 (6-20) Glucose Level 183mg/dL (70-99) Calcium Level 9.0mg/dL (8.5-10.1) Total Bilirubin 1.1mg/dL (0.2-1.0) Aspartate Amino Transf (AST/SGOT) 18U/L (15-37) Alanine Aminotransferase (ALT/SGPT) 30U/L (16-63) Alkaline Phosphatase 73U/L (46-116) Total Protein 6.9g/dL (6.4-8.2) Albumin 2.6g/dL (3.4-5.0) Albumin/Globulin Ratio 0.6 (1.0-1.7) Test 09/29/16 11:45 Glucose (Fingerstick) 285mg/dL (70-99) Assessment and Plan Assessmemt and Plan cont current Problems Medical Problems: (1) Appendicitis, acute Status: Acute Problems: Comment Review of Relevant I have reviewed the following items vinay (where applicable) has been applied. Labs Laboratory Tests Test 09/27/16 20:28 09/28/16 04:40 09/28/16 07:19 09/28/16 11:26 Glucose (Fingerstick) 195mg/dL (70-99) 155mg/dL (70-99) 148mg/dL (70-99) White Blood Count 11.4x10^3/uL (4.0-11.0) Red Blood Count 4.68x10^6/uL (3.50-5.40) Hemoglobin 13.0g/dL (12.0-15.5) Hematocrit 42.0% (36.0-47.0) Mean Corpuscular Volume 90fL (79-100) Mean Corpuscular Hemoglobin 28pg (25-35) Mean Corpuscular Hemoglobin Concent 31g/dL (31-37) Red Cell Distribution Width 17.5% (11.5-14.5) Platelet Count 138x10^3/uL (140-400) Neutrophils (%) (Auto) 82% (31-73) Lymphocytes (%) (Auto) 9% (24-48) Monocytes (%) (Auto) 9% (0-9) Eosinophils (%) (Auto) 0% (0-3) Basophils (%) (Auto) 1% (0-3) Neutrophils # (Auto) 9.3x10^3uL (1.8-7.7) Lymphocytes # (Auto) 1.0x10^3/uL (1.0-4.8) Monocytes # (Auto) 1.1x10^3/uL (0.0-1.1) Eosinophils # (Auto) 0.0x10^3/uL (0.0-0.7) Basophils # (Auto) 0.1x10^3/uL (0.0-0.2) Prothrombin Time 19.2SEC (11.7-14.0) Prothromb Time International Ratio 1.7 (0.8-1.1) Sodium Level 144mmol/L (136-145) Potassium Level 4.5mmol/L (3.5-5.1) Chloride Level 108mmol/L (98-107) Carbon Dioxide Level 30mmol/L (21-32) Anion Gap 6 (6-14) Blood Urea Nitrogen 38mg/dL (7-20) Creatinine 1.8mg/dL (0.6-1.0) Estimated GFR (Cockcroft-Gault) 26.7 BUN/Creatinine Ratio 21 (6-20) Glucose Level 179mg/dL (70-99) Calcium Level 9.0mg/dL (8.5-10.1) Total Bilirubin 1.3mg/dL (0.2-1.0) Aspartate Amino Transf (AST/SGOT) 25U/L (15-37) Alanine Aminotransferase (ALT/SGPT) 34U/L (14-59) Alkaline Phosphatase 87U/L (46-116) Total Protein 6.8g/dL (6.4-8.2) Albumin 2.8g/dL (3.4-5.0) Albumin/Globulin Ratio 0.7 (1.0-1.7) Test 09/28/16 16:31 09/28/16 21:03 09/29/16 05:25 09/29/16 07:21 Glucose (Fingerstick) 125mg/dL (70-99) 132mg/dL (70-99) 190mg/dL (70-99) White Blood Count 8.5x10^3/uL (4.0-11.0) Red Blood Count 4.36x10^6/uL (4.30-5.70) Hemoglobin 12.2g/dL (13.0-17.5) Hematocrit 38.8% (39.0-53.0) Mean Corpuscular Volume 89fL (79-100) Mean Corpuscular Hemoglobin 28pg (25-35) Mean Corpuscular Hemoglobin Concent 32g/dL (31-37) Red Cell Distribution Width 17.5% (11.5-14.5) Platelet Count 137x10^3/uL (140-400) Neutrophils (%) (Auto) 88% (31-73) Lymphocytes (%) (Auto) 7% (24-48) Monocytes (%) (Auto) 5% (0-9) Eosinophils (%) (Auto) 0% (0-3) Basophils (%) (Auto) 0% (0-3) Neutrophils # (Auto) 7.5x10^3uL (1.8-7.7) Lymphocytes # (Auto) 0.6x10^3/uL (1.0-4.8) Monocytes # (Auto) 0.4x10^3/uL (0.0-1.1) Eosinophils # (Auto) 0.0x10^3/uL (0.0-0.7) Basophils # (Auto) 0.0x10^3/uL (0.0-0.2) Segmented Neutrophils % 81% (35-66) Band Neutrophils % 7% (0-9) Lymphocytes % 6% (24-48) Monocytes % 6% (0-10) Platelet Estimate Decreased (ADEQUATE) Large Platelets Present Anisocytosis Slight Prothrombin Time 15.8SEC (11.7-14.0) Prothromb Time International Ratio 1.3 (0.8-1.1) Sodium Level 143mmol/L (136-145) Potassium Level 4.9mmol/L (3.5-5.1) Chloride Level 106mmol/L (98-107) Carbon Dioxide Level 29mmol/L (21-32) Anion Gap 8 (6-14) Blood Urea Nitrogen 38mg/dL (8-26) Creatinine 1.7mg/dL (0.7-1.3) Estimated GFR (Cockcroft-Gault) 38.4 BUN/Creatinine Ratio 22 (6-20) Glucose Level 183mg/dL (70-99) Calcium Level 9.0mg/dL (8.5-10.1) Total Bilirubin 1.1mg/dL (0.2-1.0) Aspartate Amino Transf (AST/SGOT) 18U/L (15-37) Alanine Aminotransferase (ALT/SGPT) 30U/L (16-63) Alkaline Phosphatase 73U/L (46-116) Total Protein 6.9g/dL (6.4-8.2) Albumin 2.6g/dL (3.4-5.0) Albumin/Globulin Ratio 0.6 (1.0-1.7) Test 09/29/16 11:45 Glucose (Fingerstick) 285mg/dL (70-99) Laboratory Tests Test 09/28/16 16:31 09/28/16 21:03 09/29/16 05:25 09/29/16 07:21 Glucose (Fingerstick) 125mg/dL (70-99) 132mg/dL (70-99) 190mg/dL (70-99) White Blood Count 8.5x10^3/uL (4.0-11.0) Red Blood Count 4.36x10^6/uL (4.30-5.70) Hemoglobin 12.2g/dL (13.0-17.5) Hematocrit 38.8% (39.0-53.0) Mean Corpuscular Volume 89fL (79-100) Mean Corpuscular Hemoglobin 28pg (25-35) Mean Corpuscular Hemoglobin Concent 32g/dL (31-37) Red Cell Distribution Width 17.5% (11.5-14.5) Platelet Count 137x10^3/uL (140-400) Neutrophils (%) (Auto) 88% (31-73) Lymphocytes (%) (Auto) 7% (24-48) Monocytes (%) (Auto) 5% (0-9) Eosinophils (%) (Auto) 0% (0-3) Basophils (%) (Auto) 0% (0-3) Neutrophils # (Auto) 7.5x10^3uL (1.8-7.7) Lymphocytes # (Auto) 0.6x10^3/uL (1.0-4.8) Monocytes # (Auto) 0.4x10^3/uL (0.0-1.1) Eosinophils # (Auto) 0.0x10^3/uL (0.0-0.7) Basophils # (Auto) 0.0x10^3/uL (0.0-0.2) Segmented Neutrophils % 81% (35-66) Band Neutrophils % 7% (0-9) Lymphocytes % 6% (24-48) Monocytes % 6% (0-10) Platelet Estimate Decreased (ADEQUATE) Large Platelets Present Anisocytosis Slight Prothrombin Time 15.8SEC (11.7-14.0) Prothromb Time International Ratio 1.3 (0.8-1.1) Sodium Level 143mmol/L (136-145) Potassium Level 4.9mmol/L (3.5-5.1) Chloride Level 106mmol/L (98-107) Carbon Dioxide Level 29mmol/L (21-32) Anion Gap 8 (6-14) Blood Urea Nitrogen 38mg/dL (8-26) Creatinine 1.7mg/dL (0.7-1.3) Estimated GFR (Cockcroft-Gault) 38.4 BUN/Creatinine Ratio 22 (6-20) Glucose Level 183mg/dL (70-99) Calcium Level 9.0mg/dL (8.5-10.1) Total Bilirubin 1.1mg/dL (0.2-1.0) Aspartate Amino Transf (AST/SGOT) 18U/L (15-37) Alanine Aminotransferase (ALT/SGPT) 30U/L (16-63) Alkaline Phosphatase 73U/L (46-116) Total Protein 6.9g/dL (6.4-8.2) Albumin 2.6g/dL (3.4-5.0) Albumin/Globulin Ratio 0.6 (1.0-1.7) Test 09/29/16 11:45 Glucose (Fingerstick) 285mg/dL (70-99) Medications Current Medications Sodium Chloride (Iv Sodium Chloride 0.9% 1000ml Bag) 1,000 ml @ 75 mls/hr [id number] IV Last administered on 09/29/16 01:34; Start 09/27/16 at 18:00 Fentanyl Citrate (Fentanyl 2ml Vial) 50 mcg PRN Q2HR PRN IV PAIN; Start at 18:00 Ondansetron HCl (Zofran) 4 mg PRN Q8HRS PRN IV NAUSEA/VOMITING; Start 09/27/16 at 18:00; Stop 09/28/16 at 21:01; Status DC Insulin Aspart (Novolog) 0-5 UNITS TIDWMEALS SQ Last administered on 09/29/16 12:47; Start 09/28/16 at 08:00 Dextrose 12.5 gm 12.5 gm PRN Q15MIN PRN IV SEE COMMENTS; Start 09/27/16 at 20: 45 Piperacillin Sod/ Tazobactam Sod/ Sodium Chloride (Zosyn/Iv Sodium Chloride 0.9 % 50ml) 50 ml @ 100 mls/hr Q6HRS IV Last administered on 09/29/16 12:44; Start 09/27/16 at 21:30 Acetaminophen (Tylenol) 500 mg PRN DAILY PRN PO PAIN; Start 09/27/16 at 21:00 Lactic Acid (Lac-Hydrin) 225 monica PRN QHS PRN TP DRY SKIN; Start 09/27/16 at 21: 00 Atorvastatin Calcium (Lipitor) 20 mg HS PO Last administered on 09/28/16 22:01 ; Start 09/27/16 at 21:00 Docusate Sodium (Colace) 100 mg BID PO Last administered on 09/29/16 09:00; Start 09/27/16 at 21:00 Dorzolamide HCl (Trusopt) 1 drop TID OU Last administered on 09/29/16 12:48; Start 09/27/16 at 21:00 Finasteride (Proscar) 5 mg DAILY PO Last administered on 09/29/16 09:00; Start 09/28/16 at 09:00 Albuterol/ Ipratropium (Duoneb) 3 ml QID NEB ; Start 09/27/16 at 21:00; Stop 05/06 at 21:18; Status DC Isosorbide Mononitrate (Imdur) 30 mg DAILY PO Last administered on 09/29/16 09 :00; Start 09/28/16 at 09:00 Metoprolol Tartrate (Lopressor) 50 mg BID PO Last administered on 09/29/16 09: 00; Start 09/27/16 at 21:00 Tamsulosin HCl (Flomax) 0.4 mg DAILY PO Last administered on 09/29/16 09:00; Start 09/28/16 at 09:00 Non-Formulary Medication 2 puff BID IH ; Start 09/27/16 at 21:00; Status UNV Artificial Tears (Artificial Tears) 1 drop QID OU Last administered on 09:02; Start 09/27/16 at 21:30 Insulin Detemir (Levemir) 35 units QHS SQ Last administered on 09/27/16 22:03 ; Start 09/27/16 at 21:00 Insulin Aspart 15 units 15 units TIDAC SQ Last administered on 09/29/16 12:47 ; Start 09/28/16 at 07:30 Phytonadione/ Sodium Chloride (Vitamin K/Iv Sodium Chloride 0.9% 50ml) 50.2 ml @ 102 mls/hr 1X ONCE IV Last administered on 09/27/16 21:51; Start 09/27/16 at 21:30; Stop 09/27/16 at 21:59; Status DC Albuterol/ Ipratropium (Duoneb) 3 ml RTQID NEB Last administered on 09/29/16 11:07; Start 09/28/16 at 08:00 Budesonide (Pulmicort) 0.5 mg RTBID NEB Last administered on 09/29/16 07:42; Start 09/28/16 at 08:00 Albuterol Sulfate (Ventolin Neb Soln) 2.5 mg 1X ONCE NEB Last administered on 09/28/16 06:21; Start 09/28/16 at 06:15; Stop 09/28/16 at 06:16; Status DC Non-Formulary Medication 1 ea HS OU Last administered on 09/28/16 22:01; Start 09/28/16 at 21:00 Warfarin Sodium (Coumadin Per Pharmacy) 1 each PRN DAILY PRN MC SEE COMMENTS Last administered on 09/29/16 13:26; Start 09/28/16 at 14:45 Ondansetron HCl 4 mg 4 mg STK-MED ONCE .ROUTE ; Start 09/28/16 at 19:22; Stop at 19:23; Status DC Propofol (Diprivan) 20 ml @ As Directed STK-MED ONCE IV ; Start 09/28/16 at 19: 22; Stop 09/28/16 at 19:23; Status DC Lidocaine HCl 100 mg STK-MED ONCE .ROUTE ; Start 09/28/16 at 19:22; Stop at 19:23; Status DC Fentanyl Citrate (Fentanyl 2ml Vial) 100 mcg STK-MED ONCE .ROUTE ; Start at 19:22; Stop 09/28/16 at 19:23; Status DC Succinylcholine Chloride (Anectine) 200 mg STK-MED ONCE .ROUTE ; Start 09/28/16 at 19:23; Stop 09/28/16 at 19:24; Status DC Rocuronium [place] (Zemuron) 50 mg STK-MED ONCE .ROUTE ; Start 09/28/16 at 19:23 ; Stop 09/28/16 at 19:24; Status DC Bupivacaine HCl/ Epinephrine Bitart (Sensorcain-Mpf Epi 0.5%-1:[id number]) 30 ml STK -MED ONCE .ROUTE Last administered on 09/28/16 20:28; Start 09/28/16 at 19:31 ; Stop 09/28/16 at 19:32; Status DC Ondansetron HCl (Zofran) 4 mg PRN Q6HRS PRN IV Nausea; Start 09/28/16 at 20:00 ; Stop 09/29/16 at 07:01; Status DC Fentanyl Citrate (Fentanyl 2ml Vial) 25 mcg PRN Q5MIN PRN IV MILD PAIN; Start 09/28/16 at 20:00; Stop 09/29/16 at 07:01; Status DC Fentanyl Citrate (Fentanyl 2ml Vial) 50 mcg PRN Q5MIN PRN IV MODERATE PAIN; Start 09/28/16 at 20:00; Stop 09/29/16 at 07:01; Status DC Morphine Sulfate 1 mg 1 mg PRN Q10MIN PRN IV SEVERE PAIN; Start 09/28/16 at 20: 00; Stop 09/29/16 at 07:01; Status DC Lactated Ringer's (Iv Lactated Ringers) 1,000 ml @ 0 mls/hr Q0M IV ; Start 06/06 at 20:00; Stop 09/29/16 at 07:01; Status DC Lidocaine HCl 2 ml 1X PRN PRN ID IV START; Start 09/28/16 at 20:00; Stop at 07:01; Status DC Hydromorphone HCl (Dilaudid) 0.5 mg PRN Q10MIN PRN IV SEV PAIN,Second choice; Start 09/28/16 at 20:00; Stop 09/29/16 at 07:01; Status DC Prochlorperazine Edisylate (Compazine) 5 mg PACU PRN PRN IV NAUSEA Last administered on 09/28/16t 21:09; Start 09/28/16 at 20:00; Stop 09/29/16 at 07:01 ; Status DC Phenylephrine HCl 1 mg STK-MED ONCE IV ; Start 09/28/16 at 20:16; Stop 09/28/16 at 20:17; Status DC Warfarin Sodium (Coumadin) 2 mg 1X ONCE PO Last administered on 09/28/16t 22: 00; Start 09/28/16 at 21:00; Stop 09/28/16 at 21:01; Status DC Dexamethasone Sodium Phosphate (Decadron) 20 mg STK-MED ONCE .ROUTE ; Start 06/06 at 20:33; Stop 09/28/16 at 20:34; Status DC Glycopyrrolate (Robinul) 1 mg STK-MED ONCE .ROUTE ; Start 09/28/16 at 20:34; Stop 09/28/16 at 20:35; Status DC Neostigmine Methylsulfate 5 mg STK-MED ONCE .ROUTE ; Start 09/28/16 at 20:34; Stop 09/28/16 at 20:35; Status DC Sevoflurane (Ultane) 60 ml STK-MED ONCE IH ; Start 09/28/16 at 20:44; Stop 09/28 at 20:45; Status DC Enoxaparin Sodium (Lovenox 40mg Syringe) 40 mg Q24H SQ Last administered on t 09:01; Start 09/29/16 at 09:00 Sodium Chloride 3 ml 3 ml QSHIFT PRN IV AFTER MEDS AND BLOOD DRAWS; Start 09/28 at 21:00 Lactated Ringer's (Iv Lactated Ringers) 1,000 ml @ 100 mls/hr Q10H IV ; Start 09/28/16 at 22:00 Acetaminophen/ Hydrocodone Bitart (Lortab 5/325) 1 tab PRN Q4HRS PRN PO MILD PAIN; Start 09/28/16 at 21:00 Docusate Sodium (Colace) 100 mg BID PO ; Start 09/28/16 at 21:00; Status UNV Ondansetron HCl (Zofran) 4 mg PRN Q6HRS PRN IV NAUESA, 1ST CHOICE; Start at 21:00 Warfarin Sodium (Coumadin) 2 mg 1X WARF ONCE PO ; Start 09/29/16 at 16:00; Stop 09/29/16 at 16:01 Active Scripts Active Amox Tr-K Clv 875-125 Mg Tab (Amoxicillin/Potassium Clav) 1 Each Tablet 1 Tab PO BID Reported Docusate Sodium 100 Mg Capsule 1 Cap PO BID Acetaminophen 500 Mg Tablet 1 Tab PO PRN DAILY PRN Novolog Flexpen (Insulin Aspart) 100 Unit/1 Ml Insuln.pen 28 Unit SQ DAILYWSUP Novolog Flexpen (Insulin Aspart) 100 Unit/1 Ml Insuln.pen 10 Unit SQ Warfarin Sodium 1 Mg Tablet 1 Mg PO WEEKLY Warfarin Sodium 1 Mg Tablet 1 Mg PO DAILY Travatan Z (Travoprost) 5 Ml Drops 1 Drop EACHEYE QHS Tamsulosin Hcl 0.4 Mg Cap.er.24h 2 Cap PO DAILY Metoprolol Tartrate 50 Mg Tablet 1 Tab PO BID Losartan Potassium 50 Mg Tablet 50 Mg PO DAILY Isosorbide Mononitrate 20 Mg Tablet 30 Mg PO DAILY Lantus (Insulin Glargine,Hum.rec.anlog) 100 Unit/1 Ml Vial 72 Unit SQ HS Imiquimod 1 Each Cream.pack 1 Each TP 3X/WEEK Hydrocortisone-Iodoquinol Crm (Hydrocortisone/Iodoquinol) 28.4 Gm Cream..g. 28.4 Gm TP PRN BID PRN Furosemide 40 Mg Tablet 1 Tab PO DAILY Finasteride 5 Mg Tablet 1 Tab PO DAILY Dorzolamide Hcl 10 Ml Drops 1 Drop EACHEYE TID Vitamin D-3 (Cholecalciferol (Vitamin D3)) 2,000 Unit Capsule 1,000 Unit PO DAILY Refresh Optive Eye Drops (Carboxymethylcellulos/Glycerin) 15 Ml Drops 1 Drop EACHEYE QID Symbicort 160-4.5 Mcg Inhaler (Budesonide/Formoterol Fumarate) 10.2 Gm Hfa.aer.ad 2 Puff IH BID Bacitracin-Polymyxin Eye Oint (Bacitracin/Polymyxin B Sulfate) 3.5 Gm Oint...g. 3.5 Gm OP PRN DAILY PRN Atorvastatin Calcium 20 Mg Tablet 20 Mg PO HS Ammonium Lactate 225 Gm Lotion 225 Gm TP HS PRN Duoneb 0.5-3(2.5) Mg/3 Ml (Albuterol/Ipratropium) 3 Ml Ampul.neb 3 Ml NEB QID Vitals/I & O Vital Sign - Last 24 Hours 09/28/16 09/28/16 09/28/16 09/28/16 16:55 17:11 17:30 18:15 Temp 98.5 98.8 98.8 98.5 98.8 98.8 Pulse 61 56 63 Resp 20 20 20 B/P 122/47 124/46 123/43 Pulse Ox 97 O2 Delivery Room Air 09/28/16 09/28/16 09/28/16 09/28/16 19:00 19:20 20:34 20:53 Temp 98.4 98.4 100.4 98.4 98.4 100.4 Pulse 65 65 61 Resp 18 B/P 120/42 120/42 118/58 Pulse Ox 93 93 97 O2 Delivery Room Air Room Air Room Air Simple Mask O2 Flow Rate 10 09/28/16 09/28/16 09/28/16 09/28/16 21:03 21:08 21:23 21:29 Pulse 63 60 Resp 16 20 B/P 137/66 134/69 Pulse Ox 94 97 O2 Delivery Mask Nasal Cannula Nasal Cannula Nasal Cannula O2 Flow Rate 10 2 3 3 09/28/16 09/28/16 09/28/16 09/28/16 21:38 21:45 21:55 22:00 Temp 99.8 97.5 97.9 99.8 97.5 97.9 Pulse 64 60 60 Resp 16 B/P 135/65 125/52 128/45 Pulse Ox 98 99 98 96 O2 Delivery Nasal Cannula Nasal Cannula Nasal Cannula O2 Flow Rate 3 3.0 3.0 3.0 09/28/16 09/28/16 09/28/16 09/28/16 22:01 22:15 22:30 22:45 Temp 97.5 97.6 97.7 97.5 97.6 97.7 Pulse 64 61 80 61 Resp 20 B/P 135/65 141/52 138/57 131/81 Pulse Ox 99 99 99 O2 Delivery Nasal Cannula Nasal Cannula Nasal Cannula O2 Flow Rate 3.0 3.0 3.0 09/28/16 09/28/16 09/28/16 09/28/16 23:00 23:15 23:30 23:45 Temp 97.6 98.0 98.0 98.2 97.6 98.0 98.0 98.2 Pulse 62 60 63 60 Resp 20 22 B/P 134/81 137/89 137/57 136/54 Pulse Ox 99 99 100 99 O2 Delivery Nasal Cannula Nasal Cannula Nasal Cannula Nasal Cannula O2 Flow Rate 3.0 3.0 3.0 3.0 09/29/16 09/29/16 09/29/16 09/29/16 00:15 00:45 01:15 02:45 Temp 98.2 98.0 97.8 97.1 98.2 98.0 97.8 97.1 Pulse 56 57 57 62 Resp 24 B/P 140/56 143/57 127/52 134/81 Pulse Ox 99 99 99 99 O2 Delivery Nasal Cannula Nasal Cannula Nasal Cannula Nasal Cannula O2 Flow Rate 3.0 3.0 3.0 3.0 09/29/16 09/29/16 09/29/16 09/29/16 03:00 03:45 07:00 07:40 Temp 97.1 97.4 97.6 97.1 97.4 97.6 Pulse 61 62 65 Resp 24 18 B/P 143/59 141/59 151/66 Pulse Ox 98 100 96 O2 Delivery Nasal Cannula Nasal Cannula Nasal Cannula Room Air O2 Flow Rate 3.0 3.0 3.0 09/29/16 09/29/16 09/29/16 09/29/16 07:43 09:00 09:00 11:00 Temp 96.3 96.3 Pulse 65 65 71 Resp 22 B/P 151/66 151/66 143/53 Pulse Ox 98 97 O2 Delivery Nasal Cannula Room Air O2 Flow Rate 3.0 09/29/16 11:08 O2 Delivery Nasal Cannula O2 Flow Rate 2.0 Intake and Output 09/28/16 09/28/16 09/29/16 15:00 23:00 07:00 Intake Total 350 ml 1120 ml 1935 ml Output Total 250 ml Balance 350 ml 1120 ml 1685 ml CHRISTAL CHOI MD Sep 29, 2016 14:39
[2016-09-29] MEDS ORDERED: WARFARIN 2 MG TABLET. PO ONE ×2 (16:00→18:30)
--- NOTE | 2016-09-29 18:17 | PDOC ---
Provider Note Provider Note He has been doing well. He had a soft diet. He has urinated. Heart regular. Lungs clear. Discussed with Dr. Wang. Could resume Coumadin today at his the usual dose. Covering for Dr. Blanco who returns tomorrow. ALYSA BEGUM MD Sep 29, 2016 18:16
[2016-09-29] MEDS: ATORVASTATIN CALCIUM 20 MG TABLET PO SCH (21:09)
[2016-09-29] MEDS: TRAVOPROST OU SCH (21:10)
[2016-09-29] MEDS: INSULIN DETEMIR 300 UNITS/3 ML INSULN.PEN. SQ SCH (21:13)
[2016-09-30] MEDS: PIPERACILLIN/TAZOBACTAM 3.375 GM in IV NORMAL SALINE 50ML 50 ML IV SCH ×2 (00:08→05:59)
[2016-09-30] MEDS: IV NORMAL SALINE 1000ML BAG 1,000 ML IV SCH (00:09)
[2016-09-30 03:18] VITALS: BP 99/63
[2016-09-30] MEDS: IV RINGERS,LACTATED 1000ML 1,000 ML IV SCH ×2 (04:00→12:32)
[2016-09-30 04:47] LABS: BASO % 0 % (0-3); EOS % 1 % (0-3); HEMOGLOBIN 12.9 g/dL (13.0-17.5); INR 1.4 (0.8-1.1); LYMPH # 0.9 x10^3/uL (1.0-4.8); LYMPH % 13 % (24-48); MEAN CORPUSCULAR HEMOGLOBIN 28 pg (25-35); MEAN CORPUSCULAR HGB CONC 32 g/dL (31-37); MEAN CORPUSCULAR VOLUME 87 fL (79-100); MONO % 10 % (0-9); NEUT % 76 % (31-73); PLATELET COUNT 162 x10^3/uL (140-400); PROTHROMBIN TIME PATIENT 16.6 SEC (11.7-14.0); RED BLOOD COUNT 4.57 x10^6/uL (4.30-5.70); RED CELL DISTRIBUTION WIDTH 16.9 % (11.5-14.5); WHITE BLOOD COUNT 7.2 x10^3/uL (4.0-11.0)
[2016-09-30 05:12] LABS: ALBUMIN 2.6 g/dL (3.4-5.0); ALBUMIN/GLOBULIN RATIO 0.6 (1.0-1.7); CREATININE 1.6 mg/dL (0.7-1.3); GFR 41.2; POTASSIUM 3.6 mmol/L (3.5-5.1); TOTAL BILIRUBIN 0.9 mg/dL (0.2-1.0); TOTAL PROTEIN 6.9 g/dL (6.4-8.2)
[2016-09-30 07:00] VITALS: BP 145/57
[2016-09-30] MEDS: BUDESONIDE 0.5 MG/2 ML NEBU NEB SCH (07:04)
[2016-09-30] MEDS: IPRATRPIUM/ALBUTEROL 0.5/2.5MG 3 ML NEBU. NEB SCH ×3 (07:04→15:21)
[2016-09-30] MEDS: INSULIN ASPART 300 UNITS/3 ML INSULN.PEN SQ SCH ×6 (08:00→17:00)
[2016-09-30] MEDS: POLYVINYL ALCOHOL 1.4% OPHTH SOLUTION 15ML BOTTLE. OU SCH ×3 (09:00→17:00)
[2016-09-30] MEDS: DORZOLAMIDE 2% OPHTH SOLUTION 10ML BOTTLE. OU SCH ×2 (09:55→12:32)
[2016-09-30] MEDS: ENOXAPARIN 40 MG/0.4 ML DISP.SYRIN. SQ SCH (09:57)
[2016-09-30] MEDS: TAMSULOSIN 0.4 MG CAP.ER.24H. PO SCH (09:57)
[2016-09-30] MEDS: DOCUSATE SODIUM 100 MG CAPSULE PO SCH (09:57)
[2016-09-30] MEDS: ISOSORBIDE MONONITRATE ER 30 MG TAB.ER.24H PO SCH (09:58)
[2016-09-30] MEDS: METOPROLOL TART IMMED RELEASE 50 MG TABLET PO SCH (09:58)
--- NOTE | 2016-09-30 10:14 | PDOC ---
PROGRESS NOTES Subjective Subjective No acute distress overnight. Pt improving. Reports ready to go home. Denies any pain at this time. Objective Objective Vital Signs Date Time Temp Pulse Resp B/P Pulse Ox O2 Delivery O2 Flow Rate FiO2 09/30/16 09:58 69 145/57 09/30/16 07:06 97 Room Air 09/30/16 07:00 97.5 18 3.0 97.5 Intake and Output 09/30/16 07:00 Intake Total 2920 ml Balance 2920 ml Intake Oral 1120 ml IV Total 900 ml Other 900 ml # Voids 2 Physical Exam Physical Exam No changes in cardiac exam. Assessment Assessment Problems Medical Problems: (1) Appendicitis, acute Status: Acute Plan Plan of Care S/p laparoscopic appendectomy - pt improving Hemodynamically stable from cardiac standpoint F/u as outpatient in 2wks Thank you very much for asking me to participate in the care of this patient Comment Review of Relevant I have reviewed the following items vinay (where applicable) has been applied. Labs Laboratory Tests Test 09/28/16 11:26 09/28/16 16:31 09/28/16 21:03 09/29/16 05:25 Glucose (Fingerstick) 148mg/dL (70-99) 125mg/dL (70-99) 132mg/dL (70-99) White Blood Count 8.5x10^3/uL (4.0-11.0) Red Blood Count 4.36x10^6/uL (4.30-5.70) Hemoglobin 12.2g/dL (13.0-17.5) Hematocrit 38.8% (39.0-53.0) Mean Corpuscular Volume 89fL (79-100) Mean Corpuscular Hemoglobin 28pg (25-35) Mean Corpuscular Hemoglobin Concent 32g/dL (31-37) Red Cell Distribution Width 17.5% (11.5-14.5) Platelet Count 137x10^3/uL (140-400) Neutrophils (%) (Auto) 88% (31-73) Lymphocytes (%) (Auto) 7% (24-48) Monocytes (%) (Auto) 5% (0-9) Eosinophils (%) (Auto) 0% (0-3) Basophils (%) (Auto) 0% (0-3) Neutrophils # (Auto) 7.5x10^3uL (1.8-7.7) Lymphocytes # (Auto) 0.6x10^3/uL (1.0-4.8) Monocytes # (Auto) 0.4x10^3/uL (0.0-1.1) Eosinophils # (Auto) 0.0x10^3/uL (0.0-0.7) Basophils # (Auto) 0.0x10^3/uL (0.0-0.2) Segmented Neutrophils % 81% (35-66) Band Neutrophils % 7% (0-9) Lymphocytes % 6% (24-48) Monocytes % 6% (0-10) Platelet Estimate Decreased (ADEQUATE) Large Platelets Present Anisocytosis Slight Prothrombin Time 15.8SEC (11.7-14.0) Prothromb Time International Ratio 1.3 (0.8-1.1) Sodium Level 143mmol/L (136-145) Potassium Level 4.9mmol/L (3.5-5.1) Chloride Level 106mmol/L (98-107) Carbon Dioxide Level 29mmol/L (21-32) Anion Gap 8 (6-14) Blood Urea Nitrogen 38mg/dL (8-26) Creatinine 1.7mg/dL (0.7-1.3) Estimated GFR (Cockcroft-Gault) 38.4 BUN/Creatinine Ratio 22 (6-20) Glucose Level 183mg/dL (70-99) Calcium Level 9.0mg/dL (8.5-10.1) Total Bilirubin 1.1mg/dL (0.2-1.0) Aspartate Amino Transf (AST/SGOT) 18U/L (15-37) Alanine Aminotransferase (ALT/SGPT) 30U/L (16-63) Alkaline Phosphatase 73U/L (46-116) Total Protein 6.9g/dL (6.4-8.2) Albumin 2.6g/dL (3.4-5.0) Albumin/Globulin Ratio 0.6 (1.0-1.7) Test 09/29/16 07:21 09/29/16 11:45 09/29/16 16:19 09/29/16 20:54 Glucose (Fingerstick) 190mg/dL (70-99) 285mg/dL (70-99) 220mg/dL (70-99) 259mg/dL (70-99) Test 09/30/16 03:44 09/30/16 07:27 White Blood Count 7.2x10^3/uL (4.0-11.0) Red Blood Count 4.57x10^6/uL (4.30-5.70) Hemoglobin 12.9g/dL (13.0-17.5) Hematocrit 40.0% (39.0-53.0) Mean Corpuscular Volume 87fL (79-100) Mean Corpuscular Hemoglobin 28pg (25-35) Mean Corpuscular Hemoglobin Concent 32g/dL (31-37) Red Cell Distribution Width 16.9% (11.5-14.5) Platelet Count 162x10^3/uL (140-400) Neutrophils (%) (Auto) 76% (31-73) Lymphocytes (%) (Auto) 13% (24-48) Monocytes (%) (Auto) 10% (0-9) Eosinophils (%) (Auto) 1% (0-3) Basophils (%) (Auto) 0% (0-3) Neutrophils # (Auto) 5.5x10^3uL (1.8-7.7) Lymphocytes # (Auto) 0.9x10^3/uL (1.0-4.8) Monocytes # (Auto) 0.7x10^3/uL (0.0-1.1) Eosinophils # (Auto) 0.0x10^3/uL (0.0-0.7) Basophils # (Auto) 0.0x10^3/uL (0.0-0.2) Prothrombin Time 16.6SEC (11.7-14.0) Prothromb Time International Ratio 1.4 (0.8-1.1) Sodium Level 142mmol/L (136-145) Potassium Level 3.6mmol/L (3.5-5.1) Chloride Level 107mmol/L (98-107) Carbon Dioxide Level 27mmol/L (21-32) Anion Gap 8 (6-14) Blood Urea Nitrogen 35mg/dL (8-26) Creatinine 1.6mg/dL (0.7-1.3) Estimated GFR (Cockcroft-Gault) 41.2 BUN/Creatinine Ratio 22 (6-20) Glucose Level 154mg/dL (70-99) Calcium Level 9.0mg/dL (8.5-10.1) Total Bilirubin 0.9mg/dL (0.2-1.0) Aspartate Amino Transf (AST/SGOT) 20U/L (15-37) Alanine Aminotransferase (ALT/SGPT) 24U/L (16-63) Alkaline Phosphatase 67U/L (46-116) Total Protein 6.9g/dL (6.4-8.2) Albumin 2.6g/dL (3.4-5.0) Albumin/Globulin Ratio 0.6 (1.0-1.7) Glucose (Fingerstick) 124mg/dL (70-99) Laboratory Tests Test 09/29/16 11:45 09/29/16 16:19 09/29/16 20:54 09/30/16 03:44 Glucose (Fingerstick) 285mg/dL (70-99) 220mg/dL (70-99) 259mg/dL (70-99) White Blood Count 7.2x10^3/uL (4.0-11.0) Red Blood Count 4.57x10^6/uL (4.30-5.70) Hemoglobin 12.9g/dL (13.0-17.5) Hematocrit 40.0% (39.0-53.0) Mean Corpuscular Volume 87fL (79-100) Mean Corpuscular Hemoglobin 28pg (25-35) Mean Corpuscular Hemoglobin Concent 32g/dL (31-37) Red Cell Distribution Width 16.9% (11.5-14.5) Platelet Count 162x10^3/uL (140-400) Neutrophils (%) (Auto) 76% (31-73) Lymphocytes (%) (Auto) 13% (24-48) Monocytes (%) (Auto) 10% (0-9) Eosinophils (%) (Auto) 1% (0-3) Basophils (%) (Auto) 0% (0-3) Neutrophils # (Auto) 5.5x10^3uL (1.8-7.7) Lymphocytes # (Auto) 0.9x10^3/uL (1.0-4.8) Monocytes # (Auto) 0.7x10^3/uL (0.0-1.1) Eosinophils # (Auto) 0.0x10^3/uL (0.0-0.7) Basophils # (Auto) 0.0x10^3/uL (0.0-0.2) Prothrombin Time 16.6SEC (11.7-14.0) Prothromb Time International Ratio 1.4 (0.8-1.1) Sodium Level 142mmol/L (136-145) Potassium Level 3.6mmol/L (3.5-5.1) Chloride Level 107mmol/L (98-107) Carbon Dioxide Level 27mmol/L (21-32) Anion Gap 8 (6-14) Blood Urea Nitrogen 35mg/dL (8-26) Creatinine 1.6mg/dL (0.7-1.3) Estimated GFR (Cockcroft-Gault) 41.2 BUN/Creatinine Ratio 22 (6-20) Glucose Level 154mg/dL (70-99) Calcium Level 9.0mg/dL (8.5-10.1) Total Bilirubin 0.9mg/dL (0.2-1.0) Aspartate Amino Transf (AST/SGOT) 20U/L (15-37) Alanine Aminotransferase (ALT/SGPT) 24U/L (16-63) Alkaline Phosphatase 67U/L (46-116) Total Protein 6.9g/dL (6.4-8.2) Albumin 2.6g/dL (3.4-5.0) Albumin/Globulin Ratio 0.6 (1.0-1.7) Test 09/30/16 07:27 Glucose (Fingerstick) 124mg/dL (70-99) Medications Current Medications Sodium Chloride (Iv Sodium Chloride 0.9% 1000ml Bag) 1,000 ml @ 75 mls/hr [id number] IV Last administered on 09/30/16t 00:09; Start 09/27/16 at 18:00 Fentanyl Citrate (Fentanyl 2ml Vial) 50 mcg PRN Q2HR PRN IV PAIN; Start at 18:00 Ondansetron HCl (Zofran) 4 mg PRN Q8HRS PRN IV NAUSEA/VOMITING; Start 09/27/16 at 18:00; Stop 09/28/16 at 21:01; Status DC Insulin Aspart (Novolog) 0-5 UNITS TIDWMEALS SQ Last administered on 09/29/16 17:36; Start 09/28/16 at 08:00 Dextrose 12.5 gm 12.5 gm PRN Q15MIN PRN IV SEE COMMENTS; Start 09/27/16 at 20: 45 Piperacillin Sod/ Tazobactam Sod/ Sodium Chloride (Zosyn/Iv Sodium Chloride 0.9 % 50ml) 50 ml @ 100 mls/hr Q6HRS IV Last administered on 09/30/16 05:59; Start 09/27/16 at 21:30 Acetaminophen (Tylenol) 500 mg PRN DAILY PRN PO PAIN; Start 09/27/16 at 21:00 Lactic Acid (Lac-Hydrin) 225 monica PRN QHS PRN TP DRY SKIN; Start 09/27/16 at 21: 00 Atorvastatin Calcium (Lipitor) 20 mg HS PO Last administered on 09/29/16 21:09 ; Start 09/27/16 at 21:00 Docusate Sodium (Colace) 100 mg BID PO Last administered on 09/30/16 09:57; Start 09/27/16 at 21:00 Dorzolamide HCl (Trusopt) 1 drop TID OU Last administered on 09/30/16 09:55; Start 09/27/16 at 21:00 Finasteride (Proscar) 5 mg DAILY PO Last administered on 09/29/16 09:00; Start 09/28/16 at 09:00 Albuterol/ Ipratropium (Duoneb) 3 ml QID NEB ; Start 09/27/16 at 21:00; Stop 05/06 at 21:18; Status DC Isosorbide Mononitrate (Imdur) 30 mg DAILY PO Last administered on 09/30/16 09 :58; Start 09/28/16 at 09:00 Metoprolol Tartrate (Lopressor) 50 mg BID PO Last administered on 09/30/16 09: 58; Start 09/27/16 at 21:00 Tamsulosin HCl (Flomax) 0.4 mg DAILY PO Last administered on 09/30/16 09:57; Start 09/28/16 at 09:00 Non-Formulary Medication 2 puff BID IH ; Start 09/27/16 at 21:00; Status UNV Artificial Tears (Artificial Tears) 1 drop QID OU Last administered on 09:02; Start 09/27/16 at 21:30 Insulin Detemir (Levemir) 35 units QHS SQ Last administered on 09/29/16 21:13 ; Start 09/27/16 at 21:00 Insulin Aspart 15 units 15 units TIDAC SQ Last administered on 09/30/16 10:02 ; Start 09/28/16 at 07:30 Phytonadione/ Sodium Chloride (Vitamin K/Iv Sodium Chloride 0.9% 50ml) 50.2 ml @ 102 mls/hr 1X ONCE IV Last administered on 09/27/16 21:51; Start 09/27/16 at 21:30; Stop 09/27/16 at 21:59; Status DC Albuterol/ Ipratropium (Duoneb) 3 ml RTQID NEB Last administered on 09/30/16 07:04; Start 09/28/16 at 08:00 Budesonide (Pulmicort) 0.5 mg RTBID NEB Last administered on 09/30/16 07:04; Start 09/28/16 at 08:00 Albuterol Sulfate (Ventolin Neb Soln) 2.5 mg 1X ONCE NEB Last administered on 09/28/16 06:21; Start 09/28/16 at 06:15; Stop 09/28/16 at 06:16; Status DC Non-Formulary Medication 1 ea HS OU Last administered on 09/29/16 21:10; Start 09/28/16 at 21:00 Warfarin Sodium (Coumadin Per Pharmacy) 1 each PRN DAILY PRN MC SEE COMMENTS Last administered on 09/29/16 13:26; Start 09/28/16 at 14:45 Ondansetron HCl 4 mg 4 mg STK-MED ONCE .ROUTE ; Start 09/28/16 at 19:22; Stop at 19:23; Status DC Propofol (Diprivan) 20 ml @ As Directed STK-MED ONCE IV ; Start 09/28/16 at 19: 22; Stop 09/28/16 at 19:23; Status DC Lidocaine HCl 100 mg STK-MED ONCE .ROUTE ; Start 09/28/16 at 19:22; Stop at 19:23; Status DC Fentanyl Citrate (Fentanyl 2ml Vial) 100 mcg STK-MED ONCE .ROUTE ; Start at 19:22; Stop 09/28/16 at 19:23; Status DC Succinylcholine Chloride (Anectine) 200 mg STK-MED ONCE .ROUTE ; Start 09/28/16 at 19:23; Stop 09/28/16 at 19:24; Status DC Rocuronium Maxie (Zemuron) 50 mg STK-MED ONCE .ROUTE ; Start 09/28/16 at 19:23 ; Stop 09/28/16 at 19:24; Status DC Bupivacaine HCl/ Epinephrine Bitart (Sensorcain-Mpf Epi 0.5%-1:[id number]) 30 ml STK -MED ONCE .ROUTE Last administered on 09/28/16t 20:28; Start 09/28/16 at 19:31 ; Stop 09/28/16 at 19:32; Status DC Ondansetron HCl (Zofran) 4 mg PRN Q6HRS PRN IV Nausea; Start 09/28/16 at 20:00 ; Stop 09/29/16 at 07:01; Status DC Fentanyl Citrate (Fentanyl 2ml Vial) 25 mcg PRN Q5MIN PRN IV MILD PAIN; Start 09/28/16 at 20:00; Stop 09/29/16 at 07:01; Status DC Fentanyl Citrate (Fentanyl 2ml Vial) 50 mcg PRN Q5MIN PRN IV MODERATE PAIN; Start 09/28/16 at 20:00; Stop 09/29/16 at 07:01; Status DC Morphine Sulfate 1 mg 1 mg PRN Q10MIN PRN IV SEVERE PAIN; Start 09/28/16 at 20: 00; Stop 09/29/16 at 07:01; Status DC Lactated Ringer's (Iv Lactated Ringers) 1,000 ml @ 0 mls/hr Q0M IV ; Start 06/06 at 20:00; Stop 09/29/16 at 07:01; Status DC Lidocaine HCl 2 ml 1X PRN PRN ID IV START; Start 09/28/16 at 20:00; Stop at 07:01; Status DC Hydromorphone HCl (Dilaudid) 0.5 mg PRN Q10MIN PRN IV SEV PAIN,Second choice; Start 09/28/16 at 20:00; Stop 09/29/16 at 07:01; Status DC Prochlorperazine Edisylate (Compazine) 5 mg PACU PRN PRN IV NAUSEA Last administered on 09/28/16 21:09; Start 09/28/16 at 20:00; Stop 09/29/16 at 07:01 ; Status DC Phenylephrine HCl 1 mg STK-MED ONCE IV ; Start 09/28/16 at 20:16; Stop 09/28/16 at 20:17; Status DC Warfarin Sodium (Coumadin) 2 mg 1X ONCE PO Last administered on 09/28/16 22: 00; Start 09/28/16 at 21:00; Stop 09/28/16 at 21:01; Status DC Dexamethasone Sodium Phosphate (Decadron) 20 mg STK-MED ONCE .ROUTE ; Start 06/06 at 20:33; Stop 09/28/16 at 20:34; Status DC Glycopyrrolate (Robinul) 1 mg STK-MED ONCE .ROUTE ; Start 09/28/16 at 20:34; Stop 09/28/16 at 20:35; Status DC Neostigmine Methylsulfate 5 mg STK-MED ONCE .ROUTE ; Start 09/28/16 at 20:34; Stop 09/28/16 at 20:35; Status DC Sevoflurane (Ultane) 60 ml STK-MED ONCE IH ; Start 09/28/16 at 20:44; Stop 09/28 at 20:45; Status DC Enoxaparin Sodium (Lovenox 40mg Syringe) 40 mg Q24H SQ Last administered on 09:57; Start 09/29/16 at 09:00 Sodium Chloride 3 ml 3 ml QSHIFT PRN IV AFTER MEDS AND BLOOD DRAWS; Start 09/28 at 21:00 Lactated Ringer's (Iv Lactated Ringers) 1,000 ml @ 100 mls/hr Q10H IV ; Start 09/28/16 at 22:00 Acetaminophen/ Hydrocodone Bitart (Lortab 5/325) 1 tab PRN Q4HRS PRN PO MILD PAIN Last administered on 09/29/16 22:24; Start 09/28/16 at 21:00 Docusate Sodium (Colace) 100 mg BID PO ; Start 09/28/16 at 21:00; Status UNV Ondansetron HCl (Zofran) 4 mg PRN Q6HRS PRN IV NAUESA, 1ST CHOICE; Start at 21:00 Warfarin Sodium (Coumadin) 2 mg 1X WARF ONCE PO Last administered on t 17:28; Start 09/29/16 at 16:00; Stop 09/29/16 at 16:01; Status DC Warfarin Sodium (Coumadin) 2 mg 1X ONCE PO ; Start 09/29/16 at 18:30; Stop 07/06 at 18:31; Status UNV Active Scripts Active Amox Tr-K Clv 875-125 Mg Tab (Amoxicillin/Potassium Clav) 1 Each Tablet 1 Tab PO BID Reported Docusate Sodium 100 Mg Capsule 1 Cap PO BID Acetaminophen 500 Mg Tablet 1 Tab PO PRN DAILY PRN Novolog Flexpen (Insulin Aspart) 100 Unit/1 Ml Insuln.pen 28 Unit SQ DAILYWSUP Novolog Flexpen (Insulin Aspart) 100 Unit/1 Ml Insuln.pen 10 Unit SQ Warfarin Sodium 1 Mg Tablet 1 Mg PO WEEKLY Warfarin Sodium 1 Mg Tablet 1 Mg PO DAILY Travatan Z (Travoprost) 5 Ml Drops 1 Drop EACHEYE QHS Tamsulosin Hcl 0.4 Mg Cap.er.24h 2 Cap PO DAILY Metoprolol Tartrate 50 Mg Tablet 1 Tab PO BID Losartan Potassium 50 Mg Tablet 50 Mg PO DAILY Isosorbide Mononitrate 20 Mg Tablet 30 Mg PO DAILY Lantus (Insulin Glargine,Hum.rec.anlog) 100 Unit/1 Ml Vial 72 Unit SQ HS Imiquimod 1 Each Cream.pack 1 Each TP 3X/WEEK Hydrocortisone-Iodoquinol Crm (Hydrocortisone/Iodoquinol) 28.4 Gm Cream..g. 28.4 Gm TP PRN BID PRN Furosemide 40 Mg Tablet 1 Tab PO DAILY Finasteride 5 Mg Tablet 1 Tab PO DAILY Dorzolamide Hcl 10 Ml Drops 1 Drop EACHEYE TID Vitamin D-3 (Cholecalciferol (Vitamin D3)) 2,000 Unit Capsule 1,000 Unit PO DAILY Refresh Optive Eye Drops (Carboxymethylcellulos/Glycerin) 15 Ml Drops 1 Drop EACHEYE QID Symbicort 160-4.5 Mcg Inhaler (Budesonide/Formoterol Fumarate) 10.2 Gm Hfa.aer.ad 2 Puff IH BID Bacitracin-Polymyxin Eye Oint (Bacitracin/Polymyxin B Sulfate) 3.5 Gm Oint...g. 3.5 Gm OP PRN DAILY PRN Atorvastatin Calcium 20 Mg Tablet 20 Mg PO HS Ammonium Lactate 225 Gm Lotion 225 Gm TP HS PRN Duoneb 0.5-3(2.5) Mg/3 Ml (Albuterol/Ipratropium) 3 Ml Ampul.neb 3 Ml NEB QID Vitals/I & O Vital Sign - Last 24 Hours 09/29/16 09/29/16 09/29/16 09/29/16 11:00 11:08 15:00 15:31 Temp 96.3 97.6 96.3 97.6 Pulse 71 63 Resp 22 20 B/P 143/53 131/58 Pulse Ox 97 97 O2 Delivery Room Air Nasal Cannula Room Air Nasal Cannula O2 Flow Rate 2.0 2.0 09/29/16 09/29/16 09/29/16 09/29/16 19:00 19:32 19:35 20:10 Temp 97.4 97.4 Pulse 66 Resp 22 B/P 135/50 Pulse Ox 96 98 98 O2 Delivery Room Air Room Air Room Air Room Air 09/29/16 09/29/16 09/29/16 09/29/16 21:10 22:24 23:17 23:24 Temp 97.7 97.7 Pulse 66 72 Resp 20 20 18 B/P 135/50 146/69 Pulse Ox 96 O2 Delivery Room Air Room Air Room Air 09/30/16 09/30/16 09/30/16 09/30/16 03:18 07:00 07:06 09:58 Temp 97.5 97.5 97.5 97.5 Pulse 61 69 69 Resp 18 18 B/P 99/63 145/57 145/57 Pulse Ox 96 95 97 O2 Delivery Room Air Nasal Cannula Room Air O2 Flow Rate 3.0 09/30/16 09:58 Pulse 69 B/P 145/57 Intake and Output 09/29/16 09/29/16 09/30/16 15:00 23:00 07:00 Intake Total 220 ml 300 ml 2400 ml Balance 220 ml 300 ml 2400 ml JOCELINE JAIME MD Sep 30, 2016 10:13
--- NOTE | 2016-09-30 10:43 | OP ---
DATE OF SURGERY: 09/28/2016 REFERRING PHYSICIANS: Dr. Alpesh Blanco, Dr. Ana Paula Reeves, Dr. Kamilah Cronin, Dr. Jenaro Ash, [place]. PREOPERATIVE DIAGNOSIS: Appendicitis. POSTOPERATIVE DIAGNOSIS: Appendicitis. PROCEDURE: Laparoscopic appendectomy. SURGEON: Dr. Ayush Wang. ESTIMATED BLOOD LOSS: 10 mL. COMPLICATIONS: None. FINDINGS: Thickened appendix, morbid obesity, serous fluid in the abdominal cavity. INDICATIONS: This is an 86-year-old male presents with fever and abdominal pain. Imaging was concerning for possible appendicitis. Subsequently, it was felt the patient best be served by laparoscopic versus open appendectomy. The patient was informed of the risks, benefits and alternatives to procedure, risks including but not limited to bleeding, infection, damage to the surrounding structures, risk of anesthesia, risk of an open procedure. The patient appears to understand and his insightful questions were answered and he agrees to proceed. DESCRIPTION OF PROCEDURE: After obtaining informed consent, the patient was taken to operating room, induced under general endotracheal anesthetic. The patient was prepped and draped in usual fashion at the anterior abdominal wall. A 0.5% Marcaine with epinephrine was injected in the supraumbilical area. Incision was made using 15 blade scalpel. A 5-mm nonbladed trocar was introduced in the abdominal cavity under direct vision of the laparoscope. Pneumoperitoneum was established. Additional 12 port was placed in the right upper quadrant and another 5 mm port was placed in the right lower quadrant, all under direct vision of the laparoscope. The abdominal cavity was explored. The liver was normal in appearance. There is large amount of intra-abdominal fat obliterating visualization of both structures. There was no evidence of other pathology in the abdominal cavity. Visualized portion of the colon and small bowel were normal in appearance. There was some serous fluid in the abdominal cavity, but no evidence of purulence. The appendix was identified coming off the confluence of tinea at the level of the cecum noted to be somewhat thickened and fatty in nature, but no erythema. Subsequently, a defect was created in the mesoappendix. A general load ASIF stapler was taken across the base of the appendix. Multiple vascular load was taken across the mesoappendix. Additional hemostasis was obtained on the mesoappendix using clips. The appendix was placed in EndoCatch bag and brought out through the right upper quadrant port and passed off field and sent to Pathology for evaluation. The abdominal cavity was copiously irrigated with normal saline solution. There was no evidence of bleeding or other pathology at the time of closure. All ports removed under direct vision of laparoscope. There was no evidence port site bleeding. The fascial defect in the right upper quadrant was reapproximated using interrupted 0 Vicryl stitch using Endo Close. All skin incisions were reapproximated with multiple interrupted 4-0 Monocryl in subcuticular fashion. Sterile dressing was placed over all wounds. The patient tolerated the procedure well and was discharged to recovery room in stable condition. All counts correct. There were no immediate complications. AYUSH WANG MD DR: MARCE/dain JOB#: [id number] / [id number] ANA PAULA Millre MD, SUNITHA MD RODRIGUEZ, HECTOR MD ____, Dr. LYNN
[2016-09-30 11:00] VITALS: BP 152/66
[2016-09-30] MEDS: FINASTERIDE 5 MG TABLET PO SCH (11:41)
--- NOTE | 2016-09-30 11:43 | PDOC ---
Provider Note Provider Note denies abd pain. wants to go home. he tells me that [facility]madin afeb vss abd soft nd nt inc cdi a/p ok to dc home. dc abx. SHAWN LONDON MD Sep 30, 2016 11:43
[2016-09-30] MEDS ORDERED: PANTOPRAZOLE 40 MG TABLET. PO SCH (12:00)
[2016-09-30 15:00] VITALS: BP 140/64
--- NOTE | 2016-09-30 15:17 | PDOC ---
PROGRESS NOTES Chief Complaint Chief Complaint Appendicitis ASSESSMENT AND PLAN: 1. Appendicitis; s/p lap monica.y on 09/[address] Wang. recovering w/o complications 2. Sepsis: resolved. stop empiric Abx 3. OAC: on warferin for Afib. reversed with vit K pre-op. restart now. 4. Afib: rate controlled on lopressor 5. CAD: no acute issues. cont home regimen 6. DM: on long and short-acting insulin with currently poor control. levemir at 1/2 of home dose; increase 7. BPH: cont home regimen 8. Dispo: home today; f/U with surgery and cardiology Vitals Vitals Vital Signs Date Time Temp Pulse Resp B/P Pulse Ox O2 Delivery O2 Flow Rate FiO2 09/30/16 11:11 Room Air 09/30/16 11:00 97.6 67 18 152/66 97 3.0 97.6 Physical Exam General: Alert, Oriented X3, Cooperative, No acute distress Heart: No murmurs Lungs: Clear Abdomen: Normal bowel sounds, Soft, No tenderness Extremities: No clubbing Skin: No rashes Labs LABS Laboratory Tests Test 09/29/16 16:19 09/29/16 20:54 09/30/16 03:44 09/30/16 07:27 Glucose (Fingerstick) 220mg/dL (70-99) 259mg/dL (70-99) 124mg/dL (70-99) White Blood Count 7.2x10^3/uL (4.0-11.0) Red Blood Count 4.57x10^6/uL (4.30-5.70) Hemoglobin 12.9g/dL (13.0-17.5) Hematocrit 40.0% (39.0-53.0) Mean Corpuscular Volume 87fL (79-100) Mean Corpuscular Hemoglobin 28pg (25-35) Mean Corpuscular Hemoglobin Concent 32g/dL (31-37) Red Cell Distribution Width 16.9% (11.5-14.5) Platelet Count 162x10^3/uL (140-400) Neutrophils (%) (Auto) 76% (31-73) Lymphocytes (%) (Auto) 13% (24-48) Monocytes (%) (Auto) 10% (0-9) Eosinophils (%) (Auto) 1% (0-3) Basophils (%) (Auto) 0% (0-3) Neutrophils # (Auto) 5.5x10^3uL (1.8-7.7) Lymphocytes # (Auto) 0.9x10^3/uL (1.0-4.8) Monocytes # (Auto) 0.7x10^3/uL (0.0-1.1) Eosinophils # (Auto) 0.0x10^3/uL (0.0-0.7) Basophils # (Auto) 0.0x10^3/uL (0.0-0.2) Prothrombin Time 16.6SEC (11.7-14.0) Prothromb Time International Ratio 1.4 (0.8-1.1) Sodium Level 142mmol/L (136-145) Potassium Level 3.6mmol/L (3.5-5.1) Chloride Level 107mmol/L (98-107) Carbon Dioxide Level 27mmol/L (21-32) Anion Gap 8 (6-14) Blood Urea Nitrogen 35mg/dL (8-26) Creatinine 1.6mg/dL (0.7-1.3) Estimated GFR (Cockcroft-Gault) 41.2 BUN/Creatinine Ratio 22 (6-20) Glucose Level 154mg/dL (70-99) Calcium Level 9.0mg/dL (8.5-10.1) Total Bilirubin 0.9mg/dL (0.2-1.0) Aspartate Amino Transf (AST/SGOT) 20U/L (15-37) Alanine Aminotransferase (ALT/SGPT) 24U/L (16-63) Alkaline Phosphatase 67U/L (46-116) Total Protein 6.9g/dL (6.4-8.2) Albumin 2.6g/dL (3.4-5.0) Albumin/Globulin Ratio 0.6 (1.0-1.7) Test 09/30/16 10:57 Glucose (Fingerstick) 263mg/dL (70-99) Review of Systems Review of Systems feels great, eager to go home. cautious with diet, but denies nausea or abd pain Comment Review of Relevant KAYLAH MADRIGAL MD Sep 30, 2016 15:17
[2016-09-30] MEDS ORDERED: INSU100V8 SQ (15:55)
[2016-09-30] MEDS ORDERED: HYDR-2666 PO (15:55)
[2016-09-30] MEDS ORDERED: WARFARIN 2 MG TABLET. PO ONE (16:00)
--- NOTE | 2016-10-02 08:30 | PATHOLOGY ---
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 COMMENT: There is fibrofatty obliteration of the distal appendiceal lumen with neuromatous hyperplasia within the area previously occupied by the appendiceal mucosa. There is no evidence of an acute appendicitis. (JPM:csd; d/t: 10/01/2016) REPORT ELECTRONICALLY SIGNED BY: Keya Barcenas M.D. DATE/TIME: 10/02/2016 08:30 * * * * * * * * GROSS PATHOLOGY: Received in formalin labeled "kenji Mejía," is an appendix measuring 5.7 cm in length and 0.8 cm in diameter with a large amount of attached mesoappendix. The serosal surface is pale woody and grossly unremarkable. Sectioning reveals a pinpoint to patent lumen filled with fecal material. [employer] sections are submitted in cassette A1. (CAA; 09/30/2016) INITIAL CPT CODE(S): A; 67361 Professional services performed [place] [facility] [address] Technical services performed by [facility] at [address] [place] [address] [address] [address]. SPECIMEN(S) RECEIVED: A.Appendix CLINICAL HISTORY: Appendicitis PATIENT: KEYA FAGAN /AGE: 1207/02/1930 (Age: 86) PATIENT #: [id number] ALT CASE #: SPECIMEN COLLECTION DATE: 09/28/2016 SPECIMEN RECEIVED DATE: 09/30/2016 [facility] - [address] [place] [address] - PHONE: [phone] * * * END OF REPORT * * *
--- NOTE | 2016-10-03 00:23 | DS ---
DATE OF DISCHARGE: 09/30/2016 CHIEF COMPLAINT: Appendicitis. HOSPITAL COURSE: The patient is an 86-year-old gentleman, who was brought in from home with abdominal pain. This was shown the Emergency Room to be consistent with appendicitis and he was therefore taken for laparoscopic appendectomy on 09/28/[address] Wang. He recovered without any significant issues. Mild sepsis symptoms at the time of admission resolved and empiric antibiotics were stopped. His chronic health issues including atrial fibrillation and diabetes were managed and required mild adjustment in medications during hospitalization. He was deemed ready for discharge by Surgery as well as Cardiology Services, which were following on 09/30/2016. DISCHARGE PHYSICAL EXAMINATION: Please refer to note from the same day. DISCHARGE DIAGNOSES: Appendicitis, atrial fibrillation, diabetes mellitus. DISCHARGE DISPOSITION: To home with services. DISCHARGE MEDICATIONS: Please refer to medication sheet. DISCHARGE INSTRUCTIONS: The patient will follow up with Dr. Wang in 10-14 days. He will see his PCP in a week to two weeks. greater than 30 minutes were spent in arranging discharge. KAYLAH MADRIGAL MD DR: UR/nts JOB#: [id number] / [id number] KASSANDRA Ch MD
== END 2016-09-30 16:43 | disposition home health service (06) | DRG 854 ==
LOC: 4 NORTH 17:52 → EDSEX 17:52
PROVIDERS: ADMIT Internal Medicine; ATTEND Internal Medicine
PROC: 0DTJ4ZZ Resection of Appendix, Percutaneous Endoscopic Approach (ICD-10-PCS; principal; 2016-09-28 20:00)
DX: A41.9 Sepsis, unspecified organism (principal); I50.32 Chronic diastolic (congestive) heart failure; K35.80 Unspecified acute appendicitis; I13.0 Hypertensive heart and chronic kidney disease with heart failure and stage 1 through stage 4 chronic kidney disease, or unspecified chronic kidney disease; E44.0 Moderate protein-calorie malnutrition; I48.91 Unspecified atrial fibrillation; E11.51 Type 2 diabetes mellitus with diabetic peripheral angiopathy without gangrene; I10 Essential (primary) hypertension; E66.01 Morbid (severe) obesity due to excess calories; I25.10 Atherosclerotic heart disease of native coronary artery without angina pectoris; I35.0 Nonrheumatic aortic (valve) stenosis; I48.2 Chronic atrial fibrillation; J44.9 Chronic obstructive pulmonary disease, unspecified; N40.0 Benign prostatic hyperplasia without lower urinary tract symptoms; G89.29 Other chronic pain; M54.5 Low back pain; E11.22 Type 2 diabetes mellitus with diabetic chronic kidney disease; N18.9 Chronic kidney disease, unspecified; Z88.8 Allergy status to other drugs, medicaments and biological substances; Z68.37 Body mass index [BMI] 37.0-37.9, adult; Z88.1 Allergy status to other antibiotic agents; Z79.01 Long term (current) use of anticoagulants
CPT/HCPCS: 36415; 80053; 82947; 85007; 85027; 85610; 86850; 86900; 86901; 86927; 88304; 94640; C1782; J0330; J0780; J1100; J1650; J1815; J2370; J2405; J2543; J2704; J2710; J3010; J3430; J3490; J7030; J7620; P9017

== ENCOUNTER 2017-12-16 03:36 | Inpatient (IN) | payer MEDICARE, OTHER ==
[2017-12-16 03:48] LABS: BASE EXCESS ABG -3 mmol/L (-3-3); HCO3 ABG 25 mmol/L (21-28); PCO2 ABG 56 mmHg (35-46); PH ABG 7.28 (7.35-7.45); PO2 ABG 85 mmHg (65-108); SAT O2 ABG 95 % (92-99)
[2017-12-16] MEDS: IPRATRPIUM/ALBUTEROL 0.5/2.5MG 3 ML NEBU. NEB ×3 (04:00→20:11)
[2017-12-16 04:01] LABS: BASO # 0.1 x10^3/uL (0.0-0.2); BASO % 1 % (0-3); EOS % 0 % (0-3); HEMOGLOBIN 15.8 g/dL (13.0-17.5); LYMPH # 1.1 x10^3/uL (1.0-4.8); LYMPH % 17 % (24-48); MEAN CORPUSCULAR HEMOGLOBIN 30 pg (25-35); MEAN CORPUSCULAR HGB CONC 33 g/dL (31-37); MEAN CORPUSCULAR VOLUME 92 fL (79-100); MONO # 1.3 x10^3/uL (0.0-1.1); MONO % 19 % (0-9); NEUT # 4.3 x10^3uL (1.8-7.7); NEUT % 63 % (31-73); PLATELET COUNT 138 x10^3/uL (140-400); RED BLOOD COUNT 5.24 x10^6/uL (4.30-5.70); RED CELL DISTRIBUTION WIDTH 15.7 % (11.5-14.5); WHITE BLOOD COUNT 6.8 x10^3/uL (4.0-11.0)
[2017-12-16 04:05] LABS: ADD MAN DIFF? YES
[2017-12-16 04:12] LABS: INR 2.1 (0.8-1.1); PROTHROMBIN TIME PATIENT 22.9 SEC (11.7-14.0)
[2017-12-16 04:14] LABS: ANION GAP 9 (6-14); BLOOD UREA NITROGEN 44 mg/dL (8-26); BUN/CREATININE RATIO 20 (6-20); CALCIUM 9.2 mg/dL (8.5-10.1); CARBON DIOXIDE 27 mmol/L (21-32); CHLORIDE 101 mmol/L (98-107); CREATININE 2.2 mg/dL (0.7-1.3); GFR 28.5; GLUCOSE 305 mg/dL (70-99); POTASSIUM 5.1 mmol/L (3.5-5.1); SODIUM 137 mmol/L (136-145)
[2017-12-16 04:20] LABS: ALBUMIN 3.6 g/dL (3.4-5.0); ALBUMIN/GLOBULIN RATIO 0.8 (1.0-1.7); ALK PHOS 101 U/L (46-116); ALT (SGPT) 33 U/L (16-63); AST (SGOT) 27 U/L (15-37); TOTAL PROTEIN 8.3 g/dL (6.4-8.2)
[2017-12-16 04:26] LABS: LACTIC ACID 1.9 mmol/L (0.4-2.0); NT-PRO BNP 8550 pg/mL (0-449)
[2017-12-16] MEDS: DOXYCYCLINE HYCLATE 100 MG in IV NORMAL SALINE 100ML 100 ML IV (04:30)
[2017-12-16 04:32] LABS: TROPONINI 0.064 ng/mL (0.000-0.055)
[2017-12-16] MEDS: FUROSEMIDE 40 MG/4 ML VIAL. IVP ×2 (04:36→14:51)
[2017-12-16] MEDS: ASPIRIN CHEWABLE 81 MG TABLET. PO (04:48)
[2017-12-16 08:20] LABS: TROPONINI 0.081 ng/mL (0.000-0.055)
[2017-12-16 10:40] LABS: % ATYL 2 % (0-0); % BANDS 12 % (0-9)
[2017-12-16 10:46] LABS: ANISOCYTOSIS SLIGHT; OVALOCYTES FEW; PLT ESTIMATE ADEQUATE (ADEQUATE)
[2017-12-16 10:49] LABS: % LYMPHS 12 % (24-48); % MONOS 13 % (0-10); % SEGS 61 % (35-66)
[2017-12-16 11:24] LABS: TROPONINI 0.067 ng/mL (0.000-0.055)
[2017-12-16] MEDS ORDERED: HYDROCORTISONE TP (13:00)
[2017-12-16] MEDS ORDERED: BACITRACIN/POLYMYXIN B OPHTH OINTMENT 3.5GM TUBE. OU (13:00)
[2017-12-16] MEDS ORDERED: IPRATRPIUM/ALBUTEROL 0.5/2.5MG 3 ML NEBU. NEB (13:00)
[2017-12-16] MEDS ORDERED: IODOQUINOL TP (13:00)
[2017-12-16] MEDS ORDERED: AMMONIUM LACTATE 12% TOPICAL LOTION 226GM BOTTLE. TP (13:00)
[2017-12-16] MEDS: CETIRIZINE HCL 10 MG TABLET. PO (14:51)
[2017-12-16] MEDS: DOCUSATE SODIUM 100 MG CAPSULE. PO ×2 (14:51→21:00)
[2017-12-16] MEDS: FINASTERIDE 5 MG TABLET. PO (14:51)
[2017-12-16] MEDS: TAMSULOSIN 0.4 MG CAP.ER.24H. PO (14:51)
[2017-12-16] MEDS: ISOSORBIDE MONONITRATE ER 30 MG TAB.ER.24H PO (14:52)
[2017-12-16] MEDS: CHOLECALCIFEROL (VITAMIN D3) 1,000 UNIT TABLET PO (14:52)
[2017-12-16] MEDS: WARFARIN 2 MG TABLET. PO (14:52)
[2017-12-16] MEDS: POLYVINYL ALCOHOL 1.4% OPHTH SOLUTION 15ML BOTTLE. OU ×2 (14:53→21:00)
[2017-12-16] MEDS: DORZOLAMIDE 2% OPHTH SOLUTION 10ML BOTTLE. OU ×2 (14:53→21:00)
[2017-12-16] MEDS: MUPIROCIN 2 % TOPICAL CREAM 15GM TUBE. TP (14:53)
[2017-12-16] MEDS: SPIRONOLACTONE 25 MG TABLET PO (14:53)
[2017-12-16] MEDS: METOPROLOL TART IMMED RELEASE 50 MG TABLET. PO ×2 (16:28→21:00)
[2017-12-16 16:40] LABS: BASE EXCESS ABG 2 mmol/L (-3-3); HCO3 ABG 28 mmol/L (21-28); PCO2 ABG 51 mmHg (35-46); PH ABG 7.36 (7.35-7.45); PO2 ABG 68 mmHg (65-108); SAT O2 ABG 93 % (92-99)
[2017-12-16 16:41] LABS: FIO2 ABG 30
[2017-12-16] MEDS: INSULIN LISPRO 300 UNITS/3 ML INSULN.PEN. SQ ×2 (17:00→17:13)
[2017-12-16 17:16] LABS: POC GLUCOSE 358 mg/dL (70-99)
[2017-12-16] MEDS: BUDESONIDE 0.5 MG/2 ML NEBU. NEB (20:11)
[2017-12-16] MEDS: ATORVASTATIN CALCIUM 20 MG TABLET PO (21:32)
[2017-12-16] MEDS: INSULIN GLARGINE 300 UNITS/3 ML INSULN.PEN. SQ (21:36)
[2017-12-16 21:37] LABS: POC GLUCOSE 233 mg/dL (70-99)
[2017-12-17] MEDS ORDERED: FUROSEMIDE 40 MG/4 ML VIAL. IVP (02:00)
[2017-12-17] MEDS: IPRATRPIUM/ALBUTEROL 0.5/2.5MG 3 ML NEBU. NEB ×4 (07:23→20:19)
[2017-12-17] MEDS: BUDESONIDE 0.5 MG/2 ML NEBU. NEB ×2 (08:00→20:19)
[2017-12-17] MEDS: INSULIN LISPRO 300 UNITS/3 ML INSULN.PEN. SQ ×4 (08:29→17:43)
[2017-12-17 08:35] LABS: POC GLUCOSE 226 mg/dL (70-99)
[2017-12-17] MEDS: IMIQUIMOD TP (09:00)
[2017-12-17] MEDS: TAMSULOSIN 0.4 MG CAP.ER.24H. PO ×2 (09:00→20:18)
[2017-12-17] MEDS: FUROSEMIDE 40 MG/4 ML VIAL. IVP ×2 (10:30→13:52)
[2017-12-17] MEDS: POLYVINYL ALCOHOL 1.4% OPHTH SOLUTION 15ML BOTTLE. OU ×4 (10:30→20:20)
[2017-12-17] MEDS: DORZOLAMIDE 2% OPHTH SOLUTION 10ML BOTTLE. OU ×4 (10:31→20:24)
[2017-12-17] MEDS: CETIRIZINE HCL 10 MG TABLET. PO (10:32)
[2017-12-17] MEDS: CHOLECALCIFEROL (VITAMIN D3) 1,000 UNIT TABLET PO (10:32)
[2017-12-17] MEDS: FINASTERIDE 5 MG TABLET. PO (10:33)
[2017-12-17] MEDS: DOCUSATE SODIUM 100 MG CAPSULE. PO ×2 (10:33→20:18)
[2017-12-17] MEDS: ISOSORBIDE MONONITRATE ER 30 MG TAB.ER.24H PO (10:33)
[2017-12-17] MEDS: SPIRONOLACTONE 25 MG TABLET PO (10:34)
[2017-12-17] MEDS: METOPROLOL TART IMMED RELEASE 50 MG TABLET. PO ×2 (10:34→20:18)
[2017-12-17] MEDS: MUPIROCIN 2 % TOPICAL CREAM 15GM TUBE. TP (10:35)
[2017-12-17 12:49] LABS: POC GLUCOSE 224 mg/dL (70-99)
[2017-12-17] MEDS: WARFARIN 1 MG TABLET. PO (16:52)
[2017-12-17 17:03] LABS: POC GLUCOSE 337 mg/dL (70-99)
[2017-12-17] MEDS: ATORVASTATIN CALCIUM 20 MG TABLET PO (20:17)
[2017-12-17] MEDS: INSULIN GLARGINE 300 UNITS/3 ML INSULN.PEN. SQ (20:35)
[2017-12-17 21:05] LABS: POC GLUCOSE 226 mg/dL (70-99)
[2017-12-18 03:43] LABS: ADD MAN DIFF? NO
[2017-12-18 03:50] LABS: BASO # 0.1 x10^3/uL (0.0-0.2); BASO % 1 % (0-3); EOS # 0.2 x10^3/uL (0.0-0.7); EOS % 3 % (0-3); HEMATOCRIT 43.9 % (39.0-53.0); HEMOGLOBIN 14.9 g/dL (13.0-17.5); LYMPH # 1.2 x10^3/uL (1.0-4.8); LYMPH % 14 % (24-48); MEAN CORPUSCULAR HEMOGLOBIN 31 pg (25-35); MEAN CORPUSCULAR HGB CONC 34 g/dL (31-37); MEAN CORPUSCULAR VOLUME 90 fL (79-100); MONO # 1.3 x10^3/uL (0.0-1.1); MONO % 15 % (0-9); NEUT # 6.1 x10^3uL (1.8-7.7); NEUT % 68 % (31-73); PLATELET COUNT 153 x10^3/uL (140-400); RED BLOOD COUNT 4.86 x10^6/uL (4.30-5.70); RED CELL DISTRIBUTION WIDTH 15.7 % (11.5-14.5); WHITE BLOOD COUNT 8.9 x10^3/uL (4.0-11.0)
[2017-12-18 04:06] LABS: ALBUMIN 2.9 g/dL (3.4-5.0); ALBUMIN/GLOBULIN RATIO 0.7 (1.0-1.7); ALK PHOS 93 U/L (46-116); ALT (SGPT) 25 U/L (16-63); ANION GAP 3 (6-14); AST (SGOT) 24 U/L (15-37); BLOOD UREA NITROGEN 48 mg/dL (8-26); BUN/CREATININE RATIO 24 (6-20); CARBON DIOXIDE 35 mmol/L (21-32); CHLORIDE 103 mmol/L (98-107); GFR 31.8; GLUCOSE 134 mg/dL (70-99); PHOSPHORUS 3.6 mg/dL (2.6-4.7); SODIUM 141 mmol/L (136-145); TOTAL PROTEIN 7.2 g/dL (6.4-8.2)
[2017-12-18] MEDS: IPRATRPIUM/ALBUTEROL 0.5/2.5MG 3 ML NEBU. NEB ×4 (08:05→19:39)
[2017-12-18] MEDS: BUDESONIDE 0.5 MG/2 ML NEBU. NEB ×2 (08:05→19:39)
[2017-12-18 08:06] LABS: POC GLUCOSE 149 mg/dL (70-99)
[2017-12-18] MEDS: POLYVINYL ALCOHOL 1.4% OPHTH SOLUTION 15ML BOTTLE. OU ×4 (09:00→21:00)
[2017-12-18] MEDS: MUPIROCIN 2 % TOPICAL CREAM 15GM TUBE. TP (09:00)
[2017-12-18] MEDS: INSULIN LISPRO 300 UNITS/3 ML INSULN.PEN. SQ ×4 (09:07→17:57)
[2017-12-18] MEDS: FUROSEMIDE 40 MG/4 ML VIAL. IVP ×2 (09:08→16:15)
[2017-12-18] MEDS: SPIRONOLACTONE 25 MG TABLET PO (09:10)
[2017-12-18] MEDS: CHOLECALCIFEROL (VITAMIN D3) 1,000 UNIT TABLET PO (09:10)
[2017-12-18] MEDS: DOCUSATE SODIUM 100 MG CAPSULE. PO ×2 (09:10→21:03)
[2017-12-18] MEDS: CETIRIZINE HCL 10 MG TABLET. PO (09:10)
[2017-12-18] MEDS: FINASTERIDE 5 MG TABLET. PO (09:10)
[2017-12-18] MEDS: DORZOLAMIDE 2% OPHTH SOLUTION 10ML BOTTLE. OU ×3 (09:10→21:03)
[2017-12-18] MEDS: ISOSORBIDE MONONITRATE ER 30 MG TAB.ER.24H PO (09:13)
[2017-12-18] MEDS: METOPROLOL TART IMMED RELEASE 50 MG TABLET. PO ×2 (09:13→21:03)
[2017-12-18 09:32] LABS: INR 2.6 (0.8-1.1); PROTHROMBIN TIME PATIENT 27.1 SEC (11.7-14.0)
[2017-12-18] MEDS: ACETAMINOPHEN 500 MG TABLET PO (10:58)
[2017-12-18 11:27] LABS: POC GLUCOSE 220 mg/dL (70-99)
[2017-12-18] MEDS: WARFARIN 2 MG TABLET. PO (16:14)
[2017-12-18 17:02] LABS: POC GLUCOSE 182 mg/dL (70-99)
[2017-12-18] MEDS: TAMSULOSIN 0.4 MG CAP.ER.24H. PO (21:02)
[2017-12-18] MEDS: ATORVASTATIN CALCIUM 20 MG TABLET PO (21:03)
[2017-12-18 21:05] LABS: POC GLUCOSE 174 mg/dL (70-99)
[2017-12-18] MEDS: INSULIN GLARGINE 300 UNITS/3 ML INSULN.PEN. SQ (21:06)
[2017-12-19 07:57] LABS: ALBUMIN 2.7 g/dL (3.4-5.0); ALBUMIN/GLOBULIN RATIO 0.7 (1.0-1.7); ALK PHOS 84 U/L (46-116); ALT (SGPT) 22 U/L (16-63); ANION GAP 5 (6-14); AST (SGOT) 18 U/L (15-37); BLOOD UREA NITROGEN 43 mg/dL (8-26); BUN/CREATININE RATIO 22 (6-20); CALCIUM 8.5 mg/dL (8.5-10.1); CARBON DIOXIDE 36 mmol/L (21-32); CHLORIDE 103 mmol/L (98-107); GFR 31.8; GLUCOSE 132 mg/dL (70-99); POTASSIUM 3.5 mmol/L (3.5-5.1); SODIUM 144 mmol/L (136-145); TOTAL BILIRUBIN 0.9 mg/dL (0.2-1.0); TOTAL PROTEIN 6.8 g/dL (6.4-8.2)
[2017-12-19] MEDS: BUDESONIDE 0.5 MG/2 ML NEBU. NEB ×2 (07:59→19:55)
[2017-12-19] MEDS: IPRATRPIUM/ALBUTEROL 0.5/2.5MG 3 ML NEBU. NEB ×4 (07:59→19:55)
[2017-12-19 08:00] LABS: POC GLUCOSE 137 mg/dL (70-99)
[2017-12-19] MEDS: SPIRONOLACTONE 25 MG TABLET PO (08:47)
[2017-12-19] MEDS: FUROSEMIDE 40 MG/4 ML VIAL. IVP ×2 (08:47→13:39)
[2017-12-19] MEDS: CHOLECALCIFEROL (VITAMIN D3) 1,000 UNIT TABLET PO (08:47)
[2017-12-19] MEDS: CETIRIZINE HCL 10 MG TABLET. PO (08:47)
[2017-12-19] MEDS: FINASTERIDE 5 MG TABLET. PO (08:48)
[2017-12-19] MEDS: DOCUSATE SODIUM 100 MG CAPSULE. PO ×2 (08:48→21:21)
[2017-12-19] MEDS: ISOSORBIDE MONONITRATE ER 30 MG TAB.ER.24H PO (08:48)
[2017-12-19] MEDS: METOPROLOL TART IMMED RELEASE 50 MG TABLET. PO ×2 (08:48→21:21)
[2017-12-19] MEDS: MUPIROCIN 2 % TOPICAL CREAM 15GM TUBE. TP (08:54)
[2017-12-19] MEDS: POLYVINYL ALCOHOL 1.4% OPHTH SOLUTION 15ML BOTTLE. OU ×4 (08:54→21:18)
[2017-12-19] MEDS: DORZOLAMIDE 2% OPHTH SOLUTION 10ML BOTTLE. OU ×3 (08:54→21:18)
[2017-12-19] MEDS: INSULIN LISPRO 300 UNITS/3 ML INSULN.PEN. SQ ×4 (09:00→17:32)
[2017-12-19 12:34] LABS: POC GLUCOSE 236 mg/dL (70-99)
[2017-12-19 16:56] LABS: POC GLUCOSE 307 mg/dL (70-99)
[2017-12-19] MEDS: WARFARIN 2 MG TABLET. PO (17:29)
[2017-12-19] MEDS: ATORVASTATIN CALCIUM 20 MG TABLET PO (21:20)
[2017-12-19] MEDS: TAMSULOSIN 0.4 MG CAP.ER.24H. PO (21:20)
[2017-12-19] MEDS: INSULIN GLARGINE 300 UNITS/3 ML INSULN.PEN. SQ (21:28)
[2017-12-20 00:54] LABS: POC GLUCOSE 161 mg/dL (70-99)
[2017-12-20 05:25] LABS: INR 2.6 (0.8-1.1); PROTHROMBIN TIME PATIENT 26.9 SEC (11.7-14.0)
[2017-12-20 07:09] LABS: ALBUMIN 2.9 g/dL (3.4-5.0); ALBUMIN/GLOBULIN RATIO 0.6 (1.0-1.7); ALK PHOS 99 U/L (46-116); ALT (SGPT) 22 U/L (16-63); ANION GAP 6 (6-14); AST (SGOT) 20 U/L (15-37); BLOOD UREA NITROGEN 44 mg/dL (8-26); BUN/CREATININE RATIO 23 (6-20); CALCIUM 8.8 mg/dL (8.5-10.1); CARBON DIOXIDE 34 mmol/L (21-32); CHLORIDE 101 mmol/L (98-107); CREATININE 1.9 mg/dL (0.7-1.3); GFR 33.7; GLUCOSE 156 mg/dL (70-99); POTASSIUM 3.7 mmol/L (3.5-5.1); SODIUM 141 mmol/L (136-145); TOTAL BILIRUBIN 0.8 mg/dL (0.2-1.0); TOTAL PROTEIN 7.5 g/dL (6.4-8.2)
[2017-12-20] MEDS: IPRATRPIUM/ALBUTEROL 0.5/2.5MG 3 ML NEBU. NEB ×4 (08:08→20:07)
[2017-12-20] MEDS: BUDESONIDE 0.5 MG/2 ML NEBU. NEB ×2 (08:08→20:07)
[2017-12-20 08:19] LABS: POC GLUCOSE 130 mg/dL (70-99)
[2017-12-20] MEDS: CETIRIZINE HCL 10 MG TABLET. PO (09:14)
[2017-12-20] MEDS: DOCUSATE SODIUM 100 MG CAPSULE. PO ×2 (09:14→21:25)
[2017-12-20] MEDS: CHOLECALCIFEROL (VITAMIN D3) 1,000 UNIT TABLET PO (09:14)
[2017-12-20] MEDS: METOPROLOL TART IMMED RELEASE 50 MG TABLET. PO ×2 (09:14→21:25)
[2017-12-20] MEDS: SPIRONOLACTONE 25 MG TABLET PO (09:15)
[2017-12-20] MEDS: FINASTERIDE 5 MG TABLET. PO (09:15)
[2017-12-20] MEDS: ISOSORBIDE MONONITRATE ER 30 MG TAB.ER.24H PO (09:15)
[2017-12-20] MEDS: FUROSEMIDE 40 MG/4 ML VIAL. IVP ×2 (09:17→16:46)
[2017-12-20] MEDS: INSULIN LISPRO 300 UNITS/3 ML INSULN.PEN. SQ ×4 (09:17→17:51)
[2017-12-20] MEDS: POLYVINYL ALCOHOL 1.4% OPHTH SOLUTION 15ML BOTTLE. OU ×4 (09:17→21:00)
[2017-12-20] MEDS: MUPIROCIN 2 % TOPICAL CREAM 15GM TUBE. TP (09:18)
[2017-12-20] MEDS: DORZOLAMIDE 2% OPHTH SOLUTION 10ML BOTTLE. OU ×3 (09:18→21:23)
[2017-12-20] MEDS: POLYETHYLENE GLYCOL 3350 17 GM PACKET. PO (09:19)
[2017-12-20 12:06] LABS: POC GLUCOSE 185 mg/dL (70-99)
[2017-12-20] MEDS: WARFARIN 2 MG TABLET. PO (16:46)
[2017-12-20 17:30] LABS: POC GLUCOSE 182 mg/dL (70-99)
[2017-12-20 21:16] LABS: POC GLUCOSE 171 mg/dL (70-99)
[2017-12-20] MEDS: TAMSULOSIN 0.4 MG CAP.ER.24H. PO (21:24)
[2017-12-20] MEDS: ATORVASTATIN CALCIUM 20 MG TABLET PO (21:25)
[2017-12-20] MEDS: INSULIN GLARGINE 300 UNITS/3 ML INSULN.PEN. SQ (21:27)
[2017-12-21] MEDS: IPRATRPIUM/ALBUTEROL 0.5/2.5MG 3 ML NEBU. NEB ×4 (08:10→20:02)
[2017-12-21] MEDS: BUDESONIDE 0.5 MG/2 ML NEBU. NEB ×2 (08:10→20:02)
[2017-12-21 08:23] LABS: POC GLUCOSE 122 mg/dL (70-99)
[2017-12-21] MEDS: POLYVINYL ALCOHOL 1.4% OPHTH SOLUTION 15ML BOTTLE. OU ×4 (09:00→21:26)
[2017-12-21] MEDS: ISOSORBIDE MONONITRATE ER 30 MG TAB.ER.24H PO (09:59)
[2017-12-21] MEDS: SPIRONOLACTONE 25 MG TABLET PO (09:59)
[2017-12-21] MEDS: CHOLECALCIFEROL (VITAMIN D3) 1,000 UNIT TABLET PO (10:00)
[2017-12-21] MEDS: CETIRIZINE HCL 10 MG TABLET. PO (10:00)
[2017-12-21] MEDS: DOCUSATE SODIUM 100 MG CAPSULE. PO ×2 (10:00→21:26)
[2017-12-21] MEDS: FINASTERIDE 5 MG TABLET. PO (10:00)
[2017-12-21] MEDS: METOPROLOL TART IMMED RELEASE 50 MG TABLET. PO ×2 (10:02→21:25)
[2017-12-21] MEDS: FUROSEMIDE 40 MG/4 ML VIAL. IVP ×2 (10:03→15:07)
[2017-12-21] MEDS: DORZOLAMIDE 2% OPHTH SOLUTION 10ML BOTTLE. OU ×3 (10:04→21:26)
[2017-12-21] MEDS: MUPIROCIN 2 % TOPICAL CREAM 15GM TUBE. TP (10:04)
[2017-12-21] MEDS: INSULIN LISPRO 300 UNITS/3 ML INSULN.PEN. SQ ×4 (10:12→16:59)
[2017-12-21 12:13] LABS: POC GLUCOSE 219 mg/dL (70-99)
[2017-12-21] MEDS: WARFARIN 2 MG TABLET. PO (15:12)
[2017-12-21 17:02] LABS: POC GLUCOSE 66 mg/dL (70-99)
[2017-12-21 17:44] LABS: POC GLUCOSE 75 mg/dL (70-99)
[2017-12-21 21:15] LABS: POC GLUCOSE 126 mg/dL (70-99)
[2017-12-21] MEDS: TAMSULOSIN 0.4 MG CAP.ER.24H. PO (21:26)
[2017-12-21] MEDS: ATORVASTATIN CALCIUM 20 MG TABLET PO (21:26)
[2017-12-21] MEDS: INSULIN GLARGINE 300 UNITS/3 ML INSULN.PEN. SQ (21:35)
[2017-12-22 07:23] LABS: INR 3.2 (0.8-1.1); PROTHROMBIN TIME PATIENT 31.7 SEC (11.7-14.0)
[2017-12-22] MEDS: IPRATRPIUM/ALBUTEROL 0.5/2.5MG 3 ML NEBU. NEB ×3 (07:41→15:17)
[2017-12-22] MEDS: BUDESONIDE 0.5 MG/2 ML NEBU. NEB (07:42)
[2017-12-22 07:53] LABS: POC GLUCOSE 102 mg/dL (70-99)
[2017-12-22] MEDS: MUPIROCIN 2 % TOPICAL CREAM 15GM TUBE. TP (09:00)
[2017-12-22] MEDS: DORZOLAMIDE 2% OPHTH SOLUTION 10ML BOTTLE. OU ×2 (09:59→14:05)
[2017-12-22] MEDS: CHOLECALCIFEROL (VITAMIN D3) 1,000 UNIT TABLET PO (09:59)
[2017-12-22] MEDS: POLYVINYL ALCOHOL 1.4% OPHTH SOLUTION 15ML BOTTLE. OU ×2 (09:59→13:00)
[2017-12-22] MEDS: DOCUSATE SODIUM 100 MG CAPSULE. PO (09:59)
[2017-12-22] MEDS: SPIRONOLACTONE 25 MG TABLET PO (10:00)
[2017-12-22] MEDS: METOPROLOL TART IMMED RELEASE 50 MG TABLET. PO (10:00)
[2017-12-22] MEDS: ISOSORBIDE MONONITRATE ER 30 MG TAB.ER.24H PO (10:00)
[2017-12-22] MEDS: FINASTERIDE 5 MG TABLET. PO (10:00)
[2017-12-22] MEDS: CETIRIZINE HCL 10 MG TABLET. PO (10:00)
[2017-12-22] MEDS: FUROSEMIDE 40 MG TABLET. PO ×2 (10:03→14:10)
[2017-12-22] MEDS: INSULIN LISPRO 300 UNITS/3 ML INSULN.PEN. SQ ×2 (10:10→11:55)
[2017-12-22 11:29] LABS: POC GLUCOSE 152 mg/dL (70-99)
[2017-12-22] MEDS: WARFARIN 2 MG TABLET. PO (16:55)
== END 2017-12-22 17:30 | disposition home or self-care (01) | DRG 682 ==
LOC: 2 SOUTH 12-17 07:17 → 5 SOUTH 12-21 20:34 → ER 03:36 → 1 WEST ICU 04:30
PROC: 5A09357 Assistance with Respiratory Ventilation, Less than 24 Consecutive Hours, Continuous Positive Airway Pressure (ICD-10-PCS; principal; 2017-12-16)
DX: N17.9 Acute kidney failure, unspecified (principal); I50.43 Acute on chronic combined systolic (congestive) and diastolic (congestive) heart failure; J96.01 Acute respiratory failure with hypoxia; J96.02 Acute respiratory failure with hypercapnia; E11.22 Type 2 diabetes mellitus with diabetic chronic kidney disease; E66.01 Morbid (severe) obesity due to excess calories; I24.8 Other forms of acute ischemic heart disease; I13.0 Hypertensive heart and chronic kidney disease with heart failure and stage 1 through stage 4 chronic kidney disease, or unspecified chronic kidney disease; I42.9 Cardiomyopathy, unspecified; J44.1 Chronic obstructive pulmonary disease with (acute) exacerbation; I25.10 Atherosclerotic heart disease of native coronary artery without angina pectoris; I48.91 Unspecified atrial fibrillation; N18.3 Chronic kidney disease, stage 3 (moderate); N40.0 Benign prostatic hyperplasia without lower urinary tract symptoms; M54.5 Low back pain; Z68.35 Body mass index [BMI] 35.0-35.9, adult; Z79.01 Long term (current) use of anticoagulants; Z82.0 Family history of epilepsy and other diseases of the nervous system; Z82.49 Family history of ischemic heart disease and other diseases of the circulatory system; Z87.891 Personal history of nicotine dependence; Z95.0 Presence of cardiac pacemaker; Z99.81 Dependence on supplemental oxygen; Z83.3 Family history of diabetes mellitus; Z68.34 Body mass index [BMI] 34.0-34.9, adult; Z88.6 Allergy status to analgesic agent; Z88.1 Allergy status to other antibiotic agents; Z88.8 Allergy status to other drugs, medicaments and biological substances; Z90.49 Acquired absence of other specified parts of digestive tract
CPT/HCPCS: 36415; 36600; 71045; 80053; 82805; 82962; 83605; 83880; 84100; 84484; 85007; 85025; 85610; 87040; 93005; 93306; 94618; 94640; 94660; 94760; 96365; 96375; 99285; 99285-25; J0690; J1815; J1940; J3490; J7620; J7626